=== PATIENT | male | born 1940 | race Caucasian/White ===

== ENCOUNTER → 2018-01-17 14:45 | Outpatient (CLI) | payer OTHER, SELFPAY ==
--- NOTE | 2018-01-17 | DI.MRI.S_ITS ---
PROCEDURE: MR LUMBAR SPINE WO CON INDICATIONS: Low back and right hip pain. Bilateral hip pain while lifting TECHNIQUE: Noncontrast sagittal T1 spin echo and T2 fast echo, sagittal STIR, axial T1 and T2 fast spin echo through the lumbar spine. In cases with scoliosis, additional coronal T2 fast spin echo may be performed. COMPARISON: [facility], CR, XR LUMBAR SPINE WITH OBLIQUES, 05/14/2014, 12:15. [facility], CR, XR LUMBAR SPINE 2 OR 3 VIEWS, 01/06/2018, 15:02. FINDINGS: Image quality: Excellent. Alignment and Curvature: There is normal bony alignment. Bone Marrow: Marrow is of normal overall signal. No acute vertebral body compression fractures. Spinal Cord: Conus medullaris terminates at the L1-L2 level. Visualized cord demonstrates normal signal and size. Paraspinous Soft Tissues: No paravertebral masses. L1-L2: Minimal loss of disc height. Moderate disc desiccation. There is diffuse posterior disc bulge. Moderate bilateral facet arthropathy. The central canal is mildly narrowed. Mild bilateral foraminal stenosis. L2-L3: Preserved disc height and mild disc desiccation. Moderate to severe bilateral facet arthropathy. The central canal is mildly narrowed. Mild bilateral foraminal stenosis. L3-L4: Mild loss of disc height. Moderate disc desiccation. There is diffuse posterior disc bulge. Moderate bilateral facet arthropathy and hypertrophy of ligamentum flavum. The central canal is moderately narrowed. Mild left foraminal stenosis. Patent right neuroforamen. L4-L5: Mild loss of disc height. Moderate disc desiccation. There is diffuse posterior disc bulge. Severe bilateral facet arthropathy and hypertrophy of ligamentum flavum. The central canal is severely narrowed. Mild bilateral foraminal stenosis. L5-S1: Preserved disc height. Mild disc desiccation. There is mild posterior disc bulge. Severe right and mild left facet arthropathy. The central canal is mildly narrowed. Mild bilateral foraminal stenosis. IMPRESSION: 1. Multilevel degenerative disc disease and facet arthropathy as described. 2. Multilevel central canal stenoses, severe at L4-L5, and moderate L3-L4. 3. Mild multilevel foraminal stenoses as described. Dictated by: Felisha Burgos M.D. on 01/17/2018 at 16:27 Approved by: Felisha Burgos M.D. on 01/17/2018 at 16:37
== END ==
PROVIDERS: Family Provider Family Medicine; PCP Family Medicine; Visit Provider Orthopaedic Surgery
DX: M54.41 Lumbago with sciatica, right side (principal); M25.552 Pain in left hip; M25.551 Pain in right hip; M47.896 Other spondylosis, lumbar region; M48.061 Spinal stenosis, lumbar region without neurogenic claudication
CPT/HCPCS: 72148

== ENCOUNTER 2018-11-23 08:38 | Inpatient (IN) | payer OTHER, SELFPAY ==
[2018-11-15 09:55] VITALS: BMI 38.7
[2018-11-23] VITALS (23 sets, daily range): BP systolic 89–131; BP diastolic 46–66; PULSE 73–113; RESP 6–20; TEMP 36.1–37.1; O2SAT 88–98; BMI 37.9
--- NOTE | 2018-11-23 | DI.RAD.S_ITS ---
PROCEDURE: XR LUMBAR SPINE 2-3V INDICATIONS: L4-5 TLIF TECHNIQUE: 2 views of the lumbar spine were acquired. COMPARISON: [facility]NIE Hooper, XR LUMBAR SPINE 2 OR 3 VIEWS, 01/06/2018, 15:02. FINDINGS: Bones: Postsurgical changes compatible L4-L5 fusion noted. Orthopedic hardware is intact. No lucencies at the bone hardware interface. There is normal bony alignment. No vertebral body compression fractures. No suspicious bony lesions. Soft tissues: Overlying bowel gas pattern is normal. No suspicious soft tissue calcifications. IMPRESSION: Expected postsurgical change for L4-L5 TLIF Dictated by: Brandy Calzada MD, PhD on 11/23/2018 at 15:01 Approved by: Brandy Calzada MD, PhD on 11/23/2018 at 15:02
[2018-11-23] MEDS: LACTATED RINGERS 1,000 ML 42 ML IV ×3 (09:40→14:28)
--- NOTE | 2018-11-23 10:38 | PM.PREOP ---
Pre-operative Note Interval Note History & Physical reviewed/Exam performed by Physician: Yes Changes to H&P: No
[2018-11-23] MEDS: CEFAZOLIN 2 GM/100 ML FROZ.PIGGY IV ×2 (11:03→19:01)
[2018-11-23] MEDS: BUPIVACAINE LIPOSOME 266 MG/20 ML VIAL INJ (11:49)
[2018-11-23] MEDS: BUPIVACAINE 0.25% W/ EPI 30 ML VIAL INJ (11:49)
--- NOTE | 2018-11-23 12:08 | SUR.OPER ---
Prone on spine table, head in foam head support, padded chest and pelvic supports, gel pad at knees, lower legs supported by pillows; nipples, genitalia and toes free of pressure, arms secured on foam padded arm boards at <90 degrees abduction. Tape over blanket at thigh secured to table.
--- NOTE | 2018-11-23 15:00 | PM.OP.1 ---
Operative Date/Time/Diagnoses Date of procedure: 11/23/18 Time of procedure: 13:00 Pre-op diagnosis: 1. L4-5 spinal stenosis with neurogenic claudication 2. L5-S1 spinal stenosis 3. Epidural lipomatosis Post-op diagnosis: same Procedure & Clinicians Procedure: 1. L4-5 Postero-lateral and posterior interbody fusion 2. L4-5 interbody cage placement. 3. L4-5 decompressive laminectomy with bilateral facetecomies 4. L4-5 Posterior non-segmental instrumentation 5. L5-S1 hemilaminectomy 6. [place] of bone marrow from iliac crest 7. Utilization of microsurgical technique and operating microscope Same procedure as scheduled: Yes Indications: Patient has been having chronic back pain and worsening lumbar radiculopathy. Patient failed multiple conservative management with worsening pain weakness and numbness in her lower extremity. Patient has been having difficulty performing activity of daily living. After discussing risks benefits of treatment options, patient elected proceed with surgery. Surgeon: Linda Padilla Instantizer Operator: Blank Alvarenga'Brien Click Yes if Unassisted: No Anesthesia Type: General Operative Notes Closure Type: primary Specimen(s): none sent Prosthetic devices, grafts, tissues, transplants, or devices: Globus revolve screws, Rise cages Estimated Blood Loss (mL): 100 Blood products transfused: none Procedure in detail: Patient was seen in the preoperative area. Risks and benefits of the surgery was discussed with the patient. Informed consent was obtained from the patient and placed in the chart. Surgical site was marked. Patient was taken to the operative room. General anesthesia was administered. Prophylactic antibiotic was given to the patient less than 30 min before the incision was made. Patient was placed into a prone position on the Maxx table. Patient's back was then prepped and draped in the sterile fashion. Time-out was performed at this time. Using AP and lateral C-arm imaging the interval between L4-5 L5-S1 was identified and marked on patient's back. A 2 inch incision 2 in from midline was made on the right side first. The fascia was incised in line with skin incision. Globus MARS retractors was placed inside the incision and docked onto the L4 lamina. Using microsurgical technique and operating microscope, a L4 laminectomy and L4-5 facetectomy was performed using a Kerrison rongeur. The disc space at L4-5 was identified. And a total diskectomy was performed at L4-5 level. The endplates were decorticated using a rasp and shaver. The total diskectomy and decortication was performed at L4-5 level in order to to accomplish a L4-5 fusion. The local bone from the laminectomy and facetectomy was saved for local bone grafting. After the total diskectomy and decortication was completed, Bio4 bone graft material was combined with local bone that was harvested earlier. At this time, a separate skin is incision was made over the iliac crest. A Jamshidi needle was inserted into the iliac crest through a separate skin incision. 5 cc of bone marrow aspiration was obtained through the separate skin incision using a Jamshidi needle from the iliac crest. The bone marrow aspiration was combined with local bone and the via cell bone grafting material. The bone grafting material was placed into the L4-5 interbody space along with a expandable cage. The cage was expanded to its maximum height using the torque limiting screwdriver. At this time the MARS retractor was redirected over the L5 lamina. Using microsurgical technique and operating microscope, a L5-S1 heminectomy was performed using the Kerrison rongeur. The ligamentum flavum was also resected at the side of the hemilaminectomy for further decompression of the epidural space. Patient was found have significant amount of epidural lipomatosis, was carefully removed from the epidural space to further decompress the spinal canal. At this time a mirror image incision was made on the left side. The fascia was incised in line with the skin incision. Globus MARS retractor was inserted and docked onto the L4-5 posterolateral gutter. Using the power drill, posterior-lateral decortication was performed at L4-5 level until bleeding cortical bone was identified. The remaining bone grafting material was placed into the L4-5 posterior lateral gutter he order to accomplish posterolateral fusion at the L4-5 level. Using the double C-arm technique, pedicle screws were placed into the L4 and L5 pedicles bilaterally. This was done by placing the Jamshidi needle into the pedicles, then placing the guidewires over the Jamshidi needle, and finally placing the cannulated screws over the guidewires bilaterally. After the pedicle screws were placed, 2 titanium rods was locked into the heads of the pedicle screws using locking caps and torque limiting screwdriver. After all the hardware was placed, and confirmed with AP and lateral C-arm imaging, the wound was then irrigated with sterile normal saline and packed with Ray-Kee gauze for 3 min to accomplish hemostasis. After the gauze was removed the deep fascia was closed with #1 Vicryl suture. The subcutaneous layer was closed with 2-0 Vicryl. The skin was closed with skin rosy. Patient tolerated the procedure well. There were no complications. Complications: none Condition: stable Disposition: PACU Plan for aftercare: Admit to inpatient hospital
--- NOTE | 2018-11-23 15:06 | P.OP_ITS ---
Operative Date/Time/Diagnoses Date of procedure: 11/23/18 Time of procedure: 13:00 Pre-op diagnosis: 1. L4-5 spinal stenosis with neurogenic claudication 2. L5-S1 spinal stenosis 3. Epidural lipomatosis Post-op diagnosis: same Procedure & Clinicians Procedure: 1. L4-5 Postero-lateral and posterior interbody fusion 2. L4-5 interbody cage placement. 3. L4-5 decompressive laminectomy with bilateral facetecomies 4. L4-5 Posterior non-segmental instrumentation 5. L5-S1 hemilaminectomy 6. [place] of bone marrow from iliac crest 7. Utilization of microsurgical technique and operating microscope Same procedure as scheduled: Yes Indications: Patient has been having chronic back pain and worsening lumbar radiculopathy. Patient failed multiple conservative management with worsening pain weakness and numbness in her lower extremity. Patient has been having difficulty performing activity of daily living. After discussing risks benefits of treatment options, patient elected proceed with surgery. Surgeon: Linda Padilla Material Damage Appraiser: Blank Alvarenga'Brien Click Yes if Unassisted: No Anesthesia Type: General Operative Notes Closure Type: primary Specimen(s): none sent Prosthetic devices, grafts, tissues, transplants, or devices: Globus revolve screws, Rise cages Estimated Blood Loss (mL): 100 Blood products transfused: none Procedure in detail: Patient was seen in the preoperative area. Risks and benefits of the surgery was discussed with the patient. Informed consent was obtained from the patient and placed in the chart. Surgical site was marked. Patient was taken to the operative room. General anesthesia was administered. Pr ophylactic antibiotic was given to the patient less than 30 min before the incision was made. Patient was placed into a prone position on the Maxx table. Patient's back was then prepped and draped in the sterile fashion. Time- out was performed at this time. Using AP and lateral C-arm imaging the interval between L4-5 L5-S1 was identified and marked on patient's back. A 2 inch incision 2 in from midline was made on the right side first. The fascia was incised in line with skin incision. Globus MARS retractors was placed inside the incision and docked onto the L4 lamina. Using microsurgical technique and operating microscope, a L4 laminectomy and L4-5 facetectomy was performed using a Kerrison rongeur. The disc space at L4-5 was identified. And a total diskectomy was performed at L4-5 level. The endplates were decorticated using a rasp and shaver. The total diskectomy and decortication was performed at L4-5 level in order to to accomplish a L4-5 fusion. The local bone from the laminectomy and facetectomy was saved for local bone grafting. After the total diskectomy and decortication was completed, Bio4 bone graft material was combined with local bone that was harvested earlier. At this time, a separate skin is incision was made over the iliac crest. A Jamshidi needle was inserted into the iliac crest through a separate skin incision. 5 cc of bone marrow aspiration was obtained through the separate skin incision using a Jamshidi needle from the iliac crest. The bone marrow aspiration was combined with local bone and the via cell bone grafting material. The bone grafting material was placed into the L4-5 interbody space along with a expandable cage. The cage was expanded to its maximum height using the torque limiting screwdriver. At this time the MARS retractor was redirected over the L5 lamina. Using microsurgical technique and operating microscope, a L5-S1 heminectomy was performed using the Kerrison rongeur. The ligamentum flavum was also resected at the side of the hemilaminectomy for further decompression of the epidural space. Patient was found have significant amount of epidural lipomatosis, was carefully removed from the epidural space to further decompress the spinal canal. At this time a mirror image incision was made on the left side. The fascia was incised in line with the skin incision. Globus MARS retractor was inserted and docked onto the L4-5 posterolateral gutter. Using the power drill, posterior- lateral decortication was performed at L4-5 level until bleeding cortical bone was identified. The remaining bone grafting material was placed into the L4-5 posterior lateral gutter he order to accomplish posterolateral fusion at the L4- 5 level. Using the double C-arm technique, pedicle screws were placed into the L4 and L5 pedicles bilaterally. This was done by placing the Jamshidi needle into the pedicles, then placing the guidewires over the Jamshidi needle, and finally placing the cannulated screws over the guidewires bilaterally. After the pedicle screws were placed, 2 titanium rods was locked into the heads of the pedicle screws using locking caps and torque limiting screwdriver. After all the hardware was placed, and confirmed with AP and lateral C-arm imaging, the wound was then irrigated with sterile normal saline and packed with Ray-Kee gauze for 3 min to accomplish hemostasis. After the gauze was removed the deep fascia was closed with #1 Vicryl suture. The subcutaneous layer was closed with 2-0 Vicryl. The skin was closed with skin rosy. Patient tolerated the procedure well. There were no complications. Complications: none Condition: stable Disposition: PACU Plan for aftercare: Admit to inpatient hospital
[2018-11-23] MEDS: HYDROMORPHONE 2 MG INJ 0.5 MG IV ×4 (15:45→16:14)
--- NOTE | 2018-11-23 15:53 | SUR.PHASEI ---
Report called to Sharifa
[2018-11-23] MEDS: hydrOXYzine 50 MG/ML INJ 25 MG IM (16:07)
--- NOTE | 2018-11-23 16:22 | SUR.PHASEI ---
Pt status called to Sharifa.
--- NOTE | 2018-11-23 16:53 | SUR.PHASEI ---
Pt. transferred to the floor. Report to Sharifa. VS stable. IV saline locked. Marjg checked with RN. Belongings bag and CPAP in room.
[2018-11-23] MEDS: SODIUM CHLORIDE 0.9% 1,000 ML 100 ML IV (18:00)
[2018-11-23] MEDS: OXYCODONE IR 5 MG TABLET 10 MG PO ×2 (18:12→21:08)
[2018-11-23] MEDS: SIMVASTATIN 40 MG TABLET PO (18:13)
[2018-11-23] MEDS: METFORMIN HCL 500 MG TABLET 1000 MG PO (18:13)
[2018-11-23] MEDS: SENNOSIDES 8.6 MG TABLET 17.2 MG PO (21:06)
[2018-11-23] MEDS: DOCUSATE 100 MG CAPSULE PO (21:06)
[2018-11-23] MEDS: ACETAMINOPHEN 325 MG TABLET 650 MG PO (21:07)
[2018-11-23] MEDS: hydrOXYzine pamoate 25 MG CAPSULE PO (21:07)
--- NOTE | 2018-11-23 22:15 | PC.NURSE ---
Addendum entered by Sharifa Boone R.N. 11/23/18 22:31: 1325 Urine output w/initial phan catherer placement. Original Note: 2200-patient unable to void despite attempts to use urinal, Dr. Gonzalez notified via answering system informed informed him that patient bladder scan shows>999cc of urine; phone order for phan placement.
[2018-11-24] MEDS: CEFAZOLIN 2 GM/100 ML FROZ.PIGGY IV (02:06)
[2018-11-24 03:15] VITALS: BP 99/55; PULSE 104; RESP 18; TEMP 36.6; O2SAT 94
--- NOTE | 2018-11-24 04:00 | PC.NURSE ---
Pt is A and O x 4, VSS, needing 3L O2 bled into CPAP to stay >92%. Incision site dressing C/D/I. Pt tolerating IV ABOs well. Pain is okay.
[2018-11-24] MEDS: SODIUM CHLORIDE 0.9% 1,000 ML 100 ML IV (05:12)
[2018-11-24 05:30] LABS: Hematocrit 39.8 % (41-53); Hemoglobin 13.4 g/dL (13.5-17.5)
--- NOTE | 2018-11-24 06:11 | PC.NURSE ---
Pt pulls of CPAP and becomes confused. He pulled out his IV and carefully taped it to his bed. He pulls on his Scott as well. RT readjusted CPAP settings and pt is doing much better: 95% 3L CPAP.
[2018-11-24] MEDS: DOCUSATE 100 MG CAPSULE PO ×2 (08:13→20:13)
[2018-11-24] MEDS: ESCITALOPRAM 10 MG TABLET PO (08:13)
[2018-11-24] MEDS: METFORMIN HCL 500 MG TABLET 1500 MG PO (08:13)
[2018-11-24] MEDS: CHOLECALCIFEROL (VITAMIN D3) 1,000 UNIT TABLET 4000 UNIT PO (08:15)
[2018-11-24] MEDS: ACETAMINOPHEN 325 MG TABLET 650 MG PO (08:15)
[2018-11-24] MEDS: INSULIN NPH 100 UNIT/ML VIAL 60 UNIT SUBCUT ×2 (08:16→20:14)
[2018-11-24 09:00] VITALS: BP 119/68; PULSE 113; RESP 18; TEMP 36.9; O2SAT 93
--- NOTE | 2018-11-24 10:04 | P.PN_ITS ---
Subjective Date Patient Seen: 11/24/18 Time Patient Seen: 10:00 Interval history: POD #1 s/p L4-5 TLIF and L5-S1 hemilaminectomy with Dr. Padilla. Patient's pain has been well controlled. BS of 157. Patient had to be catheterized last night. He reports no previous prostate history or issues. He has been two assist out of bed and slow to mobilize. Most of pain is in low back. Exam Vital Signs (past 8 hours): - 11/24/18 03:15 11/24/18 09:00 Temperature 97.8 F 98.5 F Pulse Rate 104 H 113 H Respiratory Rate 18 18 Blood Pressure 99/55 L 119/68 Pulse Oximetry 94 93 Fraction of Inspired Oxygen 28 Oxygen Delivery Method CPAP Oxygen Flow Rate 0 Narrative Exam Narrative: Patient sitting in bedside chair in NAD. He is alert and orient ed X3. Scott in place. Calves are soft, compressible, and nontender bilaterally. He is able to actively dorsiflex and plantarflex. Objective Labs Result Diagrams: 11/24/18 05:01 Labs: Laboratory Results - last 24 hr 11/24/18 05:01 Hgb 13.4 L Hct 39.8 L Assessment & Plan Post-op (1) Obstructive sleep apnea of adult: (2) Obesity (BMI 30-39.9): (3) S/P lumbar fusion: (4) Diabetes: Postoperative Procedures Operation Date: 11/23/18 10:45 Actual Procedures Side Surgeon p L5-S1 Right Hemilaminectomy,L4-5 TLIF w/Posterior Instru. Linda Padilla MD Patient will continue to mobilize with PT. No excessive bending, lifting, or twisting. We will plan to DC Scott tomorrow morning. Add [place] 1-2 tabs po for pain management if Tylenol does not work for pain control. Patient has been slow to mobilize and requiring a lot of reminders during ambulation. Will likely need home health services verses SNF for continued rehab after surgery. Quality VTE Deep Vein Thrombosis/Pulmonary Embolism Present on Admission: No
[2018-11-24 11:47] VITALS: BP 100/55; PULSE 93; RESP 18; TEMP 36.6; O2SAT 90
[2018-11-24] MEDS: HYDROCODONE/ACET 5/325 TABLET 2 TAB PO ×3 (12:10→20:13)
--- NOTE | 2018-11-24 12:10 | PT.IIE ---
Current Diagnoses Type 2 diabetes mellitus without complications (11/23/18) Obesity, unspecified (11/23/18) Obstructive sleep apnea (adult) (pediatric) (11/23/18) Other spondylosis with radiculopathy, lumbar region (11/23/18) Spinal stenosis, lumbar region with neurogenic claudication (11/23/18) Arthrodesis status (11/23/18) Surgery Performed Operation Date: 11/23/18 10:45 Actual Procedures p L5-S1 Right Hemilaminectomy,L4-5 TLIF w/Posterior Instru. - Linda Padilla MD Surgical History (Last Updated 11/15/18 @ 10:20 by Maryana Medrano RN) History of colonoscopy (Acute) History of vasectomy (Acute) Medical History (Last Updated 11/23/18 @ 11:08 by Krystian Jasmine) Cataracts, bilateral (Acute) Memory changes (Acute) Tooth infection (Acute ~09/2017) A-fib (Chronic) Aortic stenosis (Chronic) Arthritis (Chronic) Depression (Chronic) Diabetes (Chronic) HLD (hyperlipidemia) (Chronic) Hearing impaired (Chronic) Numbness and tingling of both feet (Chronic) Right hip pain (Chronic) Sleep apnea with use of continuous positive airway pressure (CPAP) (Chronic) Intermittent claudication (Acute) Physical Therapy Inpatient Evaluation/Re-Eval M1 PT/OT-IP Prior Functional Status Start: 11/24/18 11:37 Freq: NEEDED Status: Active Protocol: Document 11/24/18 09:20 HH (Rec: 11/24/18 11:43 [email or web address]) Medical Review Prior Functional Status Medical History Reviewed Yes Communication No communication deficits noted. Able to make needs known Mobility and Gait Pt states he is mostly homebound and does not use any AD. He is able to amb couple hundred feet before rest. Pt also states he has difficulty getting up from chair at baseline. Activities of Daily Living and IADL's Pt states he has difficulty putting socks on due to poor flexibility. Pt's assists pt for cooking, grocery shopping, house cleaning and putting socks on. Social History Household Members spouse children Living Arrangements House Number of Floors (Floors) One Floor Number of Stairs To Enter/Railing? 3STE w/o railings Home Environment High Toilet Tub/Shower Home Equipment Front Wheel Walker Crutches Employment Status Retired Additional Social History Comment Pt lives in [facility] with his spouse. Pt states he is pretty much homebound and does not move much. Pt was able to amb without AD but does not go far. Pt's spouse is very independent and active who is able to assist pt with cooking , grocery shopping, house cleaning as needed. M2 PT-IP Current Condition Start: 11/24/18 11:37 Freq: NEEDED Status: Active Protocol: Document 11/24/18 09:20 (Rec: 11/24/18 12:09 [email or web address]) Physical Therapy Current Condition Current Condition Evaluation Date 11/24/18 Treatment Diagnosis L4-L5 TLIF, impaired gait and activity tolerance Onset Date 11/23/18 Precautions Lumbar Precautions Log Roll No Twisting Limit Bending Lifting Restriction of 10 lbs Gait Belt above Incisional Area Weight Bearing Status Weight Bearing Status Weight Bear as Tolerated M3 PT-IP Subjective Start: 11/24/18 11:37 Freq: NEEDED Status: Active Protocol: Document 11/24/18 09:20 HH (Rec: 11/24/18 12:09 [email or web address]) Subjective Physical Therapy Visit Type Type Initial Evaluation Visit Start Time 09:20 Visit Stop Time 09:50 Total Visit Minutes 30 Notes Per RN Janelle, pt got OOB with 2PA but he seems to have poor short term memory but able to follow simple command and instructions. Pt did log roll for bed mobility this am. Number of HOUSE RN Visits 0 Physical Therapy Visit Comments Patient Comments To go home with his Therapy Pain Assessment Pain When Pain Assessed During Mobility Pain Present Pain Present Pain Reported Location Low back Intensity 5 Scale Used Johnson-Alicia (Faces) Description Acute Pain Behaviors Facial Grimacing Pain Management Techniques Apply Cold Modification of Treatment Re-positioning Timing of Activity with Medications M4 PT-IP Mobility and Gait Start: 11/24/18 11:37 Freq: NEEDED Status: Active Protocol: Document 11/24/18 09:20 HH (Rec: 11/24/18 12:09 [email or web address]) PT-Transfer Assessment Sit to and From Stand Sit to and from Stand Moderate Assistance Use of Upper Extremities Equipment Transfer Assistive Device Gait Belt Front Wheeled Walker Orthotic/Prosthetic Devices or Brace: No Transfers Transfer Destination Chair Transfer Technique Stand Step Pivot Transfer Ability Level of Assist Moderate Assistance 2 Person Assistance Comments Mobility Comments Pt was up in chair upon assessment. He required mod A x1 for scooting in chair and sit to stand, especially from low bedside chair. Pt needed cues to keep his FWW close during transfer and he presents poor eccentric control during stand to sit. Gait Assessment Gait Gait Assistance Required: Contact Guard Assist Distance (Feet) 100 Able to Maintain Weight Bearing Status Yes During Gait Assistive Devices Assistive Device Gait Belt Front Wheeled Walker Orthotic/Prosthetic Devices or Brace: No Gait Deviations General Gait Pattern Decreased Stride Length Decreased Feet Clearance Step-to Gait Factors Limiting Gait Function Factors Limiting Gait Function Decreased Activity Tolerance Decreased Strength Limited Range of Motion Pain Poor Balance Poor Safety Awareness Respiratory Distress Comments Gait Comments Pt amb from chair to hallway and returned to chair with FWW CGA. Pt used step to gait and amb very slowly due to c/o pain. Pt had to stop in order to answer questions/ process information during gait training. Pt was fatigue afterwards and requested to rest in chair. Call light within reach and chair alarm attached. Stair Climbing Assessment Comments Stair Climbing Comments did not attempt due to fatigue PT-Balance Assessment Sitting Balance and Reactions Static Sitting Balance Ability Normal Dynamic Sitting Balance Ability Normal Standing Balance and Reactions Static Standing Balance Ability Good Dynamic Standing Balance Ability Fair Device Used FWW M5 PT-IP Objective Assessments Start: 11/24/18 11:37 Freq: NEEDED Status: Active Protocol: Document 11/24/18 09:20 (Rec: 11/24/18 12:09 [email or web address]) Orientation Orientation/Cognition Level of Alertness Alert Orientation Name Age Birthday Month Date Year Day of Week Place Situation Language Function Ability No Deficits Noted Safety Awareness Decreased Safety Awareness Memory Description Short Term Impaired Comments Pt was unable to recall any spinal precautions after educated pt multiple times. Gross Range of Motion Upper Extremity ROM Assessment Within Functional Limits Lower Extremity ROM Assessment Within Functional Limits Strength Upper Extremity Strength Assessment Within Functional Limits Lower Extremity Strength Assessment Bilaterally Impaired Comments Strength Comments 3+/5 gross LE strength Coordination Assessment Gross Coordination Gross Coordination WNL Assessment Finger to Nose Test Normal Performance Pronation/Supination Test Normal Performance Sensation Assessment Sensation Gross Sensation WNL Light Touch Intact Proprioception (Position) Intact Muscle Tone Muscle Tone WNL Yes M6 PT-IP Treatment Start: 11/24/18 11:37 Freq: NEEDED Status: Active Protocol: Document 11/24/18 09:20 (Rec: 11/24/18 12:09 [email or web address]) Physical Therapy Treatment Education Education Provided Precautions Weight Bearing Status Post-Op Packet Safety M7 PT-IP Assessment and Plan Start: 11/24/18 11:37 Freq: NEEDED Status: Active Protocol: Document 11/24/18 09:20 (Rec: 11/24/18 12:09 [email or web address]) PT Summary Assessment and Plan Potential Rehabilitation Potential Good Status of Condition at Evaluation Evolving Summary Impairments Pain ROM Strength Balance Cognition Bed Mobility Transfers Gait Activity Tolerance Assessment Summary Pt is mod complexity with decreased overall mobility with min to mod A, especially transfers and sit to stand activities. Pt also demonstrates poor short term memory who was unable to recall any spinal precautions after educated pt multiple times. At this point , pt is far from baseline and pt requires 2PA for mobility from nursing staff and cont to need skilled therapy to improve his mobility. Pt will benefit from d/c to SNF for short term rehab prior to d/c home due to his aforementioned decreased mobility which will be a burden for his spouse at this point. Goals Bed Mobility Goal Contact Guard Assistance Transfer Goal Contact Guard Assistance Gait Goal Contact Guard Assistance Gait Distance 200 Other Goals negotiate 3 steps without railing Days to Meet Goals 5 Frequency of Treatment Frequency Of Treatment Twice a Day Treatment Plan Physical Therapy Treatment Plan Bed Mobility Training Transfer Training Gait Training Therapeutic Exercise Balance Retraining Post Op Education Discharge Planning Hot or Cold Pack Other Recommendations and Next Treatment review precautions Focus LOG ROLL, transfer and gait training as lius m Recommendations To Nursing Amount of Assist Needed 2 Person Assist Discharge Recommendations PT Discharge Recommendations SNF Rehab Equipment Needed for Home Before raised toilet seat with Discharge armrest, shower bench
--- NOTE | 2018-11-24 12:34 | PC.NURSE ---
pt noted to be impulsive/forgetful this am upon initial assessment- reoriented eventually and after speaking with - she reports this has been happening more frequently in home as well- he is not very keen on maintaining spinal precautions and doesn't like reminders- phan was placed last pm for urinary retention and orders to maintain until tomorrows date early am- medicated for c/o pain with hydrocodone x2 - will monitor closely- chair alarm in place due to impulsivity
--- NOTE | 2018-11-24 14:00 | PT.IPTN ---
Current Diagnoses Type 2 diabetes mellitus without complications (11/23/18) Obesity, unspecified (11/23/18) Obstructive sleep apnea (adult) (pediatric) (11/23/18) Other spondylosis with radiculopathy, lumbar region (11/23/18) Spinal stenosis, lumbar region with neurogenic claudication (11/23/18) Arthrodesis status (11/23/18) Surgery Performed Operation Date: 11/23/18 10:45 Actual Procedures p L5-S1 Right Hemilaminectomy,L4-5 TLIF w/Posterior Instru. - Linda Padilla MD Physical Therapy Treatment Note M2 PT-IP Current Condition Start: 11/24/18 11:37 Freq: NEEDED Status: Active Protocol: Document 11/24/18 09:20 HH (Rec: 11/24/18 12:09 [email or web address]) Physical Therapy Current Condition Current Condition Evaluation Date 11/24/18 Treatment Diagnosis L4-L5 TLIF, impaired gait and activity tolerance Onset Date 11/23/18 Precautions Lumbar Precautions Log Roll No Twisting Limit Bending Lifting Restriction of 10 lbs Gait Belt above Incisional Area Weight Bearing Status Weight Bearing Status Weight Bear as Tolerated M3 PT-IP Subjective Start: 11/24/18 11:37 Freq: NEEDED Status: Active Protocol: Document 11/24/18 14:00 GGD (Rec: 11/24/18 15:21 GGD [id number]) Subjective Physical Therapy Visit Type Type Treatment Note Visit Start Time 13:30 Visit Stop Time 14:00 Total Visit Minutes 30 Number of CLERK GUIDE Visits 1 Physical Therapy Visit Comments Patient Comments Pt states he is willing to work with therapy. Therapy Pain Assessment Pain When Pain Assessed At Rest Pain Present Pain Present Pain Reported Location Low back Intensity 6 Scale Used Numeric (1 - 10) Pain Management Techniques Re-positioning Timing of Activity with Medications M4 PT-IP Mobility and Gait Start: 11/24/18 11:37 Freq: NEEDED Status: Active Protocol: Document 11/24/18 14:00 GGD (Rec: 11/24/18 15:21 GGD [id number]) PT-Transfer Assessment Sit to and From Stand Sit to and from Stand Moderate Assistance Use of Upper Extremities Equipment Transfer Assistive Device Gait Belt Front Wheeled Walker Orthotic/Prosthetic Devices or Brace: No Transfers Transfer Destination Chair Transfer Ability Level of Assist Minimal Assistance 1 Person Assistance Use of Upper Extremities Comments Mobility Comments Pt needed mod A and cues for sit to stand from chair. He need mod cues for controlled sit. Sit to stand x 3 with mod cue for techinque. Gait Assessment Gait Gait Assistance Required: Contact Guard Assist Distance (Feet) 45 Able to Maintain Weight Bearing Status Yes During Gait Assistive Devices Assistive Device Gait Belt Front Wheeled Walker Orthotic/Prosthetic Devices or Brace: No Gait Deviations General Gait Pattern Decreased Stride Length Decreased Feet Clearance Step-to Gait Factors Limiting Gait Function Factors Limiting Gait Function Decreased Activity Tolerance Decreased Strength Limited Range of Motion Pain Poor Balance Poor Safety Awareness Respiratory Distress M5 PT-IP Objective Assessments Start: 11/24/18 11:37 Freq: NEEDED Status: Active Protocol: Document 11/24/18 09:20 (Rec: 11/24/18 12:09 [email or web address]) Orientation Orientation/Cognition Level of Alertness Alert Orientation Name Age Birthday Month Date Year Day of Week Place Situation Language Function Ability No Deficits Noted Safety Awareness Decreased Safety Awareness Memory Description Short Term Impaired Comments Pt was unable to recall any spinal precautions after educated pt multiple times. Gross Range of Motion Upper Extremity ROM Assessment Within Functional Limits Lower Extremity ROM Assessment Within Functional Limits Strength Upper Extremity Strength Assessment Within Functional Limits Lower Extremity Strength Assessment Bilaterally Impaired Comments Strength Comments 3+/5 gross LE strength Coordination Assessment Gross Coordination Gross Coordination WNL Assessment Finger to Nose Test Normal Performance Pronation/Supination Test Normal Performance Sensation Assessment Sensation Gross Sensation WNL Light Touch Intact Proprioception (Position) Intact Muscle Tone Muscle Tone WNL Yes M6 PT-IP Treatment Start: 11/24/18 11:37 Freq: NEEDED Status: Active Protocol: Document 11/24/18 14:00 GGD (Rec: 11/24/18 15:21 GGD [id number]) Physical Therapy Treatment Education Education Provided Precautions Safety M7 PT-IP Assessment and Plan Start: 11/24/18 11:37 Freq: NEEDED Status: Active Protocol: Document 11/24/18 14:00 GGD (Rec: 11/24/18 15:21 GGD [id number]) PT Summary Assessment and Plan Summary Assessment Summary Pt need mod A for sit to stand . He improved with controlled sit. He had mild unsteadiness with gait and decrease step length. Frequency of Treatment Frequency Of Treatment Twice a Day Treatment Plan Physical Therapy Treatment Plan Bed Mobility Training Transfer Training Gait Training Therapeutic Exercise Balance Retraining Post Op Education Discharge Planning Hot or Cold Pack Other Recommendations and Next Treatment review precautions Focus LOG ROLL, transfer and gait training as luis m Recommendations To Nursing Amount of Assist Needed 2 Person Assist Discharge Recommendations PT Discharge Recommendations SNF Rehab
[2018-11-24 15:10] VITALS: BP 119/57; PULSE 103; RESP 18; TEMP 37.2; O2SAT 95
[2018-11-24] MEDS: METFORMIN HCL 500 MG TABLET 1000 MG PO (16:11)
[2018-11-24] MEDS: LISINOPRIL 10 MG TABLET PO (16:11)
[2018-11-24] MEDS: SIMVASTATIN 40 MG TABLET PO (16:12)
--- NOTE | 2018-11-24 16:21 | CM.IDA ---
Initial DCP assessment Note: Pt POD#1 from spinal surgery w/ Dr Padilla. Payer: [facility]. Therapy team recommending SNF upon DC. Met w/pt and spouse this afternoon and explained role. Reviewed DC recommendations from therapy team and PA for SNF and spouse agrees that at this time, pt may need SNF. Reviewed SNF options w/[facility] payer; [facility] and [facility]. [facility] is full at this time, possibly until middle of next week. Spouse explains [facility] is the first choice but [facility] okay. Explained process through [facility] to request SNF auth, pt and spouse aware and agreeable to proceed w/planning towards SNF. Pt/spouse remain hopeful pt may be able to come home if he progresses greatly over the next 24 hrs. Faxed referral to [facility]. Need to initiate SNF auth request tomorrow through [facility]. Following closely. CANDIE Fontaine Discharge Planning/Care Management CM Discharge Assessment Start: 11/24/18 16:07 Freq: Status: Active Protocol: Document 11/24/18 16:07 [email or web address] (Rec: 11/24/18 16:21 [email or web address] [id number]) Discharge Planning Assessment Assigned Refinish Technician CANDIE Ramesh DPOA/Assigned Designee Name Rosa Hernandez, spouse Contact Information [phone] Advance Directives? Yes Advance Directives on File No History Provided By Patient Family Member Significant Other Prior Living Arrangements House Household Members spouse children Type of transporation used prior to Relies on Others admit Independent with ADL's No Is patient alert and oriented? Yes Needs Assistance With Meal Prep Managing Medications Home Chores / Shopping Comment According to initial PT eval: Pt's assists pt for cooking, grocery shopping, house cleaning and putting socks on. No AD, homebound and not very active . Patient/Family Preference Custodial Facility Barriers to Discharge Yes Comment Pt POD#1 today from spinal surgery w/ Dr Padilla. Pt had a difficult night, very confused , pulled out IV. Therapy team and PA recommending SNF upon DC. Payer: [facility]. Discharge Plan Custodial Facility Referrals Initiated Custodial Whiteboard Updated in Patient Room with Yes name and ext. # of Refinish Technician Review Status In Process
--- NOTE | 2018-11-24 17:50 | OT.IP.EVAL ---
Current Diagnoses Type 2 diabetes mellitus without complications (11/23/18) Obesity, unspecified (11/23/18) Obstructive sleep apnea (adult) (pediatric) (11/23/18) Other spondylosis with radiculopathy, lumbar region (11/23/18) Spinal stenosis, lumbar region with neurogenic claudication (11/23/18) Arthrodesis status (11/23/18) Surgery Performed Operation Date: 11/23/18 10:45 Actual Procedures p L5-S1 Right Hemilaminectomy,L4-5 TLIF w/Posterior Instru. - Linda Padilla MD Past Medical History (Last Updated 11/23/18 @ 11:08 by Krystian Jasmine) Cataracts, bilateral (Acute) Memory changes (Acute) Tooth infection (Acute ~09/2017) A-fib (Chronic) Aortic stenosis (Chronic) Arthritis (Chronic) Depression (Chronic) Diabetes (Chronic) HLD (hyperlipidemia) (Chronic) Hearing impaired (Chronic) Numbness and tingling of both feet (Chronic) Right hip pain (Chronic) Sleep apnea with use of continuous positive airway pressure (CPAP) (Chronic) Intermittent claudication (Acute) Surgical History (Last Updated 11/15/18 @ 10:20 by Maryana Medrano RN) History of colonoscopy (Acute) History of vasectomy (Acute) Occupational Therapy Inpatient Evaluation/Re-Eval M1 PT/OT-IP Prior Functional Status Start: 11/24/18 17:37 Freq: NEEDED Status: Active Protocol: Document 11/24/18 17:37 [facility] (Rec: 11/24/18 17:50 [facility] [id number]) Medical Review Prior Functional Status Medical History Reviewed Yes Diet/Fluid Consistency Regular Thin Liquids Communication No communication deficits noted. Able to make needs known Mobility and Gait Pt states he is mostly homebound and does not use any AD. He is able to amb couple hundred feet before rest. Pt also states he has difficulty getting up from chair at baseline. Activities of Daily Living and IADL's Pt states he has difficulty putting socks on due to poor flexibility. Pt's assists pt for cooking, grocery shopping, house cleaning and putting socks on. Social History Household Members spouse children Living Arrangements House Number of Floors (Floors) One Floor Number of Stairs To Enter/Railing? 3STE w/o railings Home Environment High Toilet Walk in Shower Home Equipment Front Wheel Walker Crutches Employment Status Retired Additional Social History Comment Pt lives in [facility] with his spouse. Pt states he is pretty much homebound and does not move much. Pt was able to amb without AD but does not go far. Pt's spouse is very independent and active who is able to assist pt with cooking , grocery shopping, house cleaning as needed. Pt's states pt able to do all ADl's on his own but only need assist with socks. Pt states has trouble getting out of the bed but has not needed any physical assist. M2 OT-IP Current Condition Start: 11/24/18 17:37 Freq: Status: Active Protocol: Document 11/24/18 17:37 [facility] (Rec: 11/24/18 17:50 [facility] [email or web address]) Occupational Therapy Current Condition Current Condition Evaluation Date 11/24/18 Treatment Diagnosis Spinal stenosis Diagnosis Onset Date 11/23/18 Post Operative Precautions Lumbar Precautions Log Roll No Twisting Limit Bending Lifting Restriction of 10 lbs Gait Belt above Incisional Area Weight Bearing Status Weight Bearing Status Weight Bear as Tolerated M3 OT- IP Subjective and Pain Start: 11/24/18 17:37 Freq: Status: Active Protocol: Document 11/24/18 17:37 [facility] (Rec: 11/24/18 17:50 [facility] [id number]) OT- Subjective Occupational Therapy Visit Type Type Initial Evaluation Visit Start Time 17:00 Visit Stop Time 17:30 Total Visit Minutes 30 Occupational Therapy Visit Comments Patient Comments Pt agreeable to get up. OT Pain Assessment Pain When Pain Assessed During Mobility Pain Present Pain Present Pain Reported Location Low back Intensity 6 M4 OT- IP ADL's Start: 11/24/18 17:37 Freq: Status: Active Protocol: Document 11/24/18 17:37 [facility] (Rec: 11/24/18 17:50 [facility] [id number]) OT ADL-Dressing General Eval Lower Body Dressing Ability Maximum Assistance Comments OT Dressing Comments MAXA for all LB dressing needs at this time due to back precautions. OT ADL-Toileting Comments OT Toileting Comments Pt has catheter in . OT ADL-Bathing Comments OT Bathing Comments NOt appropriate at this time. M5 OT- IP IADL's Start: 11/24/18 17:37 Freq: Status: Active Protocol: Document 11/24/18 17:37 [facility] (Rec: 11/24/18 17:50 [facility] [email or web address]) OT-Instrumental Activities of Daily Living Medication Management Medication Management Caregiver Administers Money Management Money Management Caregiver Provides Assistance Meal Preparation Meal Preparation Caregiver Provides Assist Belting Cutter Belting Cutter Caregiver Provides Assist M6 OT- IP Functional Cognition Start: 11/24/18 17:37 Freq: Status: Active Protocol: Document 11/24/18 17:37 [facility] (Rec: 11/24/18 17:50 [facility] [email or web address]) Cognitive Factors Limiting Selfcare Function Cognitive Ability Level of Alertness Alert Confusional State Patient Orientation Name Attention Span Ability Capable of Focused Attention Capable of Sustained Attention Ability to Follow Commands Able to Follow One Step Commands with Increased Time Able to Follow One Step Commands with Repetition Memory Description Short Term Impaired Safety Awareness Decreased Recall of Precautions Decreased Ability to Apply Precautions Underestimates Need for Assistance Problem Solving Ability Unable to Identify Errors Needs Assist to Identify Solutions Cognitive Comments Cognitive Assessment Comments Pt only able to recall one back precaution at this time. Pt needing concrete vc. Pt's states prior pt has difficulty with his memory but does not feel that is has gotten worse since surgery. OT- Vision and Hearing OT- Hearing Assessment OT- Hearing Assessment WFL OT- Vision Assessment Visual Acuity Glasses All The Time M7 OT- IP Mobility and Balance Start: 11/24/18 17:37 Freq: Status: Active Protocol: Document 11/24/18 17:37 [facility] (Rec: 11/24/18 17:50 [facility] [email or web address]) OT- Bed Mobility Assessment Rolling Type of Rolling Roll to Right Level of Assistance Moderate Assistance 1 Person Assistance Supine to Sit Supine to Sit Assist Maximum Assistance 1 Person Assistance Scooting Scooting to Edge of Bed Maximum Assistance 1 Person Assistance OT-Transfer Assessment Sit to and From Stand Sit to and from Stand Moderate Assistance Maximum Assistance 1 Person Assistance Transfers Transfer Ability Minimal Assistance Moderate Assistance 1 Person Assistance Technique Transfer Destination Chair Transfer Technique Stand Step Pivot Devices Transfer Assistive Devices Gait Belt Front Wheeled Walker Comments Mobility Comments Pt MAX A for bed mobility and from sit to stand especially from lower surfaces and to help get trunk upright from side lying. Once up able to transfer with assist for balance and to guide FWW . OT- Balance Assessment Sitting Balance and Reactions Static Sitting Balance Ability Fair Standing Balance and Reactions Static Standing Balance Ability Fair Comments Other Balance Tests/Deviations/Treatment Pt tends to sit into posterior : tilt and having difficulty to sit ot midline. M8 OT- IP Objective Assessments Start: 11/24/18 17:37 Freq: Status: Active Protocol: Document 11/24/18 17:37 [facility] (Rec: 11/24/18 17:50 [facility] [email or web address]) OT Gross Range of Motion Upper Extremity Range of Motion Assessment Within Functional Limits OT Strength Upper Extremity Strength Assessment Within Functional Limits M9 OT- IP Assessment and Plan Start: 11/24/18 17:37 Freq: Status: Active Protocol: Document 11/24/18 17:37 [facility] (Rec: 11/24/18 17:50 [facility] [email or web address]) OT Summary Assessment and Plan Potential Rehabilitation Potential Good Analytic Complexity at Evaluation Low Summary OT Impairments Pain Strength Balance Functional Cognition Functional Mobility Grooming Dressing Toileting Bathing Toilet Transfers Shower Transfers Progress Towards Goals Slow Progress due to Pain Slow Progress due to Activity Tolerance Slow Progress due to Cognition Assessment Summary Pt low complexity and main barriers are steps, now needing extensive assist for bed mobility and sit to stand and having bad right shoulder and unable to do any lifting for pt, and difficulty to remember back precautions at this time. Pt would greatly benefit from skilled rehab prior to going home, as pt's current level to great of burden for to assist. Pt was MOD I with all ADl's and functional mobility prior. Goals Grooming Goal Standby Assistance Dressing Goal Minimal Assistance Toileting Goal Contact Guard Assistance Bathing Goal Moderate Assistance Toilet Transfer Goal Contact Guard Assistance Shower Transfer Goal Minimal Assistance Patient/Caregiver Education Goal Demonstrate Post-Op Precautions Caregiver Independent Assisting Patient OT-Other Goals Grooming goal in standing. Days to Meet Goals 7 Frequency of Treatment Frequency Of Treatment Once a Day Treatment Plan OT Treatment Plan ADL Training Functional Cognition Training Functional Mobility Patient/Family Education Discharge Planning Discharge Recommendations OT Discharge Recommendations SNF Rehab Other Discharge Recommendations [facility], shower chair
[2018-11-24 19:55] VITALS: BP 110/65; PULSE 102; RESP 19; TEMP 37.5; O2SAT 92
[2018-11-24] MEDS: SENNOSIDES 8.6 MG TABLET 17.2 MG PO (20:14)
[2018-11-25] VITALS (8 sets, daily range): BP systolic 97–132; BP diastolic 50–75; PULSE 78–104; RESP 16–20; TEMP 36.4–37.2; O2SAT 90–95
[2018-11-25] MEDS: HYDROCODONE/ACET 5/325 TABLET 2 TAB PO ×5 (00:22→19:24)
[2018-11-25] MEDS: MAGNESIUM HYDROXIDE 30 ML UDC PO (09:10)
--- NOTE | 2018-11-25 09:10 | PM.PNPO.1 ---
Subjective Date Patient Seen: 11/25/18 Time Patient Seen: 09:10 Interval history: Postop day 2. Patient is status post L4-L5 TLIF and L5-S1 hemilaminectomy. Patient's pain is [id number]. Denies fever chills. No nausea vomiting. Catheter was discharged earlier this morning. Patient has not yet urinated. Patient has been slow to mobilize with physical therapy. Patient requiring 2 person assist. Exam Vital Signs (past 8 hours): - 11/25/18 05:10 11/25/18 07:45 Temperature 98.0 F 97.5 F L Pulse Rate 88 78 Respiratory Rate 16 16 Blood Pressure 100/50 L 97/54 L Pulse Oximetry 93 94 Fraction of Inspired Oxygen 28 Oxygen Delivery Method Room Air Oxygen Flow Rate 0 Narrative Exam Narrative: Pleasant 78-year-old male resting comfortably in bed in no apparent distress. motor functions intact bilateral lower extremities. Sensation grossly intact bilateral lower extremities. Both legs are warm and dry. lumbar dressing is clean, dry and intact. Objective Labs Result Diagrams: 11/24/18 05:01 Assessment & Plan Post-op Postoperative Procedures Operation Date: 11/23/18 10:45 Actual Procedures Side Surgeon p L5-S1 Right Hemilaminectomy,L4-5 TLIF w/Posterior Instru. Linda Padilla MD postop day 2. Patient is slow to mobilize. Patient is still requiring 2 person assist and physical therapy has recommended snf facility. Patient will continue to work with physical therapy today. likely discharge to snf facility tomorrow. Quality VTE Deep Vein Thrombosis/Pulmonary Embolism Present on Admission: No
[2018-11-25] MEDS: CHOLECALCIFEROL (VITAMIN D3) 1,000 UNIT TABLET 4000 UNIT PO (09:11)
[2018-11-25] MEDS: ESCITALOPRAM 10 MG TABLET PO (09:11)
[2018-11-25] MEDS: DOCUSATE 100 MG CAPSULE PO ×2 (09:11→21:09)
[2018-11-25] MEDS: INSULIN NPH 100 UNIT/ML VIAL 60 UNIT SUBCUT ×2 (09:11→21:10)
[2018-11-25] MEDS: METFORMIN HCL 500 MG TABLET 1500 MG PO (09:11)
--- NOTE | 2018-11-25 09:14 | P.PN_ITS ---
Subjective Date Patient Seen: 11/25/18 Time Patient Seen: 09:10 Interval history: Postop day 2. Patient is status post L4-L5 TLIF and L5-S1 hemilaminectomy. Patient's pain is [id number]. Denies fever chills. No nausea vomiting. Catheter was discharged earlier this morning. Patient has not yet urinated. Patient has been slow to mobilize with physical therapy. Patient requiring 2 person assist. Exam Vital Signs (past 8 hours): - 11/25/18 05:10 11/25/18 07:45 Temperature 98.0 F 97.5 F L Pulse Rate 88 78 Respiratory Rate 16 16 Blood Pressure 100/50 L 97/54 L Pulse Oximetry 93 94 Fraction of Inspired Oxygen 28 Oxygen Delivery Method Room Air Oxygen Flow Rate 0 Narrative Exam Narrative: Pleasant 78-year-old male resting comfortably in bed in no apparent distress. motor functions intact bilateral lower extremities. Sensation grossly intact bilateral lower extremities. Both legs are warm and dry. lumbar dressing is clean, dry and intact. Objective Labs Result Diagrams: 11/24/18 05:01 Assessment & Plan Post-op Postoperative Procedures Operation Date: 11/23/18 10:45 Actual Procedures Side Surgeon p L5-S1 Right Hemilaminectomy,L4-5 TLIF w/Posterior Instru. Linda Padilla MD postop day 2. Patient is slow to mobilize. Patient is still requiring 2 person assist and physical therapy has recommended longterm facility. Patient will continue to work with physical therapy today. likely discharge to longterm facility tomorrow. Quality VTE Deep Vein Thrombosis/Pulmonary Embolism Present on Admission: No
--- NOTE | 2018-11-25 11:00 | PT.IPTN ---
Current Diagnoses Type 2 diabetes mellitus without complications (11/23/18) Obesity, unspecified (11/23/18) Obstructive sleep apnea (adult) (pediatric) (11/23/18) Other spondylosis with radiculopathy, lumbar region (11/23/18) Spinal stenosis, lumbar region with neurogenic claudication (11/23/18) Arthrodesis status (11/23/18) Surgery Performed Operation Date: 11/23/18 10:45 Actual Procedures p L5-S1 Right Hemilaminectomy,L4-5 TLIF w/Posterior Instru. - Linda Padilla MD Physical Therapy Treatment Note M2 PT-IP Current Condition Start: 11/24/18 11:37 Freq: NEEDED Status: Active Protocol: Document 11/24/18 09:20 [facility] (Rec: 11/24/18 12:09 [id number]) Physical Therapy Current Condition Current Condition Evaluation Date 11/24/18 Treatment Diagnosis L4-L5 TLIF, impaired gait and activity tolerance Onset Date 11/23/18 Precautions Lumbar Precautions Log Roll No Twisting Limit Bending Lifting Restriction of 10 lbs Gait Belt above Incisional Area Weight Bearing Status Weight Bearing Status Weight Bear as Tolerated M3 PT-IP Subjective Start: 11/24/18 11:37 Freq: NEEDED Status: Active Protocol: Document 11/25/18 11:00 GGD (Rec: 11/25/18 12:26 GGD [email or web address]) Subjective Physical Therapy Visit Type Type Treatment Note Visit Start Time 10:30 Visit Stop Time 11:00 Total Visit Minutes 30 Number of DIGITAL PRODUCT MANAGER Visits 2 Physical Therapy Visit Comments Patient Comments Pt willing to work with therapy. Therapy Pain Assessment Pain When Pain Assessed At Rest Pain Present Pain Present Pain Reported Location Low back Intensity 5 Scale Used Numeric (1 - 10) Pain Management Techniques Re-positioning Timing of Activity with Medications M4 PT-IP Mobility and Gait Start: 11/24/18 11:37 Freq: NEEDED Status: Active Protocol: Document 11/25/18 11:00 GGD (Rec: 11/25/18 12:26 GGD [email or web address]) PT-Bed Mobility Assessment Rolling Type of Rolling Roll to Right Level of Assist Minimal Assistance Supine to Sit Supine to Sit Moderate Assistance 1 Person Assistance Bedrails Sit to Supine Sit to Supine Minimal Assistance 1 Person Assistance Bedrails Scooting Scooting to Edge of Bed Moderate Assistance Scooting Up and Down in Bed Maximum Assistance PT-Transfer Assessment Sit to and From Stand Sit to and from Stand Minimal Assistance 1 Person Assistance Use of Upper Extremities Equipment Transfer Assistive Device Gait Belt Front Wheeled Walker Orthotic/Prosthetic Devices or Brace: No Transfers Transfer Destination Bed Chair Transfer Ability Level of Assist Minimal Assistance 1 Person Assistance Use of Upper Extremities Comments Mobility Comments Pt had LOB in stand and with transfers x 2 that need min A. PT needed max cues for bed mobility. Gait Assessment Gait Gait Assistance Required: Contact Guard Assist Distance (Feet) 80 Able to Maintain Weight Bearing Status Yes During Gait Assistive Devices Assistive Device Gait Belt Front Wheeled Walker Orthotic/Prosthetic Devices or Brace: No Gait Deviations General Gait Pattern Decreased Stride Length Decreased Feet Clearance Step-to Gait Factors Limiting Gait Function Factors Limiting Gait Function Decreased Activity Tolerance Decreased Strength Limited Range of Motion Pain Poor Balance Poor Safety Awareness Respiratory Distress Comments Gait Comments Pt need max cue for step length. He did have slight LE buckling and weakness with gait. M5 PT-IP Objective Assessments Start: 11/24/18 11:37 Freq: NEEDED Status: Active Protocol: Document 11/24/18 09:20 [facility] (Rec: 11/24/18 12:09 [email or web address]) Orientation Orientation/Cognition Level of Alertness Alert Orientation Name Age Birthday Month Date Year Day of Week Place Situation Language Function Ability No Deficits Noted Safety Awareness Decreased Safety Awareness Memory Description Short Term Impaired Comments Pt was unable to recall any spinal precautions after educated pt multiple times. Gross Range of Motion Upper Extremity ROM Assessment Within Functional Limits Lower Extremity ROM Assessment Within Functional Limits Strength Upper Extremity Strength Assessment Within Functional Limits Lower Extremity Strength Assessment Bilaterally Impaired Comments Strength Comments 3+/5 gross LE strength Coordination Assessment Gross Coordination Gross Coordination WNL Assessment Finger to Nose Test Normal Performance Pronation/Supination Test Normal Performance Sensation Assessment Sensation Gross Sensation WNL Light Touch Intact Proprioception (Position) Intact Muscle Tone Muscle Tone WNL Yes M6 PT-IP Treatment Start: 11/24/18 11:37 Freq: NEEDED Status: Active Protocol: Document 11/25/18 11:00 GGD (Rec: 11/25/18 12:26 GGD [email or web address]) Physical Therapy Treatment Education Education Provided Precautions Safety M7 PT-IP Assessment and Plan Start: 11/24/18 11:37 Freq: NEEDED Status: Active Protocol: Document 11/25/18 11:00 GGD (Rec: 11/25/18 12:26 [facility]GM[facility]at [email or web address]) PT Summary Assessment and Plan Summary Assessment Summary Pt need mod A for bed mobility . is unable to assist pt for mod A. He did have LOB with standing balance and transfers. He need max cues for sit to stand technique and bed mobility. He unsteady with gait and has LE buckling with short step length. Pt would benefit from SNF to improve functional mobility. Frequency of Treatment Frequency Of Treatment Twice a Day Treatment Plan Physical Therapy Treatment Plan Bed Mobility Training Transfer Training Gait Training Therapeutic Exercise Balance Retraining Post Op Education Discharge Planning Hot or Cold Pack Other Recommendations and Next Treatment review precautions Focus LOG ROLL, transfer and gait training as luis m Recommendations To Nursing Amount of Assist Needed 2 Person Assist Discharge Recommendations PT Discharge Recommendations SNF Rehab
--- NOTE | 2018-11-25 12:50 | PT.IPTN ---
Current Diagnoses Type 2 diabetes mellitus without complications (11/23/18) Obesity, unspecified (11/23/18) Obstructive sleep apnea (adult) (pediatric) (11/23/18) Other spondylosis with radiculopathy, lumbar region (11/23/18) Spinal stenosis, lumbar region with neurogenic claudication (11/23/18) Arthrodesis status (11/23/18) Surgery Performed Operation Date: 11/23/18 10:45 Actual Procedures p L5-S1 Right Hemilaminectomy,L4-5 TLIF w/Posterior Instru. - Linda Padilla MD Physical Therapy Treatment Note M2 PT-IP Current Condition Start: 11/24/18 11:37 Freq: NEEDED Status: Active Protocol: Document 11/24/18 09:20 [facility] (Rec: 11/24/18 12:09 [id number]) Physical Therapy Current Condition Current Condition Evaluation Date 11/24/18 Treatment Diagnosis L4-L5 TLIF, impaired gait and activity tolerance Onset Date 11/23/18 Precautions Lumbar Precautions Log Roll No Twisting Limit Bending Lifting Restriction of 10 lbs Gait Belt above Incisional Area Weight Bearing Status Weight Bearing Status Weight Bear as Tolerated M3 PT-IP Subjective Start: 11/24/18 11:37 Freq: NEEDED Status: Active Protocol: Document 11/25/18 12:50 [facility] (Rec: 11/25/18 14:17 [facility] [id number]) Subjective Physical Therapy Visit Type Type Treatment Note Visit Start Time 12:50 Visit Stop Time 13:30 Total Visit Minutes 40 Number of WEB DEVELOPMENT DIRECTOR Visits 0 Physical Therapy Visit Comments Patient Comments Pt reports he still feels very weak and unsteady on his feet . Therapy Pain Assessment Pain When Pain Assessed At Rest Pain Present Pain Present Pain Reported Location Low back Intensity 5 Scale Used Numeric (1 - 10) M4 PT-IP Mobility and Gait Start: 11/24/18 11:37 Freq: NEEDED Status: Active Protocol: Document 11/25/18 12:50 [facility] (Rec: 11/25/18 14:17 [facility] [id number]) PT-Transfer Assessment Sit to and From Stand Sit to and from Stand Minimal Assistance 1 Person Assistance Use of Upper Extremities Equipment Transfer Assistive Device Gait Belt Front Wheeled Walker Orthotic/Prosthetic Devices or Brace: No Transfers Transfer Destination Chair Wheelchair Transfer Ability Level of Assist Minimal Assistance 1 Person Assistance Use of Upper Extremities Comments Mobility Comments VC required to prevent excessive bending forward with sit to stand. Gait Assessment Gait Gait Assistance Required: Contact Guard Assist Distance (Feet) 15 Able to Maintain Weight Bearing Status Yes During Gait Assistive Devices Assistive Device Gait Belt Front Wheeled Walker Orthotic/Prosthetic Devices or Brace: No Gait Deviations General Gait Pattern Antalgic Decreased Stride Length Decreased Feet Clearance Step-to Gait Wide Based Gait Factors Limiting Gait Function Factors Limiting Gait Function Decreased Activity Tolerance Decreased Strength Limited Range of Motion Pain Poor Balance Comments Gait Comments Pt fatigued with 15 ft of gait after performing stairs. Stair Climbing Assessment Evaluation Level of Assist On Stairs Moderate Assistance 1 Person Assistance Devices Stair Climbing Assistive Devices Right Railing Technique/Endurance Stair Climbing Direction Ascend and Descend Stair Climbing Technique Step to Step Number of Steps Climbed 3 Query Text: Stair Climbing Set # Repetitions (reps) 1 Comments Stair Climbing Comments Rail on R used by pt and physical therapist bracing the LUE acting as a second rail to manage stairs M5 PT-IP Objective Assessments Start: 11/24/18 11:37 Freq: NEEDED Status: Active Protocol: Document 11/24/18 09:20 HH (Rec: 11/24/18 12:09 [id number]) Orientation Orientation/Cognition Level of Alertness Alert Orientation Name Age Birthday Month Date Year Day of Week Place Situation Language Function Ability No Deficits Noted Safety Awareness Decreased Safety Awareness Memory Description Short Term Impaired Comments Pt was unable to recall any spinal precautions after educated pt multiple times. Gross Range of Motion Upper Extremity ROM Assessment Within Functional Limits Lower Extremity ROM Assessment Within Functional Limits Strength Upper Extremity Strength Assessment Within Functional Limits Lower Extremity Strength Assessment Bilaterally Impaired Comments Strength Comments 3+/5 gross LE strength Coordination Assessment Gross Coordination Gross Coordination WNL Assessment Finger to Nose Test Normal Performance Pronation/Supination Test Normal Performance Sensation Assessment Sensation Gross Sensation WNL Light Touch Intact Proprioception (Position) Intact Muscle Tone Muscle Tone WNL Yes M6 PT-IP Treatment Start: 11/24/18 11:37 Freq: NEEDED Status: Active Protocol: Document 11/25/18 12:50 [facility] (Rec: 11/25/18 14:17 [facility] [id number]) Physical Therapy Treatment Education Education Provided Precautions Safety M7 PT-IP Assessment and Plan Start: 11/24/18 11:37 Freq: NEEDED Status: Active Protocol: Document 11/25/18 12:50 [facility] (Rec: 11/25/18 14:17 [facility] [id number]) PT Summary Assessment and Plan Summary Assessment Summary POD #2. Pt requires cuing for prevention of excessive forward flexion with the process of sitting to standing , difficulty using hips to hinge vs lumbar straining. Pt performed stairs this session, requiring moderate assistance and continuous cuing for sequencing to perform safely and correctly. The amount of assistance required to complete the stairs safely is too much for his to assist him with, and he does not own a SPC and is unable to use more than one rail at a time. Due to the amount of difficulty with stair training , it is not recommended that the pt return home immediately upon d/c from hospital. The burden of care is too high for the pt to safely be assisted and managed by his significant other, and due to his limitations with mobility if poses a high risk of injury to both the pt and his spouse. Pt would benefit from SNF rehabilitation upon d/c to progress his independence with mobility such as stairs and bed mobility, progress his gait and activity tolerance, and to promote a safe d/c. Goals Bed Mobility Goal Contact Guard Assistance Transfer Goal Contact Guard Assistance Gait Goal Contact Guard Assistance Gait Distance 200 Other Goals negotiate 3 steps without railing Days to Meet Goals 5 Treatment Plan Other Recommendations and Next Treatment log roll/bed mobility, gait Focus and stair training Recommendations To Nursing Amount of Assist Needed 2 Person Assist Discharge Recommendations PT Discharge Recommendations SNF Rehab
--- NOTE | 2018-11-25 13:20 | OT.IP.TRT ---
Current Diagnoses Type 2 diabetes mellitus without complications (11/23/18) Obesity, unspecified (11/23/18) Obstructive sleep apnea (adult) (pediatric) (11/23/18) Other spondylosis with radiculopathy, lumbar region (11/23/18) Spinal stenosis, lumbar region with neurogenic claudication (11/23/18) Arthrodesis status (11/23/18) Surgery Performed Operation Date: 11/23/18 10:45 Actual Procedures p L5-S1 Right Hemilaminectomy,L4-5 TLIF w/Posterior Instru. - Linda Padilla MD Occupational Therapy Treatment Note M2 OT-IP Current Condition Start: 11/24/18 17:37 Freq: Status: Active Protocol: Document 11/24/18 17:37 [facility] (Rec: 11/24/18 17:50 [facility] [id number]) Occupational Therapy Current Condition Current Condition Evaluation Date 11/24/18 Treatment Diagnosis Spinal stenosis Diagnosis Onset Date 11/23/18 Post Operative Precautions Lumbar Precautions Log Roll No Twisting Limit Bending Lifting Restriction of 10 lbs Gait Belt above Incisional Area Weight Bearing Status Weight Bearing Status Weight Bear as Tolerated M3 OT- IP Subjective and Pain Start: 11/24/18 17:37 Freq: Status: Active Protocol: Document 11/25/18 12:52 [facility] (Rec: 11/25/18 13:19 [facility] [id number]) OT- Subjective Occupational Therapy Visit Type Type Treatment Note Visit Start Time 11:25 Visit Stop Time 11:50 Total Visit Minutes 25 Occupational Therapy Visit Comments Patient Comments Pt agreeable to get up, toilet and do grooming. OT Pain Assessment Pain When Pain Assessed At Rest Pain Present Pain Present Pain Reported Location Low back Intensity 6 Scale Used Numeric (1 - 10) M4 OT- IP ADL's Start: 11/24/18 17:37 Freq: Status: Active Protocol: Document 11/25/18 12:52 [facility] (Rec: 11/25/18 13:19 [facility] [id number]) OT ADL-Grooming General Evaluation Grooming Ability Minimal Assistance Areas Needing Assistance Retrieving/Set-up of Grooming Items Combing/Brushing Hair Comments OT Grooming Comments Pt needing assist to brush his hair otherwise assist for set -up for grooming. OT ADL-Oral Care General Eval Oral Care Ability Independent OT ADL-Dressing General Eval Lower Body Dressing Ability Minimal Assistance Maximum Assistance Comments OT Dressing Comments Educated pt on using project development engineer and sock aid for LB dressing and still needing assist to help get socks off over his heels. Pt able to use socks aid to tip his socks. OT ADL-Toileting General Evaluation Toileting Ability Standby Assistance Moderate Assistance Comments OT Toileting Comments Pt will need assist for completeness for hygiene after bowel movement as unable to reach to clean himself at this time due to back precautions. M5 OT- IP IADL's Start: 11/24/18 17:37 Freq: Status: Active Protocol: Document 11/24/18 17:37 [facility] (Rec: 11/24/18 17:50 [facility] [id number]) OT-Instrumental Activities of Daily Living Medication Management Medication Management Caregiver Administers Money Management Money Management Caregiver Provides Assistance Meal Preparation Meal Preparation Caregiver Provides Assist Technical Architect Technical Architect Caregiver Provides Assist M6 OT- IP Functional Cognition Start: 11/24/18 17:37 Freq: Status: Active Protocol: Document 11/25/18 12:52 [facility] (Rec: 11/25/18 13:19 [facility] [id number]) Cognitive Factors Limiting Selfcare Function Cognitive Ability Level of Alertness Alert Confusional State Patient Orientation Name Place Situation Attention Span Ability Capable of Focused Attention Capable of Sustained Attention Ability to Follow Commands Able to Follow One Step Commands Memory Description Short Term Impaired Safety Awareness Decreased Recall of Precautions Decreased Ability to Apply Precautions Underestimates Need for Assistance Problem Solving Ability Unable to Identify Errors Needs Assist to Identify Solutions Cognitive Comments Cognitive Assessment Comments Pt still not able to recall and incorporate back precautions. Pt forgetting to use FWW after grooming and trying to get to the recliner without the FWW. M7 OT- IP Mobility and Balance Start: 11/24/18 17:37 Freq: Status: Active Protocol: Document 11/25/18 12:52 [facility] (Rec: 11/25/18 13:19 [facility] [id number]) OT-Transfer Assessment Sit to and From Stand Sit to and from Stand Minimal Assistance Moderate Assistance 1 Person Assistance Transfers Transfer Ability Minimal Assistance Technique Transfer Destination Chair Transfer Technique Stand Step Pivot Devices Transfer Assistive Devices Gait Belt Front Wheeled Walker Comments Mobility Comments Pt doing better from sit to stand HAZEL, however when pt tires needing MODA to lower down to recliner as pt's legs tend to buckle. In addition when having to come to stand again needs MODA . OT- Balance Assessment Sitting Balance and Reactions Static Sitting Balance Ability Good Dynamic Sitting Balance Ability Fair Standing Balance and Reactions Static Standing Balance Ability Fair M8 OT- IP Objective Assessments Start: 11/24/18 17:37 Freq: Status: Active Protocol: Document 11/24/18 17:37 [facility] (Rec: 11/24/18 17:50 [facility] [id number]) OT Gross Range of Motion Upper Extremity Range of Motion Assessment Within Functional Limits OT Strength Upper Extremity Strength Assessment Within Functional Limits M9 OT- IP Assessment and Plan Start: 11/24/18 17:37 Freq: Status: Active Protocol: Document 11/25/18 12:52 [facility] (Rec: 11/25/18 13:19 [facility] [id number]) OT Summary Assessment and Plan Potential Rehabilitation Potential Good Analytic Complexity at Evaluation Low Summary OT Impairments Pain Strength Balance Functional Cognition Functional Mobility Dressing Toileting Bathing Toilet Transfers Shower Transfers Progress Towards Goals Slow Progress due to Medical Issues Slow Progress due to Activity Tolerance Slow Progress due to Cognition Assessment Summary Pt doing better with mobility but not consistent and at times still needing MODA for bed mobility and sit to stand needs in addition to ADl's and still to much for pt's to assist at home. Pt will continue to benefit from skilled rehab prior to going home. Pt is far from baseline of PRIYANKA . Goals Grooming Goal Independent Dressing Goal Standby Assistance Toileting Goal Standby Assistance Bathing Goal Minimal Assistance Toilet Transfer Goal Standby Assistance Shower Transfer Goal Minimal Assistance Patient/Caregiver Education Goal Demonstrate Post-Op Precautions Caregiver Independent Assisting Patient OT-Other Goals shower Days to Meet Goals 5 Frequency of Treatment Frequency Of Treatment Once a Day Treatment Plan OT Treatment Plan ADL Training Functional Cognition Training Functional Mobility Patient/Family Education Discharge Planning Discharge Recommendations OT Discharge Recommendations SNF Rehab Other Discharge Recommendations BSC, shower chair
--- NOTE | 2018-11-25 14:41 | DI.RAD.S_ITS ---
PROCEDURE: XR LUMBAR SPINE 2-3V INDICATIONS: pt fall in bathroom TECHNIQUE: 3 views of the lumbar spine were acquired. COMPARISON: [facility], CR, XR LUMBAR SPINE 2-3V, 11/23/2018, 14:29. [facility], MR, MR LUMBAR SPINE WO CON, 01/17/2018, 15:02. [facility] [place], CR, XR LUMBAR SPINE 2 OR 3 VIEWS, 01/06/2018, 15:02. FINDINGS: Bones: 5 [id number] vertebrae are present. There is posterior fusion with intervertebral spacer at L4-5. Multilevel anterior osteophytes are present. There is trace retrolisthesis of L1 on L2, L3 and L4. Mild to moderate disc and foraminal narrowing are present L5-S1, moderate foraminal narrowing is present at L3-4. No vertebral body compression fractures. No suspicious bony lesions. Soft tissues: Overlying bowel gas pattern is normal. No suspicious soft tissue calcifications. IMPRESSION: Postsurgical and degenerative changes, stable compared to prior exam. No visualized acute fracture or dislocation. However, if clinical concern and/or pain persist, short interval imaging followup in 7-10 days is recommended, as occult injury cannot be definitively excluded. Dictated by: Cecy Canales M.D. on 11/25/2018 at 15:32 Approved by: Cecy Canales M.D. on 11/25/2018 at 15:35
--- NOTE | 2018-11-25 14:47 | PC.NURSE ---
Day shift pt up with 1 person assist to bathroom and FWW. instructed to pull the cord when done. Pt attempted to get up without assistance and fell to ground in bathroom. alerted staff that pt was down bc he didn't want to ask for help and had to do it himself. 4 staff members to get pt up off floor with gait belt. once upright, able to walk to chair with FWW without issue. Instructed pt to push call light if needs arrise. bed/chair alarm in place at all times, and instructed pt and INFORMATION SECURITY RISK ANALYST that pt must have eyes on at all times in bathroom and alarm in place when not in room.
--- NOTE | 2018-11-25 14:54 | CM.DPNOTE ---
Initiated SNF auth request through [facility] today. [place] back from [facility] [place]/ [place], this request has been sent for clinical review and they are awaiting a determination. TC placed to José Luis at [facility] to see if they received this referral? José Luis indicated Sary would be visiting Tuesday and could discuss this referral then ? Awaiting determination from [facility] and acceptance from [facility]. PASRR completed. Pt had a fall in rm this afternoon approx 1445; in rm outside of BR. Pt in BR, instructed to use call light when finished for assist in getting up, pt attempted to get up on his own and fell. If pt does not get authorized for SNF stay and family unable to pay privately, pt is likely not safe to return home for at least another 48, possibly 72 hrs. Pt will need Home Health if DC home, F2F needs to be signed by Dr Padilla or Dr Fitzpatrick. CANDIE Fontaine
[2018-11-25] MEDS: METFORMIN HCL 500 MG TABLET 1000 MG PO (16:46)
[2018-11-25] MEDS: LISINOPRIL 10 MG TABLET PO (16:46)
[2018-11-25] MEDS: SIMVASTATIN 40 MG TABLET PO (16:47)
[2018-11-25] MEDS: SENNOSIDES 8.6 MG TABLET 17.2 MG PO (21:09)
[2018-11-26 02:10] VITALS: BP 94/51; PULSE 97; RESP 16; TEMP 36.7; O2SAT 92
[2018-11-26 06:00] VITALS: BP 108/59; PULSE 86; RESP 16; TEMP 36.8; O2SAT 93
[2018-11-26 08:00] VITALS: BP 111/57; RESP 18; TEMP 37.1; O2SAT 98
--- NOTE | 2018-11-26 10:02 | PT.IPTN ---
Current Diagnoses Type 2 diabetes mellitus without complications (11/23/18) Obesity, unspecified (11/23/18) Obstructive sleep apnea (adult) (pediatric) (11/23/18) Other spondylosis with radiculopathy, lumbar region (11/23/18) Spinal stenosis, lumbar region with neurogenic claudication (11/23/18) Arthrodesis status (11/23/18) Surgery Performed Operation Date: 11/23/18 10:45 Actual Procedures p L5-S1 Right Hemilaminectomy,L4-5 TLIF w/Posterior Instru. - Linda Padilla MD Physical Therapy Treatment Note M2 PT-IP Current Condition Start: 11/24/18 11:37 Freq: NEEDED Status: Active Protocol: Document 11/24/18 09:20 (Rec: 11/24/18 12:09 [id number]) Physical Therapy Current Condition Current Condition Evaluation Date 11/24/18 Treatment Diagnosis L4-L5 TLIF, impaired gait and activity tolerance Onset Date 11/23/18 Precautions Lumbar Precautions Log Roll No Twisting Limit Bending Lifting Restriction of 10 lbs Gait Belt above Incisional Area Weight Bearing Status Weight Bearing Status Weight Bear as Tolerated M3 PT-IP Subjective Start: 11/24/18 11:37 Freq: NEEDED Status: Active Protocol: Document 11/26/18 10:02 [facility] (Rec: 11/26/18 10:48 [facility] [id number]) Subjective Physical Therapy Visit Type Type Treatment Note Visit Start Time 10:02 Visit Stop Time 10:20 Total Visit Minutes 18 Number of RESPIRATORY CARE PROGRAM DIRECTOR Visits 0 Physical Therapy Visit Comments Patient Comments Pt with c/o fatigue after bed mobility and short gait. Therapy Pain Assessment Pain When Pain Assessed During Mobility Pain Present Pain Present Pain Reported Location Low back Intensity 7 Scale Used Numeric (1 - 10) M4 PT-IP Mobility and Gait Start: 11/24/18 11:37 Freq: NEEDED Status: Active Protocol: Document 11/26/18 10:02 [facility] (Rec: 11/26/18 10:48 [facility] [id number]) PT-Bed Mobility Assessment Rolling Type of Rolling Log Rolling Roll to Right Level of Assist Moderate Assistance Supine to Sit Supine to Sit Moderate Assistance 1 Person Assistance Bedrails Sit to Supine Sit to Supine Minimal Assistance 1 Person Assistance Bedrails Scooting Scooting to Edge of Bed Moderate Assistance PT-Transfer Assessment Sit to and From Stand Sit to and from Stand Minimal Assistance 1 Person Assistance Use of Upper Extremities Equipment Transfer Assistive Device Gait Belt Front Wheeled Walker Orthotic/Prosthetic Devices or Brace: No Transfers Transfer Destination Bed Chair Transfer Ability Level of Assist Minimal Assistance 1 Person Assistance Use of Upper Extremities Comments Mobility Comments continuous verbal cuing for appropriate log roll technique . Pt able to roll to side in supine with Min A but unable to manage legs or upper trunk, requiring moderate assistance to get seated upright Gait Assessment Gait Gait Assistance Required: Contact Guard Assist Distance (Feet) 25 Assistive Devices Assistive Device Gait Belt Front Wheeled Walker Orthotic/Prosthetic Devices or Brace: No Gait Deviations General Gait Pattern Antalgic Decreased Stride Length Decreased Feet Clearance Step-to Gait Wide Based Gait Factors Limiting Gait Function Factors Limiting Gait Function Decreased Activity Tolerance Decreased Strength Limited Range of Motion Pain Poor Balance Poor Safety Awareness Comments Gait Comments NE up to 124 bpm after short gait, O2 saturation 93% on RA M5 PT-IP Objective Assessments Start: 11/24/18 11:37 Freq: NEEDED Status: Active Protocol: Document 11/24/18 09:20 (Rec: 11/24/18 12:09 [id number]) Orientation Orientation/Cognition Level of Alertness Alert Orientation Name Age Birthday Month Date Year Day of Week Place Situation Language Function Ability No Deficits Noted Safety Awareness Decreased Safety Awareness Memory Description Short Term Impaired Comments Pt was unable to recall any spinal precautions after educated pt multiple times. Gross Range of Motion Upper Extremity ROM Assessment Within Functional Limits Lower Extremity ROM Assessment Within Functional Limits Strength Upper Extremity Strength Assessment Within Functional Limits Lower Extremity Strength Assessment Bilaterally Impaired Comments Strength Comments 3+/5 gross LE strength Coordination Assessment Gross Coordination Gross Coordination WNL Assessment Finger to Nose Test Normal Performance Pronation/Supination Test Normal Performance Sensation Assessment Sensation Gross Sensation WNL Light Touch Intact Proprioception (Position) Intact Muscle Tone Muscle Tone WNL Yes M6 PT-IP Treatment Start: 11/24/18 11:37 Freq: NEEDED Status: Active Protocol: Document 11/26/18 10:02 [facility] (Rec: 11/26/18 10:48 [facility] [id number]) Physical Therapy Treatment Education Education Provided Precautions Safety M7 PT-IP Assessment and Plan Start: 11/24/18 11:37 Freq: NEEDED Status: Active Protocol: Document 11/26/18 10:02 [facility] (Rec: 11/26/18 10:48 [facility] [id number]) PT Summary Assessment and Plan Summary Progress Towards Goals Slow Progress due to Activity Tolerance Assessment Summary POD #3. Pt is able to get to sidelying with min assist but unable to manage his LEs or trunk without moderate assistance of one person to get to an upright position. Pt requires continuos verbal and tactile cuing for safe log roll, as he is unable to perform safely independently ( pt was too close to edge of bed to get supine to sit but was unaware of this). Pt was not able to tolerate safe household distances today, with c/o fatigue and elevated pulse rate with 25 ft of ambulation. Pt with a fall yesterday afternoon in the bathroom as well, and with the amount of physical assistance he is requiring to perform basic functional mobility, the burden of care is too high for the pt to be able to return home upon d/c from the hospital. Goals Bed Mobility Goal Contact Guard Assistance Transfer Goal Contact Guard Assistance Gait Goal Contact Guard Assistance Gait Distance 200 Other Goals negotiate 3 steps without railing Days to Meet Goals 5 Frequency of Treatment Frequency Of Treatment Twice a Day Treatment Plan Other Recommendations and Next Treatment cont. education on precautions Focus , progress gait tolerance, log roll; stairs Recommendations To Nursing Amount of Assist Needed 2 Person Assist Discharge Recommendations PT Discharge Recommendations SNF Rehab
[2018-11-26] MEDS: DOCUSATE 100 MG CAPSULE PO ×2 (10:29→19:01)
[2018-11-26] MEDS: MAGNESIUM HYDROXIDE 30 ML UDC PO (10:29)
[2018-11-26] MEDS: METFORMIN HCL 500 MG TABLET 1500 MG PO (10:29)
[2018-11-26] MEDS: CHOLECALCIFEROL (VITAMIN D3) 1,000 UNIT TABLET 4000 UNIT PO (10:29)
[2018-11-26] MEDS: ESCITALOPRAM 10 MG TABLET PO (10:29)
[2018-11-26] MEDS: INSULIN NPH 100 UNIT/ML VIAL 60 UNIT SUBCUT ×2 (10:29→20:57)
[2018-11-26] MEDS: HYDROCODONE/ACET 5/325 TABLET 2 TAB PO ×3 (10:31→20:07)
[2018-11-26 11:55] VITALS: BP 117/63; PULSE 107; RESP 18; TEMP 37.1; O2SAT 94
--- NOTE | 2018-11-26 12:43 | P.PN_ITS ---
Subjective Date Patient Seen: 11/26/18 Time Patient Seen: 09:30 Interval history: Patient with slow recovery status post L3-4 and 5 TLIF at L5- S1 hemilaminectomy. Patient is postop day [address] Padilla. Anticipate possible discharge tomorrow but slow recovery due to gait and balance issues and questionable mobility issues. Patient sustained a fall while in the hospital yesterday and did have some repeat x-rays which showed no posttraumatic change. Exam Vital Signs (past 8 hours): - 11/26/18 06:00 11/26/18 08:00 11/26/18 11:55 Temperature 98.3 F 98.7 F 98.7 F Pulse Rate 86 107 H Respiratory Rate 16 18 18 Blood Pressure 108/59 L 111/57 L 117/63 Pulse Oximetry 93 98 94 Fraction of Inspired Oxygen 28 Oxygen Delivery Method CPAP Oxygen Flow Rate 0 Objective Labs Result Diagrams: 11/24/18 05:01 Assessment & Plan Post-op Postoperative Procedures Operation Date: 11/23/18 10:45 Actual Procedures Side Surgeon p L5-S1 Right Hemilaminectomy,L4-5 TLIF w/Posterior Instru. Linda Padilla MD Postoperative day: 4 Postoperative status narrative: slow progress postoperatively primarily due to mobility issues. Postoperative plan narrative: Anticipated discharge to extended care facility Tuesday or Tuesday Quality VTE Deep Vein Thrombosis/Pulmonary Embolism Present on Admission: No
--- NOTE | 2018-11-26 12:45 | PT.IPTN ---
Current Diagnoses Type 2 diabetes mellitus without complications (11/23/18) Obesity, unspecified (11/23/18) Obstructive sleep apnea (adult) (pediatric) (11/23/18) Other spondylosis with radiculopathy, lumbar region (11/23/18) Spinal stenosis, lumbar region with neurogenic claudication (11/23/18) Arthrodesis status (11/23/18) Surgery Performed Operation Date: 11/23/18 10:45 Actual Procedures p L5-S1 Right Hemilaminectomy,L4-5 TLIF w/Posterior Instru. - Linda Padilla MD Physical Therapy Treatment Note M2 PT-IP Current Condition Start: 11/24/18 11:37 Freq: NEEDED Status: Active Protocol: Document 11/24/18 09:20 HH (Rec: 11/24/18 12:09 [id number]) Physical Therapy Current Condition Current Condition Evaluation Date 11/24/18 Treatment Diagnosis L4-L5 TLIF, impaired gait and activity tolerance Onset Date 11/23/18 Precautions Lumbar Precautions Log Roll No Twisting Limit Bending Lifting Restriction of 10 lbs Gait Belt above Incisional Area Weight Bearing Status Weight Bearing Status Weight Bear as Tolerated M3 PT-IP Subjective Start: 11/24/18 11:37 Freq: NEEDED Status: Active Protocol: Document 11/26/18 12:45 RCC (Rec: 11/26/18 13:17 [facility] [id number]) Subjective Physical Therapy Visit Type Type Treatment Note Visit Start Time 12:45 Visit Stop Time 13:10 Total Visit Minutes 25 Number of RENTAL SALES REPRESENTATIVE Visits 0 Physical Therapy Visit Comments Patient Comments Pt states that he is still getting tired with walking and standing. M4 PT-IP Mobility and Gait Start: 11/24/18 11:37 Freq: NEEDED Status: Active Protocol: Document 11/26/18 12:45 RCC (Rec: 11/26/18 13:17 RCC [id number]) PT-Bed Mobility Assessment Rolling Type of Rolling Log Rolling Roll to Right Level of Assist Moderate Assistance Supine to Sit Supine to Sit Moderate Assistance 1 Person Assistance Bedrails Sit to Supine Sit to Supine Minimal Assistance 1 Person Assistance Bedrails PT-Transfer Assessment Sit to and From Stand Sit to and from Stand Minimal Assistance 1 Person Assistance Use of Upper Extremities Equipment Transfer Assistive Device Gait Belt Front Wheeled Walker Orthotic/Prosthetic Devices or Brace: No Transfers Transfer Destination Bed Chair Transfer Ability Level of Assist Minimal Assistance 1 Person Assistance Use of Upper Extremities Comments Mobility Comments unable to rise to sitting without assistance of trunk Gait Assessment Gait Gait Assistance Required: Contact Guard Assist Distance (Feet) 100 Assistive Devices Assistive Device Gait Belt Front Wheeled Walker Orthotic/Prosthetic Devices or Brace: No Gait Deviations General Gait Pattern Antalgic Decreased Stride Length Decreased Feet Clearance Step-to Gait Wide Based Gait Factors Limiting Gait Function Factors Limiting Gait Function Decreased Activity Tolerance Decreased Strength Limited Range of Motion Pain Poor Balance M5 PT-IP Objective Assessments Start: 11/24/18 11:37 Freq: NEEDED Status: Active Protocol: Document 11/24/18 09:20 HH (Rec: 11/24/18 12:09 [id number]) Orientation Orientation/Cognition Level of Alertness Alert Orientation Name Age Birthday Month Date Year Day of Week Place Situation Language Function Ability No Deficits Noted Safety Awareness Decreased Safety Awareness Memory Description Short Term Impaired Comments Pt was unable to recall any spinal precautions after educated pt multiple times. Gross Range of Motion Upper Extremity ROM Assessment Within Functional Limits Lower Extremity ROM Assessment Within Functional Limits Strength Upper Extremity Strength Assessment Within Functional Limits Lower Extremity Strength Assessment Bilaterally Impaired Comments Strength Comments 3+/5 gross LE strength Coordination Assessment Gross Coordination Gross Coordination WNL Assessment Finger to Nose Test Normal Performance Pronation/Supination Test Normal Performance Sensation Assessment Sensation Gross Sensation WNL Light Touch Intact Proprioception (Position) Intact Muscle Tone Muscle Tone WNL Yes M6 PT-IP Treatment Start: 11/24/18 11:37 Freq: NEEDED Status: Active Protocol: Document 11/26/18 12:45 RCC (Rec: 11/26/18 13:17 [facility] [id number]) Physical Therapy Treatment Education Education Provided Precautions Safety Other Treatments Other Treatment Performed pt able to state 1/3 precautions- (no bending) M7 PT-IP Assessment and Plan Start: 11/24/18 11:37 Freq: NEEDED Status: Active Protocol: Document 11/26/18 12:45 RCC (Rec: 11/26/18 13:17 [facility] [id number]) PT Summary Assessment and Plan Summary Progress Towards Goals Slow Progress due to Activity Tolerance Assessment Summary POD #3. Pt able to state 1/3 lumbar spine precautions this session (no bending), but unable to recall no twisting or lifting precautions. Pt with improved gait distance and tolerance, but does require frequent standing breaks with each bout of gait x30-40 ft. He continues to require physical assistance with his trunk to rise up from a sidelying position, as well as to maintain a neutral spine position getting out of bed. At this time, pt is still not at a safe functional mobility level to return back home. The burden of care is too high for the pt's spouse to manage safely. He is demonstrating slow progress with physical therapy, therefore is a strong candidate for SNF rehabilitation to continue his progression toward functional independence and safety. Goals Bed Mobility Goal Contact Guard Assistance Transfer Goal Contact Guard Assistance Gait Goal Contact Guard Assistance Gait Distance 200 Other Goals negotiate 3 steps without railing Days to Meet Goals 5 Frequency of Treatment Frequency Of Treatment Twice a Day Treatment Plan Other Recommendations and Next Treatment cont. to progress bed mobility Focus - log roll, stair management Recommendations To Nursing Amount of Assist Needed 2 Person Assist Discharge Recommendations PT Discharge Recommendations SNF Rehab
--- NOTE | 2018-11-26 15:06 | CM.DPC ---
DCP/continued: Reviewed chart. Per notes, patient is not medically stable for discharge today. Nursing reports that patient fell yesterday. Current recommendation is for patient to go to SNF when medically stable. KETTLE COOK received call from [facility] today requesting update. SNF has not yet been approved. First SNF choice is [facility] and they have accepted once [facility] authorization has been received. Faxed updated clinical note and therapy note to [facility] weekend number. P: [facility] has accepted pending [facility] authorization. CANDIE Germain
[2018-11-26 18:41] VITALS: BP 121/68; PULSE 94; RESP 19; TEMP 36.6; O2SAT 93
[2018-11-26] MEDS: METFORMIN HCL 500 MG TABLET 1000 MG PO (18:59)
[2018-11-26] MEDS: SENNOSIDES 8.6 MG TABLET 17.2 MG PO (19:00)
[2018-11-26] MEDS: SIMVASTATIN 40 MG TABLET PO (19:01)
[2018-11-26] MEDS: LISINOPRIL 10 MG TABLET PO (19:01)
[2018-11-26 21:36] VITALS: BP 125/58; PULSE 86; RESP 19; TEMP 36.4; O2SAT 96
[2018-11-27] VITALS (7 sets, daily range): BP systolic 108–129; BP diastolic 52–69; PULSE 82–98; RESP 14–20; TEMP 36.3–37.1; O2SAT 93–96
[2018-11-27] MEDS: HYDROCODONE/ACET 5/325 TABLET 2 TAB PO ×3 (00:03→17:10)
--- NOTE | 2018-11-27 00:20 | PC.NURSE ---
Addendum entered by Cathy El R.N. 11/27/18 06:56: Slept most of shift. No further complaints of pain. FLACC score this morning is 0 with patient asleep. Original Note: Patient is alert and oriented. Breath sounds CTA with RA sat of 98%; uses CPAP at night for sleep apnea. HRR. Denies nausea. BT hypoactive; denies flatus and has not had BM since 11/22. Abdomen is distended. Has had MOM and prune juice but declined suppository or enema. States he has chronic urgency but denies dysuria. Is able to turn himself in bed. Is up with walker and assist to toilet. Dressing to back is CDI. Redness noted on face cheeks with abrasion on left cheek. 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 Wearing bilateral foot SCD's. States back pain is currently 6/10; medicated with Vicodin. Fall risk is high (had fall during this hospitalization) and bed alarm is activated.
--- NOTE | 2018-11-27 07:39 | PM.DS.1 ---
History of Present Illness Date Patient Seen: 11/27/18 Time Patient Seen: 07:39 Chief complaint: [id number] Narrative: Pain is mild. Denies fever chills. No numbness or tingling in bilateral lower extremities. Discharge Providers Date of admission: 11/23/18 08:38 Discharge Date: 11/27/18 Primary care physician: Michael Mathew DO Consults: 11/23/18 09:28 Consult to Respiratory Therapy Evaluate & Treat Comment: Physician Instructions: Evaluate and treat 11/23/18 17:07 Consult to Occupational Therapy Evaluate & Treat Comment: Physician Instructions: Evaluate and treat Consult to Physical Therapy Evaluate & Treat Comment: Physician Instructions: Evaluate and Treat Discharge provider: Galo Dobbins PA-C Summary Discharge Diagnosis: Status post L4-5 Postero-lateral and posterior interbody fusion 2. L4-5 interbody cage placement. 3. L4-5 decompressive laminectomy with bilateral facetecomies 4. L4-5 Posterior non-segmental instrumentation 5. L5-S1 hemilaminectomy 6. [place] of bone marrow from iliac crest 7. Utilization of microsurgical technique and operating microscope Hospital Course: Patient admitted to the hospital for lumbar fusion. Patient consented to the same. Patient taken to the operating room underwent lumbar fusion. Patient back in his room recovering well as in stable condition. Patient has been slow to mobilize with physical therapy secondary to her bilateral lower extremity weakness. His at this time will be unable to care for him at home. He did have a fall late Tuesday morning using the restroom. X-rays were negative for any acute changes. physical therapy note states patient still 2 person assist and recommends fpc facility for further rehab. Status at Discharge Cognitive/behavioral status at discharge: at baseline, oriented Functional status at discharge: uses cane/walker Overall status at discharge: patient is progressing back to baseline Time Spent with Patient Less than 30 minutes Exam Vital Signs (past 8 hours): - 11/27/18 00:00 11/27/18 05:28 Temperature 98.1 F 97.4 F L Pulse Rate 87 82 Respiratory Rate 16 16 Blood Pressure 112/54 L 108/52 L Pulse Oximetry 93 96 Fraction of Inspired Oxygen 28 Oxygen Delivery Method Room Air Oxygen Flow Rate 0 Narrative Exam Narrative: 78-year-old male resting comfortably in bed in no apparent distress. Lumbar dressing is clean, dry and intact. neurovascular status is intact to the bilateral lower extremities. Objective Imaging XR lumbar spine: Radiologist's impression: 11/25/18 fall in bathroom: IMPRESSION: Postsurgical and degenerative changes, stable compared to prior exam. No visualized acute fracture or dislocation. However, if clinical concern and/or pain persist, short interval imaging followup in 7-10 days is recommended, as occult injury cannot be definitively excluded. Labs Result Diagrams: 11/24/18 05:01 Discharge Plan Discharge Plan Patient Disposition: SNF Transfer to: [facility] Under care of provider: Dr. Padilla Transportation: [facility] Discharge comment: stable status post lumbar fusion, Bilat. LE weakness I certify the postop hospital fpc care is medically necessary on a continuing basis for any conditions for which he/ she received care during this hospitalization.: Yes The receiving facility has agreed to accept transfer and provide medical treatment.: Yes Discharge Med Rec/Prescriptions Prescriptions: New hydrocodone-acetaminophen 5-325 mg Tablet 2 tab PO Q4HR PRN (Reason: Pain, Severe (7-10)) Qty: 60 RF: 0 Continued aspirin 81 mg Tablet,Delayed Release (Dr/Ec) 81 mg PO DAILY RF: 0 simvastatin 40 mg Tablet 40 mg PO QPM RF: 0 metformin 1,000 mg Tablet 1,500 mg PO QAM RF: 0 lisinopril 10 mg Tablet 10 mg PO QPM RF: 0 Humulin N NPH Insulin KwikPen 100 unit/mL (3 mL) Insulin Pen 60 unit SUBCUT BID RF: 0 escitalopram oxalate 10 mg tablet 10 mg PO QAM RF: 0 metformin 1,000 mg tablet 1,000 mg PO QPM RF: 0 cholecalciferol (vitamin D3) 2,000 unit capsule 4,000 unit PO DAILY RF: 0 Respirioncs Dreamstation CPAP Qty: 1 RF: 0 Follow up/Referrals: Linda Padilla MD [Physician] - (2 wks) Discharge Health Status Brief summary of current health status: stable status post lumbar fusion, Bilat. LE weakness Multidrug resistant organism: No MDRO MDRO Verified by culture: No Provider Discharge Instructions Diet: Carb-consistent/Diabetic Liquid consistency: Normal/Thin Food texture: Regular Activity: WBAT, limit bending, lifting, twisting Cold/Heat Therapy: ice as needed Skin/Wound/Dressing Care Report to your healthcare provider any signs of infection, such as:: chills, fever, increased pain, unusual drainage and unusual redness Dressing: keep clean and dry Special Rehabilitation Services Reason for rehabilitation: Post-operative therapy Rehab type: Physical therapy and Occupational therapy Restrictions to mobility: limit bending, twisting, lifting Discharge Data Primary Care Provider: Michael Mathew Attending Provider: Linda Padilla Admit Date/Time: 11/23/18 08:38 Quality VTE Deep Vein Thrombosis/Pulmonary Embolism Present on Admission: No
--- NOTE | 2018-11-27 07:45 | P.DS_ITS ---
History of Present Illness Date Patient Seen: 11/27/18 Time Patient Seen: 07:39 Chief complaint: [id number] Narrative: Pain is mild. Denies fever chills. No numbness or tingling in bilateral lower extremities. Discharge Providers Date of admission: 11/23/18 08:38 Discharge Date: 11/27/18 Primary care physician: Michael Mathew DO Consults: 11/23/18 09:28 Consult to Respiratory Therapy Evaluate & Treat Comment: Physician Instructions: Evaluate and treat 11/23/18 17:07 Consult to Occupational Therapy Evaluate & Treat Comment: Physician Instructions: Evaluate and treat Consult to Physical Therapy Evaluate & Treat Comment: Physician Instructions: Evaluate and Treat Discharge provider: Galo Dobbins PA-C Summary Discharge Diagnosis: Status post L4-5 Postero-lateral and posterior interbody fusion 2. L4-5 interbody cage placement. 3. L4-5 decompressive laminectomy with bilateral facetecomies 4. L4-5 Posterior non-segmental instrumentation 5. L5-S1 hemilaminectomy 6. [place] of bone marrow from iliac crest 7. Utilization of microsurgical technique and operating microscope Hospital Course: Patient admitted to the hospital for lumbar fusion. Patient consented to the same. Patient taken to the operating room underwent lumbar fusion. Patient back in his room recovering well as in stable condition. Patient has been slow to mobilize with physical therapy secondary to her bilateral lower extremity weakness. His at this time will be unable to care for him at home. He did have a fall late Tuesday morning using the restroom. X-rays were negative for any acute changes. physical therapy note states patient still 2 person assist and recommends detention facility for further rehab. Status at Discharge Cognitive/behavioral status at discharge: at baseline, oriented Functional status at discharge: uses cane/walker Overall status at discharge: patient is progressing back to baseline Time Spent with Patient Less than 30 minutes Exam Vital Signs (past 8 hours): - 11/27/18 00:00 11/27/18 05:28 Temperature 98.1 F 97.4 F L Pulse Rate 87 82 Respiratory Rate 16 16 Blood Pressure 112/54 L 108/52 L Pulse Oximetry 93 96 Fraction of Inspired Oxygen 28 Oxygen Delivery Method Room Air Oxygen Flow Rate 0 Narrative Exam Narrative: 78-year-old male resting comfortably in bed in no apparent distress. Lumbar dressing is clean, dry and intact. neurovascular status is intact to the bilateral lower extremities. Objective Imaging XR lumbar spine: Radiologist's impression: 11/25/18 fall in bathroom: IMPRESSION: Postsurgical and degenerative changes, stable compared to prior exam. No visualized acute fracture or dislocation. However, if clinical concern and/or pain persist, short interval imaging followup in 7-10 days is recommended, as occult injury cannot be definitively excluded. Labs Result Diagrams: 11/24/18 05:01 Discharge Plan Discharge Plan Patient Disposition: SNF Transfer to: [facility] Under care of provider: Dr. Padilla Transportation: [facility] Discharge comment: stable status post lumbar fusion, Bilat. LE weakness I certify the postop hospital detention care is medically necessary on a continuing basis for any conditions for which he/ she received care during this hospitalization.: Yes The receiving facility has agreed to accept transfer and provide medical treatment.: Yes Discharge Med Rec/Prescriptions Prescriptions: New hydrocodone-acetaminophen 5-325 mg Tablet 2 tab PO Q4HR PRN (Reason: Pain, Severe (7-10)) Qty: 60 RF: 0 Continued aspirin 81 mg Tablet,Delayed Release (Dr/Ec) 81 mg PO DAILY RF: 0 simvastatin 40 mg Tablet 40 mg PO QPM RF: 0 metformin 1,000 mg Tablet 1,500 mg PO QAM RF: 0 lisinopril 10 mg Tablet 10 mg PO QPM RF: 0 Humulin N NPH Insulin KwikPen 100 unit/mL (3 mL) Insulin Pen 60 unit SUBCUT BID RF: 0 escitalopram oxalate 10 mg tablet 10 mg PO QAM RF: 0 metformin 1,000 mg tablet 1,000 mg PO QPM RF: 0 cholecalciferol (vitamin D3) 2,000 unit capsule 4,000 unit PO DAILY RF: 0 Respirioncs Dreamstation CPAP Qty: 1 RF: 0 Follow up/Referrals: Linda Padilla MD [Physician] - (2 wks) Discharge Health Status Brief summary of current health status: stable status post lumbar fusion, Bilat. LE weakness Multidrug resistant organism: No MDRO MDRO Verified by culture: No Provider Discharge Instructions Diet: Carb-consistent/Diabetic Liquid consistency: Normal/Thin Food texture: Regular Activity: WBAT, limit bending, lifting, twisting Cold/Heat Therapy: ice as needed Skin/Wound/Dressing Care Report to your healthcare provider any signs of infection, such as:: chills, fever, increased pain, unusual drainage and unusual redness Dressing: keep clean and dry Special Rehabilitation Services Reason for rehabilitation: Post-operative therapy Rehab type: Physical therapy and Occupational therapy Restrictions to mobility: limit bending, twisting, lifting Discharge Data Primary Care Provider: Michael Mathew Attending Provider: Linda Padilla Admit Date/Time: 11/23/18 08:38 Quality VTE Deep Vein Thrombosis/Pulmonary Embolism Present on Admission: No
[2018-11-27] MEDS: ESCITALOPRAM 10 MG TABLET PO (08:39)
[2018-11-27] MEDS: METFORMIN HCL 500 MG TABLET 1500 MG PO (08:39)
[2018-11-27] MEDS: DOCUSATE 100 MG CAPSULE PO ×2 (08:39→22:16)
[2018-11-27] MEDS: CHOLECALCIFEROL (VITAMIN D3) 1,000 UNIT TABLET 4000 UNIT PO (08:40)
[2018-11-27] MEDS: INSULIN NPH 100 UNIT/ML VIAL 60 UNIT SUBCUT ×2 (08:48→22:16)
--- NOTE | 2018-11-27 08:51 | OT.IP.TRT ---
Current Diagnoses Type 2 diabetes mellitus without complications (11/23/18) Obesity, unspecified (11/23/18) Obstructive sleep apnea (adult) (pediatric) (11/23/18) Other spondylosis with radiculopathy, lumbar region (11/23/18) Spinal stenosis, lumbar region with neurogenic claudication (11/23/18) Arthrodesis status (11/23/18) Surgery Performed Operation Date: 11/23/18 10:45 Actual Procedures p L5-S1 Right Hemilaminectomy,L4-5 TLIF w/Posterior Instru. - Linda Padilla MD Occupational Therapy Treatment Note M2 OT-IP Current Condition Start: 11/24/18 17:37 Freq: Status: Active Protocol: Document 11/24/18 17:37 [facility] (Rec: 11/24/18 17:50 [facility] [id number]) Occupational Therapy Current Condition Current Condition Evaluation Date 11/24/18 Treatment Diagnosis Spinal stenosis Diagnosis Onset Date 11/23/18 Post Operative Precautions Lumbar Precautions Log Roll No Twisting Limit Bending Lifting Restriction of 10 lbs Gait Belt above Incisional Area Weight Bearing Status Weight Bearing Status Weight Bear as Tolerated M3 OT- IP Subjective and Pain Start: 11/24/18 17:37 Freq: Status: Active Protocol: Document 11/27/18 08:40 [facility] (Rec: 11/27/18 08:50 [facility] [id number]) OT- Subjective Occupational Therapy Visit Type Type Treatment Note Visit Start Time 08:15 Visit Stop Time 08:38 Total Visit Minutes 23 Occupational Therapy Visit Comments Patient Comments Pt just able to eat breakfast but willing to get up to do therapy. OT Pain Assessment Pain When Pain Assessed At Rest Pain Present Pain Present Pain Reported Location Low back Intensity 5 Scale Used Numeric (1 - 10) M4 OT- IP ADL's Start: 11/24/18 17:37 Freq: Status: Active Protocol: Document 11/27/18 08:40 [facility] (Rec: 11/27/18 08:50 [facility] [id number]) OT ABJ-Nlrd-Rfvedrx General Evaluation Self-Feeding Ability Independent OT ADL-Dressing General Eval Lower Body Dressing Ability Moderate Assistance Comments OT Dressing Comments Pt continues to need vc to use AED for LB dressing and physical assist. Pt would benefit from continued practice and education. M5 OT- IP IADL's Start: 11/24/18 17:37 Freq: Status: Active Protocol: Document 11/24/18 17:37 [facility] (Rec: 11/24/18 17:50 [facility] [id number]) OT-Instrumental Activities of Daily Living Medication Management Medication Management Caregiver Administers Money Management Money Management Caregiver Provides Assistance Meal Preparation Meal Preparation Caregiver Provides Assist Charter Representative Charter Representative Caregiver Provides Assist M6 OT- IP Functional Cognition Start: 11/24/18 17:37 Freq: Status: Active Protocol: Document 11/27/18 08:40 [facility] (Rec: 11/27/18 08:50 [facility] [id number]) Cognitive Factors Limiting Selfcare Function Cognitive Ability Level of Alertness Alert Patient Orientation Name Place Situation Attention Span Ability Capable of Focused Attention Capable of Sustained Attention Ability to Follow Commands Able to Follow One Step Commands Memory Description Short Term Impaired Safety Awareness Decreased Recall of Precautions Decreased Ability to Apply Precautions Underestimates Need for Assistance Problem Solving Ability Unable to Identify Errors Needs Assist to Identify Solutions Cognitive Comments Cognitive Assessment Comments Pt able to recall 2/3 back precautions, even after education 3 times still only able to recall 2/3 back precautions and having difficulty to remember no lifting. Pt able to sequence better with log rolling and bed mobility needs. Pt still needing vc for safety to always use hands to push up from surface sitting on versus pull to FWW to stand. M7 OT- IP Mobility and Balance Start: 11/24/18 17:37 Freq: Status: Active Protocol: Document 11/27/18 08:40 [facility] (Rec: 11/27/18 08:50 [facility] [id number]) OT- Bed Mobility Assessment Rolling Type of Rolling Roll to Right Level of Assistance Minimal Assistance 1 Person Assistance Supine to Sit Supine to Sit Assist Moderate Assistance Sit to Supine Sit to Supine Assist Minimal Assistance Scooting Scooting to Edge of Bed Standby Assistance 1 Person Assistance OT-Transfer Assessment Sit to and From Stand Sit to and from Stand Contact Guard Assistance Minimal Assistance Transfers Transfer Ability Standby Assistance Contact Guard Assistance Technique Transfer Destination Bed Chair Transfer Technique Stand Step Pivot Devices Transfer Assistive Devices Gait Belt Front Wheeled Walker Comments Mobility Comments Much improved with bed mobility however still needing assist to help get legs into the bed and and to help push his trunk upright after getting to side lying position. Current level of assist still to great for to assist at home. OT- Balance Assessment Sitting Balance and Reactions Static Sitting Balance Ability Normal Dynamic Sitting Balance Ability Good Standing Balance and Reactions Static Standing Balance Ability Fair Comments Other Balance Tests/Deviations/Treatment Pt able to sit to midline and : use of hands on arm rests to help lean forwards. M8 OT- IP Objective Assessments Start: 11/24/18 17:37 Freq: Status: Active Protocol: Document 11/24/18 17:37 [facility] (Rec: 11/24/18 17:50 [facility] [id number]) OT Gross Range of Motion Upper Extremity Range of Motion Assessment Within Functional Limits OT Strength Upper Extremity Strength Assessment Within Functional Limits M9 OT- IP Assessment and Plan Start: 11/24/18 17:37 Freq: Status: Active Protocol: Document 11/27/18 08:40 [facility] (Rec: 11/27/18 08:50 [facility] [id number]) OT Summary Assessment and Plan Potential Rehabilitation Potential Good Analytic Complexity at Evaluation Low Summary OT Impairments Pain Strength Balance Functional Cognition Functional Mobility Dressing Toileting Bathing Toilet Transfers Shower Transfers Progress Towards Goals Progressing Toward Goals Slow Progress due to Activity Tolerance Slow Progress due to Cognition Assessment Summary Pt improving overall however still needing MODA for bed mobility and ADL needs and would benefit from skilled rehab to continue to practice and be educated on incorporating back precautions for needs. Pt is very cooperative and a good candidate to improve and get back to prior level of MOD I with all ADL and functional mobility needs. Goals Grooming Goal Independent Dressing Goal Standby Assistance Toileting Goal Standby Assistance Bathing Goal Minimal Assistance Toilet Transfer Goal Standby Assistance Shower Transfer Goal Minimal Assistance Patient/Caregiver Education Goal Demonstrate Post-Op Precautions Caregiver Independent Assisting Patient OT-Other Goals shower Days to Meet Goals 4 Frequency of Treatment Frequency Of Treatment Once a Day Treatment Plan OT Treatment Plan ADL Training Functional Cognition Training Functional Mobility Patient/Family Education Discharge Planning Discharge Recommendations OT Discharge Recommendations SNF Rehab Other Discharge Recommendations [facility], shower chair
[2018-11-27] MEDS: BISACODYL 10 MG SUPP PR (09:42)
--- NOTE | 2018-11-27 09:42 | PT.IPTN ---
Current Diagnoses Type 2 diabetes mellitus without complications (11/23/18) Obesity, unspecified (11/23/18) Obstructive sleep apnea (adult) (pediatric) (11/23/18) Other spondylosis with radiculopathy, lumbar region (11/23/18) Spinal stenosis, lumbar region with neurogenic claudication (11/23/18) Arthrodesis status (11/23/18) Surgery Performed Operation Date: 11/23/18 10:45 Actual Procedures p L5-S1 Right Hemilaminectomy,L4-5 TLIF w/Posterior Instru. - Linda Padilla MD Physical Therapy Treatment Note M2 PT-IP Current Condition Start: 11/24/18 11:37 Freq: NEEDED Status: Active Protocol: Document 11/24/18 09:20 [facility] (Rec: 11/24/18 12:09 [id number]) Physical Therapy Current Condition Current Condition Evaluation Date 11/24/18 Treatment Diagnosis L4-L5 TLIF, impaired gait and activity tolerance Onset Date 11/23/18 Precautions Lumbar Precautions Log Roll No Twisting Limit Bending Lifting Restriction of 10 lbs Gait Belt above Incisional Area Weight Bearing Status Weight Bearing Status Weight Bear as Tolerated M3 PT-IP Subjective Start: 11/24/18 11:37 Freq: NEEDED Status: Active Protocol: Document 11/27/18 09:05 [facility] (Rec: 11/27/18 09:42 LJ [id number]) Subjective Physical Therapy Visit Type Type Treatment Note Visit Start Time 09:05 Visit Stop Time 09:32 Total Visit Minutes 27 Notes Pt sitting in chair sleeping. States he is willing to gget u and walk. Therapy Pain Assessment Pain When Pain Assessed During Mobility Pain Present Pain Present Pain Reported Location Low back Intensity 7 Scale Used Numeric (1 - 10) M4 PT-IP Mobility and Gait Start: 11/24/18 11:37 Freq: NEEDED Status: Active Protocol: Document 11/27/18 09:05 LJ (Rec: 11/27/18 09:42 [facility]J [id number]) PT-Transfer Assessment Sit to and From Stand Sit to and from Stand Minimal Assistance 1 Person Assistance Use of Upper Extremities Equipment Transfer Assistive Device Gait Belt Front Wheeled Walker Orthotic/Prosthetic Devices or Brace: No Transfers Transfer Destination Chair Toilet Transfer Ability Level of Assist Minimal Assistance 1 Person Assistance Use of Upper Extremities Comments Mobility Comments unable to rise to sitting without assistance of trunk. Requires multiple cues for proper adherance to precautions with sit<>stand and scooting in chair Gait Assessment Gait Gait Assistance Required: Contact Guard Assist Distance (Feet) 80 Assistive Devices Assistive Device Gait Belt Front Wheeled Walker Orthotic/Prosthetic Devices or Brace: No Gait Deviations General Gait Pattern Antalgic Decreased Stride Length Decreased Feet Clearance Step-to Gait Wide Based Gait Factors Limiting Gait Function Factors Limiting Gait Function Decreased Activity Tolerance Decreased Strength Limited Range of Motion Pain Poor Balance Comments Gait Comments Pt requires multiple cues to continue progress in gait. Stops during gait to talk and gets distracted as to where he 's going. Decreased pace and step length with shuffling feet and diminished awareness of obstacles in the hallway. M5 PT-IP Objective Assessments Start: 11/24/18 11:37 Freq: NEEDED Status: Active Protocol: Document 11/24/18 09:20 [facility] (Rec: 11/24/18 12:09 [id number]) Orientation Orientation/Cognition Level of Alertness Alert Orientation Name Age Birthday Month Date Year Day of Week Place Situation Language Function Ability No Deficits Noted Safety Awareness Decreased Safety Awareness Memory Description Short Term Impaired Comments Pt was unable to recall any spinal precautions after educated pt multiple times. Gross Range of Motion Upper Extremity ROM Assessment Within Functional Limits Lower Extremity ROM Assessment Within Functional Limits Strength Upper Extremity Strength Assessment Within Functional Limits Lower Extremity Strength Assessment Bilaterally Impaired Comments Strength Comments 3+/5 gross LE strength Coordination Assessment Gross Coordination Gross Coordination WNL Assessment Finger to Nose Test Normal Performance Pronation/Supination Test Normal Performance Sensation Assessment Sensation Gross Sensation WNL Light Touch Intact Proprioception (Position) Intact Muscle Tone Muscle Tone WNL Yes M6 PT-IP Treatment Start: 11/24/18 11:37 Freq: NEEDED Status: Active Protocol: Document 11/26/18 12:45 [facility] (Rec: 11/26/18 13:17 [facility] [id number]) Physical Therapy Treatment Education Education Provided Precautions Safety Other Treatments Other Treatment Performed pt able to state 1/3 precautions- (no bending) M7 PT-IP Assessment and Plan Start: 11/24/18 11:37 Freq: NEEDED Status: Active Protocol: Document 11/27/18 09:05 LJ (Rec: 11/27/18 09:42 [facility] [id number]) PT Summary Assessment and Plan Summary Progress Towards Goals Slow Progress due to Pain Slow Progress due to Activity Tolerance Assessment Summary Pt was able to recall 2/3 precautions. Forgot no lifting . Given instructions on hinging from the hips but pt still used trunk flexion to stand from sitting position. Pt reqires supervision and level of care available at a SNF rather than at home. Goals Bed Mobility Goal Contact Guard Assistance Transfer Goal Contact Guard Assistance Gait Goal Contact Guard Assistance Gait Distance 200 Other Goals negotiate 3 steps without railing Days to Meet Goals 5 Frequency of Treatment Frequency Of Treatment Twice a Day Treatment Plan Other Recommendations and Next Treatment continue to progress mobility, Focus gait, and pain management to increase pt awareness and adherance to safety in ADLs Recommendations To Nursing Amount of Assist Needed 1 Person Assist Discharge Recommendations PT Discharge Recommendations SNF Rehab
--- NOTE | 2018-11-27 14:34 | CM.DPNOTE ---
DCP/continued: Reviewed chart. Orders to discharge to SNF this AM received. STEAMER TENDER faxed updated PT,OT, and progress notes to [facility] attn: Ann this AM. Received return phone call from Ann before lunch indicating that records have been received and that [facility] Administration Intern would be reviewing for authorization to SNF. Currently it is 2:30pm and STEAMER TENDER has still not heard from [facility] on whether or not they will authorize SNF today. [facility] aware that patient is medically stable. STEAMER TENDER met with patient and spouse at bedside. Provided them with latest information that CM department awaiting decision from [facility]. Spouse inquiring on whether or not male bed available at [facility]. Spouse and patient aware that patient has been accepted at [facility]. Notified them both that STEAMER TENDER would check with [facility] but it's highly unlikely that they have male bed today. Plus patient and spouse aware that we are still waiting on [facility]. Placed call to Clara at [facility] and left vm. She reports no male bed expected till 11-30-18. P: Awaiting decision from [facility] on whether or not they will approve short SNF stay. CANDIE Germain
--- NOTE | 2018-11-27 14:50 | PT.IPTN ---
Current Diagnoses Type 2 diabetes mellitus without complications (11/23/18) Obesity, unspecified (11/23/18) Obstructive sleep apnea (adult) (pediatric) (11/23/18) Other spondylosis with radiculopathy, lumbar region (11/23/18) Spinal stenosis, lumbar region with neurogenic claudication (11/23/18) Arthrodesis status (11/23/18) Surgery Performed Operation Date: 11/23/18 10:45 Actual Procedures p L5-S1 Right Hemilaminectomy,L4-5 TLIF w/Posterior Instru. - Linda Padilla MD Physical Therapy Treatment Note M2 PT-IP Current Condition Start: 11/24/18 11:37 Freq: NEEDED Status: Active Protocol: Document 11/24/18 09:20 [facility] (Rec: 11/24/18 12:09 [id number]) Physical Therapy Current Condition Current Condition Evaluation Date 11/24/18 Treatment Diagnosis L4-L5 TLIF, impaired gait and activity tolerance Onset Date 11/23/18 Precautions Lumbar Precautions Log Roll No Twisting Limit Bending Lifting Restriction of 10 lbs Gait Belt above Incisional Area Weight Bearing Status Weight Bearing Status Weight Bear as Tolerated M3 PT-IP Subjective Start: 11/24/18 11:37 Freq: NEEDED Status: Active Protocol: Document 11/27/18 14:20 [facility] (Rec: 11/27/18 14:49 [id number]) Subjective Physical Therapy Visit Type Type Treatment Note Visit Start Time 14:20 Visit Stop Time 14:40 Total Visit Minutes 20 Notes Pt up in chair with at bedside. Therapy Pain Assessment Pain When Pain Assessed During Mobility Pain Present Pain Present Pain Reported M4 PT-IP Mobility and Gait Start: 11/24/18 11:37 Freq: NEEDED Status: Active Protocol: Document 11/27/18 14:20 [facility] (Rec: 11/27/18 14:49 [id number]) PT-Transfer Assessment Sit to and From Stand Sit to and from Stand Contact Guard Assistance 1 Person Assistance Use of Upper Extremities Equipment Transfer Assistive Device Gait Belt Front Wheeled Walker Orthotic/Prosthetic Devices or Brace: No Transfers Transfer Destination Chair Transfer Ability Level of Assist Contact Guard Assistance Minimal Assistance 1 Person Assistance Use of Upper Extremities Comments Mobility Comments Able to sit<> stand with CGA and FWW. Pt also used hip hinge without cues. Gait Assessment Gait Gait Assistance Required: Standby Assistance Contact Guard Assist Distance (Feet) 160 Assistive Devices Assistive Device Gait Belt Front Wheeled Walker Orthotic/Prosthetic Devices or Brace: No Gait Deviations General Gait Pattern Antalgic Decreased Stride Length Decreased Feet Clearance Step-to Gait Wide Based Gait Factors Limiting Gait Function Factors Limiting Gait Function Decreased Activity Tolerance Decreased Strength Limited Range of Motion Pain Poor Balance Comments Gait Comments Pt amb around the hallway with SBA/CGA FWW. Steady in gait without rest break. Pt's O2 went down to 86% after gait training but recover to 97% within one minute in seated position. Pt is able to answer simple questions during amb at the same time. M5 PT-IP Objective Assessments Start: 11/24/18 11:37 Freq: NEEDED Status: Active Protocol: Document 11/24/18 09:20 (Rec: 11/24/18 12:09 [id number]) Orientation Orientation/Cognition Level of Alertness Alert Orientation Name Age Birthday Month Date Year Day of Week Place Situation Language Function Ability No Deficits Noted Safety Awareness Decreased Safety Awareness Memory Description Short Term Impaired Comments Pt was unable to recall any spinal precautions after educated pt multiple times. Gross Range of Motion Upper Extremity ROM Assessment Within Functional Limits Lower Extremity ROM Assessment Within Functional Limits Strength Upper Extremity Strength Assessment Within Functional Limits Lower Extremity Strength Assessment Bilaterally Impaired Comments Strength Comments 3+/5 gross LE strength Coordination Assessment Gross Coordination Gross Coordination WNL Assessment Finger to Nose Test Normal Performance Pronation/Supination Test Normal Performance Sensation Assessment Sensation Gross Sensation WNL Light Touch Intact Proprioception (Position) Intact Muscle Tone Muscle Tone WNL Yes M6 PT-IP Treatment Start: 11/24/18 11:37 Freq: NEEDED Status: Active Protocol: Document 11/26/18 12:45 [facility] (Rec: 11/26/18 13:17 [facility] [id number]) Physical Therapy Treatment Education Education Provided Precautions Safety Other Treatments Other Treatment Performed pt able to state 1/3 precautions- (no bending) M7 PT-IP Assessment and Plan Start: 11/24/18 11:37 Freq: NEEDED Status: Active Protocol: Document 11/27/18 14:20 (Rec: 11/27/18 14:49 [facility] [id number]) PT Summary Assessment and Plan Summary Progress Towards Goals Slow Progress due to Pain Slow Progress due to Activity Tolerance Assessment Summary .Pt was only able to recall 1/ 3 precuations (twisting) upon assessment. Needed reminder before mobility and he was able to recall all 3 at the end of session. Pt showed improved mobility with CGA/ SBA FWW. However, his O2 dropeed to 86% after mobility but was able to recover to 97% after 1 minute. Pt will cont benefit from SNF to improve mobility. Per SW, pending for insurance auth from SNF admission. Goals Bed Mobility Goal Contact Guard Assistance Transfer Goal Contact Guard Assistance Gait Goal Contact Guard Assistance Gait Distance 200 Other Goals negotiate 3 steps without railing Days to Meet Goals 5 Frequency of Treatment Frequency Of Treatment Twice a Day Treatment Plan Other Recommendations and Next Treatment Review precautions Focus continue to progress mobility, gait, and pain management to increase pt awareness and adherance to safety in ADLs Recommendations To Nursing Amount of Assist Needed 1 Person Assist Discharge Recommendations PT Discharge Recommendations SNF Rehab
[2018-11-27] MEDS: LISINOPRIL 10 MG TABLET PO (17:12)
[2018-11-27] MEDS: SIMVASTATIN 40 MG TABLET PO (18:06)
[2018-11-27] MEDS: METFORMIN HCL 500 MG TABLET 1000 MG PO (18:06)
[2018-11-27] MEDS: MAG HYDROX/ALUM/SIMETH 30 ML UDC PO (18:17)
[2018-11-27] MEDS: SENNOSIDES 8.6 MG TABLET 17.2 MG PO (22:16)
[2018-11-28 00:05] VITALS: BP 108/54; PULSE 95; RESP 20; TEMP 36.4; O2SAT 96
--- NOTE | 2018-11-28 00:08 | PC.NURSE ---
Addendum entered by Cathy El R.N. 11/28/18 04:43: States pain currently 4/10 and requests only 1 tab of Vicodin; medicated as requested. Original Note: Patient is alert and oriented. Breath sounds CTA with RA sat of 96%; uses CPAP for sleep. HRR. Denies nausea. Abdomen remains distended but BT more active tonight. Had suppository yesterday but has only had 1 small stool since then but is now passing some flatus. Denies dysuria or frequency but states he has chronic urgency. Is able to turn self in bed. Dressing to back is CDI. States pain is currently 6/10 so medicated with Vicodin. 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 Wearing bilateral foot SCD's. Fall while inpatient this hospitalization so is at high fall risk; bed alarm is activated.
[2018-11-28 04:00] VITALS: BP 116/57; PULSE 92; RESP 18; TEMP 37.1; O2SAT 93
[2018-11-28] MEDS: HYDROCODONE/ACET 5/325 TABLET 2 TAB PO ×3 (04:42→09:29)
[2018-11-28 08:00] VITALS: BP 107/63; PULSE 82; RESP 16; TEMP 36.5; O2SAT 92
--- NOTE | 2018-11-28 08:29 | CM.DPC ---
DCP/continued: Reviewed chart. [employer] placed call to [facility] this AM re: SNF authorization. No message left yesterday re: whether or not patient approved for SNF. Spoke with Brandie at [facility] this AM and she reports patient approved. Left VM for Kassy at [facility] requesting that she coordinate time for transport today. Patient requiring cabulance. Asked [employer]BE[employer] COVERER/Nancy to finalize arrangements and fax orders, PASRR, and scripts. P: [facility] today. CANDIE Germain
[2018-11-28] MEDS: BISACODYL 5 MG TABLET 10 MG PO (08:45)
[2018-11-28] MEDS: ESCITALOPRAM 10 MG TABLET PO (08:49)
[2018-11-28] MEDS: CHOLECALCIFEROL (VITAMIN D3) 1,000 UNIT TABLET 4000 UNIT PO (08:49)
[2018-11-28] MEDS: DOCUSATE 100 MG CAPSULE PO (08:49)
[2018-11-28] MEDS: METFORMIN HCL 500 MG TABLET 1500 MG PO (08:49)
[2018-11-28] MEDS: POLYETHYLENE GLYCOL 3350 17 GM POWD.PACK PO (08:50)
[2018-11-28] MEDS: INSULIN NPH 100 UNIT/ML VIAL 60 UNIT SUBCUT (08:52)
--- NOTE | 2018-11-28 09:16 | PM.PNPO.1 ---
Subjective Date Patient Seen: 11/28/18 Time Patient Seen: 09:17 Interval history: Hospital day 6, postop day 5 following L4-5 laminectomy, TLIF, cage, posterior screw fixation; L5-S1 hemilaminectomy. Patient remained stable. he did have discharge orders done yesterday but awaiting authorization from his insurance. Approval did come through. Patient is being discharged to [facility]. Pain control with [place] 5 mg. He did have CovRsite dressing placed to his lumbar incision yesterday. Exam Vital Signs (past 8 hours): - 11/28/18 04:00 11/28/18 08:00 Temperature 98.8 F 97.7 F Pulse Rate 92 H 82 Respiratory Rate 18 16 Blood Pressure 116/57 L 107/63 Pulse Oximetry 93 92 Fraction of Inspired Oxygen 28 Oxygen Delivery Method Room Air Oxygen Flow Rate 0 Narrative Exam Narrative: Alert, oriented no acute distress lying in bed. back. CovRsite dressing lumbar incision is dry without drainage or inflammation. Legs. No calf pain or swelling. Pulses symmetrical. Good sensation to touch to lower legs. Good strength on foot dorsiflexion plantar flexion. Objective Labs Result Diagrams: 11/24/18 05:01 Assessment & Plan Post-op Postoperative Procedures Operation Date: 11/23/18 10:45 Actual Procedures Side Surgeon p L5-S1 Right Hemilaminectomy,L4-5 TLIF w/Posterior Instru. Linda Padilla MD Plan: Patient will be discharged to [facility] today. See discharge orders. Quality VTE Deep Vein Thrombosis/Pulmonary Embolism Present on Admission: No
--- NOTE | 2018-11-28 10:45 | PC.NURSE ---
Pt. saline-locked and tele held. To MRI via wheelchair at 1035.
[2018-11-28 11:56] VITALS: BP 116/62; PULSE 86; RESP 16; TEMP 36.8; O2SAT 92
--- NOTE | 2018-11-28 12:10 | PT.IPTN ---
Current Diagnoses Type 2 diabetes mellitus without complications (11/23/18) Obesity, unspecified (11/23/18) Obstructive sleep apnea (adult) (pediatric) (11/23/18) Other spondylosis with radiculopathy, lumbar region (11/23/18) Spinal stenosis, lumbar region with neurogenic claudication (11/23/18) Arthrodesis status (11/23/18) Surgery Performed Operation Date: 11/23/18 10:45 Actual Procedures p L5-S1 Right Hemilaminectomy,L4-5 TLIF w/Posterior Instru. - Linda Padilla MD Physical Therapy Treatment Note M2 PT-IP Current Condition Start: 11/24/18 11:37 Freq: NEEDED Status: Active Protocol: Document 11/24/18 09:20 HH (Rec: 11/24/18 12:09 HH [id number]) Physical Therapy Current Condition Current Condition Evaluation Date 11/24/18 Treatment Diagnosis L4-L5 TLIF, impaired gait and activity tolerance Onset Date 11/23/18 Precautions Lumbar Precautions Log Roll No Twisting Limit Bending Lifting Restriction of 10 lbs Gait Belt above Incisional Area Weight Bearing Status Weight Bearing Status Weight Bear as Tolerated M3 PT-IP Subjective Start: 11/24/18 11:37 Freq: NEEDED Status: Active Protocol: Document 11/28/18 11:30 CLB (Rec: 11/28/18 12:10 CLB [id number]) Subjective Physical Therapy Visit Type Type Patient Unavailable Notes Pt unavailable due to just worked with OT.
--- NOTE | 2018-11-28 12:37 | OT.IP.TRT ---
Current Diagnoses Type 2 diabetes mellitus without complications (11/23/18) Obesity, unspecified (11/23/18) Obstructive sleep apnea (adult) (pediatric) (11/23/18) Other spondylosis with radiculopathy, lumbar region (11/23/18) Spinal stenosis, lumbar region with neurogenic claudication (11/23/18) Arthrodesis status (11/23/18) Surgery Performed Operation Date: 11/23/18 10:45 Actual Procedures p L5-S1 Right Hemilaminectomy,L4-5 TLIF w/Posterior Instru. - Linda Padilla MD Occupational Therapy Treatment Note M2 OT-IP Current Condition Start: 11/24/18 17:37 Freq: Status: Active Protocol: Document 11/24/18 17:37 [facility] (Rec: 11/24/18 17:50 [facility] [id number]) Occupational Therapy Current Condition Current Condition Evaluation Date 11/24/18 Treatment Diagnosis Spinal stenosis Diagnosis Onset Date 11/23/18 Post Operative Precautions Lumbar Precautions Log Roll No Twisting Limit Bending Lifting Restriction of 10 lbs Gait Belt above Incisional Area Weight Bearing Status Weight Bearing Status Weight Bear as Tolerated M3 OT- IP Subjective and Pain Start: 11/24/18 17:37 Freq: Status: Active Protocol: Document 11/28/18 12:15 [facility] (Rec: 11/28/18 12:37 [facility] [id number]) OT- Subjective Occupational Therapy Visit Type Type Treatment Note Visit Start Time 10:30 Visit Stop Time 11:30 Total Visit Minutes 60 Occupational Therapy Visit Comments Patient Comments Pt agreeable to shower after using the bathroom. OT Pain Assessment Pain When Pain Assessed At Rest Pain Present Pain Present Pain Reported Location Low back Intensity 5 Scale Used Numeric (1 - 10) M4 OT- IP ADL's Start: 11/24/18 17:37 Freq: Status: Active Protocol: Document 11/28/18 12:15 CCC (Rec: 11/28/18 12:37 [facility] [id number]) OT ADL-Grooming General Evaluation Grooming Ability Standby Assistance OT ADL-Dressing General Eval Lower Body Dressing Ability Maximum Assistance Areas Needing Assistance Socks OT ADL-Toileting General Evaluation Toileting Ability Minimal Assistance Areas Needing Assistance Perform Perineal Hygiene OT ADL-Bathing Bathing Type Bathing Type Shower General Evaluation Bathing Ability Moderate Assistance Areas Needing Assistance Wash/Dry Upper Body Wash/Dry Lower Extremities Devices Bathing Equipment Shower Chair with Arms Comments OT Bathing Comments Pt states has long handled brush at home and will be able to assist in the shower. However pt will still benefit from use of shower chair. M5 OT- IP IADL's Start: 11/24/18 17:37 Freq: Status: Active Protocol: Document 11/24/18 17:37 [facility] (Rec: 11/24/18 17:50 [facility] [id number]) OT-Instrumental Activities of Daily Living Medication Management Medication Management Caregiver Administers Money Management Money Management Caregiver Provides Assistance Meal Preparation Meal Preparation Caregiver Provides Assist Safety Lead Safety Lead Caregiver Provides Assist M6 OT- IP Functional Cognition Start: 11/24/18 17:37 Freq: Status: Active Protocol: Document 11/28/18 12:15 [facility] (Rec: 11/28/18 12:37 [facility] [id number]) Cognitive Factors Limiting Selfcare Function Cognitive Ability Level of Alertness Alert Patient Orientation Name Place Situation Attention Span Ability Capable of Focused Attention Capable of Sustained Attention Ability to Follow Commands Able to Follow One Step Commands Memory Description Short Term Impaired Safety Awareness Decreased Recall of Precautions Decreased Ability to Apply Precautions Underestimates Need for Assistance Problem Solving Ability Unable to Identify Errors Needs Assist to Identify Solutions Cognitive Comments Cognitive Assessment Comments Pt still not able to recall precaution of no lifting. even when asking pt if her could lift up great grand son at this time, pt states yes. M7 OT- IP Mobility and Balance Start: 11/24/18 17:37 Freq: Status: Active Protocol: Document 11/28/18 12:15 [facility] (Rec: 11/28/18 12:37 [facility] [id number]) OT- Bed Mobility Assessment Sit to Supine Sit to Supine Assist Standby Assistance Bedrails OT-Transfer Assessment Sit to and From Stand Sit to and from Stand Standby Assistance Contact Guard Assistance Transfers Transfer Ability Standby Assistance Contact Guard Assistance Technique Transfer Destination Bed Shower Stall Toilet Transfer Technique Stand Step Pivot Devices Transfer Assistive Devices Gait Belt Front Wheeled Walker Comments Mobility Comments Much improved with bed mobility today, however still needs cues for safety awareness and for back precautions. OT- Balance Assessment Sitting Balance and Reactions Static Sitting Balance Ability Normal Dynamic Sitting Balance Ability Good Standing Balance and Reactions Static Standing Balance Ability Fair Comments Other Balance Tests/Deviations/Treatment Pt doing better for standing : with FWW at time SBA now. M8 OT- IP Objective Assessments Start: 11/24/18 17:37 Freq: Status: Active Protocol: Document 11/24/18 17:37 [facility] (Rec: 11/24/18 17:50 [facility] [id number]) OT Gross Range of Motion Upper Extremity Range of Motion Assessment Within Functional Limits OT Strength Upper Extremity Strength Assessment Within Functional Limits M9 OT- IP Assessment and Plan Start: 11/24/18 17:37 Freq: Status: Active Protocol: Document 11/28/18 12:15 [facility] (Rec: 11/28/18 12:37 [facility] [id number]) OT Summary Assessment and Plan Potential Rehabilitation Potential Good Analytic Complexity at Evaluation Low Summary OT Impairments Pain Strength Balance Functional Cognition Functional Mobility Dressing Toileting Bathing Toilet Transfers Shower Transfers Progress Towards Goals Progressing Toward Goals Assessment Summary Pt doing better but still to benefit from skilled rehab to work on getting back to prior level of function. Pt looking to be discharged today. Goals Grooming Goal Independent Dressing Goal Standby Assistance Toileting Goal Standby Assistance Bathing Goal Minimal Assistance Toilet Transfer Goal Standby Assistance Shower Transfer Goal Minimal Assistance Patient/Caregiver Education Goal Demonstrate Post-Op Precautions Caregiver Independent Assisting Patient Days to Meet Goals 2 Frequency of Treatment Frequency Of Treatment Once a Day Treatment Plan OT Treatment Plan ADL Training Functional Cognition Training Functional Mobility Patient/Family Education Discharge Planning Discharge Recommendations OT Discharge Recommendations SNF Rehab Other Discharge Recommendations [facility], shower chair
--- NOTE | 2018-11-28 13:28 | PC.NURSE ---
Pt. ready and appropriate for discharge. No IV. Pt. discharged in wheelchair via ambulance. Wearing glasses, other belongings sent with spouse. Pt. left at 1318. Report called to Chastity @ 1320, admission coordinator, at [facility].
== END 2018-11-28 13:18 | DRG 455 ==
PROVIDERS: Admitting Provider Orthopaedic Surgery Orthopaedic Surgery of the Spine; PCP Family Medicine; Visit Provider Orthopaedic Surgery Orthopaedic Surgery of the Spine
PROC: 0SG00AJ Fusion of Lumbar Vertebral Joint with Interbody Fusion Device, Posterior Approach, Anterior Column, Open Approach (ICD-10-PCS; principal; 2018-11-23 10:45)
DX: M48.062 Spinal stenosis, lumbar region with neurogenic claudication (principal); M47.26 Other spondylosis with radiculopathy, lumbar region; E66.01 Morbid (severe) obesity due to excess calories; I48.2 Chronic atrial fibrillation; E11.9 Type 2 diabetes mellitus without complications; Z79.84 Long term (current) use of oral hypoglycemic drugs; M48.07 Spinal stenosis, lumbosacral region; E88.2 Lipomatosis, not elsewhere classified; G47.33 Obstructive sleep apnea (adult) (pediatric); Z68.37 Body mass index [BMI] 37.0-37.9, adult; W18.30XA Fall on same level, unspecified, initial encounter; Y92.231 Patient bathroom in hospital as the place of occurrence of the external cause; R26.9 Unspecified abnormalities of gait and mobility
CPT/HCPCS: 36415; 72100; 76000; 82962; 85014; 85018; 94762; 97116; 97165; 97530; 97535; C1776; C9290; J0330; J0690; J1170; J2405; J2704; J3010; J3410

== ENCOUNTER → 2021-01-02 14:09 | Outpatient (CLI) | payer MEDICARE, SELFPAY ==
[2020-02-07 15:28] VITALS: BMI 37.9
[2021-01-02] MEDS: COVID-19 VACC, Ad26(JANSSEN)/PF 0.5 ML IM (14:28)
== END ==
PROVIDERS: PCP Family Medicine; Visit Provider Internal Medicine
DX: Z23 Encounter for immunization (principal)
CPT/HCPCS: 0031A; 91303

== ENCOUNTER → 2021-06-30 14:02 | Outpatient (CLI) | payer OTHER, SELFPAY ==
[2020-02-07 15:28] VITALS: BMI 37.9
--- NOTE | 2021-06-30 | DI.MRI.S_ITS ---
PROCEDURE: MR HEAD/BRAIN WO CON INDICATIONS: Other amnesia TECHNIQUE: The patient terminated the examination early. The following sequences were obtained: Sagittal FLAIR, axial T1 weighted, axial FLAIR, axial T2 weighted, coronal T2 weighted, axial gradient recalled echo, axial diffusion weighted with ADC mapping. COMPARISON: None. FINDINGS: Image quality: This examination is limited by involuntary motion artifact. Furthermore, the dedicated head coil was not able to be used in this patient. CSF spaces: Ventricles appear symmetric in size and shape. Basal cisterns are patent. No extra-axial fluid collections. Brain: No intracranial bleeds or mass effects. Just posterior to the quadrigeminal plate on the right, there is a 12 by 8 mm focus which follows fat density, as on series 10, image 8. There is cerebral volume loss for age. There are periventricular and deep white matter chronic small vessel ischemic changes. Brainstem appears normal. Diffusion-weighted images show no acute ischemic insults. No chronic ischemic insults. Normal intravascular flow voids are present. Skull and face: Calvarial bone marrow is normal in signal. Orbits are normal. Sinuses: Delete layering fluid can be seen within the sphenoid sinuses. Sinuses and mastoids are otherwise relative clear. IMPRESSION: On this motion limited study, brain parenchymal volume loss and chronic small vessel ischemic change can be seen. No acute intracranial process is seen. No findings of acute or subacute infarction can be seen. 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 Dictated by: Higinio Núñez M.D. on 06/30/2021 at 14:21 Approved by: Higinio Núñez M.D. on 06/30/2021 at 14:25
== END ==
PROVIDERS: PCP Family Medicine; Referring Provider Family Medicine; Visit Provider Family Medicine
DX: R41.3 Other amnesia (principal); D17.79 Benign lipomatous neoplasm of other sites
CPT/HCPCS: 70551

== ENCOUNTER → 2022-03-29 14:10 | Outpatient (CLI) | payer OTHER, SELFPAY ==
[2020-02-07 15:28] VITALS: BMI 37.9
[2022-03-29 16:04] LABS: COVID19 -Nasal RAPID Negative (Negative)
--- NOTE | 2022-03-30 21:18 | DI.NM.S_ITS ---
DATE OF SERVICE: 03/30/2022 PROCEDURE: Lexiscan perfusion study. INDICATION: Atrial fibrillation, diabetes mellitus and aortic stenosis. RADIOPHARMACEUTICAL: 25.0 millicurie technetium-99m Myoview IV was injected at stress and 25.2 millicurie technetium-99m Myoview IV was injected at rest. CARDIAC STRESS: The patient underwent IV Lexiscan perfusion study under the supervision of an attending staff, as per standard protocol. The patient remained hemodynamically stable. Baseline blood pressure 118/60. Baseline rhythm was atrial fibrillation with controlled ventricular rate with some nonspecific ST-T changes. During stress, maximum heart rate was 123 with underlying AFib without any obvious new inducible ischemic changes. No other arrhythmias seen. No chest discomfort. Had minimal dyspnea. RAW DATA: There is increased subdiaphragmatic activity. During stress images, there is a significant gut shadow involving the inferior portion of the heart. GATED STUDY: Stress LV ejection fraction 71 percent without any obvious wall motion abnormalities. Resting end-diastolic volume 82 mL. TID ratio 1.18, which is within normal limits. Lung/heart ratio 0.31, which is within normal limits. MYOCARDIAL PERFUSION SCAN: Stress supine and resting supine images were compared to each other. There are no stress prone images. There appears to be small size, mild to moderate reversible perfusion defect of inferior wall and distal inferolateral wall, as well as distal anteroseptum. However, computer calculated summed stress score and rest score is 0. Visually, there is a difference between the stress supine and resting supine perfusion defect, as stated above. CONCLUSION: On visual interpretation, there is a small size, mild to moderate reversible perfusion defect of inferior wall and distal inferolateral wall, as well as distal anteroseptum. However, summed stress score and summed rest score is 0. There is significant gut shadow seen during raw images involving the inferior border of the heart. Inferior wall is moving well. There are no prone images. This could be tissue attenuation artifact. However, resting supine images did not reveal those defects. On the other hand, significant gut shadow involving the inferior border of the heart, is more prominent during stress supine images, than on the resting supine images. Preserved left ventricular function without any significant wall motion abnormalities. No transient ischemic dilatation. The patient's weight is 256 pounds. Hence, overall low-risk myocardial perfusion scan. I will call this probably an abnormal perfusion study. Correlate clinically. Cannot rule out underlying coronary artery disease. Luis Miguel Hernandez - RICHARDSON/toñito/ricco doc#: [id number]/job#: [id number] dd: 03/30/2022 17:19:00 dt: 03/30/2022 20:58:00 DICTATING MD/COPIES TO: Jessica Amaya MD COPIES MNE: JULIO CESAR;
== END ==
PROVIDERS: PCP Family Medicine; Referring Provider Internal Medicine Cardiovascular Disease; Visit Provider Internal Medicine Cardiovascular Disease
DX: I48.20 Chronic atrial fibrillation, unspecified (principal); I35.0 Nonrheumatic aortic (valve) stenosis; E11.9 Type 2 diabetes mellitus without complications; Z20.822 Contact with and (suspected) exposure to COVID-19
CPT/HCPCS: 78452; 87635; 93017; C9803; A9502; J2785

== ENCOUNTER 2023-10-02 12:24 | Inpatient (IN) | payer OTHER, SELFPAY ==
[2020-02-07 15:28] VITALS: BMI 37.9
[2023-10-02] VITALS (20 sets, daily range): BP systolic 97–171; BP diastolic 55–109; PULSE 86–107; RESP 15–32; TEMP 36.2–37; O2SAT 88–97; BMI 37.9
--- NOTE | 2023-10-02 12:30 | ED_ITS ---
HPI - Weakness General Chief complaint: Weakness Stated complaint: Weakness Time Seen by Provider: 10/02/23 12:30 History of Present Illness HPI Narrative: Patient is a 82-year-old male insulin-dependent diabetic atrial fibrillation on Pradaxa hyperlipidemia presenting today with weakness. EMS reports that they been out to his house couple of times. states that he is gotten weak in his kind of slipped to the ground where he hit his knees but never really fallen hit his head. He has some chronic ongoing back pain he has previously had back surgery. He does not have fever. He has overall a very poor historian. No real chest pain or issues complaining of some mild back pain at this time. Related Data Home Medications Medication Instructions Recorded Confirmed cholecalciferol (vitamin D3) 50 4,000 unit PO DAILY 11/15/18 04/22/22 mcg (2,000 unit) capsule metformin 1,000 mg tablet 1,000 mg PO QPM 11/15/18 04/22/22 metformin 1,000 mg tablet 1,500 mg PO QAM 11/15/18 04/22/22 simvastatin 40 mg tablet 40 mg PO QPM 11/15/18 04/22/22 dabigatran etexilate 150 mg 150 mg PO DAILY 08/19/20 04/22/22 capsule (Pradaxa) Respirioncs Dreamstation 2 CPAP #1 ea 04/22/22 coenzyme Q10 75 mg capsule 75 mg PO DAILY 04/22/22 04/22/22 insulin NPH isoph U-100 human 100 45 unit SUBCUT BID 04/22/22 04/22/22 unit/mL (3 mL) subcutaneous pen (Humulin N NPH U-100 Insulin KwikPen) Allergies Allergy/AdvReac Type Severity Reaction Status Date / Time No Known Drug Allergies Allergy Verified 04/22/22 15:04 Patient History Medical History A-fib Aortic stenosis Arthritis Cataracts, bilateral Depression Diabetes Hearing impaired HLD (hyperlipidemia) Idiopathic hypersomnia with long sleep time Intermittent claudication Mild cognitive impairment with memory loss (~11/23/18) Numbness and tingling of both feet Obesity (BMI 30-39.9) Obstructive sleep apnea of adult Right hip pain Tooth infection (~09/2017) Surgical History History of colonoscopy History of vasectomy Social History (Updated 11/20/18 @ 22:44 by ELIZABETH Bradshaw) marital status: details: to Rosa, lives in [place] household members: spouse and children housing: house Smoking Status: Never smoker alcohol intake: never substance use type: does not use Smoking Status: Never smoker Substance Use Type: does not use Exam Initial Vital Signs Initial Vital Signs: Vital Signs Pulse Rate 100 H 10/02/23 12:23 Blood Pressure 115/69 10/02/23 12:23 Pulse Oximetry 93 10/02/23 12:23 GENERAL: Alert pleasant mildly confused 82-year-old male and in no acute distress. HEENT: Head atraumatic,EOMI, pupils reactive, face symmetric, moist mucous membranes CARDIOVASCULAR: Regular rate and rhythm without murmurs, rubs or gallops. RESPIRATORY: Breath sounds equal bilaterally, no wheezes rales or rhonchi. ABDOMEN: Soft, nontender. Normoactive bowel sounds all 4 quadrants. No guarding or rebound. EXTREMITIES: Normal range of motion, no clubbing or edema. Neurovascularly intact NEUROLOGICAL: Alert and oriented x2. No facial droop able to lift and hold each leg for 5 seconds able to hold and fire captain strength upper extremities 5 seconds. SKIN: Warm, dry, no laceration, no petechiae, no rashes or lesions. Course Orders Ordered: ED Orders 10/02/23 12:31 XR chest 1V Stat 10/02/23 12:32 EKG-12 Lead Stat 10/02/23 12:35 Complete Blood Count AUTO DIFF Stat Comprehensive Metabolic Panel Stat Lactate (Lactic Acid) Stat Lipase Stat NT-proBNP (BNP-Adult 18+) Stat Troponin & CK Cardiac Panel Stat 10/02/23 13:00 Covid-19 + FLU A/B + RSV - PCR Stat 10/02/23 14:14 CT head/brain wo con Stat 10/02/23 14:32 Trop I [Troponin I] Stat 10/02/23 15:24 Urinalysis and Microscopic Stat Acetaminophen (Acetaminophen 325 Mg Tablet) 650 mg PO Q6H PRN PRN Reason: Fever/Mild Pain (1-3) Dexamethasone (Dexamethasone 10 Mg/Ml Vial) 6 mg IV DAILY ANIBAL Stop: 10/12/23 08:59 Hydromorphone HCl (Hydromorphone 0.5 Mg Inj) 0.5 mg IV Q4H PRN PRN Reason: Pain, Moderate (4-6) Sodium Chloride (Normal Saline 0.9%) 1,000 mls @ 125 mls/hr IV CONT [facility] Last Admin: 10/02/23 18:24 Dose: 125 mls/hr Documented By: EV Dextrose ([id number]) 100 mls @ 1,200 mls/hr IV PRN PRN PRN Reason: Hypoglycemia Insulin Human Lispro (Insulin Lispro 100 Unit/Ml 3ml Vial) 0 unit SUBCUT ACHS ANIBAL; Protocol Melatonin (Melatonin 3 Mg Tablet) 6 mg PO BEDTIME PRN PRN Reason: Insomnia Naloxone HCl (Naloxone 0.4 Mg/Ml Vial) 0.2 mg IV Q2MIN PRN PRN Reason: Opiate Reversal Non-Formulary Medication (Dabigatran Etexilate [Pradaxa]) 150 mg PO DAILY [facility] Non-Formulary Medication (Insulin Nph Isoph U-100 Human [Humulin N Nph Insulin Kwikpen]) 30 unit SUBCUT BID ANIBAL Ondansetron HCl (Ondansetron 4 Mg/2 Ml Inj) 4 mg IV Q4HR PRN PRN Reason: Nausea And Vomiting Oxycodone HCl (Oxycodone Ir 5 Mg Tablet) 5 mg PO Q4HR PRN PRN Reason: Pain, Moderate (4-6) Discontinued Medications Dexamethasone (Dexamethasone 10 Mg/Ml Vial) 6 mg IV NOW ONE Stop: 10/02/23 17:16 Last Admin: 10/02/23 17:24 Dose: 6 mg Documented By: MPO Hydromorphone HCl (Hydromorphone 0.5 Mg Inj) 0.5 mg IV NOW ONE Stop: 10/02/23 16:21 Last Admin: 10/02/23 16:26 Dose: 0.5 mg Documented By: MPO Sodium Chloride (Normal Saline 0.9%) 1,000 mls @ 150 mls/hr IV CONT [facility] Last Admin: 10/02/23 12:58 Dose: 150 mls/hr Documented By: MPO Remdesivir 200 mg/ Sodium (Chloride) 250 mls @ 250 mls/hr IV NOW ONE Stop: 10/02/23 18:14 Vital Signs Vital signs: Vital Signs - 8 hr 10/02/23 12:23 10/02/23 12:23 10/02/23 12:30 Temperature Pulse Rate 100 H 95 H Respiratory Rate 28 H Blood Pressure 115/69 Pulse Oximetry 93 93 Oxygen Delivery Method Oxygen Flow Rate 10/02/23 12:35 10/02/23 12:35 10/02/23 12:37 Temperature 97.6 F Pulse Rate 94 H 93 H Respiratory Rate 15 20 Blood Pressure 97/57 L 115/69 Pulse Oximetry 92 94 Oxygen Delivery Method Room Air Oxygen Flow Rate 10/02/23 12:59 10/02/23 12:59 10/02/23 13:00 Temperature Pulse Rate 97 H Respiratory Rate 25 H Blood Pressure 114/63 110/56 L Pulse Oximetry 92 Oxygen Delivery Method Oxygen Flow Rate 10/02/23 13:00 10/02/23 13:30 10/02/23 13:31 Temperature Pulse Rate 92 H 99 H 100 H Respiratory Rate 26 H 32 H 30 H Blood Pressure Pulse Oximetry 94 Oxygen Delivery Method Oxygen Flow Rate 10/02/23 13:31 10/02/23 14:00 10/02/23 14:08 Temperature Pulse Rate 103 H 100 H Respiratory Rate 27 H 28 H Blood Pressure 171/109 H Pulse Oximetry 90 L Oxygen Delivery Method Oxygen Flow Rate 10/02/23 14:08 10/02/23 14:30 10/02/23 14:32 Temperature Pulse Rate 107 H Respiratory Rate Blood Pressure 120/69 117/66 Pulse Oximetry 93 Oxygen Delivery Method Oxygen Flow Rate 10/02/23 14:32 10/02/23 15:00 10/02/23 15:00 Temperature Pulse Rate 96 H 89 Respiratory Rate 26 H 29 H Blood Pressure 133/55 L Pulse Oximetry 92 97 Oxygen Delivery Method Nasal Cannula Oxygen Flow Rate 2 10/02/23 15:29 10/02/23 15:30 10/02/23 15:30 Temperature Pulse Rate 100 H 100 H Respiratory Rate 28 H 29 H Blood Pressure 135/73 Pulse Oximetry 94 88 L Oxygen Delivery Method Nasal Cannula Oxygen Flow Rate 2 10/02/23 16:00 10/02/23 16:00 10/02/23 16:05 Temperature Pulse Rate 93 H 101 H Respiratory Rate 27 H 28 H Blood Pressure 161/67 H Pulse Oximetry 94 93 Oxygen Delivery Method Oxygen Flow Rate 10/02/23 16:05 10/02/23 16:30 10/02/23 16:30 Temperature Pulse Rate 100 H Respiratory Rate 26 H Blood Pressure 135/65 111/74 Pulse Oximetry 90 L Oxygen Delivery Method Oxygen Flow Rate MDM - Weakness Lab Data 10/02/23 12:35 10/02/23 12:35 Labs: Lab Results 10/02/23 10/02/23 10/02/23 Range/Units 12:35 13:00 14:32 WBC 10.0 (4.5-11.0) X10^3/uL RBC 4.85 (4.5-5.9) X10^6/uL Hgb 13.2 L (13.5-17.5) g/dL Hct 39.6 L (41-53) % MCV 81.8 (80-100) fL MCH 27.2 (26-34) PG MCHC 33.3 (30-36) % RDW 15.0 H (11.6-14.8) % Plt Count 168 (150-400) X10^3/uL Neut % (Auto) 74.0 (50-75) % Lymph % (Auto) 9.6 L (25-40) % Kay % (Auto) 15.0 H (3-14) % Eos % (Auto) 0.8 L (2-4) % Baso % (Auto) 0.6 (0-2) % Neut # (Auto) 7400 H (6030-5505) /uL Lymph # (Auto) 1000 L (3106-9241) /uL Kay # (Auto) 1500 H (0-900) /uL Eos # (Auto) 100 (0-450) /uL Baso # (Auto) 100 (0-100) /uL Sodium 139 (137-145) mmol/L Potassium 4.2 (3.4-5.1) mmol/L Chloride 102 (98-107) mmol/L Carbon Dioxide 27 (22-32) mmol/L BUN 19 (9-20) mg/dL Creatinine 1.06 (0.66-1.25) mg/dL Estimated GFR > 60 (>60) mL/min BUN/Creatinine Ratio 17.9 (6-22) Glucose 169 H (80-110) mg/dL Lactate 1.6 (0.7-2.1) mmol/L Calcium 9.7 (8.4-10.2) mg/dL Total Bilirubin 1.1 (0.2-1.3) mg/dL AST 267 H (17-59) IU/L ALT 69 H (<50) IU/L Alkaline Phosphatase 96 (38-126) U/L Total Creatine Kinase 84068 H (55-170) U/L Troponin I 0.083 H 0.080 H (0.01-0.034) ng/mL NT-Pro-B Natriuret Pep 1260 H (<450) pg/mL Total Protein 8.4 H (6.3-8.2) g/dL Albumin 4.4 (3.5-5.0) g/dL Globulin 4.0 (1.7-4.1) g/dL Albumin/Globulin Ratio 1.1 (1.0-2.8) Lipase 51 (23-300) U/L Urine Color Urine Appearance Urine pH (4.5-8.0) Ur Specific [place] (1.000-1.035) Urine Protein (Negative) Urine Glucose (UA) (Negative) g/dL Urine Ketones (NEGATIVE) Urine Occult Blood (Negative) Urine Nitrate (Negative) Urine Bilirubin (NEGATIVE) Urine Urobilinogen (0.2) E.U./dL Ur Leukocyte Esterase (NEGATIVE) Urine RBC (0-5/HPF) Urine WBC (0-5/HPF) Ur Squamous Epith Cells (0-5/HPF) Urine Bacteria (None) Ur Culture Indicated? Vol Urine Centrifuged SARS-CoV-2 (PCR) Positive H (Negative) Influenza A (RT-PCR) Flu a negative (NEGATIVE) Influenza B (RT-PCR) Flu b negative (NEGATIVE) RSV (PCR) Negative (Negative) 10/02/23 Range/Units 15:24 WBC (4.5-11.0) X10^3/uL RBC (4.5-5.9) X10^6/uL Hgb (13.5-17.5) g/dL Hct (41-53) % MCV (80-100) fL MCH (26-34) PG MCHC (30-36) % RDW (11.6-14.8) % Plt Count (150-400) X10^3/uL Neut % (Auto) (50-75) % Lymph % (Auto) (25-40) % Kay % (Auto) (3-14) % Eos % (Auto) (2-4) % Baso % (Auto) (0-2) % Neut # (Auto) (3215-2609) /uL Lymph # (Auto) (5501-7006) /uL Kay # (Auto) (0-900) /uL Eos # (Auto) (0-450) /uL Baso # (Auto) (0-100) /uL Sodium (137-145) mmol/L Potassium (3.4-5.1) mmol/L Chloride (98-107) mmol/L Carbon Dioxide (22-32) mmol/L BUN (9-20) mg/dL Creatinine (0.66-1.25) mg/dL Estimated GFR (>60) mL/min BUN/Creatinine Ratio (6-22) Glucose (80-110) mg/dL Lactate (0.7-2.1) mmol/L Calcium (8.4-10.2) mg/dL Total Bilirubin (0.2-1.3) mg/dL AST (17-59) IU/L ALT (<50) IU/L Alkaline Phosphatase (38-126) U/L Total Creatine Kinase (55-170) U/L Troponin I (0.01-0.034) ng/mL NT-Pro-B Natriuret Pep (<450) pg/mL Total Protein (6.3-8.2) g/dL Albumin (3.5-5.0) g/dL Globulin (1.7-4.1) g/dL Albumin/Globulin Ratio (1.0-2.8) Lipase (23-300) U/L Urine Color Yellow Urine Appearance Clear Urine pH 5.0 (4.5-8.0) Ur Specific [place] 1.025 (1.000-1.035) Urine Protein Trace H (Negative) Urine Glucose (UA) Trace H (Negative) g/dL Urine Ketones Negative (NEGATIVE) Urine Occult Blood 3+ H (Negative) Urine Nitrate Negative (Negative) Urine Bilirubin Negative (NEGATIVE) Urine Urobilinogen 0.2 (0.2) E.U./dL Ur Leukocyte Esterase Negative (NEGATIVE) Urine RBC 0-1/hpf (0-5/HPF) Urine WBC 0-1/hpf (0-5/HPF) Ur Squamous Epith Cells None seen (0-5/HPF) Urine Bacteria None seen (None) Ur Culture Indicated? Cult not indicated Vol Urine Centrifuged 10ml (spun) SARS-CoV-2 (PCR) (Negative) Influenza A (RT-PCR) (NEGATIVE) Influenza B (RT-PCR) (NEGATIVE) RSV (PCR) (Negative) Imaging Data Chest x-ray: Radiologist Impression: PROCEDURE: XR CHEST 1V INDICATIONS: weakness TECHNIQUE: One view of the chest was acquired. COMPARISON: None. FINDINGS: Surgical changes and devices: None. Lungs and pleura: Low lung volumes, but no focal airspace consolidation. No pleural effusions or pneumothorax. Mediastinum: Mediastinal contours appear normal. Heart size is normal. Bones and chest wall: No suspicious bony lesions. Overlying soft tissues appear unremarkable. IMPRESSION: Low lung volumes without focal airspace consolidation. Approved by: Martita Richardson M.D. on 10/02/2023 at 13:13 ECG Data Interpretation: Atrial fibrillation rate [address] changes MDM Narrative Medical decision making narrative: Patient 82-year-old male presents today very weak overall very poor historian. He has no obvious focal deficits. at bedside concern for a dental infection. States that he went to the dentist about 5 days ago. He has no sign of facial swelling erythema or airway compromise. Low concern for dental infection. He is currently afebrile. Blood work reviewed WBC 10.0, electrolytes stable kidney function stable, lactate 1.6, bilirubin 1.1 AST 267 ALT 69 CPK 11,253, troponin 0.083 with repeat 0.080 BNP is 1200, COVID positive Imaging reviewed: Chest x-ray no acute process no pneumonia head CT no intracranial abnormality Patient was found to be COVID positive likely causing his increased confusion and weakness also likely the cause of his rhabdomyolysis. He has stable troponin release likely secondary to rhabdo. He was started on maintenance IV fluids. He actually started requiring oxygen initial concern for possible congestive heart failure however he is positive for COVID likely hypoxia related to COVID. He has not hypotensive no elevated lactate no obvious sign of sepsis. He remains afebrile here in the ED. Scott catheter was placed to monitor close urine output. He also had a difficult time urinating. Dr. Davey updated patient's symptoms test results and kindly accepts patient Discharge Plan Departure Patient Disposition: Admitted As Inpatient Clinical Impression: COVID-19, Rhabdomyolysis Admit Date/Time: 10/02/23 17:34 Admit Provider: Joseph Davey
--- NOTE | 2023-10-02 12:52 | PC.NURSE ---
Pt was brought to ED via [facility] ems for ongoing increasing weakness. Pt's called ems because she was concerned that pt has become increasingly weak and tired over the past few days. EMS reports that stated that he has been unable to ambulate with walker which he normally does at baseline. Pt a&o x3. Does not know today's date, month or year. States that he has pain in his lower back. Pt states that he only came to the ED today because his told him to.
[2023-10-02 12:53] LABS: Add Manual Diff / Slide Review NO; Basophils Absolute Auto 100 /uL (0-100); Basophils Percent Auto 0.6 % (0-2); Eosinophils Absolute Auto 100 /uL (0-450); Eosinophils Percent Auto 0.8 % (2-4); Hematocrit 39.6 % (41-53); Hemoglobin 13.2 g/dL (13.5-17.5); Lymphocytes Absolute Auto 1000 /uL (1100-4500); Lymphocytes Percent Auto 9.6 % (25-40); Mean Corpuscular HGB Conc 33.3 % (30-36); Mean Corpuscular Hemoglobin 27.2 PG (26-34); Mean Corpuscular Volume 81.8 fL (80-100); Monocytes Absolute Auto 1500 /uL (0-900); Neutrophils Absolute Auto 7400 /uL (1500-7000); Platelet Count 168 X10^3/uL (150-400); Red Blood Cell Count 4.85 X10^6/uL (4.5-5.9)
[2023-10-02 12:58] LABS: Lactate (Lactic Acid) 1.6 mmol/L (0.7-2.1)
[2023-10-02] MEDS: SODIUM CHLORIDE 0.9% 1,000 ML 150 ML IV (12:58)
[2023-10-02 12:59] LABS: Alanine Aminotransferase 69 IU/L (<50); Albumin 4.4 g/dL (3.5-5.0); Albumin Globulin Ratio 1.1 (1.0-2.8); Alkaline Phosphatase 96 U/L (38-126); Aspartate Aminotransferase 267 IU/L (17-59); BUN Creatinine Ratio 17.9 (6-22); Bilirubin Total 1.1 mg/dL (0.2-1.3); Blood Urea Nitrogen 19 mg/dL (9-20); Calcium 9.7 mg/dL (8.4-10.2); Carbon Dioxide 27 mmol/L (22-32); Chloride 102 mmol/L (98-107); Estimated Glomerular Filt Rate > 60 mL/min (>60); Glucose 169 mg/dL (80-110); HEMOLYSIS < 15 (0-50); Lipase 51 U/L (23-300); Potassium 4.2 mmol/L (3.4-5.1); Sodium 139 mmol/L (137-145); Total Protein 8.4 g/dL (6.3-8.2)
[2023-10-02 13:09] LABS: NT-proBNP (BNP-Adult 18+) 1260 pg/mL (<450)
[2023-10-02 13:10] LABS: Troponin I 0.083 ng/mL (0.01-0.034)
[2023-10-02 13:22] LABS: Creatine Kinase 11253 U/L (55-170)
--- NOTE | 2023-10-02 14:14 | DI.CT.S_ITS ---
PROCEDURE: CT HEAD/BRAIN WO CON INDICATIONS: confusion TECHNIQUE: Noncontrast 4.5 mm thick angled axial sections acquired from the foramen magnum to the vertex, with coronal and sagittal reformats. For radiation dose reduction, the following was used: automated exposure control, adjustment of mA and/or kV according to patient size. COMPARISON: Brain MRI 06/30/2021. FINDINGS: Image quality: Limited by motion artifact. CSF spaces: Basal cisterns are patent. No extra-axial fluid collections. The ventricles are symmetric in size and shape. Brain: No intracranial bleeds or masses. There is cerebral volume loss for age, with resultant ventricular and sulcal prominence. There are periventricular and deep white matter chronic small vessel ischemic changes. There is intracranial internal carotid artery atherosclerosis. 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 Skull and face: Calvarium and visualized facial bones appear intact, without suspicious lesions. Sinuses: Visualized sinuses and mastoids are clear. IMPRESSION: No acute intracranial pathology. Approved by: Martita Richardson M.D. on 10/02/2023 at 15:36
[2023-10-02 15:57] LABS: Appearance Urine UA CLEAR; Bilirubin Urine UA NEGATIVE (NEGATIVE); Color Urine UA YELLOW; Glucose Urine UA TRACE g/dL (Negative); Ketones Urine UA NEGATIVE (NEGATIVE); Leukocyte Esterase Urine UA NEGATIVE (NEGATIVE); Nitrite Urine UA NEGATIVE (Negative); Occult Blood Urine UA 3+ (Negative); Protein Urine UA TRACE (Negative); Specific Gravity Urine UA 1.025 (1.000-1.035); Urobilinogen Urine UA 0.2 E.U./dL (0.2)
[2023-10-02 16:12] LABS: Bacteria Urine None Seen; Culture Indicated Urine Cult Not Indicated; RBC Urine 0-1/HPF (0-5/HPF); Squamous Epithelial Cell Urine None Seen (0-5/HPF); Urine Volume 10mL (spun); WBC Urine 0-1/HPF (0-5/HPF)
[2023-10-02 16:18] LABS: Influenza A - CEPHEID Flu A NEGATIVE (NEGATIVE); Influenza B - CEPHEID Flu B NEGATIVE (NEGATIVE); Respiratory Syncytial Virus Negative (Negative)
[2023-10-02 16:24] LABS: COVID-19 CEPHEID 4-PLEX PCR POSITIVE (Negative)
[2023-10-02] MEDS: HYDROMORPHONE 0.5 MG INJ IV (16:26)
[2023-10-02] MEDS: DEXAMETHASONE 10 MG/ML VIAL 6 MG IV (17:24)
[2023-10-02] MEDS: SODIUM CHLORIDE 0.9% 1,000 ML 125 ML IV (18:24)
--- NOTE | 2023-10-02 18:25 | P.HP_ITS ---
History of Present Illness History of Present Illness Date Patient Seen: 10/02/23 Chief complaint: Weakness Narrative: Luis Miguel Hernandez is an 82yo M with PMH of A-fib on Pradaxa, DM2, mild cog impairment, SAURAV, obesity and HLD who presents with weakness. Patient is poor historian so history obtained from . She states he has be progressively getting weaker over several months and had home PT/OT back in May which helped him quite a bit. But then after they stopped he developed very little interest in doing most things, and would sleep until noon most days. He uses a walker and she noticed him getting weaker again so brought him to the ED. She hasn't noticed any change in his urine color. In the ED found to have rhabdo with CK of 11k as well as be COVID positive. IVF started as well as decadron. Patient notes he is SOB but only when he walks. Patient denies CP, NV, abd pain, diarrhea or muscle cramps. [facility] Medical History A-fib Aortic stenosis Arthritis Cataracts, bilateral Depression Diabetes Hearing impaired HLD (hyperlipidemia) Idiopathic hypersomnia with long sleep time Intermittent claudication Mild cognitive impairment with memory loss (~11/23/18) Numbness and tingling of both feet Obesity (BMI 30-39.9) Obstructive sleep apnea of adult Right hip pain Tooth infection (~09/2017) Surgical History History of colonoscopy History of vasectomy Social History (Updated 11/20/18 @ 22:44 by ELIZABETH Bradshaw) marital status: details: rl Lee, lives in [place] household members: spouse and children housing: house Smoking Status: Never smoker alcohol intake: never substance use type: does not use Meds Home Medications and Allergies Home Medications Medication Instructions Recorded Confirmed Type cholecalciferol (vitamin D3) 50 4,000 unit PO DAILY 11/15/18 04/22/22 History mcg (2,000 unit) capsule metformin 1,000 mg tablet 1,000 mg PO QPM 11/15/18 04/22/22 History metformin 1,000 mg tablet 1,500 mg PO QAM 11/15/18 04/22/22 History simvastatin 40 mg tablet 40 mg PO QPM 11/15/18 04/22/22 History dabigatran etexilate 150 mg 150 mg PO DAILY 08/19/20 04/22/22 History capsule (Pradaxa) Respirioncs Dreamstation 2 CPAP #1 ea 04/22/22 History coenzyme Q10 75 mg capsule 75 mg PO DAILY 04/22/22 04/22/22 History insulin NPH isoph U-100 human 100 45 unit SUBCUT BID 04/22/22 04/22/22 History unit/mL (3 mL) subcutaneous pen (Humulin N NPH U-100 Insulin KwikPen) Allergies Allergy/AdvReac Type Severity Reaction Status Date / Time No Known Drug Allergies Allergy Verified 04/22/22 15:04 Review of Systems Review of Systems Narrative: All other systems reviewed with the patient and are negative unless otherwise stated. Exam Vital Signs (past 8 hours): - 10/02/23 12:23 10/02/23 12:23 10/02/23 12:30 Temperature Pulse Rate 100 H 95 H Respiratory Rate 28 H Blood Pressure 115/69 Pulse Oximetry 93 93 Oxygen Delivery Method Oxygen Flow Rate 10/02/23 12:35 10/02/23 12:35 10/02/23 12:37 Temperature 97.6 F Pulse Rate 94 H 93 H Respiratory Rate 15 20 Blood Pressure 97/57 L 115/69 Pulse Oximetry 92 94 Oxygen Delivery Method Room Air Oxygen Flow Rate 10/02/23 12:59 10/02/23 12:59 10/02/23 13:00 Temperature Pulse Rate 97 H Respiratory Rate 25 H Blood Pressure 114/63 110/56 L Pulse Oximetry 92 Oxygen Delivery Method Oxygen Flow Rate 10/02/23 13:00 10/02/23 13:30 10/02/23 13:31 Temperature Pulse Rate 92 H 99 H 100 H Respiratory Rate 26 H 32 H 30 H Blood Pressure Pulse Oximetry 94 Oxygen Delivery Method Oxygen Flow Rate 10/02/23 13:31 10/02/23 14:00 10/02/23 14:08 Temperature Pulse Rate 103 H 100 H Respiratory Rate 27 H 28 H Blood Pressure 171/109 H Pulse Oximetry 90 L Oxygen Delivery Method Oxygen Flow Rate 10/02/23 14:08 10/02/23 14:30 10/02/23 14:32 Temperature Pulse Rate 107 H Respiratory Rate Blood Pressure 120/69 117/66 Pulse Oximetry 93 Oxygen Delivery Method Oxygen Flow Rate 10/02/23 14:32 10/02/23 15:00 10/02/23 15:00 Temperature Pulse Rate 96 H 89 Respiratory Rate 26 H 29 H Blood Pressure 133/55 L Pulse Oximetry 92 97 Oxygen Delivery Method Nasal Cannula Oxygen Flow Rate 2 10/02/23 15:29 10/02/23 15:30 10/02/23 15:30 Temperature Pulse Rate 100 H 100 H Respiratory Rate 28 H 29 H Blood Pressure 135/73 Pulse Oximetry 94 88 L Oxygen Delivery Method Nasal Cannula Oxygen Flow Rate 2 10/02/23 16:00 10/02/23 16:00 10/02/23 16:05 Temperature Pulse Rate 93 H 101 H Respiratory Rate 27 H 28 H Blood Pressure 161/67 H Pulse Oximetry 94 93 Oxygen Delivery Method Oxygen Flow Rate 10/02/23 16:05 10/02/23 16:30 10/02/23 16:30 Temperature Pulse Rate 100 H Respiratory Rate 26 H Blood Pressure 135/65 111/74 Pulse Oximetry 90 L Oxygen Delivery Method Oxygen Flow Rate Oxygen Delivery Method Nasal Cannula Oxygen Flow Rate 2 Narrative Exam Narrative: GEN: no acute distress, mildly demented HEENT: moist mucous membranes, PERRL NECK: trachea midline, no JVD CV: regular rate and rhythm, no murmurs PULM: clear bilaterally ABD: soft, nontender, nondistended, no organomegaly EXT: warm and well perfused with no edema NEURO: awake, alert, oriented, no focal deficits Objective Labs 10/02/23 12:35 10/02/23 12:35 Labs: Laboratory Results - last 24 hr 10/02/23 10/02/23 10/02/23 12:35 13:00 14:32 WBC 10.0 RBC 4.85 Hgb 13.2 L Hct 39.6 L MCV 81.8 MCH 27.2 MCHC 33.3 RDW 15.0 H Plt Count 168 Neut % (Auto) 74.0 Lymph % (Auto) 9.6 L [place] % (Auto) 15.0 H Eos % (Auto) 0.8 L Baso % (Auto) 0.6 Neut # (Auto) 7400 H Lymph # (Auto) 1000 L [place] # (Auto) 1500 H Eos # (Auto) 100 Baso # (Auto) 100 Sodium 139 Potassium 4.2 Chloride 102 Carbon Dioxide 27 BUN 19 Creatinine 1.06 Estimated GFR > 60 BUN/Creatinine Ratio 17.9 Glucose 169 H Lactate 1.6 Calcium 9.7 Total Bilirubin 1.1 AST 267 H ALT 69 H Alkaline Phosphatase 96 Total Creatine Kinase 71786 H Troponin I 0.083 H 0.080 H NT-Pro-B Natriuret Pep 1260 H Total Protein 8.4 H Albumin 4.4 Globulin 4.0 Albumin/Globulin Ratio 1.1 Lipase 51 Urine Color Urine Appearance Urine pH Ur Specific [place] Urine Protein Urine Glucose (UA) Urine Ketones Urine Occult Blood Urine Nitrate Urine Bilirubin Urine Urobilinogen Ur Leukocyte Esterase Urine RBC Urine WBC Ur Squamous Epith Cells Urine Bacteria Ur Culture Indicated? Vol Urine Centrifuged SARS-CoV-2 (PCR) Positive H Influenza A (RT-PCR) Flu a negative Influenza B (RT-PCR) Flu b negative RSV (PCR) Negative 10/02/23 15:24 WBC RBC Hgb Hct MCV MCH MCHC RDW Plt Count Neut % (Auto) Lymph % (Auto) [place] % (Auto) Eos % (Auto) Baso % (Auto) Neut # (Auto) Lymph # (Auto) [place] # (Auto) Eos # (Auto) Baso # (Auto) Sodium Potassium Chloride Carbon Dioxide BUN Creatinine Estimated GFR BUN/Creatinine Ratio Glucose Lactate Calcium Total Bilirubin AST ALT Alkaline Phosphatase Total Creatine Kinase Troponin I NT-Pro-B Natriuret Pep Total Protein Albumin Globulin Albumin/Globulin Ratio Lipase Urine Color Yellow Urine Appearance Clear Urine pH 5.0 Ur Specific [place] 1.025 Urine Protein Trace H Urine Glucose (UA) Trace H Urine Ketones Negative Urine Occult Blood 3+ H Urine Nitrate Negative Urine Bilirubin Negative Urine Urobilinogen 0.2 Ur Leukocyte Esterase Negative Urine RBC 0-1/hpf Urine WBC 0-1/hpf Ur Squamous Epith Cells None seen Urine Bacteria None seen Ur Culture Indicated? Cult not indicated Vol Urine Centrifuged 10ml (spun) SARS-CoV-2 (PCR) Influenza A (RT-PCR) Influenza B (RT-PCR) RSV (PCR) Assessment & Plan Assessment & Plan narrative: # acute rhabdomyalosis and weakness -CK 11k, myoglobinuria present -cause may be COVID-related, or from statin -hold simvastatin -trend CK and Cr -IVF -PT/OT evals # acute hypoxic resp failure 2/2 COVID -requiring 2L NC -CXR normal, will obtain CTPA to r/o PE -start decadron, avoid remdesivir due to transaminitis -wean O2 as able # acute transaminitis -LFT's elevated, likely due to rhabdo and COVID -trend -avoid nephrotoxic meds # persistent A-fib -continue pradaxa -currently rate-controlled # DM2 -continue NPH insulin and SSI -hold metformin # HLD -stop statin due to rhabdo Code status is full code. DVT prophylaxis with Pradaxa. Proxy is . I have reviewed home meds and used all available resources to reconcile the home meds. Case discussed with ED physician/APC and patient will be admitted to the hospitalist service for further workup and management. This patient will be admitted as inpatient and will require greater than 2 midnights of hospital time to treat rhabdo and hypoxic respiratory failure.
[2023-10-02 18:33] LABS: Magnesium 1.9 mg/dL (1.6-2.3)
--- NOTE | 2023-10-02 18:42 | DI.CT.S_ITS ---
PROCEDURE: CT ANGIO CHEST PE PROTOCOL INDICATIONS: rule out PE TECHNIQUE: After the administration of intravenous contrast, 2 mm thick sections acquired from the pulmonary apices to the posterior costophrenic angles. 3-dimensional maximum intensity projection (MIP) coronal and sagittal reformats were then acquired through the thorax. For radiation dose reduction, the following was used: automated exposure control, adjustment of mA and/or kV according to patient size. COMPARISON: [facility], CR, XR CHEST 1V, 10/02/2023, 12:44. FINDINGS: Image quality: Diagnostic. Pulmonary arteries: Pulmonary arteries are normal in size, and demonstrate no intraluminal filling defects to suggest central pulmonary embolism. Lower Neck: No enlarged lymph nodes. Thyroid: The thyroid gland appears heterogeneous with moderate enlargement of the right thyroid lobe. Multiple ill-defined right thyroid nodules. Axillae: No enlarged lymph nodes. Chest Wall: Unremarkable. Bones: Unremarkable. Lungs and Pleura: Trace bilateral pleural effusions. Associated compressive atelectasis. No pneumothorax. Patchy consolidations of the bilateral lower lobes with mild perihilar airway thickening most pronounced in the dependent portions of the bilateral lower lobes. Suggestion of mild smooth septal thickening of the bilateral lower lobes and minimally in the dependent portions of the upper lobes. Heart: Heart size is normal. No pericardial effusion. Multivessel atherosclerotic calcifications of the coronary arteries. Thoracic Vessels: No aortic aneurysm. Mediastinum and Estrella: Multiple prominent mediastinal and hilar lymph nodes which are more notable for number rather than size are favored to represent reactive adenopathy. Esophagus: No wall thickening. Small hiatal hernia. Upper Abdomen: Visualized upper abdomen solid organs and bowel loops appear normal. IMPRESSION: No acute pulmonary emboli. No evidence for acute right-sided heart strain. Trace bilateral pleural effusions, bilateral perihilar airway thickening most pronounced in the lower lobes with patchy consolidations of the bilateral lower lobes. Mild smooth septal thickening most pronounced in the lower lobes. Findings may represent early/mild pulmonary edema or CHF. An infectious or inflammatory process to include aspiration may have a similar appearance. Moderate atherosclerotic vascular calcifications. Enlarged right thyroid lobe with suggestion of ill-defined nodules. Recommend outpatient thyroid ultrasound for further characterization. Dictated by: Reji Colindres M.D. on 10/02/2023 at 23:10 Approved by: Reji Colindres M.D. on 10/02/2023 at 23:19
[2023-10-02] MEDS: INSULIN NPH 100 UNIT/ML 10ML VIAL 30 UNIT SUBCUT (22:26)
--- NOTE | 2023-10-02 22:50 | PC.WOUNDPHOT ---
left knee abrasion Right knee abrasion
[2023-10-02] MEDS: SODIUM CHLORIDE 0.9% 1,000 ML 100 ML IV (23:42)
[2023-10-03] VITALS (8 sets, daily range): BP systolic 94–127; BP diastolic 46–68; PULSE 60–81; RESP 18–24; TEMP 36.1–36.6; O2SAT 88–96
[2023-10-03 05:52] LABS: Add Manual Diff / Slide Review NO; Basophils Absolute Auto 0 /uL (0-100); Basophils Percent Auto 0.3 % (0-2); Eosinophils Absolute Auto 0 /uL (0-450); Hematocrit 37.3 % (41-53); Hemoglobin 12.5 g/dL (13.5-17.5); Lymphocytes Absolute Auto 800 /uL (1100-4500); Lymphocytes Percent Auto 10.2 % (25-40); Mean Corpuscular HGB Conc 33.4 % (30-36); Mean Corpuscular Hemoglobin 27.4 PG (26-34); Mean Corpuscular Volume 81.9 fL (80-100); Monocytes Absolute Auto 700 /uL (0-900); Monocytes Percent Auto 9.4 % (3-14); Neutrophils Absolute Auto 6400 /uL (1500-7000); Neutrophils Percent Auto 80.1 % (50-75); Platelet Count 156 X10^3/uL (150-400); Red Blood Cell Count 4.55 X10^6/uL (4.5-5.9); Red Cell Distribution Width 15.5 % (11.6-14.8); White Blood Cell Count 7.9 X10^3/uL (4.5-11.0)
[2023-10-03 06:08] LABS: Alanine Aminotransferase 68 IU/L (<50); Albumin 3.8 g/dL (3.5-5.0); Albumin Globulin Ratio 1.1 (1.0-2.8); Alkaline Phosphatase 75 U/L (38-126); Aspartate Aminotransferase 184 IU/L (17-59); BUN Creatinine Ratio 20.2 (6-22); Bilirubin Total 0.9 mg/dL (0.2-1.3); Blood Urea Nitrogen 19 mg/dL (9-20); Calcium 8.9 mg/dL (8.4-10.2); Carbon Dioxide 23 mmol/L (22-32); Chloride 105 mmol/L (98-107); Estimated Glomerular Filt Rate > 60 mL/min (>60); Globulin 3.6 g/dL (1.7-4.1); Glucose 202 mg/dL (80-110); HEMOLYSIS < 15 (0-50); Potassium 4.2 mmol/L (3.4-5.1); Sodium 139 mmol/L (137-145); Total Protein 7.4 g/dL (6.3-8.2)
[2023-10-03 08:56] LABS: Creatine Kinase 6388 U/L (55-170)
[2023-10-03] MEDS: DABIGATRAN 75 MG CAPSULE 150 MG PO (08:57)
[2023-10-03] MEDS: HYDROMORPHONE 0.5 MG INJ IV ×3 (08:57→17:52)
[2023-10-03] MEDS: DEXAMETHASONE 10 MG/ML VIAL 6 MG IV (08:58)
[2023-10-03] MEDS: INSULIN NPH 100 UNIT/ML 10ML VIAL 30 UNIT SUBCUT ×2 (08:59→22:23)
[2023-10-03] MEDS: INSULIN LISPRO 100 UNIT/ML 3ML VIAL SUBCUT ×3 (09:01→17:24)
[2023-10-03] MEDS: OXYCODONE IR 5 MG TABLET PO ×3 (09:33→18:47)
[2023-10-03] MEDS: SODIUM CHLORIDE 0.9% 1,000 ML 100 ML IV ×2 (09:33→19:43)
--- NOTE | 2023-10-03 13:38 | PT.IIE ---
Current Diagnoses Rhabdomyolysis (10/02/23) Surgical History (Last Reviewed 10/14/21 @ 14:32 by Jose Ramon Carpenter MD) History of colonoscopy History of vasectomy Medical History (Last Reviewed 10/14/21 @ 14:32 by Jose Ramon Carpenter MD) A-fib Aortic stenosis Arthritis Cataracts, bilateral Depression Diabetes Hearing impaired HLD (hyperlipidemia) Idiopathic hypersomnia with long sleep time Intermittent claudication Mild cognitive impairment with memory loss (~11/23/18) Numbness and tingling of both feet Obesity (BMI 30-39.9) Obstructive sleep apnea of adult Right hip pain Tooth infection (~09/2017) Physical Therapy Inpatient Evaluation/Re-Eval M1 PT/OT-IP Prior Functional Status Start: 10/03/23 10:28 Freq: NEEDED Status: Active Protocol: Document 10/03/23 10:35 MB (Rec: 10/03/23 13:38 MB [id number]) Medical Review Prior Functional Status Medical History Reviewed Yes Communication Unsure baseline diet Mobility and Gait Pt with confusion and is unclear about PLOF, may have used a RW Activities of Daily Living and IADL's Pt states that he lives in his home in [place] with his Social History Household Members spouse,children Living Arrangements House Number of Stairs To Enter/Railing? Unsure how many floors given pt confusion. He states there are a couple of steps and at least a rail to enter and he does not specify which side. Home Equipment Front Wheel Walker Employment Status Retired Additional Social History Comment Pt is unable to answer any other DME/home set-up questions today M2 PT-IP Current Condition Start: 10/03/23 10:28 Freq: NEEDED Status: Active Protocol: Document 10/03/23 10:35 MB (Rec: 10/03/23 13:38 MB [id number]) Physical Therapy Current Condition Current Condition Evaluation Date 10/03/23 Treatment Diagnosis COVID, elevated creatine kinase M3 PT-IP Subjective Start: 10/03/23 10:28 Freq: NEEDED Status: Active Protocol: Document 10/03/23 10:35 MB (Rec: 10/03/23 13:38 MB [id number]) Subjective Physical Therapy Visit Type Type Initial Evaluation Visit Start Time 10:35 Visit Stop Time 10:50 Number of FORCER MAKER Visits 0 Physical Therapy Visit Comments Patient Comments Pt is not very conversant, states that he is using the pillow to block the sunlight ( but pillow is on opposite side from window). Pt does not answer pain question when asked. M4 PT-IP Mobility and Gait Start: 10/03/23 10:28 Freq: NEEDED Status: Active Protocol: Document 10/03/23 10:35 MB (Rec: 10/03/23 13:38 MB [id number]) PT-Bed Mobility Assessment Supine to Sit Supine to Sit Contact Guard Assistance,1 Person Assistance,Head of Bed Elevated,Bedrails Sit to Supine Sit to Supine Contact Guard Assistance,1 Person Assistance,Head of Bed Elevated,Bedrails Scooting Scooting to Edge of Bed Contact Guard Assistance PT-Transfer Assessment Sit to and From Stand Sit to and from Stand Moderate Assistance,1 Person Assistance,2 Person Assistance ,Use of Upper Extremities Equipment Transfer Assistive Device Gait Belt,Front Wheeled Walker Orthotic/Prosthetic Devices or Brace: No Gait Assessment Gait Gait Assistance Required: Minimum Assistance Distance (Feet) 2 Able to Maintain Weight Bearing Status Yes During Gait Assistive Devices Assistive Device Gait Belt,Front Wheeled Walker Orthotic/Prosthetic Devices or Brace: No Gait Deviations General Gait Pattern Decreased Stride Length, Decreased Feet Clearance,Wide Based Gait Factors Limiting Gait Function Factors Limiting Gait Function Decreased Strength,Difficulty Following Directions,Pain,Poor Balance,Poor Safety Awareness Comments Gait Comments Pt side steps to the left up to HOB only and PT returns pt to bed given confusion this a. m. PT-Balance Assessment Sitting Balance and Reactions Static Sitting Balance Ability Fair Dynamic Sitting Balance Ability Fair Standing Balance and Reactions Static Standing Balance Ability Fair Dynamic Standing Balance Ability Fair Device Used RW M5 PT-IP Objective Assessments Start: 10/03/23 10:28 Freq: NEEDED Status: Active Protocol: Document 10/03/23 10:35 MB (Rec: 10/03/23 13:38 MB [id number]) Orientation Orientation/Cognition Level of Alertness Confusional State Orientation Name Safety Awareness Decreased Safety Awareness Memory Description Short Term Impaired,Meter Maker Impaired Strength Comments Strength Comments Pt does not follow ROM or MMT cues today and neither can he follow sensory and other testing commands. He is grossly functional with range and strength with mobility though he requires assistance to get to feet for STS transfer M6 PT-IP Treatment Start: 10/03/23 10:28 Freq: NEEDED Status: Active Protocol: Document 10/03/23 10:35 MB (Rec: 10/03/23 13:38 MB [id number]) Physical Therapy Treatment Education Education Provided Safety M7 PT-IP Assessment and Plan Start: 10/03/23 10:28 Freq: NEEDED Status: Active Protocol: Document 10/03/23 10:35 MB (Rec: 10/03/23 13:38 MB [id number]) PT Summary Assessment and Plan Potential Rehabilitation Potential Fair Status of Condition at Evaluation Evolving Summary Impairments Strength,Balance,Cognition,Bed Mobility,Transfers,Gait, Activity Tolerance Progress Towards Goals Slow Progress due to Activity Tolerance Assessment Summary Pt is an 82 y/o male adm with COVID and fall. He has elevated creatine kinase on eval date. Pt presents with confusion and so PT returns him to bed with bed alarm on and three rails up after treatment. Pt has trouble following all commands but does pretty well with functional commands. His O2 sats are 93% on 2L with mobility. Pt will benefit from acute and post-acute PT to improve functional mobility, balance and gait. Goals Bed Mobility Goal Independent Transfer Goal Independent,Front Wheeled Walker Gait Goal Independent,Front Wheel Walker Gait Distance 100 Other Goals Pt will ascend and descend 2-3 steps with rail and no more than CGA to allow safe home entrance. Days to Meet Goals 5 Frequency of Treatment Frequency Of Treatment Once a Day Treatment Plan Physical Therapy Treatment Plan Bed Mobility Training,Transfer Training,Gait Training, Therapeutic Exercise,Balance Retraining,Discharge Planning, Hot or Cold Pack,Neuromuscular Re-ed Precautions Other Precautions Fall risk and droplet precautions for COVID Weight Bearing Status Weight Bearing Status Weight Bear as Tolerated Recommendations To Nursing Amount of Assist Needed 1 Person Assist Discharge Recommendations PT Discharge Recommendations Home with 07/03 Assist Available,SNF Rehab,Home vs SNF Transportation Needs at Discharge Private Vehicle,Wheelchair/ Cabulance
--- NOTE | 2023-10-03 14:44 | PM.PN.1 ---
Subjective Subjective Interval history: 82 M admitted with rhabdomyolysis, asymptomatic COVID infection. Improved today, he denies complaints. CK improved to 6388 this morning. Exam Vital Signs (past 8 hours): - 10/03/23 07:38 10/03/23 08:00 10/03/23 12:00 Temperature 96.9 F L 97.1 F L Pulse Rate 60 64 65 Respiratory Rate 20 20 Blood Pressure 99/63 95/60 Pulse Oximetry 95 95 94 Oxygen Delivery Method Nasal Cannula Oxygen Flow Rate 1.5 2 Oxygen Delivery Method Nasal Cannula Oxygen Flow Rate 2 Narrative Exam Narrative: GEN: no acute distress, mildly demented HEENT: moist mucous membranes, PERRL NECK: trachea midline, no JVD CV: regular rate and rhythm, no murmurs PULM: clear bilaterally ABD: soft, nontender, nondistended, no organomegaly EXT: warm and well perfused with no edema NEURO: awake, alert, oriented, no focal deficits Objective Labs 10/03/23 05:40 10/03/23 05:40 Labs: Laboratory Results - last 24 hr 10/02/23 10/02/23 10/02/23 12:35 13:00 14:32 WBC RBC Hgb Hct MCV MCH MCHC RDW Plt Count Neut % (Auto) Lymph % (Auto) Graves % (Auto) Eos % (Auto) Baso % (Auto) Neut # (Auto) Lymph # (Auto) Graves # (Auto) Eos # (Auto) Baso # (Auto) Sodium Potassium Chloride Carbon Dioxide BUN Creatinine Estimated GFR BUN/Creatinine Ratio Glucose Calcium Magnesium 1.9 Total Bilirubin AST ALT Alkaline Phosphatase Total Creatine Kinase Troponin I 0.080 H Total Protein Albumin Globulin Albumin/Globulin Ratio Urine Color Urine Appearance Urine pH Ur Specific Hester Urine Protein Urine Glucose (UA) Urine Ketones Urine Occult Blood Urine Nitrate Urine Bilirubin Urine Urobilinogen Ur Leukocyte Esterase Urine RBC Urine WBC Ur Squamous Epith Cells Urine Bacteria Ur Culture Indicated? Vol Urine Centrifuged SARS-CoV-2 (PCR) Positive H Influenza A (RT-PCR) Flu a negative Influenza B (RT-PCR) Flu b negative RSV (PCR) Negative 10/02/23 10/03/23 15:24 05:40 WBC 7.9 RBC 4.55 Hgb 12.5 L Hct 37.3 L MCV 81.9 MCH 27.4 MCHC 33.4 RDW 15.5 H Plt Count 156 Neut % (Auto) 80.1 H Lymph % (Auto) 10.2 L Graves % (Auto) 9.4 Eos % (Auto) 0.0 L Baso % (Auto) 0.3 Neut # (Auto) 6400 Lymph # (Auto) 800 L Graves # (Auto) 700 Eos # (Auto) 0 Baso # (Auto) 0 Sodium 139 Potassium 4.2 Chloride 105 Carbon Dioxide 23 BUN 19 Creatinine 0.94 Estimated GFR > 60 BUN/Creatinine Ratio 20.2 Glucose 202 H Calcium 8.9 Magnesium Total Bilirubin 0.9 AST 184 H ALT 68 H Alkaline Phosphatase 75 Total Creatine Kinase 6388 H D Troponin I Total Protein 7.4 Albumin 3.8 Globulin 3.6 Albumin/Globulin Ratio 1.1 Urine Color Yellow Urine Appearance Clear Urine pH 5.0 Ur Specific Hester 1.025 Urine Protein Trace H Urine Glucose (UA) Trace H Urine Ketones Negative Urine Occult Blood 3+ H Urine Nitrate Negative Urine Bilirubin Negative Urine Urobilinogen 0.2 Ur Leukocyte Esterase Negative Urine RBC 0-1/hpf Urine WBC 0-1/hpf Ur Squamous Epith Cells None seen Urine Bacteria None seen Ur Culture Indicated? Cult not indicated Vol Urine Centrifuged 10ml (spun) SARS-CoV-2 (PCR) Influenza A (RT-PCR) Influenza B (RT-PCR) RSV (PCR) [facility] Medical History A-fib Aortic stenosis Arthritis Cataracts, bilateral Depression Diabetes Hearing impaired HLD (hyperlipidemia) Idiopathic hypersomnia with long sleep time Intermittent claudication Mild cognitive impairment with memory loss (~11/23/18) Numbness and tingling of both feet Obesity (BMI 30-39.9) Obstructive sleep apnea of adult Right hip pain Tooth infection (~09/2017) Surgical History History of colonoscopy History of vasectomy Social History (Updated 11/20/18 @ 22:44 by ELIZABETH Bradshaw) marital status: details: rl Lee, lives in [place] household members: spouse and children housing: house Smoking Status: Never smoker alcohol intake: never substance use type: does not use Assessment & Plan Assessment & Plan narrative: # acute rhabdomyalosis and weakness -CK 11k, myoglobinuria present. CK improved to 6388 today. Continue IV fluids for now. -cause may be COVID-related, or from statin -hold simvastatin -trend CK and Cr -IVF -PT/OT evals recommending home vs SNF today. Continue therapies. # acute hypoxic resp failure 2/2 COVID -requiring 2L NC -CTA negative for PE, may be due to fluid needed for rhabdo. If worsening hypoxia stop IV fluids and diurese. # acute transaminitis -LFT's elevated, likely due to rhabdo and COVID -trend -avoid nephrotoxic meds # persistent A-fib -continue pradaxa -currently rate-controlled # DM2 -continue NPH insulin and SSI -hold metformin # HLD -stop statin due to rhabdo Code status is full code. DVT prophylaxis with Pradaxa. Proxy is . I have reviewed home meds and used all available resources to reconcile the home meds. This patient will be admitted as inpatient and will require greater than 2 midnights of hospital time to treat rhabdo and hypoxic respiratory failure.
--- NOTE | 2023-10-03 14:59 | OT.IP.EVAL ---
Current Diagnoses Rhabdomyolysis (10/02/23) Past Medical History (Last Reviewed 10/14/21 @ 14:32 by Jose Ramon Carpenter MD) A-fib Aortic stenosis Arthritis Cataracts, bilateral Depression Diabetes Hearing impaired HLD (hyperlipidemia) Idiopathic hypersomnia with long sleep time Intermittent claudication Mild cognitive impairment with memory loss (~11/23/18) Numbness and tingling of both feet Obesity (BMI 30-39.9) Obstructive sleep apnea of adult Right hip pain Tooth infection (~09/2017) Surgical History (Last Reviewed 10/14/21 @ 14:32 by Jose Ramon Carpenter MD) History of colonoscopy History of vasectomy Occupational Therapy Inpatient Evaluation/Re-Eval M1 PT/OT-IP Prior Functional Status Start: 10/03/23 10:28 Freq: NEEDED Status: Active Protocol: Document 10/03/23 13:45 CHAPITO (Rec: 10/03/23 14:58 CHAPITO [id number]) Medical Review Prior Functional Status Medical History Reviewed Yes Communication Pt's spouse present for evaluation, she answered many of the history questions, and corrected several of the pts responses. Mobility and Gait Per spouse, pt would sleep in the bed until noon. He was able to walk with walker to living room and would spend most of the day up in his chair watching tv. Activities of Daily Living and IADL's Per spouse, pt was I with performing his BADLs and toileting. Pt would utilize sock aid for socks. Pt was also able to feed himself. Social History Household Members spouse,children Living Arrangements House Number of Floors (Floors) One Floor Number of Stairs To Enter/Railing? They have 3 steps to enter home with B railings. Pts states that the rails are too far apart to hold onto both when climbing the stairs. Home Environment High Toilet,Walk in Shower Home Equipment Front Wheel Walker,Geographic Area Intelligence Officer, Sock Aid,Grab Bars Near Toilet ,Grab Bars In Shower Employment Status Retired Additional Social History Comment Pt's spouse says that he has a metal frame around the toilet that he uses to push up from. It was installed with recommendations from previous home health services. M2 OT-IP Current Condition Start: 10/03/23 14:29 Freq: Status: Active Protocol: Document 10/03/23 13:45 CHAPITO (Rec: 10/03/23 14:58 [facility] [id number]) Occupational Therapy Current Condition Current Condition Evaluation Date 10/03/23 Treatment Diagnosis generalized weakness Diagnosis Onset Date 10/02/23 M3 OT- IP Subjective and Pain Start: 10/03/23 14:29 Freq: Status: Active Protocol: Document 10/03/23 13:45 CHAPITO (Rec: 10/03/23 14:58 [facility] [id number]) OT- Subjective Occupational Therapy Visit Type Type Initial Evaluation Visit Start Time 13:45 Visit Stop Time 14:25 Notes Pt and spouse present in room on entrance of OT. Pt was pleasant and cooperative throughout eval. Pt required minimal encouragement to participate. Occupational Therapy Visit Comments Patient Comments Pt reports that he would like to be able to sit on the EOB and put his pants on. OT Pain Assessment Pain Present Pain Present Denied Pain M4 OT- IP ADL's Start: 10/03/23 14:29 Freq: Status: Active Protocol: Document 10/03/23 13:45 CHAPITO (Rec: 10/03/23 14:58 [facility] [id number]) OT [id number] General Evaluation Self-Feeding Ability Independent Comments OT Self-Feeding Comments OT did not observe pt eating, however, pts stated that he does not need any assistance. OT ADL-Grooming General Evaluation Grooming Ability Standby Assistance Areas Needing Assistance Retrieving/Set-up of Grooming Items Comments OT Grooming Comments Pt performs grooming sitting EOB on set up of items with min vcs to perform for himself . OT ADL-Oral Care General Eval Oral Care Ability Minimal Assistance Areas of Assistance Retrieving/Set-Up of Items Comments Oral Care Comments Pt performs oral hygiene while sitting EOB. Pt required assistance to open mouth wash and to gather items, pt was otherwise I with oral hygiene. OT ADL-Dressing General Eval Upper Body Dressing Ability Minimal Assistance Lower Body Dressing Ability Moderate Assistance Comments OT Dressing Comments Pt declined dressing at time of eval. Based on pt's IV and pulse ox, pt would likely require at least min A at this time for UB dressing. Pt was unable to assist OT in fixing his socks. Pt reports he uses a sock aid at home. OT ADL-Toileting General Evaluation Toileting Ability Moderate Assistance,Total Assistance Comments OT Toileting Comments Pt has a catheter in place for urination. Pt declined needing to try using BSC at this time. OT ADL-Bathing General Evaluation Bathing Ability Moderate Assistance Comments OT Bathing Comments Pt declined performing bathing at this time. Pt demonstrates adequate ROM, balance, and strength while sitting EOB. OT expects that pt could safely perform sponge bath with mod A or better. M5 OT- IP IADL's Start: 10/03/23 14:29 Freq: Status: Active Protocol: Document 10/03/23 13:45 CHAPITO (Rec: 10/03/23 14:58 [facility] [id number]) OT-Instrumental Activities of Daily Living Deficits IADL Deficits Identified Deficits Home Safety Awareness Awareness of Need for Assistance at Home Good Awareness Ability to Problem Solve Emergency Unable to Problem Solve Situations Medication Management Medication Management Caregiver Administers Money Management Money Management Caregiver Provides Assistance Meal Preparation Meal Preparation Caregiver Provides Assist Mixer Crane Operator Mixer Crane Operator Caregiver Provides Assist Driving Driving Caregiver Provides Assist M6 OT- IP Functional Cognition Start: 10/03/23 14:29 Freq: Status: Active Protocol: Document 10/03/23 13:45 CHAPITO (Rec: 10/03/23 14:58 [facility] [id number]) Cognitive Factors Limiting Selfcare Function Cognitive Ability Level of Alertness Confusional State Patient Orientation Name,Situation Attention Span Ability Capable of Focused Attention, Capable of Sustained Attention Ability to Follow Commands Able to Follow One Step Commands,Able to Follow Multi- Step Commands Memory Description Short Term Impaired,Alf Impaired Safety Awareness No Deficits Noted Problem Solving Ability No deficits Noted Executive Function Ability Unable to Remember Details Abstract Thinking Ability No Deficits Noted OT- Vision and Hearing OT- Hearing Assessment OT- Hearing Assessment WFL OT- Vision Assessment Visual Acuity WFL,Glasses All The Time M7 OT- IP Mobility and Balance Start: 10/03/23 14:29 Freq: Status: Active Protocol: Document 10/03/23 13:45 CHAPITO (Rec: 10/03/23 14:58 [facility] [id number]) OT- Bed Mobility Assessment Rolling Type of Rolling Roll to Right Level of Assistance Standby Assistance Supine to Sit Supine to Sit Assist Minimal Assistance,1 Person Assistance,Head of Bed Elevated,Bedrails Sit to Supine Sit to Supine Assist Minimal Assistance,1 Person Assistance,Head of Bed Elevated,Bedrails Scooting Scooting to Edge of Bed Contact Guard Assistance, Bedrails OT-Transfer Assessment Sit to and From Stand Sit to and from Stand Minimal Assistance,1 Person Assistance,Use of Upper Extremities Transfers Transfer Ability Minimal Assistance,1 Person Assistance,Use of Upper Extremities Technique Transfer Destination Bed Transfer Technique Lateral Scoot Devices Transfer Assistive Devices Gait Belt,Front Wheeled Walker Comments Mobility Comments Pt requires vcs for hand placement and sequencing. Pt asks OT repeatedly what are we doing while performing steps or t/fs. OT- Gait Assessment Gait Gait Assistance Required: Contact Guard Assist Distance (Feet) 4 Assistive Devices Assistive Device Gait Belt,Front Wheeled Walker Comments Gait Ability Comments Pt takes lateral steps using FWW to HOB. Pt returns to sitting with min A. OT- Balance Assessment Sitting Balance and Reactions Static Sitting Balance Ability Good Dynamic Sitting Balance Ability Fair Standing Balance and Reactions Static Standing Balance Ability Fair Dynamic Standing Balance Ability Fair M8 OT- IP Objective Assessments Start: 10/03/23 14:29 Freq: Status: Active Protocol: Document 10/03/23 13:45 CHAPITO (Rec: 10/03/23 14:58 [facility] [id number]) OT Gross Range of Motion Upper Extremity Range of Motion Assessment Within Functional Limits OT Strength Upper Extremity Strength Assessment Within Functional Limits M9 OT- IP Assessment and Plan Start: 10/03/23 14:29 Freq: Status: Active Protocol: Document 10/03/23 13:45 CHAPITO (Rec: 10/03/23 14:58 [facility] [id number]) OT Summary Assessment and Plan Potential Rehabilitation Potential Good Analytic Complexity at Evaluation Moderate Summary OT Impairments Balance,Functional Cognition, Functional Mobility,Grooming, Dressing,Toileting,Bathing, Toilet Transfers,Shower Transfers,Activity Tolerance Progress Towards Goals Progressing Toward Goals Assessment Summary Pt is 82 yo M with generalized weakness. Pt's reports that he had multiple falls in May followed by PT/OT. After therapy d/c pt he had less interest in doing things and was sleeping until noon. Pt would then get up and perform his BADLs and would sit in his chair for the rest of the day. Pt was using his FWW to ambulate household distances. Pt's reports that he started getting weaker recently so she brought him to the ED. In the ED he was found to have rhabdo with CK of 11k as well as COVID +. Pt demonstrates activity intolerance, decreased functional t/fs, decreased BADL, and decreased balance. Skilled OT services are appropriate to address pt deficits and promote return to PLOF. Goals Grooming Goal Independent Dressing Goal Independent Toileting Goal Independent Bathing Goal Independent Toilet Transfer Goal Independent Shower Transfer Goal Standby Assistance Days to Meet Goals 14 Frequency of Treatment Frequency Of Treatment Once a Day Treatment Plan OT Treatment Plan ADL Training,Functional Cognition Training,Functional Mobility,Therapeutic Exercises ,Patient/Family Education, Discharge Planning Discharge Recommendations OT Discharge Recommendations Home with Assistance,Home Health
--- NOTE | 2023-10-03 16:27 | CM.DANOTE ---
DCP Assessment Note Pt is an 82yo M here following Rhabdo/COVID/weakness. Mild cog impairment with memory loss. PCP Zandra Chou Payer [facility] and self pay BLEACH PACKER reviewed EMR. Per hospitalist, likely here a few days. PT rec SNF vs HH vs home with assistance. Pt did not participate much in PT and PT reports pt had confusion/was a poor historian. OT rec home with assistance vs HH. Pt spouse, per OT note, reports ambulates with walker at baseline. Uses grab bars/elevated toilet/sock grab aid. Spouse assists with IADLs. Spouse and children in the home. Per OT note, hx of HH. SNF placement likely difficult due [place] ins auth PT/OT discrepancy in recommendation, COVID pos diagnosis, and cognitive impairment. BLEACH PACKER lvm with home phone. BLEACH PACKER did not enter room due to COVID diagnosis. BLEACH PACKER unable to meet with spouse due to triaging needs/likelihood of pt being here a few days. Anticipate home with resumption of HH- need name of previous agency. Plan: CM team will follow closely for pt/family preference on SNF vs Home with HH vs home with family. CM team will attempt SNF auth if family prefers this BLEACH PACKER attempt SNF placement. CM team will place HH referral pending family preference. If home, anticipate transport with family. CM team will follow closely. CANDIE Antony Discharge Planning/Care Management CM Discharge Assessment Start: 10/03/23 16:20 Freq: Status: Active Protocol: Document 10/03/23 16:22 (Rec: 10/03/23 16:27 [id number]) Discharge Planning Assessment Assigned Emissions Technician CANDIE Machado DPOA/Assigned Designee Name Rosa spouse Contact Information [phone] Advance Directives? Yes Advance Directives on File No History Provided By Patient,Family Member, Significant Other Prior Living Arrangements House Household Members spouse,children DME Already Rented / Owned Elevated Toilet Seat,FWW / Walker,Other Comment sock grabber, grab bars near toilet Discharge Plan Home with Home Health Has Agency SNF been contacted No Whiteboard Updated in Patient Room with No name and ext. # of Emissions Technician Review Status In Process Next Review Type Continued Stay Review
[2023-10-03] MEDS: ACETAMINOPHEN 325 MG TABLET 650 MG PO (18:47)
[2023-10-04] VITALS: BP 130/61; PULSE 67; RESP 18; TEMP 36.1; O2SAT 97
[2023-10-04 04:00] VITALS: BP 111/51; PULSE 58; RESP 19; TEMP 35.9; O2SAT 98
[2023-10-04 04:45] LABS: Add Manual Diff / Slide Review NO; Basophils Absolute Auto 0 /uL (0-100); Basophils Percent Auto 0.1 % (0-2); Eosinophils Absolute Auto 0 /uL (0-450); Hematocrit 36.6 % (41-53); Hemoglobin 12.2 g/dL (13.5-17.5); Lymphocytes Absolute Auto 1200 /uL (1100-4500); Lymphocytes Percent Auto 12.8 % (25-40); Mean Corpuscular HGB Conc 33.4 % (30-36); Mean Corpuscular Hemoglobin 27.8 PG (26-34); Mean Corpuscular Volume 83.2 fL (80-100); Monocytes Absolute Auto 1200 /uL (0-900); Monocytes Percent Auto 12.3 % (3-14); Neutrophils Absolute Auto 7300 /uL (1500-7000); Neutrophils Percent Auto 74.8 % (50-75); Platelet Count 157 X10^3/uL (150-400); Red Blood Cell Count 4.39 X10^6/uL (4.5-5.9); Red Cell Distribution Width 15.4 % (11.6-14.8); White Blood Cell Count 9.7 X10^3/uL (4.5-11.0)
[2023-10-04 04:57] LABS: Alanine Aminotransferase 66 IU/L (<50); Albumin 3.5 g/dL (3.5-5.0); Alkaline Phosphatase 72 U/L (38-126); Aspartate Aminotransferase 132 IU/L (17-59); BUN Creatinine Ratio 27.1 (6-22); Bilirubin Total 0.7 mg/dL (0.2-1.3); Blood Urea Nitrogen 26 mg/dL (9-20); Calcium 8.6 mg/dL (8.4-10.2); Carbon Dioxide 23 mmol/L (22-32); Chloride 110 mmol/L (98-107); Estimated Glomerular Filt Rate > 60 mL/min (>60); Globulin 3.5 g/dL (1.7-4.1); Glucose 125 mg/dL (80-110); HEMOLYSIS < 15 (0-50); Sodium 142 mmol/L (137-145)
[2023-10-04 05:03] LABS: Creatine Kinase 2667 U/L (55-170)
[2023-10-04] MEDS: SODIUM CHLORIDE 0.9% 1,000 ML 100 ML IV (05:09)
[2023-10-04 08:00] VITALS: BP 98/50; PULSE 56; RESP 18; TEMP 36; O2SAT 99
--- NOTE | 2023-10-04 09:08 | PT.IPTN ---
Current Diagnoses Rhabdomyolysis (10/02/23) Physical Therapy Treatment Note M2 PT-IP Current Condition Start: 10/03/23 10:28 Freq: NEEDED Status: Active Protocol: Document 10/03/23 10:35 MB (Rec: 10/03/23 13:38 MB [id number]) Physical Therapy Current Condition Current Condition Evaluation Date 10/03/23 Treatment Diagnosis COVID, elevated creatine kinase M3 PT-IP Subjective Start: 10/03/23 10:28 Freq: NEEDED Status: Active Protocol: Document 10/04/23 09:40 TS (Rec: 10/04/23 09:50 TS [id number]) Subjective Physical Therapy Visit Type Type Treatment Note Visit Start Time 09:08 Visit Stop Time 09:38 Number of NUTRITION SERVICES MANAGER Visits 1 Physical Therapy Visit Comments Patient Comments pt found trying to get out of bed, has some confusion. He reports he needs to urinate, explained to pt he has a catheter and that he does not need to get up to use toilet. Pt is a M4 PT-IP Mobility and Gait Start: 10/03/23 10:28 Freq: NEEDED Status: Active Protocol: Document 10/04/23 09:40 TS (Rec: 10/04/23 09:50 TS [id number]) PT-Bed Mobility Assessment Supine to Sit Supine to Sit Standby Assistance Sit to Supine Sit to Supine Standby Assistance Scooting Scooting to Edge of Bed Standby Assistance PT-Transfer Assessment Sit to and From Stand Sit to and from Stand Contact Guard Assistance Equipment Transfer Assistive Device Gait Belt,Front Wheeled Walker Orthotic/Prosthetic Devices or Brace: No Comments Mobility Comments Spo2 92% on RA priro to mobility. He performed supine to sit SBA with use of bedrailsa nd HOB elevated 45D with some difficulty, required cues for BUE support. He performed STS from elevated bed CGA x3 with use of FWW, pt required cues for pushing from bed and not grabbing onto FWW, pt tends to pull on FWW. He ambulated in room ~80'SBA/ CGA, is unsteady but has no LOB or buckling. BP check in [facility] 105/54, pt reported some lightheadedness. He performed stairs x3 with single Bijan and x2 CGA with B handrials, pt reprots having two rails he can use. Sit to supine into bed SBA with HOB elevated 20D, pt did not require cues for sequecning. Pt was left in bed all needs met. Gait Assessment Gait Gait Assistance Required: Standby Assistance,Contact Guard Assist Distance (Feet) 80 Able to Maintain Weight Bearing Status Yes During Gait Assistive Devices Assistive Device Gait Belt,Front Wheeled Walker Orthotic/Prosthetic Devices or Brace: No Gait Deviations General Gait Pattern Decreased Stride Length, Decreased Feet Clearance,Wide Based Gait Factors Limiting Gait Function Factors Limiting Gait Function Decreased Strength,Difficulty Following Directions,Pain,Poor Balance,Poor Safety Awareness Comments Gait Comments See mobility comments Stair Climbing Assessment Evaluation Level of Assist On Stairs Contact Guard Assistance, Minimal Assistance,1 Person Assistance Devices Stair Climbing Assistive Devices Left Railing,Right Railing Technique/Endurance Stair Climbing Direction Ascend and Descend Stair Climbing Technique Step to Step Number of Steps Climbed 5 Comments Stair Climbing Comments See mobility comments PT-Balance Assessment Sitting Balance and Reactions Static Sitting Balance Ability Good Dynamic Sitting Balance Ability Fair Standing Balance and Reactions Static Standing Balance Ability Fair Dynamic Standing Balance Ability Fair Device Used RW M5 PT-IP Objective Assessments Start: 10/03/23 10:28 Freq: NEEDED Status: Active Protocol: Document 10/03/23 10:35 MB (Rec: 10/03/23 13:38 MB [id number]) Orientation Orientation/Cognition Level of Alertness Confusional State Orientation Name Safety Awareness Decreased Safety Awareness Memory Description Short Term Impaired,Half-Way Impaired Strength Comments Strength Comments Pt does not follow ROM or MMT cues today and neither can he follow sensory and other testing commands. He is grossly functional with range and strength with mobility though he requires assistance to get to feet for STS transfer M6 PT-IP Treatment Start: 10/03/23 10:28 Freq: NEEDED Status: Active Protocol: Document 10/04/23 09:40 TS (Rec: 10/04/23 09:50 TS [id number]) Physical Therapy Treatment Education Education Provided Safety M7 PT-IP Assessment and Plan Start: 10/03/23 10:28 Freq: NEEDED Status: Active Protocol: Document 10/04/23 09:40 TS (Rec: 10/04/23 09:50 TS [id number]) PT Summary Assessment and Plan Potential Rehabilitation Potential Fair Summary Impairments Strength,Balance,Cognition,Bed Mobility,Transfers,Gait, Activity Tolerance Progress Towards Goals Progressing Toward Goals Assessment Summary Luis Miguel is making progress with his mobility. He progressed his bed mobility to SBA with HOB elevated and with cues for sequencing. He performed STS x3 CGA from bed with use of FWW, pt tends to grab FWW and pull it over onto himself. He progressed his gait to ~80'CGA /SBA, pt is usnteady but has no LOB. He performed stairs x3 with signle rail and x2 with B handrails, required Bijan with single rail due to being unsteady. Spo2 remained in low to Mid 90's with mobility, Spo2 increased during mobility . He c/o some ightheadedness when ambulation, BP 105/54. PT is recommending home with 24/ 7 assist and HHPT at this time . Goals Bed Mobility Goal Independent Transfer Goal Independent,Front Wheeled Walker Gait Goal Independent,Front Wheel Walker Gait Distance 100 Other Goals Pt will ascend and descend 2-3 steps with rail and no more than CGA to allow safe home entrance. Days to Meet Goals 5 Frequency of Treatment Frequency Of Treatment Once a Day Treatment Plan Physical Therapy Treatment Plan Bed Mobility Training,Transfer Training,Gait Training, Therapeutic Exercise,Balance Retraining,Discharge Planning, Hot or Cold Pack,Neuromuscular Re-ed Precautions Other Precautions Fall risk and droplet precautions for COVID Weight Bearing Status Weight Bearing Status Weight Bear as Tolerated Recommendations To Nursing Amount of Assist Needed 1 Person Assist Discharge Recommendations PT Discharge Recommendations Home with 24/7 Assist Available,Home Health Transportation Needs at Discharge Private Vehicle
[2023-10-04] MEDS: INSULIN NPH 100 UNIT/ML 10ML VIAL 30 UNIT SUBCUT ×2 (10:20→21:00)
[2023-10-04] MEDS: DEXAMETHASONE 10 MG/ML VIAL 6 MG IV (10:21)
[2023-10-04] MEDS: DABIGATRAN 75 MG CAPSULE 150 MG PO (10:21)
[2023-10-04 13:00] VITALS: BP 105/60; PULSE 61; RESP 16; O2SAT 98
--- NOTE | 2023-10-04 14:45 | CM.DPNOTE ---
Addendum entered by CANDIE Antony 10/04/23 16:17: Ilene from [facility] reports they can accept pt. Will anticipate hearing from CM tomorrow about dc with dc sum/order/f2f. SL Original Note: DCP Note DEHYDRATOR OPERATOR reviewed EMR. Per RN, pt doing well, anticipate dc home tomorrow. Per provider in morning rounds, agreeable to HH. PT rec HH. DEHYDRATOR OPERATOR spoke with spouse Rosa in hallway. Marmariella confirms pt mainly sleeps all day. Uses walker at baseline. Hx of [facility]. Agreeable to restarting PT services, denies other services but may want bath aid. Spouse reports if she is not there she makes arrangements for local family, son or granddtr, to stay with him. Spouse drives/maintains IADLs. Spouse reports no other CM needs at this time. Spouse reports she can care for his needs at home. BISI Alicea kindly agreed to fax initial referral information to [facility] for review. DEHYDRATOR OPERATOR spoke with Silvia at [facility], report no red flags why they couldn't accept again. DEHYDRATOR OPERATOR completed face to face, behind facesheet. Plan: anticipate dc home tomorrow with [facility] to follow with PT pending acceptance. spouse to transport. CM team will follow as needed. CANDIE Antony
--- NOTE | 2023-10-04 15:16 | P.PN_ITS ---
Subjective Subjective Interval history: 82 M admitted with rhabdomyolysis, asymptomatic COVID infection. Improved today, he denies complaints. CK improved to 2667 this morning. Exam Vital Signs (past 8 hours): - 10/04/23 08:00 10/04/23 13:00 Temperature 96.8 F L Pulse Rate 56 L 61 Respiratory Rate 18 16 Blood Pressure 98/50 L 105/60 Pulse Oximetry 99 98 Oxygen Flow Rate 0 0 Oxygen Delivery Method Nasal Cannula Oxygen Flow Rate 0 Narrative Exam Narrative: GEN: no acute distress, mildly demented HEENT: moist mucous membranes, PERRL NECK: trachea midline, no JVD CV: regular rate and rhythm, no murmurs PULM: clear bilaterally ABD: soft, nontender, nondistended, no organomegaly EXT: warm and well perfused with no edema NEURO: awake, alert, oriented, no focal deficits Objective Labs 10/04/23 04:15 10/04/23 04:15 Labs: Laboratory Results - last 24 hr 10/04/23 04:15 WBC 9.7 RBC 4.39 L Hgb 12.2 L Hct 36.6 L MCV 83.2 MCH 27.8 MCHC 33.4 RDW 15.4 H Plt Count 157 Neut % (Auto) 74.8 Lymph % (Auto) 12.8 L Bradford % (Auto) 12.3 Eos % (Auto) 0.0 L Baso % (Auto) 0.1 Neut # (Auto) 7300 H Lymph # (Auto) 1200 Bradford # (Auto) 1200 H Eos # (Auto) 0 Baso # (Auto) 0 Sodium 142 Potassium 4.0 Chloride 110 H Carbon Dioxide 23 BUN 26 H Creatinine 0.96 Estimated GFR > 60 BUN/Creatinine Ratio 27.1 H Glucose 125 H Calcium 8.6 Total Bilirubin 0.7 AST 132 H ALT 66 H Alkaline Phosphatase 72 Total Creatine Kinase 2667 H D Total Protein 7.0 Albumin 3.5 Globulin 3.5 Albumin/Globulin Ratio 1.0 [facility] Medical History A-fib Aortic stenosis Arthritis Cataracts, bilateral Depression Diabetes Hearing impaired HLD (hyperlipidemia) Idiopathic hypersomnia with long sleep time Intermittent claudication Mild cognitive impairment with memory loss (~11/23/18) Numbness and tingling of both feet Obesity (BMI 30-39.9) Obstructive sleep apnea of adult Right hip pain Tooth infection (~09/2017) Surgical History History of colonoscopy History of vasectomy Social History (Updated 11/20/18 @ 22:44 by ELIZABETH Bradshaw) marital status: details: rl Lee, lives in [place] household members: spouse and children housing: house Smoking Status: Never smoker alcohol intake: never substance use type: does not use Assessment & Plan Assessment & Plan narrative: # acute rhabdomyalosis and weakness -CK 11k, myoglobinuria present. CK improved to 2667 today. Stopped IV fluids with improvement in respiratory failure this morning. -cause may be COVID-related, or from statin -holding simvastatin -trend CK and Cr, still improving -IVF now off -PT/OT evals recommending home vs SNF. Continue therapies. # acute hypoxic resp failure 2/2 COVID, resolved -now resolved -CTA negative for PE, may be due to fluid needed for rhabdo. -stopped steroids today. # acute transaminitis -LFT's elevated, likely due to rhabdo and COVID -trending down today. -avoid nephrotoxic meds # persistent A-fib -continue pradaxa -currently rate-controlled # DM2 -continue NPH insulin and SSI -hold metformin # HLD -stop statin due to rhabdo Code status is full code. DVT prophylaxis with Pradaxa. Proxy is . I have reviewed home meds and used all available resources to reconcile the home meds. This patient will be admitted as inpatient and will require greater than 2 midnights of hospital time to treat rhabdo and hypoxic respiratory failure. Dispo: Discharge home vs SNF, likely home, with IV fluids stopped if CK continues to fall rapidly tomorrow can discharge home.
--- NOTE | 2023-10-04 16:50 | OT.IP.TRT ---
Current Diagnoses Rhabdomyolysis (10/02/23) Occupational Therapy Treatment Note M2 OT-IP Current Condition Start: 10/03/23 14:29 Freq: Status: Active Protocol: Document 10/03/23 13:45 [facility] (Rec: 10/03/23 14:58 [facility] [id number]) Occupational Therapy Current Condition Current Condition Evaluation Date 10/03/23 Treatment Diagnosis generalized weakness Diagnosis Onset Date 10/02/23 M3 OT- IP Subjective and Pain Start: 10/03/23 14:29 Freq: Status: Active Protocol: Document 10/04/23 16:59 [facility] (Rec: 10/04/23 17:03 [facility] [id number]) OT- Subjective Occupational Therapy Visit Type Type Treatment Note Visit Start Time 16:40 Visit Stop Time 16:55 Occupational Therapy Visit Comments Patient Comments Pt asleep in the recliner, pt' s in the room. Patient/Caregiver Goals To go home. OT Pain Assessment Pain When Pain Assessed At Rest Pain Present Pain Present Denied Pain M4 OT- IP ADL's Start: 10/03/23 14:29 Freq: Status: Active Protocol: Document 10/04/23 16:59 [facility] (Rec: 10/04/23 17:03 [facility] [id number]) OT ADL-Bathing Comments OT Bathing Comments Pt and his states have lots of grab bars in the shower, however would be helpful for pt to have a shower chair. Pt's requesting to have a shower aid assist at home. M5 OT- IP IADL's Start: 10/03/23 14:29 Freq: Status: Active Protocol: Document 10/03/23 13:45 [facility] (Rec: 10/03/23 14:58 [facility] [id number]) OT-Instrumental Activities of Daily Living Deficits IADL Deficits Identified Deficits Home Safety Awareness Awareness of Need for Assistance at Home Good Awareness Ability to Problem Solve Emergency Unable to Problem Solve Situations Medication Management Medication Management Caregiver Administers Money Management Money Management Caregiver Provides Assistance Meal Preparation Meal Preparation Caregiver Provides Assist Christian [employer] Reader Christian [employer] Reader Caregiver Provides Assist Driving Driving Caregiver Provides Assist M6 OT- IP Functional Cognition Start: 10/03/23 14:29 Freq: Status: Active Protocol: Document 10/03/23 13:45 [facility] (Rec: 10/03/23 14:58 [facility] [id number]) Cognitive Factors Limiting Selfcare Function Cognitive Ability Level of Alertness Confusional State Patient Orientation Name,Situation Attention Span Ability Capable of Focused Attention, Capable of Sustained Attention Ability to Follow Commands Able to Follow One Step Commands,Able to Follow Multi- Step Commands Memory Description Short Term Impaired,Mcc Impaired Safety Awareness No Deficits Noted Problem Solving Ability No deficits Noted Executive Function Ability Unable to Remember Details Abstract Thinking Ability No Deficits Noted OT- Vision and Hearing OT- Hearing Assessment OT- Hearing Assessment WFL OT- Vision Assessment Visual Acuity WFL,Glasses All The Time M7 OT- IP Mobility and Balance Start: 10/03/23 14:29 Freq: Status: Active Protocol: Document 10/03/23 13:45 [facility] (Rec: 10/03/23 14:58 [facility] [id number]) OT- Bed Mobility Assessment Rolling Type of Rolling Roll to Right Level of Assistance Standby Assistance Supine to Sit Supine to Sit Assist Minimal Assistance,1 Person Assistance,Head of Bed Elevated,Bedrails Sit to Supine Sit to Supine Assist Minimal Assistance,1 Person Assistance,Head of Bed Elevated,Bedrails Scooting Scooting to Edge of Bed Contact Guard Assistance, Bedrails OT-Transfer Assessment Sit to and From Stand Sit to and from Stand Minimal Assistance,1 Person Assistance,Use of Upper Extremities Transfers Transfer Ability Minimal Assistance,1 Person Assistance,Use of Upper Extremities Technique Transfer Destination Bed Transfer Technique Lateral Scoot Devices Transfer Assistive Devices Gait Belt,Front Wheeled Walker Comments Mobility Comments Pt requires vcs for hand placement and sequencing. Pt asks OT repeatedly what are we doing while performing steps or t/fs. OT- Gait Assessment Gait Gait Assistance Required: Contact Guard Assist Distance (Feet) 4 Assistive Devices Assistive Device Gait Belt,Front Wheeled Walker Comments Gait Ability Comments Pt takes lateral steps using FWW to HOB. Pt returns to sitting with min A. OT- Balance Assessment Sitting Balance and Reactions Static Sitting Balance Ability Good Dynamic Sitting Balance Ability Fair Standing Balance and Reactions Static Standing Balance Ability Fair Dynamic Standing Balance Ability Fair M8 OT- IP Objective Assessments Start: 10/03/23 14:29 Freq: Status: Active Protocol: Document 10/03/23 13:45 [facility] (Rec: 10/03/23 14:58 [facility] [id number]) OT Gross Range of Motion Upper Extremity Range of Motion Assessment Within Functional Limits OT Strength Upper Extremity Strength Assessment Within Functional Limits M9 OT- IP Assessment and Plan Start: 10/03/23 14:29 Freq: Status: Active Protocol: Document 10/04/23 16:59 [facility] (Rec: 10/04/23 17:03 [facility] [id number]) OT Summary Assessment and Plan Potential Rehabilitation Potential Good Analytic Complexity at Evaluation Moderate Summary OT Impairments Balance,Functional Cognition, Functional Mobility,Grooming, Dressing,Toileting,Bathing, Toilet Transfers,Shower Transfers,Activity Tolerance Assessment Summary Pt on RA now and at 96%. Pt is motivated to go home and pt's has good understanding to be able to assist pt for all needs at home. Pt would benefit from a shower chair at home. Pt to go home with assist , home health and bath aid. Goals Grooming Goal Independent Dressing Goal Independent Toileting Goal Independent Bathing Goal Independent Toilet Transfer Goal Independent Shower Transfer Goal Standby Assistance Days to Meet Goals 10 Frequency of Treatment Frequency Of Treatment Once a Day Treatment Plan OT Treatment Plan ADL Training,Functional Cognition Training,Functional Mobility,Therapeutic Exercises ,Patient/Family Education, Discharge Planning Discharge Recommendations OT Discharge Recommendations Home with Assistance,Home Health Home Equipment Needs shower chair
[2023-10-04 17:00] VITALS: BP 110/61; PULSE 58; RESP 16; O2SAT 99
[2023-10-04] MEDS: INSULIN LISPRO 100 UNIT/ML 3ML VIAL SUBCUT (18:03)
[2023-10-04 20:20] VITALS: BP 118/64; PULSE 62; RESP 20; TEMP 36.6; O2SAT 95
[2023-10-04] MEDS: SODIUM CHLORIDE 0.9% FLUSH 10 ML IV (22:00)
[2023-10-05] VITALS: BP 125/67; PULSE 61; RESP 20; TEMP 35.8; O2SAT 94
[2023-10-05 04:54] LABS: Add Manual Diff / Slide Review NO; Basophils Absolute Auto 0 /uL (0-100); Basophils Percent Auto 0.2 % (0-2); Eosinophils Absolute Auto 0 /uL (0-450); Hematocrit 37.9 % (41-53); Hemoglobin 12.7 g/dL (13.5-17.5); Lymphocytes Absolute Auto 1400 /uL (1100-4500); Lymphocytes Percent Auto 14.4 % (25-40); Mean Corpuscular HGB Conc 33.5 % (30-36); Mean Corpuscular Hemoglobin 27.9 PG (26-34); Mean Corpuscular Volume 83.2 fL (80-100); Monocytes Absolute Auto 1200 /uL (0-900); Monocytes Percent Auto 11.9 % (3-14); Neutrophils Absolute Auto 7200 /uL (1500-7000); Neutrophils Percent Auto 73.5 % (50-75); Platelet Count 168 X10^3/uL (150-400); Red Blood Cell Count 4.56 X10^6/uL (4.5-5.9); Red Cell Distribution Width 15.5 % (11.6-14.8); White Blood Cell Count 9.9 X10^3/uL (4.5-11.0)
[2023-10-05 05:07] LABS: Alanine Aminotransferase 70 IU/L (<50); Albumin 3.8 g/dL (3.5-5.0); Alkaline Phosphatase 78 U/L (38-126); Aspartate Aminotransferase 108 IU/L (17-59); BUN Creatinine Ratio 29.3 (6-22); Bilirubin Total 0.8 mg/dL (0.2-1.3); Blood Urea Nitrogen 27 mg/dL (9-20); Carbon Dioxide 24 mmol/L (22-32); Chloride 110 mmol/L (98-107); Creatine Kinase 1206 U/L (55-170); Estimated Glomerular Filt Rate > 60 mL/min (>60); Globulin 3.7 g/dL (1.7-4.1); Glucose 109 mg/dL (80-110); HEMOLYSIS < 15 (0-50); Potassium 3.9 mmol/L (3.4-5.1); Sodium 143 mmol/L (137-145); Total Protein 7.5 g/dL (6.3-8.2)
[2023-10-05 05:14] VITALS: BP 118/52; PULSE 61; RESP 20; TEMP 35.8; O2SAT 96
--- NOTE | 2023-10-05 07:30 | P.PN_ITS ---
Subjective Subjective Interval history: Exam Vital Signs (past 8 hours): - 10/05/23 00:00 10/05/23 05:14 Temperature 96.5 F L 96.5 F L Pulse Rate 61 61 Respiratory Rate 20 20 Blood Pressure 125/67 118/52 L Pulse Oximetry 94 96 Oxygen Flow Rate 0 0 Oxygen Delivery Method Nasal Cannula Oxygen Flow Rate 0 Narrative Exam Narrative: Objective Labs 10/05/23 04:45 10/05/23 04:45 Labs: Laboratory Results - last 24 hr 10/05/23 04:45 WBC 9.9 RBC 4.56 Hgb 12.7 L Hct 37.9 L MCV 83.2 MCH 27.9 MCHC 33.5 RDW 15.5 H Plt Count 168 Neut % (Auto) 73.5 Lymph % (Auto) 14.4 L [place] % (Auto) 11.9 Eos % (Auto) 0.0 L Baso % (Auto) 0.2 Neut # (Auto) 7200 H Lymph # (Auto) 1400 [place] # (Auto) 1200 H Eos # (Auto) 0 Baso # (Auto) 0 Sodium 143 Potassium 3.9 Chloride 110 H Carbon Dioxide 24 BUN 27 H Creatinine 0.92 Estimated GFR > 60 BUN/Creatinine Ratio 29.3 H Glucose 109 Calcium 9.0 Total Bilirubin 0.8 AST 108 H ALT 70 H Alkaline Phosphatase 78 Total Creatine Kinase 1206 H D Total Protein 7.5 Albumin 3.8 Globulin 3.7 Albumin/Globulin Ratio 1.0 PFSH Medical History Mild cognitive impairment with memory loss (~11/23/18) Obesity (BMI 30-39.9) Idiopathic hypersomnia with long sleep time Obstructive sleep apnea of adult Intermittent claudication Aortic stenosis Right hip pain Cataracts, bilateral Tooth infection (~09/2017) Depression Arthritis HLD (hyperlipidemia) Hearing impaired Numbness and tingling of both feet A-fib Diabetes Surgical History History of colonoscopy History of vasectomy Social History marital status: details: to Rosa, lives in [place] household members: spouse and children housing: house Smoking Status: Never smoker alcohol intake: never substance use type: does not use Assessment & Plan Assessment & Plan narrative: [address] [address] Progress Note Patient: Luis Miguel Hernandez MR#: [id number] : 1940 Acct:[id number] Age/Sex: 82 / M Date of Service: 10/02/23 Provider: Dino Jean D.O. Subjective Subjective Interval history: 82 M admitted with rhabdomyolysis, asymptomatic COVID infection. Improved today, he denies complaints. CK improved to 2667 this morning. Exam Vital Signs (past 8 hours): - 10/04/2407:00 10/04/2412:00 Temperature 96.8 F L Pulse Rate 56 L 61 Respiratory Rate 18 16 Blood Pressure 98/50 L 105/60 Pulse Oximetry 99 98 Oxygen Flow Rate 0 0 Oxygen Delivery Method Nasal Cannula Oxygen Flow Rate 0 Narrative Exam Narrative: GEN: no acute distress, mildly demented HEENT: moist mucous membranes, PERRL NECK: trachea midline, no JVD CV: regular rate and rhythm, no murmurs PULM: clear bilaterally ABD: soft, nontender, nondistended, no organomegaly EXT: warm and well perfused with no edema NEURO: awake, alert, oriented, no focal deficits Objective Labs 10/04/23 04:15 10/04/23 04:15 Labs: Laboratory Results - last 24 hr 10/04/23 04:15 WBC 9.7 RBC 4.39 L Hgb 12.2 L Hct 36.6 L MCV 83.2 MCH 27.8 MCHC 33.4 RDW 15.4 H Plt Count 157 Neut % (Auto) 74.8 Lymph % (Auto) 12.8 L [place] % (Auto) 12.3 Eos % (Auto) 0.0 L Baso % (Auto) 0.1 Neut # (Auto) 7300 H Lymph # (Auto) 1200 [place] # (Auto) 1200 H Eos # (Auto) 0 Baso # (Auto) 0 Sodium 142 Potassium 4.0 Chloride 110 H Carbon Dioxide 23 BUN 26 H Creatinine 0.96 Estimated GFR > 60 BUN/Creatinine Ratio 27.1 H Glucose 125 H Calcium 8.6 Total Bilirubin 0.7 AST 132 H ALT 66 H Alkaline Phosphatase 72 Total Creatine Kinase 2667 H D Total Protein 7.0 Albumin 3.5 Globulin 3.5 Albumin/Globulin Ratio 1.0 PFSH Medical History A-fib Aortic stenosis Arthritis Cataracts, bilateral Depression Diabetes Hearing impaired HLD (hyperlipidemia) Idiopathic hypersomnia with long sleep time Intermittent claudication Mild cognitive impairment with memory loss (~11/23/18) Numbness and tingling of both feet Obesity (BMI 30-39.9) Obstructive sleep apnea of adult Right hip pain Tooth infection (~09/2017) Surgical History History of colonoscopy History of vasectomy Social History (Updated 11/20/18 @ 22:44 by ELIZABETH Bradshaw) marital status: details: rl Lee, lives in [place] household members: spouse and children housing: house Smoking Status: Never smoker alcohol intake: never substance use type: does not use Assessment & Plan Assessment & Plan narrative: # Acute rhabdomyalosis and weakness -CK 11k, myoglobinuria present. CK improved to 2667 today. Stopped IV fluids with improvement in respiratory failure this morning. -cause may be COVID-related, or from statin -holding simvastatin -trend CK and Cr, still improving -IVF now off -PT/OT evals recommending home vs SNF. Continue therapies. # Acute hypoxic resp failure 2/2 COVID, resolved -now resolved -CTA negative for PE, may be due to fluid needed for rhabdo. -stopped steroids today. # Acute transaminitis -LFT's elevated, likely due to rhabdo and COVID -trending down today. -avoid nephrotoxic meds # Persistent A-fib -continue pradaxa -currently rate-controlled # DM2 -continue NPH insulin and SSI -hold metformin # HLD -stop statin due to rhabdo Code status is full code. DVT prophylaxis with Pradaxa. Proxy is . Time Spent With Patient Time with patient: 30 to 49 minutes with 50% spent counseling/coordinating care
[2023-10-05] MEDS: DABIGATRAN 75 MG CAPSULE 150 MG PO (08:39)
[2023-10-05] MEDS: SODIUM CHLORIDE 0.9% FLUSH 10 ML IV (08:39)
[2023-10-05] MEDS: INSULIN NPH 100 UNIT/ML 10ML VIAL 30 UNIT SUBCUT (08:41)
[2023-10-05 09:00] VITALS: BP 129/59; PULSE 57; RESP 18; TEMP 35.9; O2SAT 97
--- NOTE | 2023-10-05 11:22 | P.DS_ITS ---
History of Present Illness History of Present Illness Chief complaint: Weakness Narrative: Luis Miguel Hernandez is an 82yo M with PMH of A-fib on Pradaxa, DM2, mild cog impairment, SAURAV, obesity and HLD who presents with weakness. Patient is poor historian so history obtained from . She states he has be progressively getting weaker over several months and had home PT/OT back in May which helped him quite a bit. But then after they stopped he developed very little interest in doing most things, and would sleep until noon most days. He uses a walker and she noticed him getting weaker again so brought him to the ED. She hasn't noticed any change in his urine color. In the ED found to have rhabdo with CK of 11k as well as be COVID positive. IVF started as well as decadron. Patient notes he is SOB but only when he walks. Patient denies CP, NV, abd pain, diarrhea or muscle cramps. Discharge Providers Provider Date of admission: 10/02/23 17:34 Discharge Date: 10/05/23 Primary care physician: Zandra Chou PA-C Consults: 10/02/23 18:21 Consult to Occupational Therapy Evaluate & Treat Comment: Physician Instructions: Evaluate and treat Consult to Physical Therapy Evaluate & Treat Comment: Physician Instructions: Evaluate and Treat Discharge provider: Victoriano Peña MD Summary Hospital Course Discharge Diagnosis: # acute rhabdomyalosis and weakness, improved. -CK 11k, myoglobinuria present. CK improved to 2667 yesterday. -cause may be COVID-related, or from statin -holding simvastatin (will resume at discharge). -PT/OT evals recommending home vs SNF. Continue therapies. # acute hypoxic resp failure 2/2 COVID, resolved -now resolved -CTA negative for PE, may be due to fluid needed for rhabdo. -stopped steroids 10/04. # acute transaminitis, improving. -LFT's elevated, likely due to rhabdo and COVID -trending down today. -avoid nephrotoxic meds # persistent A-fib, stable. -continue pradaxa -currently rate-controlled # DM2, stable. -continue NPH insulin and SSI -hold metformin # HLD, stable. -stop statin due to rhabdo Hospital Course: He was admitted with mild rhabdomyolysis and hypoxia presumed related to COVID. He was treated with IV fluids in his CK trended down. He was treated with steroids and his oxygen needs normalized. He is able to weaned to room air. The day of discharge he was ambulating well, his was in the room. She felt he was close to baseline. He does have some short-term memory issues and may have been slightly more confused with his admission she notes. She is comfortable taking him home and they will start home health with physical therapy at discharge. Status at Discharge Cognitive/behavioral status at discharge: at baseline, confused Functional status at discharge: uses cane/walker Overall status at discharge: patient is progressing back to baseline Exam Vital Signs (past 8 hours): - 10/05/23 05:14 10/05/23 09:00 Temperature 96.5 F L 96.7 F L Pulse Rate 61 57 L Respiratory Rate 20 18 Blood Pressure 118/52 L 129/59 L Pulse Oximetry 96 97 Oxygen Flow Rate 0 0 Oxygen Delivery Method Nasal Cannula Oxygen Flow Rate 0 Narrative Exam Narrative: NAD, oriented to person and place. He has making a lot of jokes. His breathing is without labor, he has breathing a normal rate. His legs are free of edema. Objective ECG Impression: AF, rate 89. No ST segment abnormalities. Imaging CT scan - chest: Radiologist's impression: No acute pulmonary emboli. No evidence for acute right-sided heart strain. Trace bilateral pleural effusions, bilateral perihilar airway thickening most pronounced in the lower lobes with patchy consolidations of the bilateral lower lobes. Mild smooth septal thickening most pronounced in the lower lobes. Findings may represent early/mild pulmonary edema or CHF. An infectious or inflammatory process to include aspiration may have a similar appearance. Moderate atherosclerotic vascular calcifications. Enlarged right thyroid lobe with suggestion of ill-defined nodules. Recommend outpatient thyroid ultrasound for further characterization. Labs 10/05/23 04:45 10/05/23 04:45 Labs: Laboratory Results - last 24 hr 10/05/23 04:45 WBC 9.9 RBC 4.56 Hgb 12.7 L Hct 37.9 L MCV 83.2 MCH 27.9 MCHC 33.5 RDW 15.5 H Plt Count 168 Neut % (Auto) 73.5 Lymph % (Auto) 14.4 L [place] % (Auto) 11.9 Eos % (Auto) 0.0 L Baso % (Auto) 0.2 Neut # (Auto) 7200 H Lymph # (Auto) 1400 [place] # (Auto) 1200 H Eos # (Auto) 0 Baso # (Auto) 0 Sodium 143 Potassium 3.9 Chloride 110 H Carbon Dioxide 24 BUN 27 H Creatinine 0.92 Estimated GFR > 60 BUN/Creatinine Ratio 29.3 H Glucose 109 Calcium 9.0 Total Bilirubin 0.8 AST 108 H ALT 70 H Alkaline Phosphatase 78 Total Creatine Kinase 1206 H D Total Protein 7.5 Albumin 3.8 Globulin 3.7 Albumin/Globulin Ratio 1.0 PFSH Medical History Mild cognitive impairment with memory loss (~11/23/18) Obesity (BMI 30-39.9) Idiopathic hypersomnia with long sleep time Obstructive sleep apnea of adult Intermittent claudication Aortic stenosis Right hip pain Cataracts, bilateral Tooth infection (~09/2017) Depression Arthritis HLD (hyperlipidemia) Hearing impaired Numbness and tingling of both feet A-fib Diabetes Surgical History History of colonoscopy History of vasectomy Social History marital status: details: rl Lee, lives in [place] household members: spouse and children housing: house Smoking Status: Never smoker alcohol intake: never substance use type: does not use Discharge Assessment & Plan Assessment and Plan Assessment: # acute rhabdomyalosis and weakness, improved. # acute hypoxic resp failure 2/2 COVID, resolved # acute transaminitis, improving. # persistent A-fib, stable. # DM2, stable. # HLD, stable. Plan of Treatment: He is discharged home to the care of his . They live in [place]. He has using a walker without difficulty. Home health is being arranged for physical therapy. They are asked to see primary care within 6 days. Discharge Plan Discharge Plan Patient Disposition: Home Provider Discharge Comment: Stable for discharge with HH PT Discharge orders & Medications Prescriptions: Continued metformin 1,000 mg Tablet 1,500 mg PO QAM metformin 1,000 mg tablet 1,000 mg PO BEDTIME Humulin 70/30 U-100 KwikPen 100 unit/mL (70-30) insulin pen 45 unit SUBCUT QAM Patient Comments: [NO ORIGINAL SIG] Rx Instructions: takes 40 units at bedtime atorvastatin 20 mg tablet 20 mg PO QPM tamsulosin 0.4 mg capsule 0.4 mg PO BEDTIME cholecalciferol (vitamin D3) 2,000 unit capsule 4,000 unit PO DAILY (DME) Respirioncs Dreamstation 2 CPAP See Rx Instructions Qty: 1 Dose Instruction: As directed Patient Comments: Pressure: 15-19 cmH2O DME: [facility] Rx Instructions: Pressure: 15-19 cmH2O DME: [facility] Pradaxa 150 mg capsule 150 mg PO BID coenzyme Q10 75 mg capsule 75 mg PO DAILY Medication counseling provided by Pharmacist: No Follow up/Referrals: Zandra Chou PA-C [Primary Care Provider] - Discharge Health Status Multidrug resistant organism: No MDRO Diet/Activity/Treatments Diet: Carb-consistent/Diabetic Skin/Wound/Dressing Care Report to your healthcare provider any signs of infection, such as:: chills, fever and increased pain Visit Report/Discharge Packet Stand Alone Forms: Patient Portal/API Discharge Data Primary Care Provider: Zandra Chou
--- NOTE | 2023-10-05 11:43 | CM.DPC ---
DCP Cont. Reviewed EMR for pt's status updates. Plan is for pt to d/c home today with his providing for continued care at home. Faxed [facility] the F/F orders. No further needs identified for DCP at this time.
--- NOTE | 2023-10-05 12:08 | PC.NURSE ---
Pt is dressed and ready for discharge home with Spouse Rosa. IV has been removed. Went over d/c instructions with Pt and Spouse-discussed d/c meds, time of last dose, reviewed stroke education, encouraged Pt to drink fluids to prevent constipation or dehydration and to follow up as directed. Pt will be taken out via w/c by [facility] to POV with Spouse and all belongings.
== END 2023-10-05 12:41 | disposition home health service (06) | DRG 177 ==
LOC: ED 17:18 → AC 17:36
PROVIDERS: Internal Medicine; Admitting Provider Student in an Organized Health Care Education/Training Program; Emergency Provider Emergency Medicine; PCP Physician Assistant; Referring Provider Emergency Medicine; Visit Provider Student in an Organized Health Care Education/Training Program
DX: U07.1 COVID-19 (principal); J96.01 Acute respiratory failure with hypoxia; M62.82 Rhabdomyolysis; I48.19 Other persistent atrial fibrillation; E11.9 Type 2 diabetes mellitus without complications; E78.5 Hyperlipidemia, unspecified; G47.33 Obstructive sleep apnea (adult) (pediatric); Z79.84 Long term (current) use of oral hypoglycemic drugs; Z79.4 Long term (current) use of insulin; Z79.01 Long term (current) use of anticoagulants
CPT/HCPCS: 0241U; 36415; 70450; 71045; 71275; 80053; 81001; 82550; 82962; 83605; 83690; 83735; 83880; 84484; 85025; 93005; 94762; 96374; 96375; 97116; 97161; 97166; 97530; 97535; 99285; J1100; J1170; J1815; Q9967

== ENCOUNTER 2023-11-29 03:13 | Emergency (ER) | payer OTHER, SELFPAY ==
[2023-10-02 18:52] VITALS: BMI 37.9
[2023-11-29] VITALS (9 sets, daily range): BP systolic 113–147; BP diastolic 56–77; PULSE 94–107; RESP 12–23; TEMP 37.1; O2SAT 92–98; BMI 35.9
--- NOTE | 2023-11-29 03:20 | DI.CT.S_ITS ---
PROCEDURE: CT HEAD/BRAIN WO CON INDICATIONS: GLF/WORSENING CONFUSION TECHNIQUE: Noncontrast 4.5 mm thick angled axial sections acquired from the foramen magnum to the vertex, with coronal and sagittal reformats. For radiation dose reduction, the following was used: automated exposure control, adjustment of mA and/or kV according to patient size. COMPARISON: [facility], CT, CT HEAD/BRAIN WO CON, 10/02/2023, 14:22. FINDINGS: Image quality: Diagnostic. CSF spaces: Basal cisterns are patent. No extra-axial fluid collections. The ventricles are symmetric in size and shape. Brain: No intracranial bleeds or masses. There is cerebral volume loss for age, with resultant ventricular and sulcal prominence. There are periventricular and deep white matter chronic small vessel ischemic changes. There is intracranial internal carotid artery atherosclerosis. Skull and face: Calvarium and visualized facial bones appear intact, without suspicious lesions. Sinuses: Visualized sinuses and mastoids are clear. IMPRESSION: No evidence acute intracranial process. Comment: Final report is concordant with preliminary interpretation provided by [facility]. Dictated by: Cullen Palacios M.D. on 11/29/2023 at 7:16 Approved by: Cullen Palacios M.D. on 11/29/2023 at 7:16
--- NOTE | 2023-11-29 03:20 | DI.RAD.S_ITS ---
PROCEDURE: XR CHEST 1V INDICATIONS: WEAKNESS, WORSENING CONFUSION TECHNIQUE: One view of the chest was acquired. COMPARISON: [facility], CR, XR CHEST 1V, 10/02/2023, 12:44. FINDINGS: Surgical changes and devices: None. Lungs and pleura: Lung volumes are low. Right lung is clear. There is likely left basilar atelectasis. Mediastinum: Mediastinal contours appear normal. Heart size is normal. Bones and chest wall: No suspicious bony lesions. Overlying soft tissues appear unremarkable. IMPRESSION: Probable left basilar atelectasis. Dictated by: Loreta Zuñiga M.D. on 11/29/2023 at 8:18 Approved by: Loreta Zuñiga M.D. on 11/29/2023 at 8:19
--- NOTE | 2023-11-29 03:20 | ED.GENADULT ---
HPI - General Adult General Chief complaint: Fall Stated complaint: Weakness/GLF Time Seen by Provider: 11/29/23 03:18 History of Present Illness HPI narrative: 83-year-old male with history of AFib on Pradaxa, diabetes, mild cognitive impairment presents by EMS from home for weakness. Patient had a ground level fall while trying to use the restroom and was not able to get up. Patient does not remember the fall, it was uncertain if he hit his head or not. EMS found the patient on his knees trying to get into bed unsuccessfully. Medics state that they were able to live the patient to standing, and he was able to walk with a walker, but he started walking towards a wall. Patient is currently pleasant but slightly confused. He knows that he was at the hospital in [place], but thinks it was fall and does not know the president or the year showed up a little bit later and corroborated EMS story. She states that patient was hospitalized in September for rhabdo. Since then patient has been progressively weaker and has had two lift assist calls by EMS prior to today for falls and weakness. Related Data Home Medications Medication Instructions Recorded Confirmed cholecalciferol (vitamin D3) 50 4,000 unit PO DAILY 11/15/18 10/04/23 mcg (2,000 unit) capsule metformin 1,000 mg tablet 1,000 mg PO BEDTIME 11/15/18 10/04/23 metformin 1,000 mg tablet 1,500 mg PO QAM 11/15/18 10/04/23 dabigatran etexilate 150 mg 150 mg PO BID 08/19/20 10/04/23 capsule (Pradaxa) Respirioncs Dreamstation 2 CPAP #1 ea 04/22/22 10/04/23 coenzyme Q10 75 mg capsule 75 mg PO DAILY 04/22/22 10/04/23 atorvastatin 20 mg tablet 20 mg PO QPM cholesterol 10/04/23 10/04/23 insulin NPH-regular 70-30 U-100 45 unit SUBCUT QAM 10/04/23 10/04/23 insulin 100 unit/mL subcutaneous pen (Humulin 70/30 U-100 KwikPen) tamsulosin 0.4 mg capsule 0.4 mg PO BEDTIME 10/04/23 10/04/23 Previous Rx's Medication Instructions Recorded sulfamethoxazole 800 1 tab PO Q12H #14 tabs 11/29/23 mg-trimethoprim 160 mg tablet Allergies Allergy/AdvReac Type Severity Reaction Status Date / Time No Known Drug Allergies Allergy Verified 04/22/22 15:04 Review of Systems Review of Systems Narrative: See HPI Patient History Medical History Mild cognitive impairment with memory loss (~11/23/18) Obesity (BMI 30-39.9) Idiopathic hypersomnia with long sleep time Obstructive sleep apnea of adult Intermittent claudication Aortic stenosis Right hip pain Cataracts, bilateral Tooth infection (~09/2017) Depression Arthritis HLD (hyperlipidemia) Hearing impaired Numbness and tingling of both feet A-fib Diabetes Surgical History History of colonoscopy History of vasectomy Social History marital status: details: to [facility], lives in [place] household members: spouse and children housing: house Smoking Status: Never smoker alcohol intake: never substance use type: does not use Smoking Status: Never smoker Substance Use Type: does not use Exam Initial Vital Signs Initial Vital Signs: Vital Signs Pulse Rate 107 H 11/29/23 03:18 Pulse Oximetry 96 11/29/23 03:18 Const: Awake, alert, no acute distress, frail Cardiac: irregularly irregular rhythm RESP: unlabored, clear bilaterally, no wheezing GI: Soft, nontender, nondistended MSK: Atraumatic, full range of motion, pulses equal Skin: Warm, Dry, superficial abrasions bilateral kneecaps Neuro: AO x2, CN II-XII grossly intact, moves all extremities Course Orders Ordered: ED Orders 11/29/23 03:20 CT head/brain wo con Stat Chest [XR chest 1V] Stat EKG-12 Lead Stat 11/29/23 03:25 Ammonia (NH3) Stat CBC Auto Diff [Complete Blood Count AUTO DIFF] Stat CMP [Comprehensive Metabolic Panel] Stat Lactate (Lactic Acid) Stat MAG [Magnesium] Stat Procalcitonin Stat Troponin & CK Cardiac Panel Stat 11/29/23 03:45 UA Complete [Urinalysis and Microscopic] Stat Urine Culture Stat Discontinued Medications Sodium Chloride (Normal Saline 0.9%) 500 mls @ 1,000 mls/hr IV BOLUS ONE Stop: 11/29/23 04:49 Last Admin: 11/29/23 04:41 Dose: Not Given Documented By: AB Vital Signs Vital signs: Vital Signs - 8 hr 11/29/23 03:18 11/29/23 03:19 11/29/23 03:19 Temperature Pulse Rate 107 H 106 H Respiratory Rate Blood Pressure 116/56 L Pulse Oximetry 96 95 Oxygen Delivery Method Oxygen Flow Rate 11/29/23 03:23 11/29/23 03:30 11/29/23 03:30 Temperature 98.7 F Pulse Rate 104 H 99 H Respiratory Rate 18 Blood Pressure 116/56 L 113/56 L Pulse Oximetry 94 96 Oxygen Delivery Method Room Air Oxygen Flow Rate 11/29/23 03:59 11/29/23 03:59 11/29/23 04:00 Temperature Pulse Rate 101 H 105 H Respiratory Rate 12 Blood Pressure 113/77 Pulse Oximetry 93 93 Oxygen Delivery Method Oxygen Flow Rate 11/29/23 04:01 11/29/23 04:01 11/29/23 04:30 Temperature Pulse Rate 99 H 94 H Respiratory Rate 20 Blood Pressure 120/60 Pulse Oximetry 92 98 Oxygen Delivery Method Nasal Cannula Nasal Cannula Oxygen Flow Rate 2 2 11/29/23 04:30 11/29/23 05:00 11/29/23 05:00 Temperature Pulse Rate 100 H Respiratory Rate 23 Blood Pressure 123/63 147/69 H Pulse Oximetry Oxygen Delivery Method Oxygen Flow Rate Medical Decision Making Lab Data 11/29/23 03:25 11/29/23 03:25 Labs: Lab Results 11/29/23 11/29/23 Range/Units 03:25 03:45 WBC 7.2 (4.5-11.0) X10^3/uL RBC 4.65 (4.5-5.9) X10^6/uL Hgb 12.6 L (13.5-17.5) g/dL Hct 38.7 L (41-53) % MCV 83.2 (80-100) fL MCH 27.2 (26-34) PG MCHC 32.7 (30-36) % RDW 15.3 H (11.6-14.8) % Plt Count 188 (150-400) X10^3/uL Neut % (Auto) 58.1 (50-75) % Lymph % (Auto) 14.6 L (25-40) % [place] % (Auto) 18.3 H (3-14) % Eos % (Auto) 7.8 H (2-4) % Baso % (Auto) 1.2 (0-2) % Neut # (Auto) 4200 (1886-2613) /uL Lymph # (Auto) 1000 L (0347-3101) /uL [place]hen[place] # (Auto) 1300 H (0-900) /uL Eos # (Auto) 600 H (0-450) /uL Baso # (Auto) 100 (0-100) /uL Sodium 138 (137-145) mmol/L Potassium 4.1 (3.4-5.1) mmol/L Chloride 105 (98-107) mmol/L Carbon Dioxide 27 (22-32) mmol/L BUN 21 H (9-20) mg/dL Creatinine 1.06 (0.66-1.25) mg/dL Estimated GFR > 60 (>60) mL/min BUN/Creatinine Ratio 19.8 (6-22) Glucose 124 H (80-110) mg/dL Lactate 2.3 H (0.7-2.1) mmol/L Calcium 9.4 (8.4-10.2) mg/dL Magnesium 1.9 (1.6-2.3) mg/dL Total Bilirubin 0.5 (0.2-1.3) mg/dL AST 27 (17-59) IU/L ALT 23 (<50) IU/L Alkaline Phosphatase 111 (38-126) U/L Ammonia < 9 L (9-30) umol/L Total Creatine Kinase 94 (55-170) U/L Troponin I < 0.012 (0.01-0.034) ng/mL Total Protein 7.6 (6.3-8.2) g/dL Albumin 4.2 (3.5-5.0) g/dL Globulin 3.4 (1.7-4.1) g/dL Albumin/Globulin Ratio 1.2 (1.0-2.8) Procalcitonin < 0.60 H (<0.5) ng/mL Urine Color Yellow Urine Appearance Clear Urine pH 5.5 (4.5-8.0) Ur Specific [place] 1.025 (1.000-1.035) Urine Protein Negative (Negative) Urine Glucose (UA) Negative (Negative) g/dL Urine Ketones Negative (NEGATIVE) Urine Occult Blood Trace-intact (Negative) Urine Nitrate Negative (Negative) Urine Bilirubin Negative (NEGATIVE) Urine Urobilinogen 1.0 (0.2) E.U./dL Ur Leukocyte Esterase 1+ H (NEGATIVE) Urine RBC 5-10/hpf H (0-5/HPF) Urine WBC 5-10/hpf H (0-5/HPF) Ur Squamous Epith Cells 0-1 /hpf (0-5/HPF) Urine Bacteria Few (2-10) H (None) Urine Mucus 1+ H (Negative) Ur Culture Indicated? Specimen cultured Vol Urine Centrifuged 10ml (spun) MDM Narrative Medical decision making narrative: Frail and chronically unwell appearing patient presenting for generalized weakness. After talking with patient seems to be progressively becoming weaker over the months with multiple lift assist calls to medics. Patient has no focal deficits, moves all extremities, no distress. Labs significant for WBC count 7.2, hemoglobin 12.6 (baseline), platelet count 188, sodium 138, potassium 4.1, creatinine 1.06, ammonia less than 9, troponin undetectable, CK 94. Chest x-ray shows no acute findings, CT of the brain shows no acute traumatic findings. Urinalysis with 1+ leukocyte esterase and bacteria present. I am not overly convinced that this is a urinary tract infection, however in the setting of progressive weakness and a fall tonight we will be cautious and treat with antibiotics. and patient counseled of all lab and imaging findings, recommended discussion with primary care physician about possibly enrolling the patient in physical therapy. states that the patient actually recently completed physical therapy, and when the therapists are working with the patient he was very compliant, but whenever she encourages him to do his exercises he fusses at her and does not want to do the exercises. I counseled patient that following his 's encouragement and exercises would help him regain his strength. Discharge Plan Departure Patient Disposition: Home Clinical Impression: Generalized weakness, Acute UTI Instructions: DI for Urinary Tract Infection (UTI), DI for Muscle Weakness Activity Restrictions/Additional Instructions: Drink plenty of water to help flush out your bladder. Take all antibiotics as prescribed. Follow up with your primary care physician. Make sure you continue to work hard and stay active to keep your strength that. Prescriptions: New sulfamethoxazole-trimethoprim 800-160 mg tablet 1 tab PO Q12H Qty: 14 0RF No Action metformin 1,000 mg Tablet 1,500 mg PO QAM metformin 1,000 mg tablet 1,000 mg PO BEDTIME Humulin 70/30 U-100 KwikPen 100 unit/mL (70-30) insulin pen 45 unit SUBCUT QAM Patient Comments: [NO ORIGINAL SIG] Rx Instructions: takes 40 units at bedtime atorvastatin 20 mg tablet 20 mg PO QPM tamsulosin 0.4 mg capsule 0.4 mg PO BEDTIME cholecalciferol (vitamin D3) 2,000 unit capsule 4,000 unit PO DAILY (DME) Respirioncs Dreamstation 2 CPAP See Rx Instructions Qty: 1 Dose Instruction: As directed Patient Comments: Pressure: 15-19 cmH2O DME: [facility] Rx Instructions: Pressure: 15-19 cmH2O DME: [facility] Pradaxa 150 mg capsule 150 mg PO BID coenzyme Q10 75 mg capsule 75 mg PO DAILY Referrals: Zandra Chou PA-C [Primary Care Provider] - Stand Alone Forms: Patient Portal/API
[2023-11-29 03:34] LABS: Add Manual Diff / Slide Review NO; Basophils Absolute Auto 100 /uL (0-100); Basophils Percent Auto 1.2 % (0-2); Eosinophils Absolute Auto 600 /uL (0-450); Eosinophils Percent Auto 7.8 % (2-4); Hematocrit 38.7 % (41-53); Hemoglobin 12.6 g/dL (13.5-17.5); Lymphocytes Absolute Auto 1000 /uL (1100-4500); Lymphocytes Percent Auto 14.6 % (25-40); Mean Corpuscular HGB Conc 32.7 % (30-36); Mean Corpuscular Hemoglobin 27.2 PG (26-34); Mean Corpuscular Volume 83.2 fL (80-100); Monocytes Absolute Auto 1300 /uL (0-900); Monocytes Percent Auto 18.3 % (3-14); Neutrophils Absolute Auto 4200 /uL (1500-7000); Neutrophils Percent Auto 58.1 % (50-75); Platelet Count 188 X10^3/uL (150-400); Red Blood Cell Count 4.65 X10^6/uL (4.5-5.9); Red Cell Distribution Width 15.3 % (11.6-14.8); White Blood Cell Count 7.2 X10^3/uL (4.5-11.0)
--- NOTE | 2023-11-29 03:36 | PC.NURSE ---
Per EMS pt family states that he is normally confused and is currently at baseline. Fall was unwitnessed, unsure of time down. Pt denies pain, but has bilateral knee skin tears/abrasions. No blood, no swelling noted.
[2023-11-29 03:46] LABS: Ammonia (NH3) < 9 umol/L (9-30)
[2023-11-29 03:47] LABS: Alanine Aminotransferase 23 IU/L (<50); Albumin 4.2 g/dL (3.5-5.0); Albumin Globulin Ratio 1.2 (1.0-2.8); Alkaline Phosphatase 111 U/L (38-126); Aspartate Aminotransferase 27 IU/L (17-59); BUN Creatinine Ratio 19.8 (6-22); Bilirubin Total 0.5 mg/dL (0.2-1.3); Blood Urea Nitrogen 21 mg/dL (9-20); Calcium 9.4 mg/dL (8.4-10.2); Carbon Dioxide 27 mmol/L (22-32); Chloride 105 mmol/L (98-107); Creatine Kinase 94 U/L (55-170); Estimated Glomerular Filt Rate > 60 mL/min (>60); Globulin 3.4 g/dL (1.7-4.1); Glucose 124 mg/dL (80-110); HEMOLYSIS < 15 (0-50); Magnesium 1.9 mg/dL (1.6-2.3); Potassium 4.1 mmol/L (3.4-5.1); Sodium 138 mmol/L (137-145); Total Protein 7.6 g/dL (6.3-8.2)
[2023-11-29 03:52] LABS: Lactate (Lactic Acid) 2.3 mmol/L (0.7-2.1)
[2023-11-29 03:59] LABS: Troponin I < 0.012 ng/mL (0.01-0.034)
[2023-11-29 04:12] LABS: Appearance Urine UA CLEAR; Bilirubin Urine UA NEGATIVE (NEGATIVE); Color Urine UA YELLOW; Glucose Urine UA NEGATIVE (Negative); Ketones Urine UA NEGATIVE (NEGATIVE); Leukocyte Esterase Urine UA 1+ (NEGATIVE); Nitrite Urine UA NEGATIVE (Negative); Occult Blood Urine UA TRACE-INTACT (Negative); Protein Urine UA NEGATIVE (Negative); Specific Gravity Urine UA 1.025 (1.000-1.035); pH Urine UA 5.5 (4.5-8.0)
[2023-11-29 04:25] LABS: RBC Urine 5-10/HPF (0-5/HPF); Squamous Epithelial Cell Urine 0-1 /HPF (0-5/HPF); Urine Volume 10mL (spun); WBC Urine 5-10/HPF (0-5/HPF)
[2023-11-29 04:26] LABS: Bacteria Urine Few (2-10); Mucus Urine 1+ (Negative)
[2023-11-29 04:28] LABS: Culture Indicated Urine Specimen Cultured
[2023-11-29 05:05] LABS: Reflexed Lactate in 2 Hours Y
[2023-11-29 05:21] LABS: Procalcitonin < 0.60 ng/mL (<0.5)
== END 2023-11-29 05:19 | disposition home or self-care (01) ==
PROVIDERS: Emergency Provider Emergency Medicine; PCP Physician Assistant
DX: R53.1 Weakness (principal); N39.0 Urinary tract infection, site not specified; R41.0 Disorientation, unspecified; S09.90XA Unspecified injury of head, initial encounter; R07.9 Chest pain, unspecified; W18.30XA Fall on same level, unspecified, initial encounter; Z79.01 Long term (current) use of anticoagulants
CPT/HCPCS: 70450; 71045; 80053; 81001; 82140; 82550; 83605; 83735; 84145; 84484; 85025; 87086; 93005; 99284

== ENCOUNTER 2024-07-17 14:24 | Observation (INO) | payer OTHER, SELFPAY ==
[2023-10-02 18:52] VITALS: BMI 37.9
[2024-07-17] VITALS (16 sets, daily range): BP systolic 94–131; BP diastolic 40–66; PULSE 92–109; RESP 18–29; TEMP 37–37.7; O2SAT 93–98; BMI 31.6; BMI 30.8
--- NOTE | 2024-07-17 14:35 | DI.RAD.S_ITS ---
PROCEDURE: XR CHEST 1V INDICATIONS: suspected sepsis TECHNIQUE: One view of the chest was acquired. COMPARISON: [facility], CR, XR CHEST 1V, 11/29/2023, 3:52. FINDINGS: Surgical changes and devices: None. Lungs and pleura: Lungs are clear. No pleural effusions or pneumothorax. Mediastinum: Mediastinal contours appear normal. Heart size is normal. Bones and chest wall: No suspicious bony lesions. Overlying soft tissues appear unremarkable. IMPRESSION: No acute pulmonary process. Dictated by: Cecy Canales M.D. on 07/17/2024 at 16:09 Approved by: Cecy Canales M.D. on 07/17/2024 at 16:09
--- NOTE | 2024-07-17 15:05 | EKG_ITS ---
[place] [address] [address] [place] [id number] Test Date: 2024-07-17 Pat Name: Luis Miguel Hernandez Department: [facility] Room: Gender: Male Multicultural Manager: ASAD : 1940 Requested By: Order Number: [id number] Reading MD: Surjit Birmingham MD Measurements Intervals Mand[place] Rate: 93 P: MI: QRS: 31 QRSD: 96 T: 21 QT: 358 QTc: 445 Interpretive Statements Atrial fibrillation Septal infarct , age undetermined NO SIGNIFICANT CHANGE FROM PRIOR TRACING Electronically Signed On 07-18-2024 6:49:29 PST by Surjit Birmingham MD
[2024-07-17 15:10] LABS: Add Manual Diff / Slide Review NO; Basophils Absolute Auto 0 /uL (0-100); Basophils Percent Auto 0.4 % (0-2); Eosinophils Absolute Auto 300 /uL (0-450); Hematocrit 42.1 % (41-53); Hemoglobin 13.9 g/dL (13.5-17.5); Lymphocytes Absolute Auto 1100 /uL (1100-4500); Mean Corpuscular HGB Conc 33.1 % (30-36); Mean Corpuscular Hemoglobin 27.7 PG (26-34); Mean Corpuscular Volume 83.7 fL (80-100); Monocytes Absolute Auto 1300 /uL (0-900); Monocytes Percent Auto 13.1 % (3-14); Neutrophils Absolute Auto 7200 /uL (1500-7000); Neutrophils Percent Auto 72.5 % (50-75); Platelet Count 263 X10^3/uL (150-400); Red Blood Cell Count 5.03 X10^6/uL (4.5-5.9); Red Cell Distribution Width 14.3 % (11.6-14.8)
[2024-07-17 15:19] LABS: INR 1.4 (0.9-1.3); Prothrombin Time 15.7 SECONDS (9.4-12.5)
[2024-07-17 15:22] LABS: PTT Partial Thromboplastin Tim 64 SECONDS (25.1-36.5)
[2024-07-17 15:24] LABS: Lactate (Lactic Acid) 1.6 mmol/L (0.7-2.1)
[2024-07-17 15:25] LABS: Alanine Aminotransferase 21 IU/L (<50); Albumin 4.6 g/dL (3.5-5.0); Albumin Globulin Ratio 1.1 (1.0-2.8); Alkaline Phosphatase 129 U/L (38-126); Aspartate Aminotransferase 32 IU/L (17-59); BUN Creatinine Ratio 13.5 (6-22); Blood Urea Nitrogen 15 mg/dL (9-20); Calcium 9.6 mg/dL (8.4-10.2); Carbon Dioxide 29 mmol/L (22-32); Chloride 101 mmol/L (98-107); Estimated Glomerular Filt Rate > 60 mL/min (>60); Globulin 4.1 g/dL (1.7-4.1); Glucose 86 mg/dL (80-110); HEMOLYSIS < 15 (0-50); Lipase 37 U/L (23-300); Sodium 139 mmol/L (137-145); Total Protein 8.7 g/dL (6.3-8.2)
[2024-07-17] MEDS: SODIUM CHLORIDE 0.9% 1,000 ML 1000 ML IV (15:26)
[2024-07-17 15:42] LABS: Procalcitonin 0.079 ng/mL (<0.5)
--- NOTE | 2024-07-17 17:19 | ED.GENADULT ---
HPI - General Adult General Chief complaint: Fever Stated complaint: Gen weak, confusion Time Seen by Provider: 07/17/24 17:19 Source: patient, family (), EMS, RN notes reviewed and old records reviewed Mode of arrival: EMS Limitations: no limitations History of Present Illness HPI narrative: 83-year-old male atrial fibrillation on Pradaxa, diabetes, dyslipidemia, high mild cognitive impairment presents with increased confusion over the past 24 hours. Patient himself states he does feel a bit confused. He has trouble giving specific history. States he does not have any chest pain, denies any shortness of breath. Denies any abdominal back or flank pain. He denies any nausea or vomiting. He denies any issues with bowel movements or urination. Patient denies any urinary symptoms are sensation that he can not empty his bladder. He states he does not feel weak at this time. Patient's states he has been unable to stand confused for the last day or 2. Had a fall on 07/07/2024 but did not hit his head no loss of consciousness at that time fell to his knees and was sort of caught. Patient has had prior UTIs. He is anticoagulated. He does not recall if he has had any prior surgeries he denies any drug allergies. Zandra Chou is his primary care provider. Related Data Home Medications Medication Instructions Recorded Confirmed cholecalciferol (vitamin D3) 50 4,000 unit PO DAILY 11/15/18 10/04/23 mcg (2,000 unit) capsule metformin 1,000 mg tablet 1,000 mg PO BEDTIME 11/15/18 10/04/23 metformin 1,000 mg tablet 1,500 mg PO QAM 11/15/18 10/04/23 dabigatran etexilate 150 mg 150 mg PO BID 08/19/20 10/04/23 capsule (Pradaxa) Respirioncs Dreamstation 2 CPAP #1 ea 04/22/22 10/04/23 coenzyme Q10 75 mg capsule 75 mg PO DAILY 04/22/22 10/04/23 atorvastatin 20 mg tablet 20 mg PO QPM cholesterol 10/04/23 10/04/23 insulin NPH-regular 70-30 U-100 45 unit SUBCUT QAM 10/04/23 10/04/23 insulin 100 unit/mL subcutaneous pen (Humulin 70/30 U-100 KwikPen) tamsulosin 0.4 mg capsule 0.4 mg PO BEDTIME 10/04/23 10/04/23 Previous Rx's Medication Instructions Recorded sulfamethoxazole 800 1 tab PO Q12H #14 tabs 11/29/23 mg-trimethoprim 160 mg tablet Allergies Allergy/AdvReac Type Severity Reaction Status Date / Time No Known Drug Allergies Allergy Verified 04/22/22 15:04 Review of Systems Review of Systems ROS Unobtainable: All systems reviewed & are unremarkable except as noted in HPI and below Patient History Medical History Mild cognitive impairment with memory loss (~11/23/18) Obesity (BMI 30-39.9) Idiopathic hypersomnia with long sleep time Obstructive sleep apnea of adult Intermittent claudication Aortic stenosis Right hip pain Cataracts, bilateral Tooth infection (~09/2017) Depression Arthritis HLD (hyperlipidemia) Hearing impaired Numbness and tingling of both feet A-fib Diabetes Surgical History History of colonoscopy History of vasectomy Social History marital status: details: to Rosa, lives in [place] household members: spouse and children housing: house Smoking Status: Never smoker alcohol intake: never substance use type: does not use Smoking Status: Never smoker Substance Use Type: does not use Exam Narrative Exam Narrative: GEN: Elderly male, alert and oriented to self, patient appears to be in mild distress. HEENT: Atraumatic, pupils are equal round reactive to light, extraocular movements are intact, nares are clear, TMs are clear with no fluid, there is no conjunctival pallor. Throat is clear without any exudates, erythema, tonsillar enlargement or uvular deviation HEART: Regular rate and rhythm with systolic ejection murmur, no clicks, rubs. No carotid bruits, pulses are equal in upper and lower extremities. No edema. LUNGS:Lungs clear to auscultation, no wheezes, rales, crackles, chest moves symmetrically ABD:bowel sounds normal, soft, non-tender, no guarding, rebound, rigidity, no masses noted, no hepatosplenomegaly :No CVA tenderness MSCL: Non-tender, no muscle atrophy, globally weak, but full range of motion upper and lower extremities. Patient has a small wound right lateral foot, appears to have some healing skin over, no real erythema or skin changes otherwise. Nontender. NEURO:CN 2-12 intact, sensation normal. Initial Vital Signs Initial Vital Signs: Vital Signs Temperature 99.8 F H 07/17/24 14:20 Pulse Rate 94 H 07/17/24 14:20 Respiratory Rate 22 07/17/24 14:20 Blood Pressure 128/66 07/17/24 14:20 Pulse Oximetry 97 07/17/24 14:20 Oxygen Delivery Method Room Air 07/17/24 14:20 Course Orders Ordered: ED Orders 07/17/24 14:35 XR chest 1V Stat EKG-12 Lead Stat RT Consult Eval and Treat NOW 07/17/24 14:53 Complete Blood Count AUTO DIFF Stat Comprehensive Metabolic Panel Stat Lactate (Lactic Acid) Stat Lipase Stat PTT Partial Thromboplastin Cory Stat Procalcitonin Stat Prothrombin Time INR Stat 07/17/24 15:38 Blood Culture Stat 07/17/24 18:11 Urinalysis and Microscopic Stat 07/17/24 18:15 BNP [NT-proBNP (BNP-Adult 18+)] Stat Troponin & CK Cardiac Panel Stat 07/17/24 18:27 CT head/brain wo con Stat Ondansetron HCl (Ondansetron 4 Mg/2 Ml Inj) 4 mg IV NOW PRN PRN Reason: Nausea And Vomiting Discontinued Medications Sodium Chloride (Normal Saline 0.9%) 1,000 mls @ 1,000 mls/hr IV BOLUS ONE Stop: 07/17/24 15:34 Last Infusion: 07/17/24 16:26 Dose: Infused Documented By: Admin: 07/17/24 15:26 Dose: 1,000 mls/hr Documented By: JENARO Ceftriaxone Sodium 1,000 mg/ (Sodium Chloride) 100 mls @ 200 mls/hr IV NOW ONE Stop: 07/17/24 18:54 Last Admin: 07/17/24 19:23 Dose: 200 mls/hr Documented By: MISTY Lidocaine HCl (Lidocaine 2% (Glydo) 6 Ml Gel) 6 ml TOP NOW ONE Stop: 07/17/24 17:53 Last Admin: 07/17/24 17:55 Dose: 6 ml Documented By: MISTY Ondansetron HCl (Ondansetron 4 Mg Odt) 4 mg SL NOW PRN PRN Reason: Nausea And Vomiting Vital Signs Vital signs: Vital Signs - 8 hr 07/17/24 14:20 07/17/24 14:27 07/17/24 14:27 Temperature 99.8 F H Pulse Rate 94 H 98 H Respiratory Rate 22 Blood Pressure 128/66 128/66 Pulse Oximetry 97 98 Oxygen Delivery Method Room Air 07/17/24 14:30 07/17/24 14:30 07/17/24 14:58 Temperature Pulse Rate 93 H Respiratory Rate Blood Pressure 118/59 L 117/57 L Pulse Oximetry 96 Oxygen Delivery Method 07/17/24 14:58 07/17/24 15:00 07/17/24 15:00 Temperature Pulse Rate 102 H 102 H Respiratory Rate Blood Pressure 112/56 L Pulse Oximetry 97 97 Oxygen Delivery Method 07/17/24 15:30 07/17/24 15:30 07/17/24 16:00 Temperature Pulse Rate 100 H Respiratory Rate 25 H Blood Pressure 114/58 L 114/56 L Pulse Oximetry 96 Oxygen Delivery Method 07/17/24 16:00 07/17/24 16:30 07/17/24 16:30 Temperature Pulse Rate 98 H 96 H Respiratory Rate 23 27 H Blood Pressure 131/58 L Pulse Oximetry 95 94 Oxygen Delivery Method Room Air 07/17/24 17:00 07/17/24 17:00 07/17/24 17:30 Temperature Pulse Rate 102 H Respiratory Rate 26 H Blood Pressure 110/57 L 114/55 L Pulse Oximetry 93 Oxygen Delivery Method Room Air 07/17/24 17:30 07/17/24 18:00 07/17/24 18:00 Temperature Pulse Rate 100 H 109 H Respiratory Rate 21 21 Blood Pressure 114/58 L Pulse Oximetry 94 94 Oxygen Delivery Method 07/17/24 18:30 07/17/24 18:30 07/17/24 19:00 Temperature Pulse Rate 103 H 97 H Respiratory Rate 29 H 22 Blood Pressure 120/56 L Pulse Oximetry 95 94 Oxygen Delivery Method Medical Decision Making Lab Data 07/17/24 14:53 07/17/24 14:53 Labs: Lab Results 07/17/24 07/17/24 07/17/24 Range/Units 14:53 18:11 18:15 WBC 10.0 (4.5-11.0) X10^3/uL RBC 5.03 (4.5-5.9) X10^6/uL Hgb 13.9 (13.5-17.5) g/dL Hct 42.1 (41-53) % MCV 83.7 (80-100) fL MCH 27.7 (26-34) PG MCHC 33.1 (30-36) % RDW 14.3 (11.6-14.8) % Plt Count 263 (150-400) X10^3/uL Neut % (Auto) 72.5 (50-75) % Lymph % (Auto) 11.0 L (25-40) % [place] % (Auto) 13.1 (3-14) % Eos % (Auto) 3.0 (2-4) % Baso % (Auto) 0.4 (0-2) % Neut # (Auto) 7200 H (1003-4798) /uL Lymph # (Auto) 1100 (2495-5832) /uL [place] # (Auto) 1300 H (0-900) /uL Eos # (Auto) 300 (0-450) /uL Baso # (Auto) 0 (0-100) /uL PT 15.7 H (9.4-12.5) SECONDS INR 1.4 H (0.9-1.3) APTT 64 H (25.1-36.5) SECONDS Sodium 139 (137-145) mmol/L Potassium 4.0 (3.4-5.1) mmol/L Chloride 101 (98-107) mmol/L Carbon Dioxide 29 (22-32) mmol/L BUN 15 (9-20) mg/dL Creatinine 1.11 (0.66-1.25) mg/dL Estimated GFR > 60 (>60) mL/min BUN/Creatinine Ratio 13.5 (6-22) Glucose 86 (80-110) mg/dL Lactate 1.6 (0.7-2.1) mmol/L Calcium 9.6 (8.4-10.2) mg/dL Total Bilirubin 1.0 (0.2-1.3) mg/dL AST 32 (17-59) IU/L ALT 21 (<50) IU/L Alkaline Phosphatase 129 H (38-126) U/L Total Creatine Kinase 127 (55-170) U/L Troponin I < 0.012 (0.01-0.034) ng/mL NT-Pro-B Natriuret Pep 781 H (<450) pg/mL Total Protein 8.7 H (6.3-8.2) g/dL Albumin 4.6 (3.5-5.0) g/dL Globulin 4.1 (1.7-4.1) g/dL Albumin/Globulin Ratio 1.1 (1.0-2.8) Lipase 37 (23-300) U/L Procalcitonin 0.079 (<0.5) ng/mL Urine Color Yellow Urine Appearance Clear Urine pH 7.5 (4.5-8.0) Ur Specific [place] 1.015 (1.000-1.035) Urine Protein Negative (Negative) Urine Glucose (UA) Negative (Negative) g/dL Urine Ketones Trace H (NEGATIVE) Urine Occult Blood Trace-intact (Negative) Urine Nitrate Negative (Negative) Urine Bilirubin Negative (NEGATIVE) Urine Urobilinogen 4.0 H (0.2) E.U./dL Ur Leukocyte Esterase Negative (NEGATIVE) Urine RBC 1-5/hpf (0-5/HPF) Urine WBC 0-1/hpf (0-5/HPF) Ur Squamous Epith Cells None seen (0-5/HPF) Urine Bacteria Many (>30) H (None) Ur Culture Indicated? Cult not indicated Vol Urine Centrifuged 10ml (spun) Imaging Data CT scan - head: Radiologist's Impression: Close Head CT (Signed) Reji Colindres - 07/17/24 Chest X-Ray (Signed) Cecy Canales - 07/17/[address] (Signed) Cullen Palacios - 11/29/23 Chest X-Ray (Signed) Loreta Zuñiga - 11/29/23 Chest CTA (Signed) Reji Colindres - 10/02/[address] (Signed) Martita Richardson - 10/02/23 Chest X-Ray (Signed) Martita Richardson - 10/02/23 Radiology Report (Cancelled) Jessica Amaya - 03/30/22 Myocardial Perfusion Scan Nuc Med (Signed) Jessica Amaya - 03/30/22 Brain MRI (Signed) Higinio Núñez - 06/30/21 Lumbar Spine X-Ray (Signed) Cecy Canales - 11/25/18 Lumbar Spine X-Ray (Signed) Brandy Calzada - 11/23/18 Lumbar Spine MRI (Signed) Shannon Burgos - 01/17/18 Launch?Image [address] [address] [address] Scan Report Signed Patient: Luis Miguel Hernandez MR#: [id number] : 1940 Acct:[id number] Age/Sex: 83 / M Date of Service: 07/17/24 Loc: ED Accession Number: [id number] Procedure: CT head/brain wo con Ordering Provider: Monique Martin D.O. PROCEDURE: CT HEAD/BRAIN WO CON INDICATIONS: confusion TECHNIQUE: Noncontrast 4.5 mm thick angled axial sections acquired from the foramen magnum to the vertex, with coronal and sagittal reformats. For radiation dose reduction, the following was used: automated exposure control, adjustment of mA and/or kV according to patient size. COMPARISON: [facility], CT, CT HEAD/BRAIN WO CON, 11/29/2023, 3:52. [facility], CT, CT HEAD/BRAIN WO CON, 10/02/2023, 14:22. FINDINGS: Image quality: Diagnostic. Moderate motion artifact. CSF spaces: Basal cisterns are patent. No extra-axial fluid collections. The ventricles are symmetric in size and shape. Brain: No intracranial bleeds or masses. There is cerebral volume loss for age, with resultant ventricular and sulcal prominence. There are periventricular and deep white matter chronic small vessel ischemic changes. There is intracranial internal carotid artery atherosclerosis. Skull and face: Calvarium and visualized facial bones appear intact, without suspicious lesions. Sinuses: Mucosal thickening of the posterior sphenoid sinus. Remainder of the paranasal sinuses appear clear. Mastoid air cells are well-aerated. IMPRESSION: 1. CT head without acute intracranial abnormalities or acute calvarial fractures. 2. Age-related senescent changes and sequela of chronic small vessel ischemic disease. Dictated by: Reji Colindres M.D. on 07/17/2024 at 18:54 Approved by: Reji Colindres M.D. on 07/17/2024 at 18:55 Chest x-ray: Radiologist's Impression: Close Head CT (Signed) Reji Colindres - 07/17/24 Chest X-Ray (Signed) Cecy Canales - 07/17/[address] (Signed) Cullen Palacios - 11/29/23 Chest X-Ray (Signed) Loreta Zuñiga - 11/29/23 Chest CTA (Signed) Reji Colindres - 10/02/[address] (Signed) Milmay,Martita - 10/02/23 Chest X-Ray (Signed) Dylan,Martita - 10/02/23 Radiology Report (Cancelled) Jose LuisReneeelsa - 03/30/22 Myocardial Perfusion Scan Nuc Med (Signed) Paliwal,Vidhu - 03/30/22 Brain MRI (Signed) WiltonHiginio - 06/30/21 Lumbar Spine X-Ray (Signed) Cecy Canales - 11/25/18 Lumbar Spine X-Ray (Signed) Brandy Calzada - 11/23/18 Lumbar Spine MRI (Signed) Shannon Burgos - 01/17/18 Launch?Image [address] [address] XRay Report Signed Patient: Luis Miguel Hernandez MR#: [id number] : 1940 Acct:[id number] Age/Sex: 83 / M Date of Service: 07/17/24 Loc: ED Accession Number: [id number] Procedure: XR chest 1V Ordering Provider: Monique Martin D.O. PROCEDURE: XR CHEST 1V INDICATIONS: suspected sepsis TECHNIQUE: One view of the chest was acquired. COMPARISON: [facility], , XR CHEST 1V, 11/29/2023, 3:52. FINDINGS: Surgical changes and devices: None. Lungs and pleura: Lungs are clear. No pleural effusions or pneumothorax. Mediastinum: Mediastinal contours appear normal. Heart size is normal. Bones and chest wall: No suspicious bony lesions. Overlying soft tissues appear unremarkable. IMPRESSION: No acute pulmonary process. Dictated by: Cecy Canales M.D. on 07/17/2024 at 16:09 Approved by: Cecy Canales M.D. on 07/17/2024 at 16:09 ECG Data Attestation: I personally reviewed and interpreted this ECG as follows: Interpretation: AFib, rate of 93 QRS of 96 QTC 445. MDM Narrative Medical decision making narrative: 83-year-old male with increasing confusion and generalized weakness for the past 1-2 days according . Patient states he does feel confused he was alert but slow to respond. Does speak clearly. No clear lateralizing deficits on initial exam. Patient has not had any reported falls with injury to his head but is on any anticoagulants questionable UTI on urinalysis patient was retaining urine with about 500 mL and some additional overflow urinary cath was placed. No other clear source for patient's confusion on workup today. Patient is increasingly weak at home with difficulty ambulating. Labs white count of 10 hemoglobin of 13.9 platelets of 263. INR is 1.4. Electrolytes are normal BUN 15 creatinine 1.11 LFTs are negative alk-phos is 129 glucose is appropriate at 86. Total protein is 8.7 protocol 0.079. Chest x-ray is negative for acute change. Troponins less than 0.012 with a BNP of 781. Head CT is negative UA trace ketones urobilinogen many bacteria 1-5 RBCs 1 white cell. Patient had bladder scan showed 430 mL Patient received 1 g Rocephin for potential UTI although urinalysis is not definitive. Patient did have little bit of urinary retention had catheterization. Patient also received 1 L normal saline. No lateralizing deficits suggesting stroke, patient has been afebrile had a heart rate in the 90s temperature has been 99 F lab changes for clear source. Has a systolic ejection murmur at baseline but patient was aware of as well troponin and BNP were negative although he has no complaints of chest pain or shortness of breath. Patient placed in observation for increased weakness patient is normally ambulatory at baseline, increased confusion, potential UTI versus dehydration. Spoke with Dr. Virgen, telehospitalist regarding observation. Accepts for [facility] tele observation. Dehydration versus potential UTI/altered mental status. Discharge Plan Departure Patient Disposition: Admitted as Observation Clinical Impression: Altered mental status, Weakness Prescriptions: No Action sulfamethoxazole-trimethoprim 800-160 mg tablet 1 tab PO Q12H Qty: 14 0RF metformin 1,000 mg Tablet 1,500 mg PO QAM metformin 1,000 mg tablet 1,000 mg PO BEDTIME Humulin 70/30 U-100 KwikPen 100 unit/mL (70-30) insulin pen 45 unit SUBCUT QAM Patient Comments: [NO ORIGINAL SIG] Rx Instructions: takes 40 units at bedtime atorvastatin 20 mg tablet 20 mg PO QPM tamsulosin 0.4 mg capsule 0.4 mg PO BEDTIME cholecalciferol (vitamin D3) 2,000 unit capsule 4,000 unit PO DAILY (DME) Respirioncs Dreamstation 2 CPAP See Rx Instructions Qty: 1 Dose Instruction: As directed Patient Comments: Pressure: 15-19 cmH2O DME: [facility] Rx Instructions: Pressure: 15-19 cmH2O DME: [facility] Pradaxa 150 mg capsule 150 mg PO BID coenzyme Q10 75 mg capsule 75 mg PO DAILY Referrals: Zandra Chou PA-C [Primary Care Provider] - Admit Date/Time: 07/17/24 19:48 Admit Provider: Cristo Virgen
[2024-07-17] MEDS: LIDOCAINE 2% (GLYDO) 6 ML GEL TOP (17:55)
[2024-07-17 18:21] LABS: Appearance Urine UA CLEAR; Bilirubin Urine UA NEGATIVE (NEGATIVE); Color Urine UA YELLOW; Glucose Urine UA NEGATIVE (Negative); Ketones Urine UA TRACE (NEGATIVE); Leukocyte Esterase Urine UA NEGATIVE (NEGATIVE); Nitrite Urine UA NEGATIVE (Negative); Occult Blood Urine UA TRACE-INTACT (Negative); Protein Urine UA NEGATIVE (Negative); Specific Gravity Urine UA 1.015 (1.000-1.035); pH Urine UA 7.5 (4.5-8.0)
--- NOTE | 2024-07-17 18:27 | DI.CT.S_ITS ---
PROCEDURE: CT HEAD/BRAIN WO CON INDICATIONS: confusion TECHNIQUE: Noncontrast 4.5 mm thick angled axial sections acquired from the foramen magnum to the vertex, with coronal and sagittal reformats. For radiation dose reduction, the following was used: automated exposure control, adjustment of mA and/or kV according to patient size. COMPARISON: [facility], CT, CT HEAD/BRAIN WO CON, 11/29/2023, 3:52. [facility], CT, CT HEAD/BRAIN WO CON, 10/02/2023, 14:22. FINDINGS: Image quality: Diagnostic. Moderate motion artifact. CSF spaces: Basal cisterns are patent. No extra-axial fluid collections. The ventricles are symmetric in size and shape. Brain: No intracranial bleeds or masses. There is cerebral volume loss for age, with resultant ventricular and sulcal prominence. There are periventricular and deep white matter chronic small vessel ischemic changes. There is intracranial internal carotid artery atherosclerosis. Skull and face: Calvarium and visualized facial bones appear intact, without suspicious lesions. Sinuses: Mucosal thickening of the posterior sphenoid sinus. Remainder of the paranasal sinuses appear clear. Mastoid air cells are well-aerated. IMPRESSION: 1. CT head without acute intracranial abnormalities or acute calvarial fractures. 2. Age-related senescent changes and sequela of chronic small vessel ischemic disease. Dictated by: Reji Colindres M.D. on 07/17/2024 at 18:54 Approved by: Reji Colindres M.D. on 07/17/2024 at 18:55
[2024-07-17 18:32] LABS: Bacteria Urine Many (>30); Culture Indicated Urine Cult Not Indicated; RBC Urine 1-5/HPF (0-5/HPF); Squamous Epithelial Cell Urine None Seen (0-5/HPF); Urine Volume 10mL (spun); WBC Urine 0-1/HPF (0-5/HPF)
[2024-07-17 18:35] LABS: Creatine Kinase 127 U/L (55-170)
[2024-07-17 18:48] LABS: NT-proBNP (BNP-Adult 18+) 781 pg/mL (<450); Troponin I < 0.012 ng/mL (0.01-0.034)
[2024-07-17] MEDS: cefTRIAXone 1,000 MG in SODIUM CHLORIDE 0.9% 100 ML 200 MG IV (19:23)
[2024-07-18] VITALS: BP 116/70; PULSE 106; RESP 18; TEMP 37.7; O2SAT 94
[2024-07-18 04:00] VITALS: BP 112/61; PULSE 87; RESP 18; TEMP 37.2; O2SAT 94
--- NOTE | 2024-07-18 06:24 | P.HP_ITS ---
History of Present Illness History of Present Illness Chief complaint: Gen weak, confusion Narrative: 83 year-old male with past medical history of insulin dependent diabetes, atrial fibrillation on Pradaxa and possible dementia with mild cognitive impairment presents with confusion. Of note due to patients confusion limited history can be obtained directly from the patient. The patient's who was at bedside reports that the last two days the patient has been having generalized weakness and unable to stand with his walker. Patient also was noted to have increased confusion compared to his baseline. July 07, 2024 the patient did have a light fall in which fell to his knees but did not hit his head or lost consciousness. There's no reported injury from that fall. Patient also had history of UTIs in the past. Otherwise there's no report of any fever, chills, chest pain, nausea, vomiting or diarrhea.? In our emergency room, the patient was hemodynamically stable with no sign of sepsis. UA suggest possible sign for UTI as there was many bacteria though there's only one WBC and negative for Leukesterase. CT scan of the head was negative for any acute finding. Chest x-ray was negative. Lab only show elevated BP at 700s The patient received imperial IV Ceftriaxone as well as IV fluid. [facility] Medical History Mild cognitive impairment with memory loss (~11/23/18) Obesity (BMI 30-39.9) Idiopathic hypersomnia with long sleep time Obstructive sleep apnea of adult Intermittent claudication Aortic stenosis Right hip pain Cataracts, bilateral Tooth infection (~09/2017) Depression Arthritis HLD (hyperlipidemia) Hearing impaired Numbness and tingling of both feet A-fib Diabetes Surgical History History of colonoscopy History of vasectomy Social History marital status: details: to Rosa, lives in [place] household members: spouse and children housing: house Smoking Status: Never smoker alcohol intake: never substance use type: does not use Meds Home Medications and Allergies Home Medications Medication Instructions Recorded Confirmed Type cholecalciferol (vitamin D3) 50 4,000 unit PO BID 11/15/18 07/17/24 History mcg (2,000 unit) capsule metformin 1,000 mg tablet 1,000 mg PO BEDTIME 11/15/18 07/17/24 History metformin 1,000 mg tablet 1,500 mg PO QAM 11/15/18 07/17/24 History Respirioncs Dreamstation 2 CPAP #1 ea 04/22/22 10/04/23 History coenzyme Q10 75 mg capsule 75 mg PO DAILY 04/22/22 07/17/24 History tamsulosin 0.4 mg capsule 0.4 mg PO BEDTIME 10/04/23 07/17/24 History dabigatran etexilate 150 mg 150 mg PO BID 07/17/24 07/17/24 History capsule (Pradaxa) insulin NPH-regular 70-30 U-100 See Rx Instructions .Route .COMPLEX 07/17/24 07/17/24 History insulin 100 unit/mL subcutaneous pen (Humulin 70/30 U-100 KwikPen) Allergies Allergy/AdvReac Type Severity Reaction Status Date / Time No Known Drug Allergies Allergy Verified 04/22/22 15:04 Review of Systems Review of Systems ROS: Yes unobtainable due to mental status Exam Vital Signs (past 8 hours): - 07/18/24 00:00 07/18/24 04:00 Temperature 100 F H 98.9 F Pulse Rate 106 H 87 Respiratory Rate 18 18 Blood Pressure 116/70 112/61 Pulse Oximetry 94 94 Oxygen Flow Rate 0 Oxygen Delivery Method Room Air Oxygen Flow Rate 0 Narrative Exam Narrative: Physical Exam: GENERAL: The patient is not in any acute distressed. Awake and alert. HEENT: Nonicteric sclerae, PERRLA, EOMI. Oropharynx clear. Moist mucous membranes. Conjunctivae appear well perfused. HEART: Regular rate and rhythm without murmurs. No lower extremities edema. LUNGS: Clear to auscultation bilaterally. No wheezing, crackles or rhonchi ABDOMEN: Soft, positive bowel sounds, nontender. SKIN: No rash, no excessive bruising, petechiae, or purpura. NEUROLOGIC: AxO x 1. Cranial nerves II-XII intact without motor/sensory deficit. Objective Labs 07/17/24 14:53 07/17/24 14:53 Labs: Laboratory Results - last 24 hr 07/17/24 07/17/24 07/17/24 14:53 18:11 18:15 WBC 10.0 RBC 5.03 Hgb 13.9 Hct 42.1 MCV 83.7 MCH 27.7 MCHC 33.1 RDW 14.3 Plt Count 263 Neut % (Auto) 72.5 Lymph % (Auto) 11.0 L [place] % (Auto) 13.1 Eos % (Auto) 3.0 Baso % (Auto) 0.4 Neut # (Auto) 7200 H Lymph # (Auto) 1100 [place] # (Auto) 1300 H Eos # (Auto) 300 Baso # (Auto) 0 PT 15.7 H INR 1.4 H APTT 64 H Sodium 139 Potassium 4.0 Chloride 101 Carbon Dioxide 29 BUN 15 Creatinine 1.11 Estimated GFR > 60 BUN/Creatinine Ratio 13.5 Glucose 86 Lactate 1.6 Calcium 9.6 Total Bilirubin 1.0 AST 32 ALT 21 Alkaline Phosphatase 129 H Total Creatine Kinase 127 Troponin I < 0.012 NT-Pro-B Natriuret Pep 781 H Total Protein 8.7 H Albumin 4.6 Globulin 4.1 Albumin/Globulin Ratio 1.1 Lipase 37 Procalcitonin 0.079 Urine Color Yellow Urine Appearance Clear Urine pH 7.5 Ur Specific [place] 1.015 Urine Protein Negative Urine Glucose (UA) Negative Urine Ketones Trace H Urine Occult Blood Trace-intact Urine Nitrate Negative Urine Bilirubin Negative Urine Urobilinogen 4.0 H Ur Leukocyte Esterase Negative Urine RBC 1-5/hpf Urine WBC 0-1/hpf Ur Squamous Epith Cells None seen Urine Bacteria Many (>30) H Ur Culture Indicated? Cult not indicated Vol Urine Centrifuged 10ml (spun) Assessment & Plan Assessment & Plan narrative: Acute encephalopathy. Admit the patient to medical telemetry inpatient. Of note CT head is negative and there's no sign of sepsis. Possible cause could be dehydration and UTI. Treat underlying cause and monitor mental status. Per patient's states that the patient's mental status is slowly improving. Possible UTI. Continue IV Ceftriaxone empirically and follow up your culture. Generalized weakness PT, OT. Atrial fibrillation continue home medication including Pradaxa and monitor on telemetry. BPH Resume home Flomax. DVT PPx Pradaxa Code Status full code per patient's . Disposition likely home in two days. Time-Based Coding :: [TOTAL MINUTES] spent with patient and on the chart (including review of chart, obtaining history, exam, reviewing outside data, placing orders, documenting exam and treatment plan, and counseling patient) on [DATE]. Quality VTE Deep Vein Thrombosis/Pulmonary Embolism Present on Admission: No
[2024-07-18 06:34] LABS: Add Manual Diff / Slide Review NO; Basophils Absolute Auto 100 /uL (0-100); Basophils Percent Auto 1.2 % (0-2); Eosinophils Absolute Auto 100 /uL (0-450); Eosinophils Percent Auto 1.2 % (2-4); Hemoglobin 12.6 g/dL (13.5-17.5); Lymphocytes Absolute Auto 1600 /uL (1100-4500); Lymphocytes Percent Auto 16.7 % (25-40); Mean Corpuscular HGB Conc 33.2 % (30-36); Mean Corpuscular Hemoglobin 27.8 PG (26-34); Mean Corpuscular Volume 83.8 fL (80-100); Monocytes Absolute Auto 1600 /uL (0-900); Monocytes Percent Auto 17.2 % (3-14); Neutrophils Absolute Auto 5900 /uL (1500-7000); Neutrophils Percent Auto 63.7 % (50-75); Platelet Count 224 X10^3/uL (150-400); Red Blood Cell Count 4.53 X10^6/uL (4.5-5.9); Red Cell Distribution Width 14.5 % (11.6-14.8); White Blood Cell Count 9.3 X10^3/uL (4.5-11.0)
[2024-07-18 06:47] LABS: BUN Creatinine Ratio 12.4 (6-22); Blood Urea Nitrogen 14 mg/dL (9-20); Calcium 9.1 mg/dL (8.4-10.2); Carbon Dioxide 26 mmol/L (22-32); Chloride 104 mmol/L (98-107); Estimated Glomerular Filt Rate > 60 mL/min (>60); Glucose 105 mg/dL (80-110); HEMOLYSIS < 15 (0-50); Potassium 3.8 mmol/L (3.4-5.1); Sodium 137 mmol/L (137-145)
--- NOTE | 2024-07-18 07:17 | P.PN_ITS ---
Subjective Subjective Interval history: From night doctor: 83 year-old male with past medical history of insulin dependent diabetes, atrial fibrillation on Pradaxa and possible dementia with mild cognitive impairment presents with confusion. Of note due to patients confusion limited history can be obtained directly from the patient. The patient's who was at bedside reports that the last two days the patient has been having generalized weakness and unable to stand with his walker. Patient also was noted to have increased confusion compared to his baseline. July 07, 2024 the patient did have a light fall in which fell to his knees but did not hit his head or lost consciousness. There's no reported injury from that fall. Patient also had history of UTIs in the past. Otherwise there's no report of any fever, chills, chest pain, nausea, vomiting or diarrhea.? In our emergency room, the patient was hemodynamically stable with no sign of sepsis. UA suggest possible sign for UTI as there was many bacteria though there's only one WBC and negative for Leukesterase. CT scan of the head was negative for any acute finding. Chest x-ray was negative. Lab only show elevated BP at 700s The patient received imperial IV Ceftriaxone as well as IV fluid. S: He is confused today, but no distress. He does not know where he was or what the uterus. He does note he lives in [place]. We are cutting his insulin dosing down by 50% today and assessing how much he actually eats. Exam Vital Signs (past 8 hours): - 07/18/24 00:00 07/18/24 04:00 Temperature 100 F H 98.9 F Pulse Rate 106 H 87 Respiratory Rate 18 18 Blood Pressure 116/70 112/61 Pulse Oximetry 94 94 Oxygen Flow Rate 0 Oxygen Delivery Method Room Air Oxygen Flow Rate 0 Narrative Exam Narrative: NAD, alert and disoriented. Fluent speech. Lungs are clear, normal rate and effort. Heart is regular, no murmur gallop or rub. Abdomen is soft, non distended. Extremities are free of edema. Objective Imaging Multiple studies: : Radiologist's impression: Head CT: 1. CT head without acute intracranial abnormalities or acute calvarial fractures. 2. Age-related senescent changes and sequela of chronic small vessel ischemic disease. CXR: No acute pulmonary process. Labs 07/18/24 06:00 07/18/24 06:00 Labs: Laboratory Results - last 24 hr 07/17/24 07/17/24 07/17/24 14:53 18:11 18:15 WBC 10.0 RBC 5.03 Hgb 13.9 Hct 42.1 MCV 83.7 MCH 27.7 MCHC 33.1 RDW 14.3 Plt Count 263 Neut % (Auto) 72.5 Lymph % (Auto) 11.0 L [place] % (Auto) 13.1 Eos % (Auto) 3.0 Baso % (Auto) 0.4 Neut # (Auto) 7200 H Lymph # (Auto) 1100 [place] # (Auto) 1300 H Eos # (Auto) 300 Baso # (Auto) 0 PT 15.7 H INR 1.4 H APTT 64 H Sodium 139 Potassium 4.0 Chloride 101 Carbon Dioxide 29 BUN 15 Creatinine 1.11 Estimated GFR > 60 BUN/Creatinine Ratio 13.5 Glucose 86 Lactate 1.6 Calcium 9.6 Total Bilirubin 1.0 AST 32 ALT 21 Alkaline Phosphatase 129 H Total Creatine Kinase 127 Troponin I < 0.012 NT-Pro-B Natriuret Pep 781 H Total Protein 8.7 H Albumin 4.6 Globulin 4.1 Albumin/Globulin Ratio 1.1 Lipase 37 Procalcitonin 0.079 Urine Color Yellow Urine Appearance Clear Urine pH 7.5 Ur Specific [place] 1.015 Urine Protein Negative Urine Glucose (UA) Negative Urine Ketones Trace H Urine Occult Blood Trace-intact Urine Nitrate Negative Urine Bilirubin Negative Urine Urobilinogen 4.0 H Ur Leukocyte Esterase Negative Urine RBC 1-5/hpf Urine WBC 0-1/hpf Ur Squamous Epith Cells None seen Urine Bacteria Many (>30) H Ur Culture Indicated? Cult not indicated Vol Urine Centrifuged 10ml (spun) 07/18/24 06:00 WBC 9.3 RBC 4.53 Hgb 12.6 L Hct 38.0 L MCV 83.8 MCH 27.8 MCHC 33.2 RDW 14.5 Plt Count 224 Neut % (Auto) 63.7 Lymph % (Auto) 16.7 L [place] % (Auto) 17.2 H Eos % (Auto) 1.2 L Baso % (Auto) 1.2 Neut # (Auto) 5900 Lymph # (Auto) 1600 [place] # (Auto) 1600 H Eos # (Auto) 100 Baso # (Auto) 100 PT INR APTT Sodium 137 Potassium 3.8 Chloride 104 Carbon Dioxide 26 BUN 14 Creatinine 1.13 Estimated GFR > 60 BUN/Creatinine Ratio 12.4 Glucose 105 Lactate Calcium 9.1 Total Bilirubin AST ALT Alkaline Phosphatase Total Creatine Kinase Troponin I NT-Pro-B Natriuret Pep Total Protein Albumin Globulin Albumin/Globulin Ratio Lipase Procalcitonin Urine Color Urine Appearance Urine pH Ur Specific [place] Urine Protein Urine Glucose (UA) Urine Ketones Urine Occult Blood Urine Nitrate Urine Bilirubin Urine Urobilinogen Ur Leukocyte Esterase Urine RBC Urine WBC Ur Squamous Epith Cells Urine Bacteria Ur Culture Indicated? Vol Urine Centrifuged [facility] Medical History Mild cognitive impairment with memory loss (~11/23/18) Obesity (BMI 30-39.9) Idiopathic hypersomnia with long sleep time Obstructive sleep apnea of adult Intermittent claudication Aortic stenosis Right hip pain Cataracts, bilateral Tooth infection (~09/2017) Depression Arthritis HLD (hyperlipidemia) Hearing impaired Numbness and tingling of both feet A-fib Diabetes Surgical History History of colonoscopy History of vasectomy Social History marital status: details: rl Lee, lives in [place] household members: spouse and children housing: house Smoking Status: Never smoker alcohol intake: never substance use type: does not use Assessment & Plan Assessment & Plan narrative: 1. Acute septic encephalopathy. Present on admission and active. -Admit the patient to medical telemetry inpatient. Of note CT head is negative and there's no sign of sepsis. Possible cause could be dehydration and UTI. Treat underlying cause and monitor mental status. Per patient's states that the patient's mental status is slowly improving. 2. Possible UTI. Present on admission and active. -Continue IV Ceftriaxone empirically and follow up your culture. 3. Generalized weakness. Present on admission and active. 4. Atrial fibrillation. Present on admission and active. - continue home medication including Pradaxa and monitor on telemetry. 5. BPH. Present on admission and active. -Resume home Flomax. PLAN: -continue antibiotics. -follow urine and blood cultures, all pending. -decrease NPH from 28-14 b.i.d. and monitor glucose. -out of bed, advance activity as able. DVT PPx Pradaxa Code Status full code per patient's . He requires another night of hospital care, inpatient status is supported. He remains encephalopathic and requires IV antibiotics. Time-Based Coding :: [TOTAL MINUTES] spent with patient and on the chart (including review of chart, obtaining history, exam, reviewing outside data, placing orders, documenting exam and treatment plan, and counseling patient) on [DATE]. Quality VTE Deep Vein Thrombosis/Pulmonary Embolism Present on Admission: No
[2024-07-18 08:00] VITALS: BP 107/65; PULSE 92; RESP 17; TEMP 36.6; O2SAT 94
[2024-07-18] MEDS: DABIGATRAN 75 MG CAPSULE 150 MG PO ×2 (09:10→21:23)
[2024-07-18] MEDS: CHOLECALCIFEROL (VITAMIN D3) 1,000 UNIT TABLET 4000 UNIT PO ×2 (09:10→21:23)
[2024-07-18] MEDS: cefTRIAXone 1,000 MG in SODIUM CHLORIDE 0.9% 100 ML 200 MG IV (09:10)
[2024-07-18] MEDS: INSULIN NPH/REG 70-30 100 UNIT/ML 10ML VIAL 28 UNIT SUBCUT (09:21)
[2024-07-18 12:00] VITALS: BP 95/58; PULSE 90; RESP 17; TEMP 36.3; O2SAT 93
--- NOTE | 2024-07-18 12:12 | OT.IP.EVAL ---
Past Medical History (Last Reviewed 07/18/24 @ 07:18 by Victoriano Peña MD) A-fib Aortic stenosis Arthritis Cataracts, bilateral Depression Diabetes Hearing impaired HLD (hyperlipidemia) Idiopathic hypersomnia with long sleep time Intermittent claudication Mild cognitive impairment with memory loss (~11/23/18) Numbness and tingling of both feet Obesity (BMI 30-39.9) Obstructive sleep apnea of adult Right hip pain Tooth infection (~09/2017) Surgical History (Last Reviewed 07/18/24 @ 07:18 by Victoriano Peña MD) History of colonoscopy History of vasectomy Occupational Therapy Inpatient Evaluation/Re-Eval M1 PT/OT-IP Prior Functional Status Start: 07/18/24 12:21 Freq: NEEDED Status: Active Protocol: Document 07/18/24 12:12 [facility] (Rec: 07/18/24 12:37 [facility] [id number]) Medical Review Prior Functional Status Communication Pt's states pt is more confused than usual at this time. Mobility and Gait Prior to getting weak, pt able to use the FWW on his own at home. Activities of Daily Living and IADL's Pt needing occasional assist with LB dressing needs and assist for all IADL needs. Social History Household Members spouse,children Living Arrangements House Number of Floors (Floors) One Floor Number of Stairs To Enter/Railing? 3 steps with rails. Home Environment High Toilet,Walk in Shower Home Equipment Front Wheel Walker,Long Handled Shoe Horn,Business Technology Architect,Sock Aid,Bed Rails,Grab Bars Near Toilet,Grab Bars In Shower Additional Social History Comment Pt has metal frame around the toilet. Per pt's mainly just stays in bed or his chair at home. M2 OT-IP Current Condition Start: 07/18/24 12:21 Freq: Status: Active Protocol: Document 07/18/24 12:12 [facility] (Rec: 07/18/24 12:37 [facility] [id number]) Occupational Therapy Current Condition Current Condition Evaluation Date 07/18/24 Treatment Diagnosis Acute encephalopathy, UTI? , generalized weakness Diagnosis Onset Date 07/17/24 M3 OT- IP Subjective and Pain Start: 07/18/24 12:21 Freq: Status: Active Protocol: Document 07/18/24 12:12 [facility] (Rec: 07/18/24 12:37 [facility] [id number]) OT- Subjective Occupational Therapy Visit Type Type Initial Evaluation Visit Start Time 11:40 Visit Stop Time 12:12 Occupational Therapy Visit Comments Patient Comments Pt asleep and awaken, and after lots of encouragement agreed to get up. Patient/Caregiver Goals Pt not able to state. Pt's wanting him to get better so able to come home if able. OT Pain Assessment Pain When Pain Assessed At Rest Pain Present Pain Present Denied Pain M4 OT- IP ADL's Start: 07/18/24 12:21 Freq: Status: Active Protocol: Document 07/18/24 12:12 [facility] (Rec: 07/18/24 12:37 [facility] [id number]) OT [facility] General Evaluation Self-Feeding Ability Total Assistance Comments OT Self-Feeding Comments Per nurse, pt having to be fed this morning due to confusion . OT ADL-Grooming General Evaluation Grooming Ability Standby Assistance Comments OT Grooming Comments While seated. OT ADL-Oral Care General Eval Oral Care Ability Moderate Assistance Areas of Assistance Retrieving/Set-Up of Items Comments Oral Care Comments MODA vc for sequence but able to brush his teeth with increased time. OT ADL-Dressing General Eval Lower Body Dressing Ability Total Assistance Areas Needing Assistance Socks Comments OT Dressing Comments Assist for socks. OT ADL-Toileting Comments OT Toileting Comments Pt having brief on and due to decreased mobility will need extensive assist. OT ADL-Bathing Comments OT Bathing Comments Sponge bath more appropriate at this time. Pt would greatly benefit from a shower chair at home. M5 OT- IP IADL's Start: 07/18/24 12:21 Freq: Status: Active Protocol: Document 07/18/24 12:12 [facility] (Rec: 07/18/24 12:37 [facility] [id number]) OT-Instrumental Activities of Daily Living Home Safety Awareness Awareness of Need for Assistance at Home Decreased Awareness Ability to Problem Solve Emergency Unable to Problem Solve Situations Home Safety Comments Pt very drowsy and confused at this time and just mainly orientated to his name. Medication Management Medication Management Caregiver Administers Money Management Money Management Caregiver Provides Assistance Meal Preparation Meal Preparation Caregiver Provides Assist High Man High Man Caregiver Provides Assist Driving Driving Caregiver Provides Assist M6 OT- IP Functional Cognition Start: 07/18/24 12:21 Freq: Status: Active Protocol: Document 07/18/24 12:12 [facility] (Rec: 07/18/24 12:37 [facility] [id number]) Cognitive Factors Limiting Selfcare Function Cognitive Ability Level of Alertness Confusional State,Drowsy Patient Orientation Name Attention Span Ability Unable to Focus,Unable to Sustain Attention Ability to Follow Commands Able to Follow One Step Commands with Increased Time, Able to Follow One Step Commands with Repetition Cognitive Comments Cognitive Assessment Comments Pt very confused and drowsy. Pt just orientated to his name and did not recognize his initially but then jokingly states that she was his super babe. Pt having difficulty to initiate movement and follow commands at this time. OT- Vision and Hearing OT- Vision Assessment Visual Acuity Glasses All The Time Visual Attentiveness WFL Vision Assessment Comments Hard to formally assess as pt is confused. M7 OT- IP Mobility and Balance Start: 07/18/24 12:21 Freq: Status: Active Protocol: Document 07/18/24 12:12 [facility] (Rec: 07/18/24 12:37 [facility] [id number]) OT- Bed Mobility Assessment Supine to Sit Supine to Sit Assist Maximum Assistance,1 Person Assistance Scooting Scooting to Edge of Bed Maximum Assistance,1 Person Assistance OT-Transfer Assessment Sit to and From Stand Sit to and from Stand Moderate Assistance,Maximum Assistance,2 Person Assistance Transfers Transfer Ability Moderate Assistance,2 Person Assistance Technique Transfer Destination Bed,Chair Comments Mobility Comments MAXAX1 to get his legs and trunk up from the bed. Once upright able to sit with CGA. MOD/MAXAX 2 to stand and assist to keep his right foot from sliding forwards. MODA X2 to transfer to the recliner assist for balance and to guide the FWW. Assist to help scoot back into the chair, chair alarm placed. OT- Balance Assessment Sitting Balance and Reactions Static Sitting Balance Ability Poor Dynamic Sitting Balance Ability Poor Standing Balance and Reactions Static Standing Balance Ability Poor Dynamic Standing Balance Ability Poor M8 OT- IP Objective Assessments Start: 07/18/24 12:21 Freq: Status: Active Protocol: Document 07/18/24 12:12 [facility] (Rec: 07/18/24 12:37 [facility] [id number]) OT Gross Range of Motion Upper Extremity Range of Motion Assessment Bilaterally Impaired ROM Impairments BUE 0-90 flexion. OT Strength Upper Extremity Strength Assessment Bilaterally Impaired Comments Strength Comments BUE 3-/5 to 4-/5 for RUE and LUE 4/5. M9 OT- IP Assessment and Plan Start: 07/18/24 12:21 Freq: Status: Active Protocol: Document 07/18/24 12:12 [facility] (Rec: 07/18/24 12:37 [facility] [id number]) OT Summary Assessment and Plan Potential Rehabilitation Potential Good Analytic Complexity at Evaluation Moderate Summary OT Impairments Range of Motion,Strength, Balance,Functional Cognition, Functional Mobility,Self- Feeding,Grooming,Dressing, Toileting,Bathing,Toilet Transfers,Shower Transfers, Activity Tolerance Progress Towards Goals Slow Progress due to Medical Issues,Slow Progress due to Activity Tolerance,Slow Progress due to Cognition Assessment Summary Pt MOD complexity and main barriers are generalized weakness, poor balance, initiation , and now needing two person assist for mobility needs. Pt will benefit from skilled rehab prior to going home. Goals Self-Feeding Goal Independent Grooming Goal Independent Dressing Goal Minimal Assistance Toileting Goal Standby Assistance Bathing Goal Standby Assistance Toilet Transfer Goal Standby Assistance Shower Transfer Goal Contact Guard Assistance Days to Meet Goals 25 Frequency of Treatment Other frequency 5x/week Treatment Plan OT Treatment Plan ADL Training,Functional Cognition Training,Functional Mobility,Patient/Family Education,Discharge Planning Other Treatment Recommendations and Next Transfer to [facility] with ANDRES Loya x1. Treatment Focus Discharge Recommendations OT Discharge Recommendations SNF Rehab Home Equipment Needs Shower chair. Transportation Needs at Discharge Wheelchair/Cabulance
[2024-07-18] MEDS: INSULIN LISPRO 100 UNIT/ML 3ML VIAL SUBCUT ×3 (12:23→21:29)
--- NOTE | 2024-07-18 13:35 | PT.IIE ---
Surgical History (Last Reviewed 07/18/24 @ 07:18 by Victoriano Peña MD) History of colonoscopy History of vasectomy Medical History (Last Reviewed 07/18/24 @ 07:18 by Victoriano Peña MD) A-fib Aortic stenosis Arthritis Cataracts, bilateral Depression Diabetes Hearing impaired HLD (hyperlipidemia) Idiopathic hypersomnia with long sleep time Intermittent claudication Mild cognitive impairment with memory loss (~11/23/18) Numbness and tingling of both feet Obesity (BMI 30-39.9) Obstructive sleep apnea of adult Right hip pain Tooth infection (~09/2017) Physical Therapy Inpatient Evaluation/Re-Eval M1 PT/OT-IP Prior Functional Status Start: 07/18/24 14:35 Freq: NEEDED Status: Active Protocol: Document 07/18/24 13:35 AB (Rec: 07/18/24 14:50 AB [id number]) Medical Review Prior Functional Status Medical History Reviewed Yes Communication able to make needs known; needs increase time to respond to questions; pt is [place] Mobility and Gait per spouse: pt SBA with all mobilities and ambulation using a FWW Activities of Daily Living and IADL's per OT note: Pt needing occasional assist with LB dressing needs and assist for all IADL needs. Social History Household Members spouse,children Living Arrangements House Number of Floors (Floors) One Floor Number of Stairs To Enter/Railing? 3 steps wide bilateral rails to enter the houe (pt can only hold on to one rail at a time Home Environment High Toilet,Walk in Shower Home Equipment Front Wheel Walker,Hand Held Shower,Grab Bars In Shower Additional Social History Comment pt lives with spouse, grand daughter and family pt has R side bed cane M2 PT-IP Current Condition Start: 07/18/24 14:35 Freq: NEEDED Status: Active Protocol: Document 07/18/24 13:35 AB (Rec: 07/18/24 14:50 AB [id number]) Physical Therapy Current Condition Current Condition Evaluation Date 07/18/24 Treatment Diagnosis AMS; UTI; difficulty in walking Onset Date 07/17/24 M3 PT-IP Subjective Start: 07/18/24 14:35 Freq: NEEDED Status: Active Protocol: Document 07/18/24 13:35 AB (Rec: 07/18/24 14:50 AB [id number]) Subjective Physical Therapy Visit Type Type Initial Evaluation Visit Start Time 13:35 Visit Stop Time 14:10 Number of OCEANOLOGIST Visits 0 Physical Therapy Visit Comments Patient Comments agreeable to do PT M4 PT-IP Mobility and Gait Start: 07/18/24 14:35 Freq: NEEDED Status: Active Protocol: Document 07/18/24 13:35 AB (Rec: 07/18/24 14:50 AB [id number]) PT-Bed Mobility Assessment Supine to Sit Supine to Sit Maximum Assistance,2 Person Assistance,Head of Bed Elevated,Bedrails Sit to Supine Sit to Supine Maximum Assistance,Bedrails Scooting Scooting to Edge of Bed Maximum Assistance PT-Transfer Assessment Sit to and From Stand Sit to and from Stand Maximum Assistance,Use of Upper Extremities Equipment Transfer Assistive Device Gait Belt,Front Wheeled Walker Orthotic/Prosthetic Devices or Brace: No Transfers Transfer Destination Bed,Chair Transfer Technique Stand Step Pivot Transfer Ability Level of Assist Maximum Assistance,1 Person Assistance,2 Person Assistance ,Use of Upper Extremities Comments Mobility Comments pt sitting on the chair and spouse in room. obtained PLOF and home set up from pt and spouse. spouse provided most of the info. BP sittin/ 65. pt completed sit to stand from chair x 2 attempts max A x 1- 2 and max cues. ambulated ~ 3 ft using FWW max A x 1-2 and max cues and chair follow. pt rested. completed sit to stand from chair max A x 1-2 and cues and step transfer to bed using FWW max A x 1-2 and max cues. pt needed one step commands with all tasks. completed sit to supine max A and max cues. required max A x 2 for positioning in bed. pt wanting to get up on the chair. completed supine to sit max A x 2 and max cues. pt used bed rail to assist. max A x 1-2 for scooting to EOB. sit to stand max A x 1-2 and able to step transfer back to chair using FWW max A x 1-2 and max cues. positioned pt on the chair. call light and table placed within reach. chair alarm on. left pt with spouse in room. Gait Assessment Gait Gait Assistance Required: Maximum Assistance,1 Person Assist,2 Person Assist Distance (Feet) 3 Able to Maintain Weight Bearing Status Yes During Gait Assistive Devices Assistive Device Gait Belt,Front Wheeled Walker Orthotic/Prosthetic Devices or Brace: No Gait Deviations General Gait Pattern Ataxic,Decreased Stride Length ,Decreased Feet Clearance,Step -to Gait Factors Limiting Gait Function Factors Limiting Gait Function Decreased Activity Tolerance, Decreased Strength,Difficulty Following Directions,Limited Range of Motion,Poor Balance, Poor Safety Awareness PT-Balance Assessment Sitting Balance and Reactions Static Sitting Balance Ability Good Dynamic Sitting Balance Ability Fair Standing Balance and Reactions Static Standing Balance Ability Poor Dynamic Standing Balance Ability Poor M5 PT-IP Objective Assessments Start: 07/18/24 14:35 Freq: NEEDED Status: Active Protocol: Document 07/18/24 13:35 AB (Rec: 07/18/24 14:50 AB [id number]) Orientation Orientation/Cognition Level of Alertness Confusional State Orientation Name,Place,Situation Safety Awareness Decreased Safety Awareness Memory Description Short Term Impaired,[facility] Impaired Gross Range of Motion Lower Extremity ROM Assessment Within Functional Limits Strength Lower Extremity Strength Hip 3+/5 Knee 4/5 Muscle Tone Muscle Tone WNL Yes M6 PT-IP Treatment Start: 07/18/24 14:35 Freq: NEEDED Status: Active Protocol: Document 07/18/24 13:35 AB (Rec: 07/18/24 14:50 AB [id number]) Physical Therapy Treatment Education Education Provided Safety M7 PT-IP Assessment and Plan Start: 07/18/24 14:35 Freq: NEEDED Status: Active Protocol: Document 07/18/24 13:35 AB (Rec: 07/18/24 14:50 AB [id number]) PT Summary Assessment and Plan Potential Rehabilitation Potential Fair Status of Condition at Evaluation Evolving Summary Impairments Pain,ROM,Strength,Balance, Coordination,Sensation,Tone, Cognition,Bed Mobility, Transfers,Gait,Activity Tolerance Assessment Summary pt is a1 83 y/o M who presented to the ED due to increase confusion and weakness. pt admitted for altered mental status and UTI. pt requiring max A x 1-2 with transfers and ambulation using FWW but only able to ambulate ~ 3 ft. pt with decrease activity tolerance affecting mobility independence. d/c plan depending on progress but at this time, will benefit from SNF rehab. will continue to assess. Goals Bed Mobility Goal Minimal Assistance Transfer Goal Minimal Assistance,Front Wheeled Walker Gait Goal Minimal Assistance,Front Wheel Walker Gait Distance 50 Other Goals improve bed mobility, transfers and ambulation using FWW ~ 150 ft SBA up/down 3 steps 1 rail SBA Days to Meet Goals 10 Frequency of Treatment Frequency Of Treatment Once a Day Treatment Plan Physical Therapy Treatment Plan Bed Mobility Training,Transfer Training,Gait Training, Therapeutic Exercise,Balance Retraining,Discharge Planning, Hot or Cold Pack,Neuromuscular Re-ed,Coordination Retraining Precautions Other Precautions falls Recommendations To Nursing Amount of Assist Needed 2 Person Assist Discharge Recommendations PT Discharge Recommendations SNF Rehab Transportation Needs at Discharge Wheelchair/Cabulance
--- NOTE | 2024-07-18 14:32 | CM.DANOTE ---
Initial DCP Assessment Visit Note Reviewed EMR and team rounds for status updates. Met with pt/spouse at bedside to introduce self and role. Pt was found to be somnolent, had not eaten very much of his meal, and deferred to his to answer questions. Pt resides modified independently with his in their own home in [place]. If he d/c's home, she will also plan to transport him. If SNF, facility will transport. Payor: Cliff soliz [facility] Adv PCP: Zandra Chou Pt has a hx of Afib, insulin dependent diabetes, and mild cogntive impairment. He presented to the ED last evening via EMS with increased confusion over the last 24-hours. His spouse shared that he had not been able to stand up or move around for about 2-days due to worsening weakness. In the ED he was found to be retaining urine. Due to AMS and urinary concerns, he was started on IV ABO's for possible UTI, and placed in OBS for further tx and monitoring. DCP Will continue to monitor for any further d/c needs. OT eval states will likely need SNF, but this will depend on his ability to continue to improve before being medically ready for d/c. Discharge Planning/Care Management Advanced directive, confirm from FAMILY Start: 07/17/24 20:55 Freq: Q24H Status: Complete Protocol: Document 07/17/24 20:55 AGW (Rec: 07/17/24 23:05 AGW [id number]) Advance Directive, confirm on record Time 21:00 Person contacted spouse Copy received Yes Advanced directive available on record Yes CM Discharge Assessment Start: 07/18/24 14:26 Freq: Status: Active Protocol: Document 07/18/24 14:28 DPL (Rec: 07/18/24 14:32 DPL [id number]) Discharge Planning Assessment Assigned Photovoltaic Testing Technician CANDIE Mckeon Advance Directives? Yes Advance Directives on File No History Provided By Patient,Significant Other, Medical Record Has Patient been admitted in last 30 No days? Prior Living Arrangements House Household Members spouse,children Comment Granddaughter and her family live w/pt and spouse. Type of transporation used prior to Relies on Others admit Independent with ADL's No: depends on for IADL's , driving, care coordination, shopping Is patient alert and oriented? No: oriented to self, place, not time Needs Assistance With Meal Prep,Managing Medications ,Home Chores / Shopping Caregiver for Another No Comment N/A DME Already Rented / Owned Bath Bench,Elevated Toilet Seat,FWW / Walker Comment sock grabber, grab bars near toilet Comment Pending final d/c recommendations from PT/OT, may need SNF if he isn't able to make more improvement. Barriers to Discharge No Discharge Plan Home Additional Comment Pending Whiteboard Updated in Patient Room with Yes name and ext. # of Photovoltaic Testing Technician Review Status In Process Please Provide Date Initial DC 07/18/24 Assessment Was Performed
[2024-07-18] MEDS: SODIUM CHLORIDE 0.9% 1,000 ML 100 ML IV (15:02)
[2024-07-18 16:00] VITALS: BP 102/56; PULSE 85; RESP 18; TEMP 36.6; O2SAT 93
[2024-07-18 20:00] VITALS: BP 112/60; PULSE 84; RESP 22; TEMP 37; O2SAT 97
[2024-07-18] MEDS: TAMSULOSIN 0.4 MG CAPSULE PO (21:25)
[2024-07-18] MEDS: INSULIN NPH/REG 70-30 100 UNIT/ML 10ML VIAL 12 UNIT SUBCUT (21:28)
[2024-07-19] VITALS: BP 140/85; PULSE 82; RESP 22; TEMP 37.4; O2SAT 96
[2024-07-19 04:00] VITALS: BP 123/69; PULSE 93; RESP 24; TEMP 37.4; O2SAT 94
--- NOTE | 2024-07-19 07:18 | P.PN_ITS ---
Subjective Subjective Interval history: Summary: 83 year-old male with past medical history of insulin dependent diabetes, atrial fibrillation on Pradaxa and possible dementia with mild cognitive impairment presents with confusion. Of note due to patients confusion limited history can be obtained directly from the patient. The patient's who was at bedside reports that the last two days the patient has been having generalized weakness and unable to stand with his walker. Patient also was noted to have increased confusion compared to his baseline. July 07, 2024 the patient did have a light fall in which fell to his knees but did not hit his head or lost consciousness. There's no reported injury from that fall. Patient also had history of UTIs in the past. Otherwise there's no report of any fever, chills, chest pain, nausea, vomiting or diarrhea.? S: He denies pain. He was still confused, but does seem to be a lot better than yesterday. He denies any chest pain, or dyspnea. He has been treated for urinary tract infection with septic encephalopathy. Blood cultures are negative at 24 hours, urine culture with Gram-positive cocci on preliminary. Exam Vital Signs (past 8 hours): - 07/19/24 00:00 Temperature 99.4 F Pulse Rate 82 Respiratory Rate 22 Blood Pressure 140/85 Pulse Oximetry 96 Oxygen Flow Rate 0 Oxygen Delivery Method Room Air Oxygen Flow Rate 0 Narrative Exam Narrative: NAD, alert and oriented. Fluent speech. He was confused in terms of not knowing where he was other than that he was not at home. He was able to conduct a conversation which is mostly appropriate. Lungs are clear, normal rate and effort. Heart is regular, no murmur gallop or rub. Abdomen is soft, non distended. Extremities are free of edema. Objective Labs 07/18/24 06:00 07/18/24 06:00 [facility] Medical History Mild cognitive impairment with memory loss (~11/23/18) Obesity (BMI 30-39.9) Idiopathic hypersomnia with long sleep time Obstructive sleep apnea of adult Intermittent claudication Aortic stenosis Right hip pain Cataracts, bilateral Tooth infection (~09/2017) Depression Arthritis HLD (hyperlipidemia) Hearing impaired Numbness and tingling of both feet A-fib Diabetes Surgical History History of colonoscopy History of vasectomy Social History marital status: details: to Rosa, lives in [place] household members: spouse and children housing: house Smoking Status: Never smoker alcohol intake: never substance use type: does not use Assessment & Plan Assessment & Plan narrative: 1. Acute septic encephalopathy. Present on admission and improving. -Admit the patient to medical telemetry inpatient. Of note CT head is negative and there's no sign of sepsis. Possible cause could be dehydration and UTI. Treat underlying cause and monitor mental status. Per patient's states that the patient's mental status is slowly improving. 2. Possible UTI. Present on admission and improving. -Continue IV Ceftriaxone empirically and follow up your culture. 3. Generalized weakness. Present on admission and active. 4. Atrial fibrillation. Present on admission and active. - continue home medication including Pradaxa and monitor on telemetry. 5. BPH. Present on admission and active. -Resume home Flomax. MICRO: Blood cx neg (24 hours) Ur cx pending. PLAN: -continue antibiotics. -follow urine and blood cultures, all pending. -decrease NPH from 28-14 b.i.d. and monitor glucose. -out of bed, advance activity as able. -continue to monitor his mental status as he has antibiotics and follow up final urine cultures. DVT PPx Pradaxa Code Status full code per patient's . ALAN: 07/21 when mental status mostly normalizes. Time-Based Coding :: [TOTAL MINUTES] spent with patient and on the chart (including review of chart, obtaining history, exam, reviewing outside data, placing orders, documenting exam and treatment plan, and counseling patient) on [DATE]. Quality VTE Deep Vein Thrombosis/Pulmonary Embolism Present on Admission: No
[2024-07-19 08:00] VITALS: BP 106/56; PULSE 86; RESP 18; TEMP 36.8; O2SAT 92
[2024-07-19] MEDS: CHOLECALCIFEROL (VITAMIN D3) 1,000 UNIT TABLET 4000 UNIT PO ×2 (08:56→21:27)
[2024-07-19] MEDS: DABIGATRAN 75 MG CAPSULE 150 MG PO ×2 (08:57→21:27)
[2024-07-19] MEDS: cefTRIAXone 1,000 MG in SODIUM CHLORIDE 0.9% 100 ML 200 MG IV (08:58)
[2024-07-19] MEDS: INSULIN NPH/REG 70-30 100 UNIT/ML 10ML VIAL 14 UNIT SUBCUT (08:59)
--- NOTE | 2024-07-19 10:53 | CM.DPC ---
Addendum entered by CANDIE Hoskins 07/19/24 15:29: ADD: Call from Ita at [facility], they can accept pt and provided [facility] contact info as Ita needs to confirm they will do one-time auth as [facility] typically does. [facility] has availability to accept Fri or Sat and would likely use [employer] for transport. SW to follow closely with Ita tomorrow Fri AM. BF Original Note: DCP SNF Planning: Per MD and RN, pt still confused today and spouse not currently bedside. Patient remains Observation Status. Per PT, recommending SNF still. SW attempted to call spouse and left voicemail requesting call back to discuss SNF recommendation. TANVIR made initial referral to [facility] as pt and spouse reside in [place] and SW faxed [facility] requesting review for SNF auth and hopeful for discharge by tomorrow Tuesday07/20/24. PASRR completed in anticipation of SNF. Plan: SW to follow for SNF reviews to determine if either can accept by tomorr and [facility] review for SNF auth. CANDIE Hoskins
--- NOTE | 2024-07-19 10:57 | PC.NURSE ---
Assess- Patient is confused, he tried to get out of bed x1. Back to bed and he seems to understand that he needs to stay in bed because he has ivs and a condom cath present. He denies pain at this time and is resting..
--- NOTE | 2024-07-19 11:27 | OT.IP.TRT ---
Occupational Therapy Treatment Note M2 OT-IP Current Condition Start: 07/18/24 12:21 Freq: Status: Active Protocol: Document 07/18/24 12:12 [facility] (Rec: 07/18/24 12:37 [facility] [id number]) Occupational Therapy Current Condition Current Condition Evaluation Date 07/18/24 Treatment Diagnosis Acute encephalopathy, UTI? , generalized weakness Diagnosis Onset Date 07/17/24 M3 OT- IP Subjective and Pain Start: 07/18/24 12:21 Freq: Status: Active Protocol: Document 07/19/24 11:27 [facility] (Rec: 07/19/24 13:00 [facility] [id number]) OT- Subjective Occupational Therapy Visit Type Type Treatment Note Visit Start Time 11:55 Visit Stop Time 12:27 Occupational Therapy Visit Comments Patient Comments Pt agreed to get up and brush his teeth. Patient/Caregiver Goals TO get better. OT Pain Assessment Pain When Pain Assessed During Mobility Pain Present Pain Present Pain Reported Location generalized Pain Behaviors Facial Grimacing M4 OT- IP ADL's Start: 07/18/24 12:21 Freq: Status: Active Protocol: Document 07/19/24 11:27 [facility] (Rec: 07/19/24 13:00 [facility] [id number]) OT [id number] Comments OT Self-Feeding Comments Pt's assisting pt to eat. OT ADL-Grooming General Evaluation Grooming Ability Independent Comments OT Grooming Comments Pt able to stand at the sink with FWW for grooming needs. OT ADL-Oral Care General Eval Oral Care Ability Independent Comments Oral Care Comments Pt needing increased time. OT ADL-Dressing General Eval Lower Body Dressing Ability Maximum Assistance Areas Needing Assistance Underpants/Brief,Socks OT ADL-Toileting General Evaluation Toileting Ability Total Assistance Areas Needing Assistance Empty Catheter or Colostomy Comments OT Toileting Comments Pt has an external catheter in . M6 OT- IP Functional Cognition Start: 07/18/24 12:21 Freq: Status: Active Protocol: Document 07/19/24 11:27 [facility] (Rec: 07/19/24 13:00 [facility] [id number]) Cognitive Factors Limiting Selfcare Function Cognitive Ability Level of Alertness Alert Patient Orientation Name Attention Span Ability Capable of Focused Attention, Capable of Sustained Attention Ability to Follow Commands Able to Follow One Step Commands Cognitive Comments Cognitive Assessment Comments Pt doing much better today and able to follow commands well. Pt needing cues to keep the FWW in front of him. M7 OT- IP Mobility and Balance Start: 07/18/24 12:21 Freq: Status: Active Protocol: Document 07/19/24 11:27 [facility] (Rec: 07/19/24 13:00 [facility] [id number]) OT- Bed Mobility Assessment Supine to Sit Supine to Sit Assist Maximum Assistance,1 Person Assistance,Head of Bed Elevated OT-Transfer Assessment Sit to and From Stand Sit to and from Stand Minimal Assistance,1 Person Assistance Transfers Transfer Ability Minimal Assistance,1 Person Assistance Technique Transfer Destination Bed,Chair Comments Mobility Comments MAXA X 1 to get up from the bed and HAZEL to stand with the FWW walk to and from the sink for oral care and grooming needs. OT- Balance Assessment Sitting Balance and Reactions Static Sitting Balance Ability Good Dynamic Sitting Balance Ability Fair Standing Balance and Reactions Static Standing Balance Ability Fair Dynamic Standing Balance Ability Poor M9 OT- IP Assessment and Plan Start: 07/18/24 12:21 Freq: Status: Active Protocol: Document 07/19/24 11:27 [facility] (Rec: 07/19/24 13:00 [facility] [id number]) OT Summary Assessment and Plan Potential Rehabilitation Potential Good Analytic Complexity at Evaluation Moderate Summary OT Impairments Range of Motion,Strength, Balance,Functional Cognition, Functional Mobility,Self- Feeding,Grooming,Dressing, Toileting,Bathing,Toilet Transfers,Shower Transfers, Activity Tolerance Progress Towards Goals Progressing Toward Goals Assessment Summary Pt doing much better today however still needing MAXAx1 for bed mobility needs. Pt now just needing one person assist for ADL and mobility needs. Pt will benefit from skilled rehab prior to going home. Goals Self-Feeding Goal Independent Grooming Goal Independent Dressing Goal Standby Assistance Toileting Goal Standby Assistance Bathing Goal Standby Assistance Toilet Transfer Goal Standby Assistance Shower Transfer Goal Standby Assistance Days to Meet Goals 15 Frequency of Treatment Other frequency 5x/week Treatment Plan OT Treatment Plan ADL Training,Functional Cognition Training,Functional Mobility,Patient/Family Education,Discharge Planning Other Treatment Recommendations and Next LB dressing with HAZEL Treatment Focus Discharge Recommendations OT Discharge Recommendations SNF Rehab Home Equipment Needs Shower chair. Transportation Needs at Discharge Wheelchair/Cabulance
--- NOTE | 2024-07-19 11:55 | PT.IPTN ---
Physical Therapy Treatment Note M2 PT-IP Current Condition Start: 07/18/24 14:35 Freq: NEEDED Status: Active Protocol: Document 07/18/24 13:35 AB (Rec: 07/18/24 14:50 AB [id number]) Physical Therapy Current Condition Current Condition Evaluation Date 07/18/24 Treatment Diagnosis AMS; UTI; difficulty in walking Onset Date 07/17/24 M3 PT-IP Subjective Start: 07/18/24 14:35 Freq: NEEDED Status: Active Protocol: Document 07/19/24 16:02 TS (Rec: 07/19/24 16:22 TS [id number]) Subjective Physical Therapy Visit Type Type Treatment Note Visit Start Time 11:55 Visit Stop Time 12:27 Number of BEAD PREPARER Visits 1 Physical Therapy Visit Comments Patient Comments Pt would like to get out of bed, he is agreeable to PT. M4 PT-IP Mobility and Gait Start: 07/18/24 14:35 Freq: NEEDED Status: Active Protocol: Document 07/19/24 16:02 TS (Rec: 07/19/24 16:22 TS [id number]) PT-Bed Mobility Assessment Supine to Sit Supine to Sit Maximum Assistance,1 Person Assistance,Head of Bed Elevated,Bedrails Scooting Scooting to Edge of Bed Minimal Assistance PT-Transfer Assessment Sit to and From Stand Sit to and from Stand Minimal Assistance,1 Person Assistance Equipment Transfer Assistive Device Gait Belt,Front Wheeled Walker Orthotic/Prosthetic Devices or Brace: No Comments Mobility Comments Supine to sit MaxA for uprighting trunk. STS with FWW Bijan. Pt ambulates ~20 in the room CGA. Pt sits back in the chair for a rest break. STS from the chair Bijan with FWW. He ambulates another ~10 to the sink, stands CGA at sink for brushing of teeth. Pt ambulates back to the chair, pt was left in the chair, all needs met. Gait Assessment Gait Gait Assistance Required: Minimum Assistance,1 Person Assist Distance (Feet) 40 Able to Maintain Weight Bearing Status Yes During Gait Assistive Devices Assistive Device Gait Belt,Front Wheeled Walker Orthotic/Prosthetic Devices or Brace: No Gait Deviations General Gait Pattern Ataxic,Decreased Stride Length ,Decreased Feet Clearance,Step -to Gait Factors Limiting Gait Function Factors Limiting Gait Function Decreased Activity Tolerance, Decreased Strength,Difficulty Following Directions,Limited Range of Motion,Poor Balance, Poor Safety Awareness PT-Balance Assessment Sitting Balance and Reactions Static Sitting Balance Ability Good Dynamic Sitting Balance Ability Fair Standing Balance and Reactions Static Standing Balance Ability Fair Dynamic Standing Balance Ability Fair Device Used FWW M5 PT-IP Objective Assessments Start: 07/18/24 14:35 Freq: NEEDED Status: Active Protocol: Document 07/18/24 13:35 AB (Rec: 07/18/24 14:50 AB [id number]) Orientation Orientation/Cognition Level of Alertness Confusional State Orientation Name,Place,Situation Safety Awareness Decreased Safety Awareness Memory Description Short Term Impaired,Host Impaired Gross Range of Motion Lower Extremity ROM Assessment Within Functional Limits Strength Lower Extremity Strength Hip 3+/5 Knee 4/5 Muscle Tone Muscle Tone WNL Yes M6 PT-IP Treatment Start: 07/18/24 14:35 Freq: NEEDED Status: Active Protocol: Document 07/19/24 16:02 TS (Rec: 07/19/24 16:22 TS [id number]) Physical Therapy Treatment Education Education Provided Safety M7 PT-IP Assessment and Plan Start: 07/18/24 14:35 Freq: NEEDED Status: Active Protocol: Document 07/19/24 16:02 TS (Rec: 07/19/24 16:22 TS [id number]) PT Summary Assessment and Plan Potential Rehabilitation Potential Fair Summary Impairments Pain,ROM,Strength,Balance, Coordination,Sensation,Tone, Cognition,Bed Mobility, Transfers,Gait,Activity Tolerance Progress Towards Goals Progressing Toward Goals Assessment Summary Pt is making progress with his mobility. He required decreased assist for bed mobility and STS with FWW. He progressed his gait to 2x20' Bijan/CGA with FWW. He is unsteady with his gait. He lacks good safety awareness. PT continues to recommend SNF at this time. Goals Bed Mobility Goal Minimal Assistance Transfer Goal Minimal Assistance,Front Wheeled Walker Gait Goal Minimal Assistance,Front Wheel Walker Gait Distance 50 Other Goals improve bed mobility, transfers and ambulation using FWW ~ 150 ft SBA up/down 3 steps 1 rail SBA Days to Meet Goals 10 Frequency of Treatment Frequency Of Treatment Once a Day Treatment Plan Physical Therapy Treatment Plan Bed Mobility Training,Transfer Training,Gait Training, Therapeutic Exercise,Balance Retraining,Discharge Planning, Hot or Cold Pack,Neuromuscular Re-ed,Coordination Retraining Precautions Other Precautions falls Recommendations To Nursing Amount of Assist Needed 1 Person Assist Discharge Recommendations PT Discharge Recommendations SNF Rehab Transportation Needs at Discharge Wheelchair/Cabulance
[2024-07-19 12:00] VITALS: BP 103/56; PULSE 84; RESP 18; TEMP 36.8; O2SAT 93
[2024-07-19] MEDS: SODIUM CHLORIDE 0.9% 1,000 ML 100 ML IV ×2 (12:33→22:38)
[2024-07-19] MEDS: INSULIN LISPRO 100 UNIT/ML 3ML VIAL SUBCUT ×3 (12:34→21:25)
[2024-07-19 16:00] VITALS: BP 126/62; PULSE 85; RESP 18; TEMP 36.1; O2SAT 98
[2024-07-19 20:00] VITALS: BP 103/69; PULSE 101; RESP 18; TEMP 37.3; O2SAT 94
[2024-07-19] MEDS: INSULIN NPH/REG 70-30 100 UNIT/ML 10ML VIAL 12 UNIT SUBCUT (21:25)
[2024-07-19] MEDS: TAMSULOSIN 0.4 MG CAPSULE PO (21:30)
[2024-07-20] VITALS (7 sets, daily range): BP systolic 101–155; BP diastolic 50–68; PULSE 78–109; RESP 15–20; TEMP 36.4–37.8; O2SAT 89–97
[2024-07-20] MEDS: ACETAMINOPHEN 325 MG TABLET 650 MG PO (06:50)
[2024-07-20] MEDS: SODIUM CHLORIDE 0.9% 1,000 ML 100 ML IV ×2 (06:51→18:23)
--- NOTE | 2024-07-20 07:29 | P.PN_ITS ---
Subjective Subjective Interval history: Summary: 83 year-old male with past medical history of insulin dependent diabetes, atrial fibrillation on Pradaxa and possible dementia with mild cognitive impairment presents with confusion. Of note due to patients confusion limited history can be obtained directly from the patient. The patient's who was at bedside reports that the last two days the patient has been having generalized weakness and unable to stand with his walker. Patient also was noted to have increased confusion compared to his baseline. July 07, 2024 the patient did have a light fall in which fell to his knees but did not hit his head or lost consciousness. There's no reported injury from that fall. Patient also had history of UTIs in the past. Otherwise there's no report of any fever, chills, chest pain, nausea, vomiting or diarrhea.? S: He remains pleasantly encephalopathic with waxing and waning confusion. His cultures grew out Enterococcus in his ceftriaxone was switched to levofloxacin today. No fevers, normal white count. He lives with his , and typically sleeps in until 11 every day and spends the rest of the day in a chair watching TV. He is set up for rehabilitation day stay at [facility], they likely can not accept him until Tuesday Exam Vital Signs (past 8 hours): - 07/20/24 00:00 07/20/24 04:00 07/20/24 06:50 Temperature 99.8 F H 100.1 F H 100.1 F H Pulse Rate 102 H 109 H Respiratory Rate 18 18 Blood Pressure 107/58 L 123/57 L Pulse Oximetry 92 89 L Oxygen Flow Rate 0 0 Oxygen Delivery Method Room Air Oxygen Flow Rate 0 Narrative Exam Narrative: NAD, alert and oriented to person but not place or year. Fluent speech. Lungs are clear, normal rate and effort. Heart is regular, no murmur gallop or rub. Abdomen is soft, non distended. Extremities are free of edema. Objective Labs 07/18/24 06:00 07/18/24 06:00 [facility] Medical History Mild cognitive impairment with memory loss (~11/23/18) Obesity (BMI 30-39.9) Idiopathic hypersomnia with long sleep time Obstructive sleep apnea of adult Intermittent claudication Aortic stenosis Right hip pain Cataracts, bilateral Tooth infection (~09/2017) Depression Arthritis HLD (hyperlipidemia) Hearing impaired Numbness and tingling of both feet A-fib Diabetes Surgical History History of colonoscopy History of vasectomy Social History marital status: details: rl Lee, lives in [place] household members: spouse and children housing: house Smoking Status: Never smoker alcohol intake: never substance use type: does not use Assessment & Plan Assessment & Plan narrative: 1. Acute septic encephalopathy. Present on admission and improving. 2. Enterococcus UTI. Present on admission and improving. 3. Generalized weakness. Present on admission and active. 4. Atrial fibrillation. Present on admission and active. 5. BPH. Present on admission and active. MICRO: Blood cx neg (24 hours) Ur cx . Enterococcus.. PLAN: -continue antibiotics. Change to Levoquin. -follow urine and blood cultures, all pending. -decrease NPH from 28-14 b.i.d. and monitor glucose. -out of bed, advance activity as able. -continue to monitor his mental status as he has antibiotics. -[facility] in 1-2 days depending on his clinical progress (they can take over the weekend) DVT PPx Pradaxa Code Status full code per patient's . Time-Based Coding :: [TOTAL MINUTES] spent with patient and on the chart (including review of chart, obtaining history, exam, reviewing outside data, placing orders, documenting exam and treatment plan, and counseling patient) on [DATE]. Quality VTE Deep Vein Thrombosis/Pulmonary Embolism Present on Admission: No
[2024-07-20] MEDS: DABIGATRAN 75 MG CAPSULE 150 MG PO ×2 (08:33→20:47)
[2024-07-20] MEDS: CHOLECALCIFEROL (VITAMIN D3) 1,000 UNIT TABLET 4000 UNIT PO ×2 (08:33→20:47)
[2024-07-20] MEDS: INSULIN NPH/REG 70-30 100 UNIT/ML 10ML VIAL 14 UNIT SUBCUT (08:36)
[2024-07-20] MEDS: INSULIN LISPRO 100 UNIT/ML 3ML VIAL SUBCUT ×3 (08:37→16:50)
[2024-07-20] MEDS: levoFLOXacin 750 MG/150 ML PIGGYBACK 100 MG IV (08:38)
--- NOTE | 2024-07-20 09:51 | PC.NURSE ---
Assess- Patient denies pain, he is up in the chair after eating a small amount of breakfast. IV levaquin infusing. Patient confused but comfortable.
--- NOTE | 2024-07-20 12:05 | PT.IPTN ---
Physical Therapy Treatment Note M2 PT-IP Current Condition Start: 07/18/24 14:35 Freq: NEEDED Status: Active Protocol: Document 07/18/24 13:35 AB (Rec: 07/18/24 14:50 AB [id number]) Physical Therapy Current Condition Current Condition Evaluation Date 07/18/24 Treatment Diagnosis AMS; UTI; difficulty in walking Onset Date 07/17/24 M3 PT-IP Subjective Start: 07/18/24 14:35 Freq: NEEDED Status: Active Protocol: Document 07/20/24 12:05 AB (Rec: 07/20/24 13:37 AB [id number]) Subjective Physical Therapy Visit Type Type Treatment Note Visit Start Time 12:05 Visit Stop Time 12:40 Number of POLITICAL CARTOONIST Visits 0 Physical Therapy Visit Comments Patient Comments agreed to do PT M4 PT-IP Mobility and Gait Start: 07/18/24 14:35 Freq: NEEDED Status: Active Protocol: Document 07/20/24 12:05 AB (Rec: 07/20/24 13:37 AB [id number]) PT-Transfer Assessment Sit to and From Stand Sit to and from Stand Maximum Assistance,1 Person Assistance,2 Person Assistance ,Use of Upper Extremities Equipment Transfer Assistive Device Gait Belt,Front Wheeled Walker Orthotic/Prosthetic Devices or Brace: No Comments Mobility Comments pt sitting on the chair. spouse in room. pt agreeable to do PT. completed sit to stand max A x 1-2 and max cues . pt completed ambulation in room using FWW ~ 30 ft max A and max cues. required constant cues for safety. pt sat back on chair. pt found to have condom catheter leaking. Assisted NAC with pt's toileting needs. completed sit to stand max A x 1-2 and max cues and pt unable to control voiding. NAC assisted pt with toileting needs. PT assisting pt for standing balance using fWW max A while NAC assisted pt with toileting needs. pt sat back on chair. assisted with brief management. sit to stand again from chair max A x 1-2 and max cues. NAC assisted with hygiene care and brief management. pt sat back on chair. max A x 1-2 for controlled descent, max cues for techniques and safety. positioned pt on the chair. Left pt with NAC Gait Assessment Gait Gait Assistance Required: Maximum Assistance,1 Person Assist Distance (Feet) 30 Able to Maintain Weight Bearing Status Yes During Gait Assistive Devices Assistive Device Gait Belt,Front Wheeled Walker Orthotic/Prosthetic Devices or Brace: No Gait Deviations General Gait Pattern Ataxic,Decreased Stride Length ,Decreased Feet Clearance Factors Limiting Gait Function Factors Limiting Gait Function Decreased Activity Tolerance, Decreased Strength,Difficulty Following Directions,Limited Range of Motion,Poor Balance, Poor Safety Awareness M5 PT-IP Objective Assessments Start: 07/18/24 14:35 Freq: NEEDED Status: Active Protocol: Document 07/18/24 13:35 AB (Rec: 07/18/24 14:50 AB [id number]) Orientation Orientation/Cognition Level of Alertness Confusional State Orientation Name,Place,Situation Safety Awareness Decreased Safety Awareness Memory Description Short Term Impaired,Care Home Impaired Gross Range of Motion Lower Extremity ROM Assessment Within Functional Limits Strength Lower Extremity Strength Hip 3+/5 Knee 4/5 Muscle Tone Muscle Tone WNL Yes M6 PT-IP Treatment Start: 07/18/24 14:35 Freq: NEEDED Status: Active Protocol: Document 07/20/24 12:05 AB (Rec: 07/20/24 13:37 AB [id number]) Physical Therapy Treatment Education Education Provided Safety M7 PT-IP Assessment and Plan Start: 07/18/24 14:35 Freq: NEEDED Status: Active Protocol: Document 07/20/24 12:05 AB (Rec: 07/20/24 13:37 AB [id number]) PT Summary Assessment and Plan Potential Rehabilitation Potential Fair Summary Impairments Pain,ROM,Strength,Balance, Coordination,Cognition,Bed Mobility,Transfers,Gait, Activity Tolerance Progress Towards Goals Slow Progress due to Medical Issues,Slow Progress due to Activity Tolerance Assessment Summary pt requiring max A x 1-2 for sit to stand and transfers, max A for ambulation using FWW . pt needing max cues for all tasks. pt with decrease safety awareness affecting mobility level. pt will benefit from SNF rehab to improve overall strength and independence. Goals Bed Mobility Goal Minimal Assistance Transfer Goal Minimal Assistance,Front Wheeled Walker Gait Goal Minimal Assistance,Front Wheel Walker Gait Distance 50 Other Goals improve bed mobility, transfers and ambulation using FWW ~ 150 ft SBA up/down 3 steps 1 rail SBA Days to Meet Goals 10 Frequency of Treatment Frequency Of Treatment Once a Day Treatment Plan Physical Therapy Treatment Plan Bed Mobility Training,Transfer Training,Gait Training, Therapeutic Exercise,Balance Retraining,Discharge Planning, Hot or Cold Pack,Neuromuscular Re-ed,Coordination Retraining Precautions Other Precautions falls Recommendations To Nursing Amount of Assist Needed 1 Person Assist Discharge Recommendations PT Discharge Recommendations SNF Rehab Transportation Needs at Discharge Wheelchair/Cabulance
--- NOTE | 2024-07-20 13:01 | CM.DPNOTE ---
Addendum entered by CANDIE Antony 07/20/24 15:50: LOADER met with spouse and pt in room. Pt remains confused. Spouse in agreement with [facility]. Confirms preference is wheelchair/cabulance transport. LOADER answered questions to best of ability. PASRR previously completed. SL Original Note: DCP Note LOADER reviewed EMR. Per provider in morning rounds, dc either Tuesday or Tuesday to SNF. Pt still has AMS today. LOADER spoke with Lupillo from [facility] ([phone]). LOADER sent updated PT/OT notes. Lupillo auth'd rehab stay (#[id number]). working on single case agreement for [facility] still. Lupillo asked about any denials for other in network SNFs. 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 Lupillo appreciative of updates and is in agreement with stated information. LOADER spoke with Ita from [facility]. Can accept pt this weekend pending single case agreement with [facility]. LOADER provided auth number. P: will need w/c transport arranged when pt medically stable to [place]. to [facility] pending single case agreement Sat vs Tuesday. team will continue to follow closely CANDIE Antony
--- NOTE | 2024-07-20 14:05 | OT.IP.TRT ---
Occupational Therapy Treatment Note M2 OT-IP Current Condition Start: 07/18/24 12:21 Freq: Status: Active Protocol: Document 07/18/24 12:12 [facility] (Rec: 07/18/24 12:37 [facility] [id number]) Occupational Therapy Current Condition Current Condition Evaluation Date 07/18/24 Treatment Diagnosis Acute encephalopathy, UTI? , generalized weakness Diagnosis Onset Date 07/17/24 M3 OT- IP Subjective and Pain Start: 07/18/24 12:21 Freq: Status: Active Protocol: Document 07/20/24 14:12 [facility] (Rec: 07/20/24 14:21 [facility] [id number]) OT- Subjective Occupational Therapy Visit Type Type Treatment Note Visit Start Time 13:30 Visit Stop Time 14:05 Occupational Therapy Visit Comments Patient Comments Pt agreed to have a protein drink as did not eat much lunch today. Nursing states ok for pt to have a Glucerna. Patient/Caregiver Goals TO get better. M4 OT- IP ADL's Start: 07/18/24 12:21 Freq: Status: Active Protocol: Document 07/20/24 14:12 [facility] (Rec: 07/20/24 14:21 [facility] [id number]) OT [id number] Comments OT Self-Feeding Comments Pt needing assist to open the Glucerna and able to pour into a cup and placed the straw upside down. OT ADL-Grooming Comments OT Grooming Comments Not performed. M5 OT- IP IADL's Start: 07/18/24 12:21 Freq: Status: Active Protocol: Document 07/18/24 12:12 [facility] (Rec: 07/18/24 12:37 [facility] [id number]) OT-Instrumental Activities of Daily Living Home Safety Awareness Awareness of Need for Assistance at Home Decreased Awareness Ability to Problem Solve Emergency Unable to Problem Solve Situations Home Safety Comments Pt very drowsy and confused at this time and just mainly orientated to his name. Medication Management Medication Management Caregiver Administers Money Management Money Management Caregiver Provides Assistance Meal Preparation Meal Preparation Caregiver Provides Assist Cake Icer Cake Icer Caregiver Provides Assist Driving Driving Caregiver Provides Assist M6 OT- IP Functional Cognition Start: 07/18/24 12:21 Freq: Status: Active Protocol: Document 07/20/24 14:12 [facility] (Rec: 07/20/24 14:21 [facility] [id number]) Cognitive Factors Limiting Selfcare Function Cognitive Tests SLUMS Pt scored 7/30 on the SLUMS, able to say the states we are in, able to add 3 + 20, able to states 6 animals in one minute, able to pick out the triangle and largest shape and able to answer 1/4 questions right after paragraph read. Pt slow to respond to answer and per not at his cognitive baseline yet. Cognitive Comments Cognitive Assessment Comments Pt at times jokes around, but able to recall [facility] memories better. Pt needing increased time to answer home safety questions with 60% accuracy. Pt would benefit from SLUMS again when clearer to compare his score. At this time , pt scored implies dementia. Pt has an UTI which may also be affecting his mentation. M7 OT- IP Mobility and Balance Start: 07/18/24 12:21 Freq: Status: Active Protocol: Document 07/19/24 11:27 [facility] (Rec: 07/19/24 13:00 [facility] [id number]) OT- Bed Mobility Assessment Supine to Sit Supine to Sit Assist Maximum Assistance,1 Person Assistance,Head of Bed Elevated OT-Transfer Assessment Sit to and From Stand Sit to and from Stand Minimal Assistance,1 Person Assistance Transfers Transfer Ability Minimal Assistance,1 Person Assistance Technique Transfer Destination Bed,Chair Comments Mobility Comments MAXA X 1 to get up from the bed and HAZEL to stand with the FWW walk to and from the sink for oral care and grooming needs. OT- Balance Assessment Sitting Balance and Reactions Static Sitting Balance Ability Good Dynamic Sitting Balance Ability Fair Standing Balance and Reactions Static Standing Balance Ability Fair Dynamic Standing Balance Ability Poor M8 OT- IP Objective Assessments Start: 07/18/24 12:21 Freq: Status: Active Protocol: Document 07/18/24 12:12 [facility] (Rec: 07/18/24 12:37 [facility] [id number]) OT Gross Range of Motion Upper Extremity Range of Motion Assessment Bilaterally Impaired ROM Impairments BUE 0-90 flexion. OT Strength Upper Extremity Strength Assessment Bilaterally Impaired Comments Strength Comments BUE 3-/5 to 4-/5 for RUE and LUE 4/5. M9 OT- IP Assessment and Plan Start: 07/18/24 12:21 Freq: Status: Active Protocol: Document 07/20/24 14:12 [facility] (Rec: 07/20/24 14:21 [facility] [id number]) OT Summary Assessment and Plan Potential Rehabilitation Potential Good Analytic Complexity at Evaluation Moderate Summary OT Impairments Range of Motion,Strength, Balance,Functional Cognition, Functional Mobility,Self- Feeding,Grooming,Dressing, Toileting,Bathing,Toilet Transfers,Shower Transfers, Activity Tolerance Progress Towards Goals Slow Progress due to Cognition Assessment Summary Pt still slow to process and participate in the SLUMS today . Pt still confused at times but pleasant. Pt to go to skilled rehab when medically stable. Spoke to pt's regarding goals in which SNF best to work with pt on. Goals Self-Feeding Goal Independent Grooming Goal Independent Dressing Goal Standby Assistance Toileting Goal Standby Assistance Bathing Goal Standby Assistance Toilet Transfer Goal Independent Shower Transfer Goal Standby Assistance Days to Meet Goals 15 Frequency of Treatment Other frequency 5x/week Treatment Plan OT Treatment Plan ADL Training,Functional Cognition Training,Functional Mobility,Patient/Family Education,Discharge Planning Discharge Recommendations OT Discharge Recommendations SNF Rehab Home Equipment Needs Shower chair. Transportation Needs at Discharge Wheelchair/Cabulance
[2024-07-20] MEDS: INSULIN NPH/REG 70-30 100 UNIT/ML 10ML VIAL 12 UNIT SUBCUT (20:44)
[2024-07-20] MEDS: TAMSULOSIN 0.4 MG CAPSULE PO (20:47)
[2024-07-21] VITALS: BP 97/55; PULSE 106; RESP 18; TEMP 37.4; O2SAT 94
[2024-07-21 04:00] VITALS: BP 114/69; PULSE 87; RESP 18; TEMP 37.1; O2SAT 97
[2024-07-21] MEDS: SODIUM CHLORIDE 0.9% 1,000 ML 100 ML IV (05:19)
[2024-07-21 07:47] VITALS: BP 115/85; PULSE 98; RESP 16; TEMP 36.9; O2SAT 95
[2024-07-21 08:12] VITALS: O2SAT 95
[2024-07-21] MEDS: DABIGATRAN 75 MG CAPSULE 150 MG PO (08:29)
[2024-07-21] MEDS: levoFLOXacin 750 MG/150 ML PIGGYBACK 100 MG IV (08:29)
[2024-07-21] MEDS: CHOLECALCIFEROL (VITAMIN D3) 1,000 UNIT TABLET 4000 UNIT PO (08:29)
[2024-07-21] MEDS: INSULIN NPH/REG 70-30 100 UNIT/ML 10ML VIAL 14 UNIT SUBCUT (08:31)
--- NOTE | 2024-07-21 10:25 | PT.IPTN ---
Physical Therapy Treatment Note M2 PT-IP Current Condition Start: 07/18/24 14:35 Freq: NEEDED Status: Active Protocol: Document 07/18/24 13:35 AB (Rec: 07/18/24 14:50 AB [id number]) Physical Therapy Current Condition Current Condition Evaluation Date 07/18/24 Treatment Diagnosis AMS; UTI; difficulty in walking Onset Date 07/17/24 M3 PT-IP Subjective Start: 07/18/24 14:35 Freq: NEEDED Status: Active Protocol: Document 07/21/24 10:46 TS (Rec: 07/21/24 10:50 TS [id number]) Subjective Physical Therapy Visit Type Type Treatment Note Visit Start Time 10:25 Visit Stop Time 10:40 Number of REVENUE INTEGRITY ANALYST Visits 1 Physical Therapy Visit Comments Patient Comments Pt found resting in the chair, he si agreeable to PT. M4 PT-IP Mobility and Gait Start: 07/18/24 14:35 Freq: NEEDED Status: Active Protocol: Document 07/21/24 10:46 TS (Rec: 07/21/24 10:50 TS [id number]) PT-Transfer Assessment Sit to and From Stand Sit to and from Stand Maximum Assistance,1 Person Assistance,Use of Upper Extremities Equipment Transfer Assistive Device Gait Belt,Front Wheeled Walker Orthotic/Prosthetic Devices or Brace: No Comments Mobility Comments STS with FWW MaxA. Pt ambulates ~40' in the room Bijan, pt fatigues quickly. Pt was left backin the chair, all needs met. Gait Assessment Gait Gait Assistance Required: Minimum Assistance,1 Person Assist Distance (Feet) 40 Able to Maintain Weight Bearing Status Yes During Gait Assistive Devices Assistive Device Gait Belt,Front Wheeled Walker Gait Deviations General Gait Pattern Ataxic,Decreased Stride Length ,Decreased Feet Clearance Factors Limiting Gait Function Factors Limiting Gait Function Decreased Activity Tolerance, Decreased Strength,Difficulty Following Directions,Limited Range of Motion,Poor Balance, Poor Safety Awareness PT-Balance Assessment Sitting Balance and Reactions Static Sitting Balance Ability Good Dynamic Sitting Balance Ability Fair Standing Balance and Reactions Static Standing Balance Ability Fair Dynamic Standing Balance Ability Fair Device Used FWW M5 PT-IP Objective Assessments Start: 07/18/24 14:35 Freq: NEEDED Status: Active Protocol: Document 07/18/24 13:35 AB (Rec: 07/18/24 14:50 AB [id number]) Orientation Orientation/Cognition Level of Alertness Confusional State Orientation Name,Place,Situation Safety Awareness Decreased Safety Awareness Memory Description Short Term Impaired,Intermediate Impaired Gross Range of Motion Lower Extremity ROM Assessment Within Functional Limits Strength Lower Extremity Strength Hip 3+/5 Knee 4/5 Muscle Tone Muscle Tone WNL Yes M6 PT-IP Treatment Start: 07/18/24 14:35 Freq: NEEDED Status: Active Protocol: Document 07/21/24 10:46 TS (Rec: 07/21/24 10:50 TS [id number]) Physical Therapy Treatment Education Education Provided Safety M7 PT-IP Assessment and Plan Start: 07/18/24 14:35 Freq: NEEDED Status: Active Protocol: Document 07/21/24 10:46 TS (Rec: 07/21/24 10:50 TS [id number]) PT Summary Assessment and Plan Potential Rehabilitation Potential Fair Summary Impairments Pain,ROM,Strength,Balance, Coordination,Cognition,Bed Mobility,Transfers,Gait, Activity Tolerance Progress Towards Goals Slow Progress due to Medical Issues,Slow Progress due to Activity Tolerance Assessment Summary Pt continues to have poor balance and requires Bijan for ambulation. He fatigues quickly with gait and knees have some slight buckling. PT continues to recommend SNF. Goals Bed Mobility Goal Minimal Assistance Transfer Goal Minimal Assistance,Front Wheeled Walker Gait Goal Minimal Assistance,Front Wheel Walker Gait Distance 50 Other Goals improve bed mobility, transfers and ambulation using FWW ~ 150 ft SBA up/down 3 steps 1 rail SBA Days to Meet Goals 10 Frequency of Treatment Frequency Of Treatment Once a Day Treatment Plan Physical Therapy Treatment Plan Bed Mobility Training,Transfer Training,Gait Training, Therapeutic Exercise,Balance Retraining,Discharge Planning, Hot or Cold Pack,Neuromuscular Re-ed,Coordination Retraining Precautions Other Precautions falls Recommendations To Nursing Amount of Assist Needed 1 Person Assist Discharge Recommendations PT Discharge Recommendations SNF Rehab Transportation Needs at Discharge Wheelchair/Cabulance
[2024-07-21 11:00] VITALS: BP 102/63; PULSE 104; RESP 17; TEMP 36.9; O2SAT 94
--- NOTE | 2024-07-21 11:41 | PM.DS.1 ---
History of Present Illness History of Present Illness Date Patient Seen: 07/21/24 Time Patient Seen: 10:30 Date of Onset of Symptoms: 07/18/24 Chief complaint: Gen weak, confusion Narrative: 83 year-old male with past medical history of insulin dependent diabetes, atrial fibrillation on Pradaxa and possible dementia with mild cognitive impairment presents with confusion. Of note due to patients confusion limited history can be obtained directly from the patient. The patient's who was at bedside reports that the last two days the patient has been having generalized weakness and unable to stand with his walker. Patient also was noted to have increased confusion compared to his baseline. July 07, 2024 the patient did have a light fall in which fell to his knees but did not hit his head or lost consciousness. There's no reported injury from that fall. Patient also had history of UTIs in the past. Otherwise there's no report of any fever, chills, chest pain, nausea, vomiting or diarrhea.? In our emergency room, the patient was hemodynamically stable with no sign of sepsis. UA suggest possible sign for UTI as there was many bacteria though there's only one WBC and negative for Leukesterase. CT scan of the head was negative for any acute finding. Chest x-ray was negative. Lab only show elevated BP at 700s The patient received imperial IV Ceftriaxone as well as IV fluid. Discharge Providers Provider Date of admission: 07/17/24 19:48 Discharge Date: 07/21/24 Primary care physician: Zandra Chou PA-C Consults: 07/17/24 19:51 Consult to Occupational Therapy Evaluate & Treat Comment: Physician Instructions: Evaluate and treat Consult to Physical Therapy Evaluate & Treat Comment: Physician Instructions: Evaluate and Treat Discharge provider: Jose Luna MD Summary Hospital Course Discharge Diagnosis: 1. Acute septic encephalopathy. 2. Enterococcus UTI. 3. Presumed underlying dementia 4. Generalized weakness. 5. Atrial fibrillation. 6. Diabetes mellitus, type 2. 7. BPH. Hospital Course: The patient was admitted and treated with broad-spectrum antibiotics when culture demonstrating Enterococcus faecalis sensitive antibiotics tested except tetracycline. He was not eating well and insulin was reduced by 50% during hospitalization, with blood sugars in the 111-150s range in 24 hours prior to discharge. This will need to be followed up as an outpatient as oral intake increases. He appeared to have baseline cognitive impairment consistent with dementia with a VA SLUMS score of 7/30. Case management work with family towards ultimate discharge to longterm facility before anticipated return home with his . No other issues arose. Status at Discharge Cognitive/behavioral status at discharge: at baseline, confused Functional status at discharge: uses cane/walker Overall status at discharge: patient is progressing back to baseline Time Spent with Patient Time spent: Greater than 30 minutes Exam Vital Signs (past 8 hours): - 07/21/24 04:00 07/21/24 07:47 07/21/24 08:12 Temperature 98.7 F 98.4 F Pulse Rate 87 98 H Respiratory Rate 18 16 Blood Pressure 114/69 115/85 Pulse Oximetry 97 95 95 Oxygen Delivery Method Room Air Oxygen Flow Rate 2 07/21/24 11:00 Temperature 98.5 F Pulse Rate 104 H Respiratory Rate 17 Blood Pressure 102/63 Pulse Oximetry 94 Oxygen Delivery Method Oxygen Flow Rate 0 Oxygen Delivery Method Room Air Oxygen Flow Rate 0 Narrative Exam Narrative: NAD, pleasant, alert and oriented to person but not place or year. Fluent speech. Lungs are clear, normal rate and effort. Heart is regular, no murmur gallop or rub. Abdomen is soft, non distended. Extremities are free of edema. Objective Imaging *: Radiologist's impression: 1. Chest x-ray 07/17/2024: No acute pulmonary process. 2. Head CT 07/17/2024: 1. CT head without acute intracranial abnormalities or acute calvarial fractures. 2. Age-related senescent changes and sequela of chronic small vessel ischemic disease. Labs 07/18/24 06:00 07/18/24 06:00 [facility] Medical History Mild cognitive impairment with memory loss (~11/23/18) Obesity (BMI 30-39.9) Idiopathic hypersomnia with long sleep time Obstructive sleep apnea of adult Intermittent claudication Aortic stenosis Right hip pain Cataracts, bilateral Tooth infection (~09/2017) Depression Arthritis HLD (hyperlipidemia) Hearing impaired Numbness and tingling of both feet A-fib Diabetes Surgical History History of colonoscopy History of vasectomy Social History marital status: details: to Rosa, lives in [place] household members: spouse and children housing: house Smoking Status: Never smoker alcohol intake: never substance use type: does not use Discharge Plan Discharge Plan Patient Disposition: SNF Transportation: Facility vehicle Consult as needed: Dental, Hearing, Mental health, Podiatry and Vision I certify the postop hospital longterm care is medically necessary on a continuing basis for any conditions for which he/ she received care during this hospitalization.: Yes The receiving facility has agreed to accept transfer and provide medical treatment.: Yes Discharge orders & Medications Prescriptions: New Humulin 70/30 U-100 Insulin 100 unit/mL (70-30) Suspension 12 unit SUBCUT BEDTIME Qty: 10 0RF Humulin 70/30 U-100 Insulin 100 unit/mL (70-30) Suspension 14 unit SUBCUT DAILY Qty: 10 0RF levofloxacin 500 mg tablet 500 mg PO DAILY Qty: 10 0RF Continued metformin 1,000 mg Tablet 1,500 mg PO QAM metformin 1,000 mg tablet 1,000 mg PO BEDTIME tamsulosin 0.4 mg capsule 0.4 mg PO BEDTIME dabigatran etexilate [Pradaxa] 150 mg capsule 150 mg PO BID cholecalciferol (vitamin D3) 2,000 unit capsule 4,000 unit PO BID (DME) Respirioncs Dreamstation 2 CPAP See Rx Instructions Qty: 1 Dose Instruction: As directed Patient Comments: Pressure: 15-19 cmH2O DME: [facility] Rx Instructions: Pressure: 15-19 cmH2O DME: [facility] coenzyme Q10 75 mg capsule 75 mg PO DAILY Discontinued Humulin 70/30 U-100 KwikPen 100 unit/mL (70-30) insulin pen See Rx Instructions .ROUTE .COMPLEX Patient Comments: [NO ORIGINAL SIG] Rx Instructions: day time dose= if CBG <100 then none if >100 then 28 units night dose= if >200 then 24 units if below 200 then 24 units Follow up/Referrals: Zandra Chou PA-C [Primary Care Provider] - Visit Report/Discharge Packet Stand Alone Forms: Patient Portal/API, Stroke Signs & Symptoms Discharge Data Primary Care Provider: Zandra Chou Attending Provider: Cristo Virgen Admit Date/Time: 07/17/24 19:48 Quality VTE Deep Vein Thrombosis/Pulmonary Embolism Present on Admission: No MIPS - Admit I confirm the patient?s Advance Care Plan is present, Code status is documented, Surrogate decision maker is in patient?s record [If Yes, STOP here]: Yes MIPS - Meds 'Current medications' to include all prescriptions, [id number] products, herbals, cannabis/cannabidiol products, and vitamin/mineral/dietary (nutritional) supplements. I have utilized all available resources to obtain, update, or review the patient?s current medications. [If Yes, STOP here]: Yes MIPS - DC The patient has a history of heart transplant or Left Ventricular Assist Device (LVAD). If yes, STOP here.: No The patient has current or prior documentation of left ventricular ejection fraction (LVEF) less than or equal to 40%, or moderate or severely depressed left ventricular systolic function.: No A. The patient was prescribed or already taking an Angiotensin-Converting Enzyme (CHRIS) Inhibitor, or Angiotensin Receptor Magdi (ARB).: No B. The patient was prescribed or already taking a beta-magdi. [If Yes to Both A & B, STOP here]: No Patient not prescribed/taking CHRIS or ARB, no reason given.: No Patient not prescribed/taking beta-magdi, no reason given.: No PROFEE Charge Codes Discharge inpatient/observation: [id number]
[2024-07-21] MEDS: INSULIN LISPRO 100 UNIT/ML 3ML VIAL SUBCUT (12:14)
--- NOTE | 2024-07-21 13:19 | CM.DPNOTE ---
DCP Note VALIDATION ARCHITECT reviewed EMR. Per Jeremy, pt can dc today to [facility]. Per Ita at [facility], can accept pt today. Got [place] auth and single case agreement. Per Loreta at [facility], can pick pt up at 2:30pm in room. Will contact [facility] for payment. VALIDATION ARCHITECT updated Jean-Claude CM at [facility]. in agreement with plan. VALIDATION ARCHITECT updated MEDICAL ASSISTANT PER DIEM/provider/RN. Gave RN report number. VALIDATION ARCHITECT emailed signed med list, PASRR, and dc summary to [facility]. Placed signed med list and PASRR in dc packet. VALIDATION ARCHITECT met with pt and spouse in room. Updated them on above. Pt much less confused today. Pt and spouse in agreement with plan. Deny other questions at this time. P: pt to dc to [facility] at 2:30pm via [facility]. no further CM needs identified at this time. CM team will continue to follow as needed CANDIE Antony
== END 2024-07-21 14:50 ==
LOC: ED 17:19 → AC 19:48
PROVIDERS: Admitting Provider Internal Medicine; Emergency Provider Emergency Medicine; PCP Physician Assistant; Visit Provider Internal Medicine
DX: G93.49 Other encephalopathy (principal); N39.0 Urinary tract infection, site not specified; B95.2 Enterococcus as the cause of diseases classified elsewhere; E11.9 Type 2 diabetes mellitus without complications; I48.91 Unspecified atrial fibrillation; N40.1 Benign prostatic hyperplasia with lower urinary tract symptoms; R33.8 Other retention of urine; Z79.4 Long term (current) use of insulin; Z79.84 Long term (current) use of oral hypoglycemic drugs
CPT/HCPCS: 36415; 51701; 51798; 70450; 71045; 80048; 80053; 81001; 82550; 82962; 83605; 83690; 83880; 84145; 84484; 85025; 85610; 85730; 87040; 87077; 87086; 87186; 93005; 93010; 96361; 96365; 96366; 96367; 96372; 97116; 97129; 97130; 97162; 97166; 97530; 97535; 99284; G0378; J0696; J1815; J1956

== ENCOUNTER 2024-11-04 20:45 | Observation (INO) | payer OTHER, SELFPAY ==
[2024-07-17 19:55] VITALS: BMI 30.8
[2024-11-04] VITALS (8 sets, daily range): BP systolic 99–132; BP diastolic 55–60; PULSE 103–118; RESP 16–25; TEMP 37.1; O2SAT 92–94; BMI 32.8
--- NOTE | 2024-11-04 20:51 | EKG_ITS ---
[id number] [address] Test Date: 2024-11-04 Pat Name: Luis Miguel Hernandez Department: Room: Gender: Male Front Desk Associate: MARLIN : 1940 Requested By: Order Number: [id number] Reading MD: Surjit Birmingham MD Measurements Intervals [place] Rate: 101 P: FL: QRS: 47 QRSD: 100 T: 58 QT: 358 QTc: 464 Interpretive Statements Atrial fibrillation with rapid ventricular response Electronically Signed On 11-05-2024 7:43:16 PDT by Surjit Birmingham MD
--- NOTE | 2024-11-04 20:55 | DI.RAD.S_ITS ---
PROCEDURE: XR CHEST 1V INDICATIONS: chest pain TECHNIQUE: One view of the chest was acquired. COMPARISON: [facility], CR, XR CHEST 1V, 07/17/2024, 15:21. FINDINGS: Surgical changes and devices: None. Lungs and pleura: Lungs are clear. No pleural effusions or pneumothorax. Mediastinum: Mediastinal contours appear normal. Heart size is normal. Bones and chest wall: No suspicious bony lesions. Overlying soft tissues appear unremarkable. IMPRESSION: Stable radiographic evaluation of the chest without acute cardiopulmonary abnormalities or focal consolidation. Dictated by: Reji Colindres M.D. on 11/04/2024 at 22:43 Approved by: Reji Colindres M.D. on 11/04/2024 at 22:43
[2024-11-04 21:38] LABS: INR 1.5 (0.9-1.3)
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
[2024-11-04 21:41] LABS: PTT Partial Thromboplastin Tim 61 SECONDS (25.1-36.5)
[2024-11-04 21:42] LABS: Alanine Aminotransferase 22 IU/L (<50); Albumin 4.4 g/dL (3.5-5.0); Albumin Globulin Ratio 1.2 (1.0-2.8); Alkaline Phosphatase 136 U/L (38-126); Aspartate Aminotransferase 34 IU/L (17-59); BUN Creatinine Ratio 20.4 (6-22); Bilirubin Total 0.8 mg/dL (0.2-1.3); Blood Urea Nitrogen 20 mg/dL (9-20); Calcium 9.7 mg/dL (8.4-10.2); Carbon Dioxide 23 mmol/L (22-32); Chloride 101 mmol/L (98-107); Estimated Glomerular Filt Rate > 60 mL/min (>60); Globulin 3.7 g/dL (1.7-4.1); Glucose 223 mg/dL (80-110); HEMOLYSIS < 15 (0-50); Lipase 53 U/L (23-300); Magnesium 1.7 mg/dL (1.6-2.3); Potassium 4.6 mmol/L (3.4-5.1); Sodium 136 mmol/L (137-145); Total Protein 8.1 g/dL (6.3-8.2)
[2024-11-04 21:50] LABS: Add Manual Diff / Slide Review NO; Basophils Absolute Auto 100 /uL (0-100); Basophils Percent Auto 0.9 % (0-2); Eosinophils Absolute Auto 100 /uL (0-450); Eosinophils Percent Auto 0.6 % (2-4); Hematocrit 39.1 % (41-53); Lymphocytes Absolute Auto 1000 /uL (1100-4500); Lymphocytes Percent Auto 10.4 % (25-40); Mean Corpuscular HGB Conc 33.2 % (30-36); Mean Corpuscular Hemoglobin 27.3 PG (26-34); Monocytes Absolute Auto 1400 /uL (0-900); Monocytes Percent Auto 13.7 % (3-14); Neutrophils Absolute Auto 7500 /uL (1500-7000); Neutrophils Percent Auto 74.4 % (50-75); Platelet Count 191 X10^3/uL (150-400); Red Blood Cell Count 4.77 X10^6/uL (4.5-5.9); Red Cell Distribution Width 15.6 % (11.6-14.8)
[2024-11-04 21:51] LABS: NT-proBNP (BNP-Adult 18+) 515 pg/mL (<450)
[2024-11-04] MEDS: ASPIRIN 81 MG CHEW TAB 324 MG PO (22:44)
--- NOTE | 2024-11-04 23:45 | PC.NURSE ---
condom cath placed due to frequency/urgency/dribbling of urine.
--- NOTE | 2024-11-04 23:58 | ED.WEAKNESS ---
HPI - Weakness General Chief complaint: Weakness Stated complaint: WKN Time Seen by Provider: 11/04/24 22:06 Source: EMS, RN notes reviewed and old records reviewed Mode of arrival: EMS History of Present Illness HPI Narrative: 84-year-old male history of atrial fibrillation on Pradaxa, cognitive impairment, diabetes on insulin, obstructive sleep apnea presents for weakness. Patient is brought today for increasing weakness. states that he was up several times last night but stopped walking earlier today and has been very weak. Nursing had to assist with 3 individuals. No fevers reported he has been a little bit more confused according to his from his baseline. No complaints of chest pain or shortness of breath. He has not been eating quite as much food but has been drinking milk and sparkling beverages which is his normal. Patient has not had any nausea or vomiting. No issues with bowel movements that she was aware of although he normally takes himself to the bathroom. She was unaware of any new urinary issues or frequency or incontinence. Patient has not had any new swelling in his extremities. 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 Has not had any falls that she was aware of he lives with her as well as additional family members in his not left alone because of his cognitive issues. He was currently on Pradaxa for atrial fibrillation he had his statin stopped as he developed rhabdomyolysis, his antihypertensives were stopped as he was having low blood pressures. His insulin was decreased in his note 14 units in the morning and 12 units in the evening and he was no longer having lows. He was on tamsulosin and metformin as well. Patient has not had any prior surgeries. No other known drug allergies. No tobacco, alcohol or recreational drugs. [facility] Pablo is his primary care. notes that he has had similar presentations when he has had UTIs. Related Data Home Medications Medication Instructions Recorded Confirmed cholecalciferol (vitamin D3) 50 4,000 unit PO BID 11/15/18 11/05/24 mcg (2,000 unit) capsule metformin 1,000 mg tablet 1,000 mg PO BEDTIME 11/15/18 11/05/24 metformin 1,000 mg tablet 1,500 mg PO QAM 11/15/18 11/05/24 RespirionPhotoBox Dreamstation 2 CPAP #1 ea 04/22/22 11/05/24 coenzyme Q10 75 mg capsule 75 mg PO DAILY 04/22/22 11/05/24 tamsulosin 0.4 mg capsule 0.8 mg PO BEDTIME 10/04/23 11/05/24 dabigatran etexilate 150 mg 150 mg PO BID 07/17/24 11/05/24 capsule (Pradaxa) Previous Rx's Medication Instructions Recorded insulin human U-100 NPH-regulr 12 unit (0.12 mL) SUBCUT BEDTIME 07/21/24 70-30 mix 100 unit/mL subcutaneous #10 mL susp (Humulin 70/30 U-100 Insulin) insulin human U-100 NPH-regulr 14 unit (0.14 mL) SUBCUT DAILY #10 07/21/24 70-30 mix 100 unit/mL subcutaneous mL susp (Humulin 70/30 U-100 Insulin) Allergies Allergy/AdvReac Type Severity Reaction Status Date / Time No Known Drug Allergies Allergy Verified 11/04/24 20:52 Review of Systems Review of Systems ROS Unobtainable: All systems reviewed & are unremarkable except as noted in HPI and below Patient History Medical History Mild cognitive impairment with memory loss (~11/23/18) Obesity (BMI 30-39.9) Idiopathic hypersomnia with long sleep time Obstructive sleep apnea of adult Intermittent claudication Aortic stenosis Right hip pain Cataracts, bilateral Tooth infection (~09/2017) Depression Arthritis HLD (hyperlipidemia) Hearing impaired Numbness and tingling of both feet A-fib Diabetes Surgical History History of colonoscopy History of vasectomy Social History marital status: details: to Rosa, lives in [place] household members: spouse and children housing: house Smoking Status: Never smoker alcohol intake: never substance use type: does not use Smoking Status: Never smoker Exam Narrative Exam Narrative: GEN: Elderly appearing male, alert, patient was unsure if his name which his states it has not normal, he was unsure where he was which she states is normal. Patient appears to be in mild distress. HEENT: Atraumatic, pupils are equal round reactive to light, extraocular movements are intact, nares are clear, TMs are clear with no fluid, there is no conjunctival pallor. Throat is clear without any exudates, erythema, tonsillar enlargement or uvular deviation, no facial droop HEART: Regular rate and rhythm without murmur, clicks, rubs. Pulses are equal in upper and lower extremities LUNGS:Lungs clear to auscultation, no wheezes, rales, crackles, chest moves symmetrically ABD:bowel sounds normal, soft, non-tender, no guarding, rebound, rigidity, no masses noted, no hepatosplenomegaly :No CVA tenderness, condom catheter in place. Normal male genitalia. MSCL: Non-tender, no muscle atrophy, muscles strength 5/5 upper and lower extremities, full range of motion. NEURO:CN 2-12 intact, sensation normal. SKIN: Patient has a what appears to be possibly a chronic ulcer sexually covered with granulated skin there does not appear to be an open wound there is no erythema, warmth or drainage. It was on the right lateral edge of the midfoot Initial Vital Signs Initial Vital Signs: Vital Signs Temperature 98.7 F 11/04/24 20:52 Pulse Rate 109 H 11/04/24 20:52 Respiratory Rate 18 11/04/24 20:52 Blood Pressure 132/58 L 11/04/24 20:52 Pulse Oximetry 94 11/04/24 20:52 Oxygen Delivery Method Room Air 11/04/24 20:52 Course Orders Ordered: ED Orders 11/04/24 20:52 Complete Blood Count AUTO DIFF Stat Comprehensive Metabolic Panel Stat Lipase Stat Magnesium Stat NT-proBNP (BNP-Adult 18+) Stat PTT Partial Thromboplastin Cory Stat Prothrombin Time INR Stat 11/04/24 20:55 XR chest 1V Stat EKG-12 Lead Stat 11/04/24 21:58 Consult to LEAD SOFTWARE ENGINEER - Multiple Spindle Screw Machine Operator Stat 11/05/24 00:02 Troponin & CK Cardiac Panel Stat 11/05/24 00:21 CT head/brain wo con Stat 11/05/24 04:58 UA Complete [Urinalysis and Microscopic] Stat Discontinued Medications Aspirin (Aspirin 81 Mg Chew Tab) 324 mg PO NOW ONE Stop: 11/04/24 20:56 Last Admin: 11/04/24 22:44 Dose: 324 mg Documented By: AB Sodium Chloride (Normal Saline 0.9%) 500 mls @ 1,000 mls/hr IV BOLUS ONE Stop: 11/05/24 01:37 Last Infusion: 11/05/24 01:51 Dose: Infused Documented By: Admin: 11/05/24 01:10 Dose: 1,000 mls/hr Documented By: MISTY Lidocaine HCl (Lidocaine 2% (Glydo) 6 Ml Gel) 6 ml TOP NOW ONE Stop: 11/05/24 04:20 Last Admin: 11/05/24 05:06 Dose: 6 ml Documented By: GUERO Vital Signs Vital signs: Vital Signs - 8 hr 11/04/24 22:00 11/04/24 22:00 11/04/24 22:30 Temperature Pulse Rate 103 H 118 H Respiratory Rate 21 25 H Blood Pressure 112/56 L Pulse Oximetry 93 93 Oxygen Delivery Method Room Air 11/04/24 23:00 11/04/24 23:00 11/04/24 23:30 Temperature Pulse Rate 110 H 107 H Respiratory Rate 23 24 Blood Pressure 99/59 L Pulse Oximetry 92 92 Oxygen Delivery Method Room Air 11/04/24 23:30 11/05/24 00:00 11/05/24 00:00 Temperature Pulse Rate 98 H Respiratory Rate 21 Blood Pressure 109/59 L 114/57 L Pulse Oximetry 92 Oxygen Delivery Method Room Air 11/05/24 00:30 11/05/24 00:30 11/05/24 00:50 Temperature Pulse Rate 93 H Respiratory Rate 21 14 Blood Pressure 107/58 L 107/56 L Pulse Oximetry 92 92 Oxygen Delivery Method Room Air Room Air 11/05/24 01:22 11/05/24 02:34 11/05/24 02:35 Temperature 98.6 F Pulse Rate 93 H 96 H Respiratory Rate Blood Pressure Pulse Oximetry 96 95 Oxygen Delivery Method 11/05/24 02:35 11/05/24 03:00 Temperature Pulse Rate 112 H Respiratory Rate Blood Pressure 102/50 L Pulse Oximetry 93 Oxygen Delivery Method MDM - Weakness Lab Data 11/04/24 20:52 11/04/24 20:52 Labs: Lab Results 11/04/24 11/05/24 Range/Units 20:52 04:58 WBC 10.0 (4.5-11.0) X10^3/uL RBC 4.77 (4.5-5.9) X10^6/uL Hgb 13.0 L (13.5-17.5) g/dL Hct 39.1 L (41-53) % MCV 82.0 (80-100) fL MCH 27.3 (26-34) PG MCHC 33.2 (30-36) % RDW 15.6 H (11.6-14.8) % Plt Count 191 (150-400) X10^3/uL Neut % (Auto) 74.4 (50-75) % Lymph % (Auto) 10.4 L (25-40) % Harris % (Auto) 13.7 (3-14) % Eos % (Auto) 0.6 L (2-4) % Baso % (Auto) 0.9 (0-2) % Neut # (Auto) 7500 H (4237-8683) /uL Lymph # (Auto) 1000 L (6124-8341) /uL Harris # (Auto) 1400 H (0-900) /uL Eos # (Auto) 100 (0-450) /uL Baso # (Auto) 100 (0-100) /uL PT 17.0 H (9.4-12.5) SECONDS INR 1.5 H (0.9-1.3) APTT 61 H (25.1-36.5) SECONDS Sodium 136 L (137-145) mmol/L Potassium 4.6 (3.4-5.1) mmol/L Chloride 101 (98-107) mmol/L Carbon Dioxide 23 (22-32) mmol/L BUN 20 (9-20) mg/dL Creatinine 0.98 (0.66-1.25) mg/dL Estimated GFR > 60 (>60) mL/min BUN/Creatinine Ratio 20.4 (6-22) Glucose 223 H (80-110) mg/dL Calcium 9.7 (8.4-10.2) mg/dL Magnesium 1.7 (1.6-2.3) mg/dL Total Bilirubin 0.8 (0.2-1.3) mg/dL AST 34 (17-59) IU/L ALT 22 (<50) IU/L Alkaline Phosphatase 136 H (38-126) U/L Total Creatine Kinase 84 (55-170) U/L Troponin I < 0.012 (0.01-0.034) ng/mL NT-Pro-B Natriuret Pep 515 H (<450) pg/mL Total Protein 8.1 (6.3-8.2) g/dL Albumin 4.4 (3.5-5.0) g/dL Globulin 3.7 (1.7-4.1) g/dL Albumin/Globulin Ratio 1.2 (1.0-2.8) Lipase 53 (23-300) U/L Urine Color Yellow Urine Appearance Clear Urine pH 5.5 (4.5-8.0) Ur Specific [place] 1.025 (1.000-1.035) Urine Protein Negative (Negative) Urine Glucose (UA) Trace H (Negative) g/dL Urine Ketones 1+ H (NEGATIVE) Urine Occult Blood Negative (Negative) Urine Nitrate Negative (Negative) Urine Bilirubin Negative (NEGATIVE) Urine Urobilinogen 0.2 (0.2) E.U./dL Ur Leukocyte Esterase Negative (NEGATIVE) Urine RBC None seen (0-5/HPF) Urine WBC None seen (0-5/HPF) Ur Squamous Epith Cells 0-1 /hpf (0-5/HPF) Urine Bacteria None seen (None) Ur Culture Indicated? Cult not indicated Vol Urine Centrifuged 10ml (spun) ECG Data Attestation: I personally reviewed and interpreted this ECG as follows: Prior ECG tracings: available for review Interpretation: Atrial fibrillation with a rapid ventricular response rate of 101, QRS of 100 QTC of 464, no acute ST elevation. Patient has prior from 07/17/2024 shows atrial fibrillation no acute ST changes. [facility] Narrative Medical decision making narrative: EKG shows AFib rate of 101 Labs show white count of 10 hemoglobin of 13 appears consistent with priors platelets are 191. INR is 1.5 patient was anticoagulated on Pradaxa, sodium is 136 electrolytes are otherwise appropriate BUN creatinine normal glucose is 223 alk-phos is 136 normal bilirubin, AST ALT and lipase. BNP is 515. Troponin less than 0.012 BNP is 515. Chest x-ray shows no acute change. Head CT shows no acute intracranial abnormalities or acute calvarial fractures age-related senescent changes sequela of chronic small-vessel ischemic changes, splenic sinus disease. Urine trace glucose 1+ ketones 1 squamous. Patient has been slightly tachycardic blood pressures had a systolic of 1 teens to 109 which appears similar to prior visits as well. Patient had given a urine sample but was accidentally thrown away has a condom catheter in place. Patient had 500 cc bolus waited some time has a condom catheter on had bladder scan was only 38 mL. Given additional 500 cc bolus. Spoke with Dr. Garcia, still awaiting urine microscopy no clear exact source for weakness discussed plan for observation. Discharge Plan Departure Patient Disposition: Admitted as Observation Clinical Impression: Weakness Admit Date/Time: 11/05/24 05:24 Admit Provider: Blaze Dee
[2024-11-05] VITALS (11 sets, daily range): BP systolic 96–114; BP diastolic 45–58; PULSE 69–112; RESP 14–21; TEMP 36.6–37; O2SAT 92–99; BMI 32.8
[2024-11-05 00:19] LABS: Creatine Kinase 84 U/L (55-170)
--- NOTE | 2024-11-05 00:21 | DI.CT.S_ITS ---
PROCEDURE: CT HEAD/BRAIN WO CON INDICATIONS: confusion, on pradaxa TECHNIQUE: Noncontrast 4.5 mm thick angled axial sections acquired from the foramen magnum to the vertex, with coronal and sagittal reformats. For radiation dose reduction, the following was used: automated exposure control, adjustment of mA and/or kV according to patient size. COMPARISON: [facility], CT, CT HEAD/BRAIN WO CON, 07/17/2024, 18:36. [facility], CT, CT HEAD/BRAIN WO CON, 11/29/2023, 3:52. FINDINGS: Image quality: Diagnostic. CSF spaces: Basal cisterns are patent. No extra-axial fluid collections. The ventricles are symmetric in size and shape. Brain: No intracranial bleeds or masses. There is cerebral volume loss for age, with resultant ventricular and sulcal prominence. There are periventricular and deep white matter chronic small vessel ischemic changes. There is intracranial internal carotid artery atherosclerosis. Skull and face: Calvarium and visualized facial bones appear intact, without suspicious lesions. Sinuses: Layering fluid in the posterior sphenoid sinus. Remainder of the paranasal sinuses appear clear. Mastoid air cells are well-aerated. IMPRESSION: 1. CT head without acute intracranial abnormalities or acute calvarial fractures. 2. Age-related senescent changes and sequela of chronic small vessel ischemic disease. 3. Splenoid sinus disease. Dictated by: Reji Colindres M.D. on 11/05/2024 at 0:55 Approved by: Reji Colindres M.D. on 11/05/2024 at 0:59
[2024-11-05 00:32] LABS: Troponin I < 0.012 ng/mL (0.01-0.034)
[2024-11-05] MEDS: SODIUM CHLORIDE 0.9% 500 ML 1000 ML IV (01:10)
[2024-11-05] MEDS: LIDOCAINE 2% (GLYDO) 6 ML GEL TOP (05:06)
[2024-11-05 05:08] LABS: Appearance Urine UA CLEAR; Bilirubin Urine UA NEGATIVE (NEGATIVE); Color Urine UA YELLOW; Glucose Urine UA TRACE g/dL (Negative); Ketones Urine UA 1+ (NEGATIVE); Leukocyte Esterase Urine UA NEGATIVE (NEGATIVE); Nitrite Urine UA NEGATIVE (Negative); Occult Blood Urine UA NEGATIVE (Negative); Protein Urine UA NEGATIVE (Negative); Specific Gravity Urine UA 1.025 (1.000-1.035); Urobilinogen Urine UA 0.2 E.U./dL (0.2); pH Urine UA 5.5 (4.5-8.0)
[2024-11-05 05:21] LABS: Bacteria Urine None Seen; Culture Indicated Urine Cult Not Indicated; RBC Urine None Seen (0-5/HPF); Squamous Epithelial Cell Urine 0-1 /HPF (0-5/HPF); Urine Volume 10mL (spun); WBC Urine None Seen (0-5/HPF)
--- NOTE | 2024-11-05 06:04 | PC.NURSE ---
Placed by Betsy Simms RN
--- NOTE | 2024-11-05 06:06 | PC.NURSE ---
Removed condom catheter prior to Indwelling catheter placement.
--- NOTE | 2024-11-05 06:20 | P.HP_ITS ---
History of Present Illness History of Present Illness Date Patient Seen: 11/05/24 Time Patient Seen: 06:45 Chief complaint: generalized weakness Narrative: 84 y/o with PMH of dementia,A-fib, HTN, DM, SAURAV, LS fusion, BPH, hospitalization in [place] in July 2024 for enterococcal UTI, brought by with severe generalized weakness. He was unable to ambulate and needed several person assistance for transfers in the ED. Workup non-revealing, w/o evidence of UTI. Placed in observation for generalized weakness, on IVFs, for PT assessment [facility] Medical History (Updated 11/05/24 @ 06:33 by Blaze Garcia MD) Mild cognitive impairment with memory loss (~11/23/18) Obesity (BMI 30-39.9) Idiopathic hypersomnia with long sleep time Obstructive sleep apnea of adult Intermittent claudication Aortic stenosis Right hip pain Cataracts, bilateral Tooth infection (~09/2017) Depression Arthritis HLD (hyperlipidemia) Hearing impaired Numbness and tingling of both feet A-fib Diabetes Surgical History History of colonoscopy History of vasectomy Social History marital status: details: rl Lee, lives in [place] household members: spouse and children housing: house Smoking Status: Never smoker alcohol intake: never substance use type: does not use Meds Home Medications and Allergies Home Medications Medication Instructions Recorded Confirmed Type cholecalciferol (vitamin D3) 50 4,000 unit PO BID 11/15/18 11/05/24 History mcg (2,000 unit) capsule metformin 1,000 mg tablet 1,000 mg PO BEDTIME 11/15/18 11/05/24 History metformin 1,000 mg tablet 1,500 mg PO QAM 11/15/18 11/05/24 History Respirioncs Dreamstation 2 CPAP #1 ea 04/22/22 11/05/24 History coenzyme Q10 75 mg capsule 75 mg PO DAILY 04/22/22 11/05/24 History tamsulosin 0.4 mg capsule 0.8 mg PO BEDTIME 10/04/23 11/05/24 History dabigatran etexilate 150 mg 150 mg PO BID 07/17/24 11/05/24 History capsule (Pradaxa) insulin human U-100 NPH-regulr 12 unit (0.12 mL) SUBCUT BEDTIME 07/21/24 11/05/24 Rx 70-30 mix 100 unit/mL subcutaneous #10 mL susp (Humulin 70/30 U-100 Insulin) insulin human U-100 NPH-regulr 14 unit (0.14 mL) SUBCUT DAILY #10 07/21/24 11/05/24 Rx 70-30 mix 100 unit/mL subcutaneous mL susp (Humulin 70/30 U-100 Insulin) Allergies Allergy/AdvReac Type Severity Reaction Status Date / Time No Known Drug Allergies Allergy Verified 11/04/24 20:52 Review of Systems Review of Systems Narrative: Unobtainable due to dementia, reported on following: General - weakness, can't walk. No fever or sweats. Decreased PO intake. GI - w/o diarrhea CVS - w/o chest pain RS - w/o cough or wheezing Exam Vital Signs (past 8 hours): - 11/04/24 22:30 11/04/24 23:00 11/04/24 23:00 Temperature Pulse Rate 118 H 110 H Respiratory Rate 25 H 23 Blood Pressure 99/59 L Pulse Oximetry 93 92 Oxygen Delivery Method Room Air 11/04/24 23:30 11/04/24 23:30 11/05/24 00:00 Temperature Pulse Rate 107 H Respiratory Rate 24 Blood Pressure 109/59 L 114/57 L Pulse Oximetry 92 Oxygen Delivery Method Room Air 11/05/24 00:00 11/05/24 00:30 11/05/24 00:30 Temperature Pulse Rate 98 H 93 H Respiratory Rate 21 21 Blood Pressure 107/58 L Pulse Oximetry 92 92 Oxygen Delivery Method Room Air Room Air 11/05/24 00:50 11/05/24 01:22 11/05/24 02:34 Temperature 98.6 F Pulse Rate 93 H Respiratory Rate 14 Blood Pressure 107/56 L Pulse Oximetry 92 96 Oxygen Delivery Method Room Air 11/05/24 02:35 11/05/24 02:35 11/05/24 03:00 Temperature Pulse Rate 96 H 112 H Respiratory Rate Blood Pressure 102/50 L Pulse Oximetry 95 93 Oxygen Delivery Method Oxygen Delivery Method Room Air Narrative Exam Narrative: General - in no distress, sleepy, at bedside CVS - irregular, ~ 100 RS - normal respiratory effort Neuro - w/o focal muscle weakness. Cognitive deficits. GI - abdomen soft, not tender Skin - w/o rashes Objective ECG Impression: A-fib, 101 QTc 464 Imaging Chest x-ray: Radiologist's impression: Stable radiographic evaluation of the chest without acute cardiopulmonary abnormalities or focal consolidation. CT scan - head: Radiologist's impression: 1. CT head without acute intracranial abnormalities or acute calvarial fractures. 2. Age-related senescent changes and sequela of chronic small vessel ischemic disease. 3. Splenoid sinus disease. Labs 11/04/24 20:52 11/04/24 20:52 Labs: Laboratory Results - last 24 hr 11/04/24 11/05/24 20:52 04:58 WBC 10.0 RBC 4.77 Hgb 13.0 L Hct 39.1 L MCV 82.0 MCH 27.3 MCHC 33.2 RDW 15.6 H Plt Count 191 Neut % (Auto) 74.4 Lymph % (Auto) 10.4 L [place] % (Auto) 13.7 Eos % (Auto) 0.6 L Baso % (Auto) 0.9 Neut # (Auto) 7500 H Lymph # (Auto) 1000 L [place] # (Auto) 1400 H Eos # (Auto) 100 Baso # (Auto) 100 PT 17.0 H INR 1.5 H APTT 61 H Sodium 136 L Potassium 4.6 Chloride 101 Carbon Dioxide 23 BUN 20 Creatinine 0.98 Estimated GFR > 60 BUN/Creatinine Ratio 20.4 Glucose 223 H Calcium 9.7 Magnesium 1.7 Total Bilirubin 0.8 AST 34 ALT 22 Alkaline Phosphatase 136 H Total Creatine Kinase 84 Troponin I < 0.012 NT-Pro-B Natriuret Pep 515 H Total Protein 8.1 Albumin 4.4 Globulin 3.7 Albumin/Globulin Ratio 1.2 Lipase 53 Urine Color Yellow Urine Appearance Clear Urine pH 5.5 Ur Specific [place] 1.025 Urine Protein Negative Urine Glucose (UA) Trace H Urine Ketones 1+ H Urine Occult Blood Negative Urine Nitrate Negative Urine Bilirubin Negative Urine Urobilinogen 0.2 Ur Leukocyte Esterase Negative Urine RBC None seen Urine WBC None seen Ur Squamous Epith Cells 0-1 /hpf Urine Bacteria None seen Ur Culture Indicated? Cult not indicated Vol Urine Centrifuged 10ml (spun) Assessment & Plan Assessment and plan (1) Weakness: Status: Acute (2) Dementia: Status: Acute (3) Obesity (BMI 30-39.9): Status: Chronic (4) Obstructive sleep apnea of adult: Status: Chronic (5) Diabetes: Status: Acute (6) A-fib: Status: Acute Assessment & Plan narrative: Generalized weakness - observation - w/o evidence of UTI on admission, this time - NS at 100 cc/h, 1 L - borderline hypotension and tachyarrhythmia - PT evaluation, fall risk with current weakness while anticoagulated Dementia - supportive care DM - NPH insulin, recently decreased - CCD - metformin - SS Atrial fibrilation - Pradaxa - no need for rate control SAURAV - CPAP BPH - Flomax Patient's consented to this telemedicine visit, with provider located in [place]. This was a real time video and audio visit with RN at bedside. Time-Based Coding :: [TOTAL MINUTES] spent with patient and on the chart (including review of chart, obtaining history, exam, reviewing outside data, placing orders, documenting exam and treatment plan, and counseling patient) on [DATE].
[2024-11-05] MEDS: SODIUM CHLORIDE 0.9% 1,000 ML 100 ML IV ×2 (07:00→16:04)
--- NOTE | 2024-11-05 07:46 | P.HP_ITS ---
History of Present Illness History of Present Illness Date Patient Seen: 11/05/24 Chief complaint: generalized weakness Narrative: From night doctor: 84 y/o with PMH of dementia,A-fib, HTN, DM, SAURAV, LS fusion, BPH, hospitalization in [place] in July 2024 for enterococcal UTI, brought by with severe generalized weakness. He was unable to ambulate and needed several person assistance for transfers in the ED. Workup non-revealing, w/o evidence of UTI. Placed in observation for generalized weakness, on IVFs, for PT assessment. S: The patient was sitting comfortably in his chair. He denies any pain, or dyspnea. He thinks it was 2011 and knows he was in the hospital. He does note these felt weak is entire life, but does not really recall the events that led him to come to the hospital. States he lives with his in [place]. [facility] Medical History Mild cognitive impairment with memory loss (~11/23/18) Obesity (BMI 30-39.9) Idiopathic hypersomnia with long sleep time Obstructive sleep apnea of adult Intermittent claudication Aortic stenosis Right hip pain Cataracts, bilateral Tooth infection (~09/2017) Depression Arthritis HLD (hyperlipidemia) Hearing impaired Numbness and tingling of both feet A-fib Diabetes Surgical History History of colonoscopy History of vasectomy Social History marital status: details: rl Lee, lives in [place] household members: spouse and children housing: house Smoking Status: Never smoker alcohol intake: never substance use type: does not use Meds Home Medications and Allergies Home Medications Medication Instructions Recorded Confirmed Type cholecalciferol (vitamin D3) 50 4,000 unit PO BID 11/15/18 11/05/24 History mcg (2,000 unit) capsule metformin 1,000 mg tablet 1,000 mg PO BEDTIME 11/15/18 11/05/24 History metformin 1,000 mg tablet 1,500 mg PO QAM 11/15/18 11/05/24 History Respirioncs Dreamstation 2 CPAP #1 ea 04/22/22 11/05/24 History coenzyme Q10 75 mg capsule 75 mg PO DAILY 04/22/22 11/05/24 History tamsulosin 0.4 mg capsule 0.8 mg PO BEDTIME 10/04/23 11/05/24 History dabigatran etexilate 150 mg 150 mg PO BID 07/17/24 11/05/24 History capsule (Pradaxa) insulin human U-100 NPH-regulr 12 unit (0.12 mL) SUBCUT BEDTIME 07/21/24 11/05/24 Rx 70-30 mix 100 unit/mL subcutaneous #10 mL susp (Humulin 70/30 U-100 Insulin) insulin human U-100 NPH-regulr 14 unit (0.14 mL) SUBCUT DAILY #10 07/21/24 11/05/24 Rx 70-30 mix 100 unit/mL subcutaneous mL susp (Humulin 70/30 U-100 Insulin) Allergies Allergy/AdvReac Type Severity Reaction Status Date / Time No Known Drug Allergies Allergy Verified 11/04/24 20:52 Review of Systems Review of Systems Narrative: All else reviewed and otherwise unremarkable except as noted in the history and physical. Exam Vital Signs (past 8 hours): - 11/05/24 00:00 11/05/24 00:00 11/05/24 00:30 Temperature Pulse Rate 98 H 93 H Respiratory Rate 21 21 Blood Pressure 114/57 L Pulse Oximetry 92 92 Oxygen Delivery Method Room Air Room Air Oxygen Flow Rate 11/05/24 00:30 11/05/24 00:50 11/05/24 01:22 Temperature 98.6 F Pulse Rate Respiratory Rate 14 Blood Pressure 107/58 L 107/56 L Pulse Oximetry 92 Oxygen Delivery Method Room Air Oxygen Flow Rate 11/05/24 02:34 11/05/24 02:35 11/05/24 02:35 Temperature Pulse Rate 93 H 96 H Respiratory Rate Blood Pressure 102/50 L Pulse Oximetry 96 95 Oxygen Delivery Method Oxygen Flow Rate 11/05/24 03:00 11/05/24 06:20 Temperature 97.8 F Pulse Rate 112 H 101 H Respiratory Rate 16 Blood Pressure 105/45 L Pulse Oximetry 93 92 Oxygen Delivery Method Oxygen Flow Rate 0 Oxygen Delivery Method Room Air Oxygen Flow Rate 0 Narrative Exam Narrative: NAD, alert and oriented, fluent speech, calm. Normocephalic skull, EOMI, anicteric sclera, symmetric pupils. Oropharynx unremarkable, no droop. Neck supple, midline trachea, no adenopathy. Lungs clear, normal rate and effort. Heart regular, systolic murmur with no gallop or rub. Abdomen is soft, non distended and non tender. Extremities are free of edema. Skin is free of rash or lesions. Joints are not swollen or deformed. Judgment appears to be abnormal, consistent with significant cognitive impairment. Objective ECG Impression: Atrial fibrillation with rapid ventricular response Imaging Multiple studies:: Radiologist's impression: Chest x-ray: Radiologist's impression: Stable radiographic evaluation of the chest without acute cardiopulmonary abnormalities or focal consolidation. CT scan - head: Radiologist's impression: 1. CT head without acute intracranial abnormalities or acute calvarial fractures. 2. Age-related senescent changes and sequela of chronic small vessel ischemic disease. 3. Splenoid sinus disease. Labs 11/04/24 20:52 11/04/24 20:52 Labs: Laboratory Results - last 24 hr 11/04/24 11/05/24 20:52 04:58 WBC 10.0 RBC 4.77 Hgb 13.0 L Hct 39.1 L MCV 82.0 MCH 27.3 MCHC 33.2 RDW 15.6 H Plt Count 191 Neut % (Auto) 74.4 Lymph % (Auto) 10.4 L [place] % (Auto) 13.7 Eos % (Auto) 0.6 L Baso % (Auto) 0.9 Neut # (Auto) 7500 H Lymph # (Auto) 1000 L [place] # (Auto) 1400 H Eos # (Auto) 100 Baso # (Auto) 100 PT 17.0 H INR 1.5 H APTT 61 H Sodium 136 L Potassium 4.6 Chloride 101 Carbon Dioxide 23 BUN 20 Creatinine 0.98 Estimated GFR > 60 BUN/Creatinine Ratio 20.4 Glucose 223 H Calcium 9.7 Magnesium 1.7 Total Bilirubin 0.8 AST 34 ALT 22 Alkaline Phosphatase 136 H Total Creatine Kinase 84 Troponin I < 0.012 NT-Pro-B Natriuret Pep 515 H Total Protein 8.1 Albumin 4.4 Globulin 3.7 Albumin/Globulin Ratio 1.2 Lipase 53 Urine Color Yellow Urine Appearance Clear Urine pH 5.5 Ur Specific [place] 1.025 Urine Protein Negative Urine Glucose (UA) Trace H Urine Ketones 1+ H Urine Occult Blood Negative Urine Nitrate Negative Urine Bilirubin Negative Urine Urobilinogen 0.2 Ur Leukocyte Esterase Negative Urine RBC None seen Urine WBC None seen Ur Squamous Epith Cells 0-1 /hpf Urine Bacteria None seen Ur Culture Indicated? Cult not indicated Vol Urine Centrifuged 10ml (spun) Assessment & Plan Assessment & Plan narrative: 1. Generalized weakness, present on admission and active. - observation - w/o evidence of UTI on admission, this time - NS at 100 cc/h, 1 L - borderline hypotension and tachyarrhythmia - PT evaluation, fall risk with current weakness while anticoagulated 2. Dementia, present on admission and active. - supportive care 3. DM 2, present on admission and active. - NPH insulin, recently decreased 4. Atrial fibrilation, present on admission and stable. - Pradaxa - no need for rate control 5. SAURAV, present on admission and stable. - CPAP 6. BPH, present on admission and stable. - Flomax Plan: -observation -hold metformin long-acting insulin as he was showing evidence of poor appetite. -PT and OT evaluations. Discharge planning will depend on how he does with the evaluations. Time-Based Coding :: 35 min spent with patient and on the chart (including review of chart, obtaining history, exam, reviewing outside data, placing orders, documenting exam and treatment plan, and counseling patient) on 11/05. Quality MIPS - Admit I confirm the patient?s Advance Care Plan is present, Code status is documented, Surrogate decision maker is in patient?s record [If Yes, STOP here]: Yes MIPS - Meds 'Current medications' to include all prescriptions, [id number] products, herbals, cannabis/cannabidiol products, and vitamin/mineral/dietary (nutritional) supplements. I have utilized all available resources to obtain, update, or review the patient?s current medications. [If Yes, STOP here]: Yes
[2024-11-05] MEDS: DABIGATRAN 75 MG CAPSULE 150 MG PO ×2 (09:43→20:50)
--- NOTE | 2024-11-05 12:08 | OT.IP.EVAL ---
Current Diagnoses Type 2 diabetes mellitus without complications (11/05/24) Obesity, unspecified (11/05/24) Unspecified dementia, unspecified severity, without behavioral disturbance, psychotic disturbance, mood disturbance, and anxiety (11/05/24) Obstructive sleep apnea (adult) (pediatric) (11/05/24) Unspecified atrial fibrillation (11/05/24) Weakness (11/05/24) Past Medical History (Last Reviewed 11/05/24 @ 07:46 by Victoriano Peña MD) A-fib Aortic stenosis Arthritis Cataracts, bilateral Depression Diabetes Hearing impaired HLD (hyperlipidemia) Idiopathic hypersomnia with long sleep time Intermittent claudication Mild cognitive impairment with memory loss (~11/23/18) Numbness and tingling of both feet Obesity (BMI 30-39.9) Obstructive sleep apnea of adult Right hip pain Tooth infection (~09/2017) Surgical History (Last Reviewed 11/05/24 @ 07:46 by Victoriano Peña MD) History of colonoscopy History of vasectomy Occupational Therapy Inpatient Evaluation/Re-Eval M1 PT/OT-IP Prior Functional Status Start: 11/05/24 09:28 Freq: NEEDED Status: Active Protocol: Document 11/05/24 12:12 CGR (Rec: 11/05/24 12:51 CGR [id number]) Medical Review Prior Functional Status Medical History Reviewed Yes Communication Pt is confused but able to conversate. Mobility and Gait Pt was using a FWW for mobility at baseline. Activities of Daily Living and IADL's Pt was IND for basic ADLs and needed assist for dressing and all IADLs. Social History Household Members spouse,children Living Arrangements House Number of Floors (Floors) One Floor Number of Stairs To Enter/Railing? 3 steps with B wide railing Home Environment High Toilet,Walk in Shower, Built-In Shower Seat Home Equipment Front Wheel Walker,Long Handled Shoe [place],Residential Electrician,Sock Aid,Bed Rails,Grab Bars Near Toilet,Grab Bars In Shower Employment Status Retired Additional Social History Comment Toilet safety frame. Pt states he lives with his and grandkids. M2 OT-IP Current Condition Start: 11/05/24 12:11 Freq: Status: Active Protocol: Document 11/05/24 12:12 CGR (Rec: 11/05/24 12:51 CGR [id number]) Occupational Therapy Current Condition Current Condition Evaluation Date 11/05/24 Treatment Diagnosis generalized weakness Diagnosis Onset Date 11/05/24 M3 OT- IP Subjective and Pain Start: 11/05/24 12:11 Freq: Status: Active Protocol: Document 11/05/24 12:12 CGR (Rec: 11/05/24 12:51 CGR [id number]) OT- Subjective Occupational Therapy Visit Type Type Initial Evaluation Visit Start Time 11:44 Visit Stop Time 12:08 Notes Partial co-treat with P.T. OT Pain Assessment Pain When Pain Assessed At Rest Pain Present Pain Present Denied Pain M4 OT- IP ADL's Start: 11/05/24 12:11 Freq: Status: Active Protocol: Document 11/05/24 12:12 CGR (Rec: 11/05/24 12:51 CGR [id number]) OT [id number] Comments OT Self-Feeding Comments not meal time. Of note, pt's breakfast in room not touched. OT ADL-Grooming Comments OT Grooming Comments not performed OT ADL-Oral Care Comments Oral Care Comments not peformed OT ADL-Dressing General Eval Lower Body Dressing Ability Total Assistance Areas Needing Assistance Socks OT ADL-Toileting Comments OT Toileting Comments not performed OT ADL-Bathing Comments OT Bathing Comments not performed M5 OT- IP IADL's Start: 11/05/24 12:11 Freq: Status: Active Protocol: Document 11/05/24 12:12 CGR (Rec: 11/05/24 12:51 CGR [id number]) OT-Instrumental Activities of Daily Living Deficits IADL Deficits Identified Deficits Home Safety Awareness Awareness of Need for Assistance at Home Decreased Awareness Ability to Problem Solve Emergency Unable to Problem Solve Situations Medication Management Medication Management Caregiver Administers Money Management Money Management Caregiver Provides Assistance Meal Preparation Meal Preparation Caregiver Provides Assist Client Sales And Service Officer Client Sales And Service Officer Caregiver Provides Assist M6 OT- IP Functional Cognition Start: 11/05/24 12:11 Freq: Status: Active Protocol: Document 11/05/24 12:12 CGR (Rec: 11/05/24 12:51 CGR [id number]) Cognitive Factors Limiting Selfcare Function Cognitive Ability Level of Alertness Alert,Confusional State Patient Orientation Name,Birthday Attention Span Ability Unable to Focus,Unable to Sustain Attention Ability to Follow Commands Able to Follow One Step Commands with Increased Time, Able to Follow One Step Commands with Repetition Cognitive Comments Cognitive Assessment Comments Pt was oriented to self and birthdate but nothing else. OT- Vision and Hearing OT- Vision Assessment Visual Acuity Glasses All The Time Visual Attentiveness WFL Vision Assessment Comments Pt with delayed occular pursuits. He wears trifocals. M7 OT- IP Mobility and Balance Start: 11/05/24 12:11 Freq: Status: Active Protocol: Document 11/05/24 12:12 CGR (Rec: 11/05/24 12:51 CGR [id number]) OT- Bed Mobility Assessment Supine to Sit Supine to Sit Assist Minimal Assistance,Head of Bed Elevated,Bedrails Scooting Scooting to Edge of Bed Minimal Assistance,Head of Bed Elevated,Bedrails OT-Transfer Assessment Sit to and From Stand Sit to and from Stand Minimal Assistance Transfers Transfer Ability Minimal Assistance Technique Transfer Destination Bed,Chair Transfer Technique Stand Step Pivot Devices Transfer Assistive Devices Gait Belt,Front Wheeled Walker Comments Mobility Comments transfer to chair OT- Balance Assessment Sitting Balance and Reactions Static Sitting Balance Ability Fair Dynamic Sitting Balance Ability Fair M8 OT- IP Objective Assessments Start: 11/05/24 12:11 Freq: Status: Active Protocol: Document 11/05/24 12:12 CGR (Rec: 11/05/24 12:51 CGR [id number]) OT Gross Range of Motion Upper Extremity Range of Motion Assessment Within Functional Limits OT Strength Upper Extremity Strength Assessment Bilaterally Impaired Comments Strength Comments Grossly 3+/5 OT- Coordination Assessment Upper Extremity Finger to Nose Test Within Functional Limits Finger Tapping Test Within Functional Limits OT-Muscle Tone Assessment Muscle Tone WNL Yes OT Sensation Assessment Edema Edema Absent M9 OT- IP Assessment and Plan Start: 11/05/24 12:11 Freq: Status: Active Protocol: Document 11/05/24 12:12 CGR (Rec: 11/05/24 12:51 CGR [id number]) OT Summary Assessment and Plan Potential Rehabilitation Potential Fair Analytic Complexity at Evaluation Moderate Summary OT Impairments Strength,Balance,Functional Cognition,Functional Mobility, Grooming,Dressing,Toileting, Bathing,Toilet Transfers, Shower Transfers,Activity Tolerance Progress Towards Goals Slow Progress due to Cognition Assessment Summary Pt present as moderate complexity evaluation s/p admit for generalized weakness . Pt is able to participate in therapy today but is limited in his cognition. Per his report and previous therapy notes, pt may be close to his baseline. Pt is likely best suited for discharge home with family support given his dementia and his hx of being sedentary. Goals Self-Feeding Goal Independent Grooming Goal Independent Dressing Goal Moderate Assistance Toileting Goal Independent Days to Meet Goals 10 Frequency of Treatment Other frequency 5x per week Treatment Plan OT Treatment Plan ADL Training,Functional Cognition Training,Functional Mobility,Patient/Family Education,Discharge Planning Other Treatment Recommendations and Next ADL seated Treatment Focus Discharge Recommendations OT Discharge Recommendations Home with 07/03 Assist Available Transportation Needs at Discharge Private Vehicle
[2024-11-05] MEDS: INSULIN LISPRO 100 UNIT/ML 3ML VIAL SUBCUT ×3 (12:30→20:55)
--- NOTE | 2024-11-05 12:36 | PT.IIE ---
Current Diagnoses Type 2 diabetes mellitus without complications (11/05/24) Obesity, unspecified (11/05/24) Unspecified dementia, unspecified severity, without behavioral disturbance, psychotic disturbance, mood disturbance, and anxiety (11/05/24) Obstructive sleep apnea (adult) (pediatric) (11/05/24) Unspecified atrial fibrillation (11/05/24) Weakness (11/05/24) Surgical History (Last Reviewed 11/05/24 @ 07:46 by Victoriano Peña MD) History of colonoscopy History of vasectomy Medical History (Last Reviewed 11/05/24 @ 07:46 by Victoriano Peña MD) A-fib Aortic stenosis Arthritis Cataracts, bilateral Depression Diabetes Hearing impaired HLD (hyperlipidemia) Idiopathic hypersomnia with long sleep time Intermittent claudication Mild cognitive impairment with memory loss (~11/23/18) Numbness and tingling of both feet Obesity (BMI 30-39.9) Obstructive sleep apnea of adult Right hip pain Tooth infection (~09/2017) Physical Therapy Inpatient Evaluation/Re-Eval M1 PT/OT-IP Prior Functional Status Start: 11/05/24 09:28 Freq: NEEDED Status: Active Protocol: Document 11/05/24 11:40 MB (Rec: 11/05/24 12:35 MB [id number]) Medical Review Prior Functional Status Medical History Reviewed Yes Communication Unsure baseline diet Mobility and Gait Unsure baseline mobility, appears to be rather sedentary and states helps him mobilize Activities of Daily Living and IADL's See above, states he lives with and grandkids Social History Household Members spouse,children Living Arrangements House Number of Floors (Floors) One Floor Number of Stairs To Enter/Railing? 4 steps with B rails to enter Home Environment Standard Height Toilet,High Toilet,Built-In Shower Seat Home Equipment Front Wheel Walker,Grab Bars Near Toilet,Grab Bars In Shower Employment Status Retired Additional Social History Comment Flat bed with bed rails, pt states that he has a chair he sits in most of the day and it is not a lift chair M2 PT-IP Current Condition Start: 11/05/24 09:28 Freq: NEEDED Status: Active Protocol: Document 11/05/24 11:40 MB (Rec: 11/05/24 12:35 MB [id number]) Physical Therapy Current Condition Current Condition Evaluation Date 03/24/25 Treatment Diagnosis No medical diagnosis M3 PT-IP Subjective Start: 11/05/24 09:28 Freq: NEEDED Status: Active Protocol: Document 11/05/24 11:40 MB (Rec: 11/05/24 12:35 MB [id number]) Subjective Physical Therapy Visit Type Type Initial Evaluation Visit Start Time 11:40 Visit Stop Time 12:05 Number of ENGRAVER APPRENTICE DECORATIVE Visits 0 Physical Therapy Visit Comments Patient Comments Pt is hypoverbal and presents with confusion, breakfast tray on sink and untouched and when asked if he is hungry, he states he is not. Is agreeable to sit up in chair and feels ready for lunch after eval. Therapy Pain Assessment Pain When Pain Assessed At Rest Pain Present Pain Present Pain Reported Location Back Scale Used Not rated M4 PT-IP Mobility and Gait Start: 11/05/24 09:28 Freq: NEEDED Status: Active Protocol: Document 11/05/24 11:40 MB (Rec: 11/05/24 12:35 MB [id number]) PT-Bed Mobility Assessment Rolling Type of Rolling Roll to Right Level of Assist Minimal Assistance Supine to Sit Supine to Sit Minimal Assistance,1 Person Assistance,Head of Bed Elevated,Bedrails Scooting Scooting to Edge of Bed Contact Guard Assistance PT-Transfer Assessment Sit to and From Stand Sit to and from Stand Minimal Assistance,1 Person Assistance,Use of Upper Extremities Equipment Transfer Assistive Device Gait Belt,Front Wheeled Walker Orthotic/Prosthetic Devices or Brace: No Transfers Transfer Destination Chair Transfer Technique Stepping Transfer Ability Level of Assist Minimal Assistance,1 Person Assistance,Use of Upper Extremities Comments Mobility Comments Ongoing cues x3 as pt con't to roll back and stop the OOB progression and HOB increased as high as possible and cues to use rail to scoot out to EOB, raised foot of bed rail for pt to use and PT places hand on foot of bed rail. Orthostatic assessment with BP and HR in RUE: supine 106/52, 99; standing 94/43, 104; standing 1' 96/51, 99. Pt c/o light-headedness when he gets up and has trouble staying up on feet and moves right arm with attempting BP check. Gait Assessment Gait Gait Assistance Required: Minimum Assistance Distance (Feet) 2 Able to Maintain Weight Bearing Status Yes During Gait Assistive Devices Assistive Device Gait Belt,Front Wheeled Walker Orthotic/Prosthetic Devices or Brace: No Gait Deviations General Gait Pattern Decreased Stride Length,Flexed Trunk,Step-to Gait,Wide Based Gait Factors Limiting Gait Function Factors Limiting Gait Function Decreased Activity Tolerance, Decreased Strength,Difficulty Following Directions,Limited Range of Motion,Pain,Poor Balance,Poor Safety Awareness PT-Balance Assessment Sitting Balance and Reactions Static Sitting Balance Ability Fair Dynamic Sitting Balance Ability Fair Standing Balance and Reactions Static Standing Balance Ability Fair Dynamic Standing Balance Ability Fair Device Used RW M5 PT-IP Objective Assessments Start: 11/05/24 09:28 Freq: NEEDED Status: Active Protocol: Document 11/05/24 11:40 MB (Rec: 11/05/24 12:35 MB [id number]) Orientation Orientation/Cognition Level of Alertness Confusional State Orientation Name,Age,Birthday Safety Awareness Decreased Safety Awareness Memory Description Short Term Impaired,Intermediate Impaired Gross Range of Motion Upper Extremity ROM Impairments Defer to OT Lower Extremity ROM Assessment Bilaterally Impaired Impairments Limited B ankle DF and knee extension in sitting Strength Lower Extremity Strength Assessment Bilaterally Impaired Comments Strength Comments Pt with functional weakness all joints in legs Coordination Assessment Gross Coordination Gross Coordination Impaired Assessment Coordination Comments Pt cannot follow commands for coordination testing Sensation Assessment Comments Sensation Comments Pt cannot follow commands for sensory testing M6 PT-IP Treatment Start: 11/05/24 09:28 Freq: NEEDED Status: Active Protocol: Document 11/05/24 11:40 MB (Rec: 11/05/24 12:35 MB [id number]) Physical Therapy Treatment Education Education Provided Safety M7 PT-IP Assessment and Plan Start: 11/05/24 09:28 Freq: NEEDED Status: Active Protocol: Document 11/05/24 11:40 MB (Rec: 11/05/24 12:35 MB [id number]) PT Summary Assessment and Plan Potential Rehabilitation Potential Fair Status of Condition at Evaluation Evolving Summary Impairments Pain,ROM,Strength,Balance, Coordination,Cognition,Bed Mobility,Transfers,Gait, Activity Tolerance Assessment Summary Pt is an 84 y/o male presenting with confusion. It appears he may be sedentary at baseline and he lives with and grandchildren. It appears they may have assisted him at baseline. Pt presents with decreasing BP with orthostatic testing and hypotension. Pt may be close to baseline. Recommend 24 hour assistance and PT at d/c, SNF vs home with home health and 24 hour assistance. Goals Bed Mobility Goal Standby Assistance Transfer Goal Standby Assistance,Front Wheeled Walker Gait Goal Standby Assistance,Front Wheel Walker Gait Distance 75 Other Goals Pt will ascend and descend 4 steps with B rails and no more than CGA to allow safe home entrance. Days to Meet Goals 5 Frequency of Treatment Frequency Of Treatment Once a Day Treatment Plan Physical Therapy Treatment Plan Bed Mobility Training,Transfer Training,Gait Training, Therapeutic Exercise,Balance Retraining,Post Op Education, Hot or Cold Pack,Neuromuscular Re-ed,Coordination Retraining ,Manual Therapy Recommendations To Nursing Amount of Assist Needed 1 Person Assist Discharge Recommendations PT Discharge Recommendations Home vs SNF Transportation Needs at Discharge Private Vehicle,Wheelchair/ Cabulance - PT assist x1
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
[2024-11-05] MEDS: TAMSULOSIN 0.4 MG CAPSULE 0.8 MG PO (20:49)
[2024-11-05] MEDS: ACETAMINOPHEN 325 MG TABLET 650 MG PO (20:49)
[2024-11-05] MEDS: SENNOSIDES 8.6 MG TABLET 17.2 MG PO (20:50)
[2024-11-05] MEDS: INSULIN NPH/REG 70-30 100 UNIT/ML 10ML VIAL 12 UNIT SUBCUT (20:55)
[2024-11-06] VITALS: BP 104/58; PULSE 87; RESP 24; TEMP 36.6; O2SAT 94
[2024-11-06] MEDS: SODIUM CHLORIDE 0.9% 1,000 ML 100 ML IV ×3 (02:02→21:09)
[2024-11-06 04:00] VITALS: BP 100/43; PULSE 75; RESP 12; TEMP 36.7; O2SAT 94
[2024-11-06 05:17] LABS: Add Manual Diff / Slide Review NO; Basophils Absolute Auto 100 /uL (0-100); Basophils Percent Auto 0.9 % (0-2); Eosinophils Absolute Auto 200 /uL (0-450); Eosinophils Percent Auto 1.5 % (2-4); Hemoglobin 11.6 g/dL (13.5-17.5); Lymphocytes Absolute Auto 1500 /uL (1100-4500); Lymphocytes Percent Auto 15.3 % (25-40); Mean Corpuscular Hemoglobin 27.2 PG (26-34); Mean Corpuscular Volume 82.5 fL (80-100); Monocytes Absolute Auto 1600 /uL (0-900); Monocytes Percent Auto 16.2 % (3-14); Neutrophils Absolute Auto 6600 /uL (1500-7000); Neutrophils Percent Auto 66.1 % (50-75); Platelet Count 151 X10^3/uL (150-400); Red Blood Cell Count 4.25 X10^6/uL (4.5-5.9); Red Cell Distribution Width 15.4 % (11.6-14.8)
[2024-11-06 05:26] LABS: BUN Creatinine Ratio 15.7 (6-22); Blood Urea Nitrogen 14 mg/dL (9-20); Carbon Dioxide 25 mmol/L (22-32); Chloride 105 mmol/L (98-107); Estimated Glomerular Filt Rate > 60 mL/min (>60); Glucose 113 mg/dL (80-110); HEMOLYSIS < 15 (0-50); Potassium 3.9 mmol/L (3.4-5.1); Sodium 137 mmol/L (137-145)
--- NOTE | 2024-11-06 05:40 | PC.NURSE ---
pt confused, doesn't know where he is. Pt keeps saying, leave me alone, I just want to get some sleep. Pt bed alarm not working, Pt currently has a chair alarm on.
--- NOTE | 2024-11-06 07:51 | PM.PN.1 ---
Subjective Subjective Interval history: S: He was chronic back pain. He has relatively severe cognitive impairment. I did meet with his and notes that he has been slowly getting more weak and spends most of the time in a chair or bed. The patient was noted to be hypotensive with therapy yesterday and this morning. His also notes that the patient was not been eating or drinking that much recently and could be dehydrated. He required a Luis lift yesterday, and 2 person assist today. Exam Vital Signs (past 8 hours): - 11/06/24 00:00 11/06/24 04:00 Temperature 97.8 F 98.1 F Pulse Rate 87 75 Respiratory Rate 24 12 Blood Pressure 104/58 L 100/43 L Pulse Oximetry 94 94 Oxygen Flow Rate 0 0 Oxygen Delivery Method Room Air Oxygen Flow Rate 0 Narrative Exam Narrative: NAD, alert and oriented to self. Fluent speech. Low BP noted. Lungs are clear, normal rate and effort. Heart is regular, no murmur gallop or rub. Abdomen is soft, non distended. Extremities are free of edema. Objective Labs 11/06/24 04:27 11/06/24 04:27 Labs: Laboratory Results - last 24 hr 11/06/24 04:27 WBC 10.0 RBC 4.25 L Hgb 11.6 L Hct 35.0 L MCV 82.5 MCH 27.2 MCHC 33.0 RDW 15.4 H Plt Count 151 Neut % (Auto) 66.1 Lymph % (Auto) 15.3 L [place] % (Auto) 16.2 H Eos % (Auto) 1.5 L Baso % (Auto) 0.9 Neut # (Auto) 6600 Lymph # (Auto) 1500 [place] # (Auto) 1600 H Eos # (Auto) 200 Baso # (Auto) 100 Sodium 137 Potassium 3.9 Chloride 105 Carbon Dioxide 25 BUN 14 Creatinine 0.89 Estimated GFR > 60 BUN/Creatinine Ratio 15.7 Glucose 113 H D Calcium 9.0 PFSH Medical History Mild cognitive impairment with memory loss (~11/23/18) Obesity (BMI 30-39.9) Idiopathic hypersomnia with long sleep time Obstructive sleep apnea of adult Intermittent claudication Aortic stenosis Right hip pain Cataracts, bilateral Tooth infection (~09/2017) Depression Arthritis HLD (hyperlipidemia) Hearing impaired Numbness and tingling of both feet A-fib Diabetes Surgical History History of colonoscopy History of vasectomy Social History marital status: details: rl Lee, lives in [place] household members: spouse and children housing: house Smoking Status: Never smoker alcohol intake: never substance use type: does not use Assessment & Plan Assessment & Plan narrative: 1. Hypotension and volume depletion, present on admission and active. -trial of IVF. 2. Generalized weakness, present on admission and active. - PT evaluation, fall risk with current weakness while anticoagulated 2. Dementia, present on admission and active. - supportive care 3. DM 2, present on admission and active. - NPH insulin, recently decreased 4. Atrial fibrilation, present on admission and stable. - Pradaxa - no need for rate control 5. SAURAV, present on admission and stable. - CPAP 6. BPH, present on admission and stable. - Flomax Plan: -trial of IV fluids to see if this improves blood pressure. -hold metformin long-acting insulin as he was showing evidence of poor appetite. -PT and OT evaluations. -monitor for evidence of infection with fevers, chills, or other clinical changes. Time-Based Coding :: [TOTAL MINUTES] spent with patient and on the chart (including review of chart, obtaining history, exam, reviewing outside data, placing orders, documenting exam and treatment plan, and counseling patient) on [DATE].
[2024-11-06 08:00] VITALS: BP 103/49; PULSE 82; RESP 16; TEMP 36.3; O2SAT 93
[2024-11-06] MEDS: INSULIN NPH/REG 70-30 100 UNIT/ML 10ML VIAL 14 UNIT SUBCUT (09:40)
[2024-11-06] MEDS: DABIGATRAN 75 MG CAPSULE 150 MG PO ×2 (09:41→20:55)
--- NOTE | 2024-11-06 09:45 | OT.IP.TRT ---
Current Diagnoses Type 2 diabetes mellitus without complications (11/05/24) Obesity, unspecified (11/05/24) Unspecified dementia, unspecified severity, without behavioral disturbance, psychotic disturbance, mood disturbance, and anxiety (11/05/24) Obstructive sleep apnea (adult) (pediatric) (11/05/24) Unspecified atrial fibrillation (11/05/24) Weakness (11/05/24) Occupational Therapy Treatment Note M2 OT-IP Current Condition Start: 11/05/24 12:11 Freq: Status: Active Protocol: Document 11/05/24 12:12 CGR (Rec: 11/05/24 12:51 CGR [id number]) Occupational Therapy Current Condition Current Condition Evaluation Date 11/05/24 Treatment Diagnosis generalized weakness Diagnosis Onset Date 11/05/24 M3 OT- IP Subjective and Pain Start: 11/05/24 12:11 Freq: Status: Active Protocol: Document 11/06/24 09:37 [facility] (Rec: 11/06/24 09:45 [facility] [id number]) OT- Subjective Occupational Therapy Visit Type Type Treatment Note Visit Start Time 09:05 Visit Stop Time 09:35 Occupational Therapy Visit Comments Patient Comments Pt not wanting to get up and agreed after encouragement. OT Pain Assessment Pain When Pain Assessed During Mobility Pain Present Pain Present Pain Reported Location Back Pain Behaviors Facial Grimacing,Holding Area M4 OT- IP ADL's Start: 11/05/24 12:11 Freq: Status: Active Protocol: Document 11/06/24 09:37 [facility] (Rec: 11/06/24 09:45 [facility] [id number]) OT [id number] Comments OT Self-Feeding Comments Pt just about to eat. OT ADL-Grooming General Evaluation Grooming Ability Standby Assistance Areas Needing Assistance Retrieving/Set-up of Grooming Items Comments OT Grooming Comments Pt needing set-up assist. OT ADL-Dressing General Eval Lower Body Dressing Ability Total Assistance Areas Needing Assistance Socks OT ADL-Toileting General Evaluation Toileting Ability Total Assistance Areas Needing Assistance Manage Clothing,Perform Perineal Hygiene Comments OT Toileting Comments Scott in place and needing assist for hygiene and brief change as brief wet. OT ADL-Bathing Comments OT Bathing Comments not performed M5 OT- IP IADL's Start: 11/05/24 12:11 Freq: Status: Active Protocol: Document 11/05/24 12:12 CGR (Rec: 11/05/24 12:51 CGR [id number]) OT-Instrumental Activities of Daily Living Deficits IADL Deficits Identified Deficits Home Safety Awareness Awareness of Need for Assistance at Home Decreased Awareness Ability to Problem Solve Emergency Unable to Problem Solve Situations Medication Management Medication Management Caregiver Administers Money Management Money Management Caregiver Provides Assistance Meal Preparation Meal Preparation Caregiver Provides Assist Casino Duty Manager Casino Duty Manager Caregiver Provides Assist M6 OT- IP Functional Cognition Start: 11/05/24 12:11 Freq: Status: Active Protocol: Document 11/06/24 09:37 [facility] (Rec: 11/06/24 09:45 [facility] [id number]) Cognitive Factors Limiting Selfcare Function Cognitive Comments Cognitive Assessment Comments Pt not aware that he was in the hospital, but able to recall at the end of the session. Pt has difficulty with initiation of movements, especially for bed mobility needs. M7 OT- IP Mobility and Balance Start: 11/05/24 12:11 Freq: Status: Active Protocol: Document 11/06/24 09:37 [facility] (Rec: 11/06/24 09:45 [facility] [id number]) OT- Bed Mobility Assessment Supine to Sit Supine to Sit Assist Maximum Assistance,Total Assistance,Bedrails Scooting Scooting to Edge of Bed Moderate Assistance,Maximum Assistance,Bedrails OT-Transfer Assessment Sit to and From Stand Sit to and from Stand Minimal Assistance Transfers Transfer Ability Minimal Assistance Technique Transfer Destination Bed,Chair Transfer Technique Stand Step Pivot Devices Transfer Assistive Devices Gait Belt,Front Wheeled Walker Comments Mobility Comments Pt MAXA to roll to his side and assist to help get his trunk upright. Pt needing MOD/ MAXA to scoot forwards as pt having difficulty to coordinate his movement. HAZEL to stand and transfer to the recliner with FWW. BP Supine 103/49, sitting 94/48, 103/47 and after getting to the recliner 99/44. Pt states feeling dizzy during transitions. Hospitalist notified on low BP during rounds. OT- Balance Assessment Sitting Balance and Reactions Static Sitting Balance Ability Good Dynamic Sitting Balance Ability Fair Standing Balance and Reactions Static Standing Balance Ability Poor Dynamic Standing Balance Ability Poor M8 OT- IP Objective Assessments Start: 11/05/24 12:11 Freq: Status: Active Protocol: Document 11/05/24 12:12 CGR (Rec: 11/05/24 12:51 CGR [id number]) OT Gross Range of Motion Upper Extremity Range of Motion Assessment Within Functional Limits OT Strength Upper Extremity Strength Assessment Bilaterally Impaired Comments Strength Comments Grossly 3+/5 OT- Coordination Assessment Upper Extremity Finger to Nose Test Within Functional Limits Finger Tapping Test Within Functional Limits OT-Muscle Tone Assessment Muscle Tone WNL Yes OT Sensation Assessment Edema Edema Absent M9 OT- IP Assessment and Plan Start: 11/05/24 12:11 Freq: Status: Active Protocol: Document 11/06/24 09:37 [facility] (Rec: 11/06/24 09:45 [facility] [id number]) OT Summary Assessment and Plan Potential Rehabilitation Potential Fair Analytic Complexity at Evaluation Moderate Summary OT Impairments Strength,Balance,Functional Cognition,Functional Mobility, Grooming,Dressing,Toileting, Bathing,Toilet Transfers, Shower Transfers,Activity Tolerance Progress Towards Goals Slow Progress due to Medical Issues,Slow Progress due to Activity Tolerance,Slow Progress due to Cognition Assessment Summary Pt main barriers are , hypotensive, sit to stand and needing HAZEL for transfers. Pending caregiver training home with 24/7 asisst versus SNF. At this time OT recommending SNF. Goals Self-Feeding Goal Independent Grooming Goal Independent Dressing Goal Moderate Assistance Toileting Goal Independent Days to Meet Goals 10 Frequency of Treatment Other frequency 5x per week Treatment Plan OT Treatment Plan ADL Training,Functional Cognition Training,Functional Mobility,Patient/Family Education,Discharge Planning Discharge Recommendations OT Discharge Recommendations Home with 24/7 Assist Available,SNF Rehab Transportation Needs at Discharge Private Vehicle,Wheelchair/ Cabulance
[2024-11-06 11:34] LABS: Hemoglobin A1C% w Est Avg Glu 6.3 % (4.0-6.0)
--- NOTE | 2024-11-06 11:58 | PT.IPTN ---
Current Diagnoses Type 2 diabetes mellitus without complications (11/05/24) Obesity, unspecified (11/05/24) Unspecified dementia, unspecified severity, without behavioral disturbance, psychotic disturbance, mood disturbance, and anxiety (11/05/24) Obstructive sleep apnea (adult) (pediatric) (11/05/24) Unspecified atrial fibrillation (11/05/24) Weakness (11/05/24) Physical Therapy Treatment Note M2 PT-IP Current Condition Start: 11/05/24 09:28 Freq: NEEDED Status: Active Protocol: Document 11/05/24 11:40 MB (Rec: 11/05/24 12:35 MB [id number]) Physical Therapy Current Condition Current Condition Evaluation Date 11/05/24 Treatment Diagnosis No medical diagnosis M3 PT-IP Subjective Start: 11/05/24 09:28 Freq: NEEDED Status: Active Protocol: Document 11/06/24 11:38 KS (Rec: 11/06/24 12:44 KS [id number]) Subjective Physical Therapy Visit Type Type Treatment Note Visit Start Time 11:38 Visit Stop Time 11:58 Number of MAP AND CHART MOUNTER Visits 1 Physical Therapy Visit Comments Patient Comments present M4 PT-IP Mobility and Gait Start: 11/05/24 09:28 Freq: NEEDED Status: Active Protocol: Document 11/06/24 11:38 [place] (Rec: 11/06/24 12:44 KS [id number]) PT-Transfer Assessment Comments Mobility Comments Pt reclined in chair upon arrival, with in room. Pts unable to provide much physical assistance and reports that at times pt has been so weak that even her MATTI and grandson have not been able to help him stand up. Pt agreeable to try standing and is able to scoot to EOC CGA today. Pts BP was 86/42 once sitting upright and he c/o of lightheadedness. He was able to scoot himself back in chair CGA. Reclined pt and let RN know about BP. Left in chair w / all needs in reach. Gait Assessment Comments Gait Comments unable due to symptomatic low BP. 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 Gross Range of Motion Upper Extremity ROM Impairments Defer to OT Lower Extremity ROM Assessment Bilaterally Impaired Impairments Limited B ankle DF and knee extension in sitting Strength Lower Extremity Strength Assessment Bilaterally Impaired Comments Strength Comments Pt with functional weakness all joints in legs Coordination Assessment Gross Coordination Gross Coordination Impaired Assessment Coordination Comments Pt cannot follow commands for coordination testing Sensation Assessment Comments Sensation Comments Pt cannot follow commands for sensory testing M6 PT-IP Treatment Start: 11/05/24 09:28 Freq: NEEDED Status: Active Protocol: Document 11/06/24 11:38 [place] (Rec: 11/06/24 12:44 KS [id number]) Physical Therapy Treatment Education Education Provided Safety M7 PT-IP Assessment and Plan Start: 11/05/24 09:28 Freq: NEEDED Status: Active Protocol: Document 11/06/24 11:38 KS (Rec: 11/06/24 12:44 KS [id number]) PT Summary Assessment and Plan Potential Rehabilitation Potential Fair Summary Impairments Pain,ROM,Strength,Balance, Coordination,Cognition,Bed Mobility,Transfers,Gait, Activity Tolerance Progress Towards Goals Slow Progress due to Medical Issues Assessment Summary Unable to progress pt today due to symtomatic low BP of 86 /42 while sitting. Pt will receive more fluids and hopefully that improves BP. Will assess progress when able . Goals Bed Mobility Goal Standby Assistance Transfer Goal Standby Assistance,Front Wheeled Walker Gait Goal Standby Assistance,Front Wheel Walker Gait Distance 75 Other Goals Pt will ascend and descend 4 steps with B rails and no more than CGA to allow safe home entrance. Days to Meet Goals 5 Frequency of Treatment Frequency Of Treatment Once a Day Treatment Plan Physical Therapy Treatment Plan Bed Mobility Training,Transfer Training,Gait Training, Therapeutic Exercise,Balance Retraining,Post Op Education, Hot or Cold Pack,Neuromuscular Re-ed,Coordination Retraining ,Manual Therapy Recommendations To Nursing Amount of Assist Needed 1 Person Assist Discharge Recommendations PT Discharge Recommendations Home vs SNF Transportation Needs at Discharge Private Vehicle,Wheelchair/ Cabulance - PT assist x1
[2024-11-06 12:00] VITALS: BP 90/45; PULSE 88; RESP 16; TEMP 36.3; O2SAT 97
--- NOTE | 2024-11-06 14:30 | CM.DPNOTE ---
Addendum entered by CANDIE Antony 11/06/24 14:49: RADIO SALES ACCOUNT EXECUTIVE completed PASRR, hospitalist signature needed SL Original Note: DCP Note RADIO SALES ACCOUNT EXECUTIVE reviewed EMR. RADIO SALES ACCOUNT EXECUTIVE emailed with Annia at [facility], confirmed pt active with them. if remains OBS, just needs resumption orders. if pt switched to INPT, would need new referral. f2f/order needed. CM team to update Annia at [facility] if pt to dc to [facility]. Per PT/OT, rec SNF due to limited mobility/low BP today. Per Ita at [facility], can accept pt once medically stable/pending beltran auth. either Tue vs Th. RADIO SALES ACCOUNT EXECUTIVE faxed updated clinicals to [place]. per Aug [facility], auth still pending. RADIO SALES ACCOUNT EXECUTIVE met with pt and spouse in room, reviewed DCP options. spouse preference at this point continues to be to take pt home but reports she cannot manage him at home at this time. if not home, reports preference is to dc to [facility] for SNF pending beltran auth. RADIO SALES ACCOUNT EXECUTIVE reviewed different LTC planning options, spouse recognizes that pt just may be getting weaker in the long-term and will start to discuss with family if house can be modified vs consider moving pt into [facility]. P: dc to [facility] for SNF pending medical stability/beltran auth vs home with [facility]. cancel referrals to [facility] [place]/[facility] as needed. Will continue to follow closely for DCP coordination CANDIE Antony
[2024-11-06] MEDS: INSULIN LISPRO 100 UNIT/ML 3ML VIAL SUBCUT (16:56)
[2024-11-06 19:00] VITALS: BP 93/51; PULSE 96; RESP 18; TEMP 37.1; O2SAT 93
[2024-11-06] MEDS: TAMSULOSIN 0.4 MG CAPSULE 0.8 MG PO (20:55)
[2024-11-06] MEDS: SENNOSIDES 8.6 MG TABLET 17.2 MG PO (20:55)
--- NOTE | 2024-11-07 07:46 | PM.PN.1 ---
Subjective Subjective Interval history: S: Summary: Patient is 84 and has history of dementia and general failure to thrive. He lives with his . He was brought in for weakness and difficulty with transfers. He was volume depleted and has drops in blood pressure with physical therapy. He was given IV fluids and ongoing assessments are in place to assist with discharge planning. Hospital course: 11/05: Required a Luis lift for transfer. 11/06: Blood pressure dropped with physical therapy. Two person max assist. Exam Vital Signs (past 8 hours): Oxygen Delivery Method Room Air Oxygen Flow Rate 0 Narrative Exam Narrative: NAD, alert and oriented to person and place. Fluent speech. Lungs are clear, normal rate and effort. Heart is regular, no murmur gallop or rub. Abdomen is soft, non distended. Extremities are free of edema. Objective ECG Impression: Atrial fibrillation with rapid ventricular response Imaging Multiple studies:: Radiologist's impression: Head CT: 1. CT head without acute intracranial abnormalities or acute calvarial fractures. 2. Age-related senescent changes and sequela of chronic small vessel ischemic disease. 3. Splenoid sinus disease. Chest x-ray: Stable radiographic evaluation of the chest without acute cardiopulmonary abnormalities or focal consolidation. Labs 11/06/24 04:27 11/06/24 04:27 Labs: Laboratory Results - last 24 hr 11/06/24 04:27 Hemoglobin A1c 6.3 [facility] Medical History Mild cognitive impairment with memory loss (~11/23/18) Obesity (BMI 30-39.9) Idiopathic hypersomnia with long sleep time Obstructive sleep apnea of adult Intermittent claudication Aortic stenosis Right hip pain Cataracts, bilateral Tooth infection (~09/2017) Depression Arthritis HLD (hyperlipidemia) Hearing impaired Numbness and tingling of both feet A-fib Diabetes Surgical History History of colonoscopy History of vasectomy Social History marital status: details: rl Lee, lives in [place] household members: spouse and children housing: house Smoking Status: Never smoker alcohol intake: never substance use type: does not use Assessment & Plan Assessment & Plan narrative: 1. Hypotension and volume depletion, present on admission and active. -trial of IVF. 2. Generalized weakness, present on admission and active. - PT evaluation, fall risk with current weakness while anticoagulated 2. Dementia, present on admission and active. - supportive care 3. DM 2, present on admission and active. - NPH insulin, recently decreased 4. Atrial fibrilation, present on admission and stable. - Pradaxa - no need for rate control 5. SAURAV, present on admission and stable. - CPAP 6. BPH, present on admission and stable. - Flomax Plan: -trial of IV fluids to see if this improves blood pressure. -hold metformin long-acting insulin as he was showing evidence of poor appetite. -PT and OT evaluations. -monitor for evidence of infection with fevers, chills, or other clinical changes. Time-Based Coding :: [TOTAL MINUTES] spent with patient and on the chart (including review of chart, obtaining history, exam, reviewing outside data, placing orders, documenting exam and treatment plan, and counseling patient) on [DATE].
[2024-11-07 08:00] VITALS: BP 132/71; PULSE 89; RESP 18; TEMP 36.3; O2SAT 92
[2024-11-07] MEDS: SODIUM CHLORIDE 0.9% 1,000 ML 100 ML IV (08:00)
[2024-11-07] MEDS: DABIGATRAN 75 MG CAPSULE 150 MG PO (08:14)
[2024-11-07] MEDS: ACETAMINOPHEN 325 MG TABLET 650 MG PO (08:14)
[2024-11-07] MEDS: INSULIN NPH/REG 70-30 100 UNIT/ML 10ML VIAL 14 UNIT SUBCUT (08:16)
--- NOTE | 2024-11-07 10:36 | PC.NURSE ---
Pt stated he needed to use the bathroom to have a bm. Assisted Pt to sit on the side of the bed and then up to the bsc. to void. Pt was able to transfer to bsc with 2/p/a with gait belt and fww. Pt then was unable to have a bm on the bsc and stated he would like to walk to the br. Pt was able to walk to the br with sba. Pt was steady on his feet and denied pain or dizziness. BP checked when up to bs and was 98/47. Pt able to transfer back to chair and is now resting with Chair alarm on for safety.
[2024-11-07] MEDS: INSULIN LISPRO 100 UNIT/ML 3ML VIAL SUBCUT (12:30)
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
--- NOTE | 2024-11-07 14:21 | CM.DPNOTE ---
DCP note ORTHODONTIC TREATMENT COORDINATOR reviewed EMR per RN, pt able to ambulate to bathroom with standby assist. dc phan, need to urinate indep. Per provider, once able to urinate indep safe to dc home with HH and family. ORTHODONTIC TREATMENT COORDINATOR met with pt and spouse in room. pt and spouse confirm preference to dc home with [facility] PT/bath aide. spouse reports she feels comfortable and able to care for him at home. Denies other CM/DCP quesitons or concerns at this time. ORTHODONTIC TREATMENT COORDINATOR completed f2f and HH order. ORTHODONTIC TREATMENT COORDINATOR canceled referral with Ita at [facility]. ORTHODONTIC TREATMENT COORDINATOR updated [facility] Jean-Claude. ORTHODONTIC TREATMENT COORDINATOR lvm with Annia at [facility] and emailed her dc summary draft, HH order, and f2f. placed f2f in scanning folder. P: dc home with spouse support and [facility] to follow. CM team will continue to follow as needed CANDIE Antony
--- NOTE | 2024-11-07 15:24 | OT.IP.TRT ---
Current Diagnoses Type 2 diabetes mellitus without complications (11/05/24) Obesity, unspecified (11/05/24) Unspecified dementia, unspecified severity, without behavioral disturbance, psychotic disturbance, mood disturbance, and anxiety (11/05/24) Obstructive sleep apnea (adult) (pediatric) (11/05/24) Unspecified atrial fibrillation (11/05/24) Weakness (11/05/24) Occupational Therapy Treatment Note M2 OT-IP Current Condition Start: 11/05/24 12:11 Freq: Status: Active Protocol: Document 11/05/24 12:12 CGR (Rec: 11/05/24 12:51 CGR [id number]) Occupational Therapy Current Condition Current Condition Evaluation Date 11/05/24 Treatment Diagnosis generalized weakness Diagnosis Onset Date 11/05/24 M3 OT- IP Subjective and Pain Start: 11/05/24 12:11 Freq: Status: Active Protocol: Document 11/07/24 15:00 CCC (Rec: 11/07/24 15:44 [facility] [id number]) OT- Subjective Occupational Therapy Visit Type Type Treatment Note Visit Start Time 15:00 Visit Stop Time 15:24 Occupational Therapy Visit Comments Patient Comments Pt agreed to do bed mobility with his after encouragement. Patient/Caregiver Goals TO go home. OT Pain Assessment Pain When Pain Assessed At Rest Pain Present Pain Present Denied Pain M4 OT- IP ADL's Start: 11/05/24 12:11 Freq: Status: Active Protocol: Document 11/07/24 15:00 CCC (Rec: 11/07/24 15:44 [facility] [id number]) OT ADL-Dressing General Eval Lower Body Dressing Ability Total Assistance Areas Needing Assistance Socks Comments OT Dressing Comments Pt wanting lotion on his feet and noted scab on lateral side of right foot. Per pt's has been there for awhile and not been healing. To notify pt 's nurse. OT ADL-Toileting Comments OT Toileting Comments Pt has not been able to urinate yet. OT ADL-Bathing Comments OT Bathing Comments Pt will benefit from home health aid. M5 OT- IP IADL's Start: 11/05/24 12:11 Freq: Status: Active Protocol: Document 11/05/24 12:12 CGR (Rec: 11/05/24 12:51 CGR [id number]) OT-Instrumental Activities of Daily Living Deficits IADL Deficits Identified Deficits Home Safety Awareness Awareness of Need for Assistance at Home Decreased Awareness Ability to Problem Solve Emergency Unable to Problem Solve Situations Medication Management Medication Management Caregiver Administers Money Management Money Management Caregiver Provides Assistance Meal Preparation Meal Preparation Caregiver Provides Assist Computer Support Specialist Computer Support Specialist Caregiver Provides Assist M6 OT- IP Functional Cognition Start: 11/05/24 12:11 Freq: Status: Active Protocol: Document 11/07/24 15:00 [facility] (Rec: 11/07/24 15:44 [facility] [id number]) Cognitive Factors Limiting Selfcare Function Cognitive Ability Level of Alertness Alert,Confusional State Cognitive Comments Cognitive Assessment Comments Pt needing encouragement to participate. Pt's states at home , pt does not listen to her as well to get up and move. She said pt does better with physical therapy. Suggested to have home health PT have set exercises/ activities so pt can marques off and that his can remind him what the PT is requesting him to do. M7 OT- IP Mobility and Balance Start: 11/05/24 12:11 Freq: Status: Active Protocol: Document 11/07/24 15:00 [facility] (Rec: 11/07/24 15:44 [facility] [id number]) OT- Bed Mobility Assessment Supine to Sit Supine to Sit Assist Standby Assistance,Bedrails Scooting Scooting to Edge of Bed Standby Assistance OT-Transfer Assessment Sit to and From Stand Sit to and from Stand Contact Guard Assistance Transfers Transfer Ability Contact Guard Assistance Technique Transfer Destination Bed,Chair Transfer Technique Stand Step Pivot Devices Transfer Assistive Devices Gait Belt,Front Wheeled Walker Comments Mobility Comments Pt heavy use of the bed rail to get into and out of the bed . CGA to HAZEL to stand and transfer and pt's able to assist him. Educated pt's not to use her left hand to assist as just having carpal tunnel sx recently. OT- Balance Assessment Sitting Balance and Reactions Static Sitting Balance Ability Good Dynamic Sitting Balance Ability Fair Standing Balance and Reactions Static Standing Balance Ability Fair Dynamic Standing Balance Ability Fair M8 OT- IP Objective Assessments Start: 11/05/24 12:11 Freq: Status: Active Protocol: Document 11/05/24 12:12 CGR (Rec: 11/05/24 12:51 CGR [id number]) OT Gross Range of Motion Upper Extremity Range of Motion Assessment Within Functional Limits OT Strength Upper Extremity Strength Assessment Bilaterally Impaired Comments Strength Comments Grossly 3+/5 OT- Coordination Assessment Upper Extremity Finger to Nose Test Within Functional Limits Finger Tapping Test Within Functional Limits OT-Muscle Tone Assessment Muscle Tone WNL Yes OT Sensation Assessment Edema Edema Absent M9 OT- IP Assessment and Plan Start: 11/05/24 12:11 Freq: Status: Active Protocol: Document 11/07/24 15:00 [facility] (Rec: 11/07/24 15:44 [facility] [id number]) OT Summary Assessment and Plan Potential Rehabilitation Potential Good Analytic Complexity at Evaluation Moderate Summary OT Impairments Strength,Balance,Functional Cognition,Functional Mobility, Grooming,Dressing,Toileting, Bathing,Toilet Transfers, Shower Transfers,Activity Tolerance Progress Towards Goals Progressing Toward Goals Assessment Summary Pt doing better with mobility today and pt's able to assist him safely. Pt however still a bit unsteady on his feet. Pt to go home with 24/7 assist and home health when medically stable. Goals Self-Feeding Goal Independent Grooming Goal Independent Dressing Goal Moderate Assistance Toileting Goal Independent Toilet Transfer Goal Standby Assistance Shower Transfer Goal Contact Guard Assistance Days to Meet Goals 5 Frequency of Treatment Other frequency 5x per week Treatment Plan OT Treatment Plan ADL Training,Functional Cognition Training,Functional Mobility,Patient/Family Education,Discharge Planning Discharge Recommendations OT Discharge Recommendations Home with 24/7 Assist Available Transportation Needs at Discharge Private Vehicle
== END 2024-11-07 16:30 | disposition home health service (06) ==
LOC: ED 11-05 05:25 → AC 11-05 06:23
PROVIDERS: Admitting Provider Internal Medicine; Emergency Provider Emergency Medicine; PCP Physician Assistant; Referring Provider Emergency Medicine; Visit Provider Internal Medicine
DX: R53.1 Weakness (principal); F03.90 Unspecified dementia, unspecified severity, without behavioral disturbance, psychotic disturbance, mood disturbance, and anxiety; G47.33 Obstructive sleep apnea (adult) (pediatric); E11.9 Type 2 diabetes mellitus without complications; I48.91 Unspecified atrial fibrillation; E66.9 Obesity, unspecified; Z79.4 Long term (current) use of insulin; Z79.84 Long term (current) use of oral hypoglycemic drugs; N40.0 Benign prostatic hyperplasia without lower urinary tract symptoms
CPT/HCPCS: 36415; 51798; 70450; 71045; 80048; 80053; 81001; 82550; 82962; 83036; 83690; 83735; 83880; 84484; 85025; 85610; 85730; 93005; 93010; 97162; 97166; 97530; 97535; 99285; G0378; J1815

== ENCOUNTER 2024-11-08 09:35 | Inpatient (IN) | payer OTHER, SELFPAY ==
[2024-11-05 06:38] VITALS: BMI 32.8
[2024-11-08] VITALS (19 sets, daily range): BP systolic 94–117; BP diastolic 51–70; PULSE 77–101; RESP 14–23; TEMP 36.3–37.1; O2SAT 87–99; BMI 32.2
--- NOTE | 2024-11-08 09:49 | EKG_ITS ---
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
--- NOTE | 2024-11-08 09:49 | DI.RAD.S_ITS ---
PROCEDURE: XR CHEST 1V INDICATIONS: Shortness of breath TECHNIQUE: One view of the chest was acquired. COMPARISON: [facility], CR, XR CHEST 1V, 11/04/2024, 21:03. FINDINGS: Surgical changes and devices: None. Lungs and pleura: There is pulmonary vascular congestion. Ill-defined airspace opacity in right infrahilar region is seen. No pleural effusions or pneumothorax. Mediastinum: Mediastinal contours appear normal. Heart size is normal. Bones and chest wall: No suspicious bony lesions. Overlying soft tissues appear unremarkable. IMPRESSION: Finding is concerning for right lower lobe infiltrate. Clinical correlation and follow-up is recommended. No pleural effusion or pneumothorax. Dictated by: Marco Antonio Max M.D. on 11/08/2024 at 10:14 Approved by: Marco Antonio Max M.D. on 11/08/2024 at 10:14
--- NOTE | 2024-11-08 10:00 | ED_ITS ---
HPI - Weakness General Chief complaint: Shortness of Breath/Dyspnea Stated complaint: Controlled Fall Time Seen by Provider: 11/08/24 09:49 Source: patient and EMS Mode of arrival: EMS History of Present Illness HPI Narrative: This is an 84-year-old male brought in by ambulance after a ground level fall where he reportedly did not hit his head. Also reportedly has generalized weakness. Nursing staff noted a room air saturation of 86% on arrival. The patient himself is a poor historian. Review of records shows that he was discharged from the hospital yesterday after being admitted with generalized weakness. Patient has no complaints at present. Past medical history includes dementia type 2 diabetes atrial fibrillation anticoagulated on Pradaxa Patient's provides additional history. Says that he has appeared to be doing well when he got home and then in the middle of the night was weak when he had to get up. He did not have a cough she does not have any complaints of pain. This morning again he was weak and unable to get up. She called for a lift assist, patient was subsequently found on the floor in her bedroom while she was out letting them in. Mental status is at his baseline Related Data Home Medications Medication Instructions Recorded Confirmed cholecalciferol (vitamin D3) 50 4,000 unit PO BID 11/15/18 11/08/24 mcg (2,000 unit) capsule metformin 1,000 mg tablet 1,000 mg PO BEDTIME 11/15/18 11/08/24 metformin 1,000 mg tablet 1,500 mg PO QAM 11/15/18 11/08/24 Respirioncs Dreamstation 2 CPAP #1 ea 04/22/22 11/08/24 coenzyme Q10 75 mg capsule 75 mg PO DAILY 04/22/22 11/08/24 tamsulosin 0.4 mg capsule 0.8 mg PO BEDTIME 10/04/23 11/08/24 dabigatran etexilate 150 mg 150 mg PO BID 07/17/24 11/08/24 capsule (Pradaxa) Previous Rx's Medication Instructions Recorded insulin human U-100 NPH-regulr 12 unit (0.12 mL) SUBCUT BEDTIME 07/21/24 70-30 mix 100 unit/mL subcutaneous #10 mL susp (Humulin 70/30 U-100 Insulin) insulin human U-100 NPH-regulr 14 unit (0.14 mL) SUBCUT DAILY #10 12/07/24 70-30 mix 100 unit/mL subcutaneous mL susp (Humulin 70/30 U-100 Insulin) Allergies Allergy/AdvReac Type Severity Reaction Status Date / Time No Known Drug Allergies Allergy Verified 11/04/24 20:52 Review of Systems Cardiovascular Comments: Irregularly irregular Musculoskeletal Comments: Has some older-appearing abrasions on his right knee, extremities are otherwise with good range of motion and out focal tenderness or deformity Neurologic Comments: No gross bony deficits, patient not oriented to year or month. Patient History Medical History Mild cognitive impairment with memory loss (~11/23/18) Obesity (BMI 30-39.9) Idiopathic hypersomnia with long sleep time Obstructive sleep apnea of adult Intermittent claudication Aortic stenosis Right hip pain Cataracts, bilateral Tooth infection (~09/2017) Depression Arthritis HLD (hyperlipidemia) Hearing impaired Numbness and tingling of both feet A-fib Diabetes Surgical History History of colonoscopy History of vasectomy Social History marital status: details: to Rosa, lives in [place] household members: spouse housing: house Smoking Status: Never smoker alcohol intake: never substance use type: does not use Smoking Status: Never smoker Exam Initial Vital Signs Initial Vital Signs: Vital Signs Pulse Rate 94 H 11/08/24 09:38 Pulse Oximetry 91 11/08/24 09:38 Oxygen Delivery Method Nasal Cannula 11/08/24 09:38 Oxygen Flow Rate 2 11/08/24 09:38 Const General: cooperative and No acute distress [facility] Head: normocephalic and atraumatic Face and sinus: face symmetric Mouth: moist mucous membranes Eyes Pupils: PERRL EOM: EOM intact bilaterally Neck Neck: supple Resp Effort & Inspection: normal respiratory effort and able to speak in complete sentences Auscultation: clear to auscultation bilaterally Cardio Heart Sounds: no murmurs GI Inspection: normal to inspection Palpation: soft Auscultation: normal bowel sounds Neuro General: patient alert and moves all extremities Course Orders Ordered: ED Orders 11/08/24 11:44 Blood Culture Stat 11/08/24 11:50 Troponin I Stat 11/08/24 12:15 CT angio chest PE protocol Stat 11/08/24 12:33 Consult to Occupational Therapy Evaluate & Treat Consult to Physical Therapy Evaluate & Treat Acetaminophen (Acetaminophen 325 Mg Tablet) 650 mg PO Q6H PRN PRN Reason: Fever/Mild Pain (1-3) Doxycycline Hyclate (Doxycycline Hyclate 100 Mg Tablet) 100 mg PO BID [facility] Ceftriaxone Sodium 1,000 mg/ (Sodium Chloride) 100 mls @ 200 mls/hr IV Q24H [facility] Naloxone HCl (Naloxone 0.4 Mg/Ml Vial) 0.2 mg IV Q2MIN PRN PRN Reason: Opiate Reversal Discontinued Medications Aspirin (Aspirin 81 Mg Chew Tab) 324 mg PO NOW ONE Stop: 11/08/24 15:15 Last Admin: 11/08/24 18:53 Dose: Not Given Documented By: DENISHA Aspirin (Aspirin Ec 81 Mg Tablet) 81 mg PO DAILY [facility] Clopidogrel Bisulfate (Clopidogrel 75 Mg Tablet) 300 mg PO NOW ONE Stop: 11/08/24 15:15 Last Admin: 11/08/24 18:53 Dose: Not Given Documented By: DENISHA Clopidogrel Bisulfate (Clopidogrel 75 Mg Tablet) 75 mg PO DAILY [facility] Ceftriaxone Sodium 2,000 mg/ (Sodium Chloride) 100 mls @ 200 mls/hr IV NOW ONE Stop: 11/08/24 11:26 Last Infusion: 11/08/24 12:20 Dose: Infused Documented By: Admin: 11/08/24 11:51 Dose: 200 mls/hr Documented By: BERTA Azithromycin 500 mg/ Dextrose 250 mls @ 250 mls/hr IV NOW ONE Stop: 11/08/24 11:26 Last Infusion: 11/08/24 13:53 Dose: Infused Documented By: Admin: 11/08/24 12:45 Dose: 250 mls/hr Documented By: BERTA Clindamycin Phosphate (Cleocin) 600 mg in 50 mls @ 50 mls/hr IV NOW ONE Stop: 11/08/24 14:42 Last Infusion: 11/08/24 15:08 Dose: Infused Documented By: Admin: 11/08/24 14:13 Dose: 50 mls/hr Documented By: BERTA Vital Signs Vital signs: Vital Signs - 8 hr 11/08/24 11:00 11/08/24 11:00 11/08/24 11:30 Pulse Rate 85 85 Respiratory Rate 21 19 Blood Pressure 117/55 L Pulse Oximetry 98 98 Oxygen Delivery Method Nasal Cannula Nasal Cannula Oxygen Flow Rate 2 2 11/08/24 11:30 11/08/24 12:00 11/08/24 12:00 Pulse Rate 83 Respiratory Rate 21 Blood Pressure 109/56 L 103/54 L Pulse Oximetry 99 Oxygen Delivery Method Nasal Cannula Oxygen Flow Rate 2 11/08/24 12:41 11/08/24 12:42 11/08/24 12:42 Pulse Rate 84 86 Respiratory Rate 21 Blood Pressure 101/59 L Pulse Oximetry 94 95 Oxygen Delivery Method Oxygen Flow Rate 11/08/24 13:00 11/08/24 13:00 11/08/24 13:30 Pulse Rate 86 Respiratory Rate 21 Blood Pressure 108/58 L 112/53 L Pulse Oximetry 98 Oxygen Delivery Method Oxygen Flow Rate 11/08/24 13:30 11/08/24 14:00 11/08/24 14:00 Pulse Rate 77 81 Respiratory Rate 18 18 Blood Pressure 99/54 L Pulse Oximetry 99 99 Oxygen Delivery Method Nasal Cannula Oxygen Flow Rate 2 11/08/24 14:30 11/08/24 14:30 11/08/24 15:00 Pulse Rate 79 Respiratory Rate 19 Blood Pressure 96/51 L 94/54 L Pulse Oximetry 99 Oxygen Delivery Method Nasal Cannula Oxygen Flow Rate 2 11/08/24 15:00 Pulse Rate 86 Respiratory Rate 23 Blood Pressure Pulse Oximetry 94 Oxygen Delivery Method Room Air Oxygen Flow Rate MDM - Weakness Lab Data Lab results narrative: CBC with diff is unremarkable, CMP is unremarkable D-dimer is elevated, troponins are stably elevated, viral panel is negative 11/08/24 09:50 11/08/24 09:50 Labs: Lab Results 11/08/24 11/08/24 Range/Units 09:50 11:50 WBC 9.0 (4.5-11.0) X10^3/uL RBC 4.39 L (4.5-5.9) X10^6/uL Hgb 11.9 L (13.5-17.5) g/dL Hct 36.5 L (41-53) % MCV 83.1 (80-100) fL MCH 27.0 (26-34) PG MCHC 32.5 (30-36) % RDW 15.1 H (11.6-14.8) % Plt Count 163 (150-400) X10^3/uL Neut % (Auto) 75.7 H (50-75) % Lymph % (Auto) 10.4 L (25-40) % [place] % (Auto) 11.1 (3-14) % Eos % (Auto) 2.4 (2-4) % Baso % (Auto) 0.4 (0-2) % Neut # (Auto) 6800 (9833-7251) /uL Lymph # (Auto) 900 L (9767-0019) /uL [place] # (Auto) 1000 H (0-900) /uL Eos # (Auto) 200 (0-450) /uL Baso # (Auto) 0 (0-100) /uL PT 15.1 H (9.4-12.5) SECONDS INR 1.3 (0.9-1.3) D-Dimer 1610 H (<500) ng/ml Sodium 140 (137-145) mmol/L Potassium 3.9 (3.4-5.1) mmol/L Chloride 105 (98-107) mmol/L Carbon Dioxide 24 (22-32) mmol/L BUN 14 (9-20) mg/dL Creatinine 0.96 (0.66-1.25) mg/dL Estimated GFR > 60 (>60) mL/min BUN/Creatinine Ratio 14.6 (6-22) Glucose 201 H (80-110) mg/dL Lactate 1.2 (0.7-2.1) mmol/L Calcium 9.0 (8.4-10.2) mg/dL Total Bilirubin 1.0 (0.2-1.3) mg/dL AST 33 (17-59) IU/L ALT 26 (<50) IU/L Alkaline Phosphatase 117 (38-126) U/L Troponin I 0.043 H 0.042 H (0.01-0.034) ng/mL NT-Pro-B Natriuret Pep 2310 H (<450) pg/mL Total Protein 7.7 (6.3-8.2) g/dL Albumin 3.9 (3.5-5.0) g/dL Globulin 3.8 (1.7-4.1) g/dL Albumin/Globulin Ratio 1.0 (1.0-2.8) SARS-CoV-2 (PCR) Negative (Negative) Influenza A (RT-PCR) Flu a negative (NEGATIVE) Influenza B (RT-PCR) Flu b negative (NEGATIVE) RSV (PCR) Negative (Negative) Point of Care Testing Glucose POC 181 Imaging Data Chest x-ray: My Impression: Independent review of chest x-ray, no infiltrate no heart failure Radiologist Impression: No acute abnormality per Radiology CT scan - chest: My Impression: Independent review of CT chest, no pulmonary embolism, bilateral pleural effusions airspace disease on the right consistent with pneumonia Radiologist Impression: [address] [address] [address] Scan Report Signed Patient: Luis Miguel Hernandez MR#: [id number] : 1940 Acct:[id number] Age/Sex: 84 / M Date of Service: 11/08/24 Loc: ED Accession Number: [id number] Procedure: CT angio chest PE protocol Ordering Provider: Matteo Hernandez MD PROCEDURE: CT ANGIO CHEST PE PROTOCOL INDICATIONS: PE suspected TECHNIQUE: After the administration of intravenous contrast, 2 mm thick sections acquired from the pulmonary apices to the posterior costophrenic angles. 3-dimensional maximum intensity projection (MIP) coronal and sagittal reformats were then acquired through the thorax. For radiation dose reduction, the following was used: automated exposure control, adjustment of mA and/or kV according to patient size. COMPARISON: [facility], CR, XR CHEST 1V, 11/08/2024, 9:45. [facility], CT, CT ANGIO CHEST PE PROTOCOL, 10/02/2023, 22:02. FINDINGS: Image quality: Diagnostic. Pulmonary arteries: Pulmonary arteries are normal in size, and demonstrate no intraluminal filling defects to suggest central pulmonary embolism. Lower Neck: No enlarged lymph nodes. Thyroid: The right thyroid is enlarged and with heterogeneous enhancement with coarse calcifications. This measures 5.4 centimeter. Axillae: No enlarged lymph nodes. Chest Wall: Unremarkable. Bones: Unremarkable. Lungs and Pleura: Small, loculated pleural effusions, increased from prior. There is smooth interstitial thickening with peribronchial thickening and mild central ground-glass opacities. Superimposed dependent airways thickening with segmental bronchi debris. Heart: Heart size is enlarged, with moderate coronary calcifications. No pericardial effusion. Thoracic Vessels: No aortic aneurysm. Mediastinum and [place]: No enlarged lymph nodes. Esophagus: No wall thickening. Small hiatal hernia. Upper Abdomen: Adrenal hypertrophy. IMPRESSION: No pulmonary embolus. Suspected aspiration, with dependent bronchial thickening and segmental bronchi debris. Superimposed moderate pulmonary edema. Small, loculated pleural effusions. Enlarged right thyroid lobe, likely due to multiple nodules. Recommend outpatient thyroid ultrasound per consensus guidelines. Dictated by: Cornelius Simon M.D. on 11/08/2024 at 13:05 Approved by: Cornelius Simon M.D. on 11/08/2024 at 13:08 ECG Data Interpretation: ECG shows normal sinus rhythm no acute ST segment change normal rate MDM Narrative Medical decision making narrative: 84-year-old male with dementia who was actually just discharged from the hospital yesterday presenting today with generalized weakness. Today he has a new oxygen requirement. It appears that he has an aspiration pneumonia, CT exclude the possibility of pulmonary embolism. He was started on IV antibiotics with ceftriaxone azithromycin and clindamycin he is admitted to the hospitalist service. Discharge Plan Departure Patient Disposition: Admitted As Inpatient Clinical Impression: Acute hypoxic respiratory failure Pneumonia Qualifiers: Pneumonia type: aspiration pneumonia Aspiration pneumonia type: unspecified L aterality: bilateral Lung location: unspecified part of lung Qualified Code(s): J69.0 - Pneumonitis due to inhalation of food and vomit Admit Date/Time: 11/08/24 15:12 Admit Provider: Dino Jean
[2024-11-08 10:15] LABS: Add Manual Diff / Slide Review NO; Basophils Absolute Auto 0 /uL (0-100); Basophils Percent Auto 0.4 % (0-2); Eosinophils Absolute Auto 200 /uL (0-450); Eosinophils Percent Auto 2.4 % (2-4); Hematocrit 36.5 % (41-53); Hemoglobin 11.9 g/dL (13.5-17.5); Lymphocytes Absolute Auto 900 /uL (1100-4500); Lymphocytes Percent Auto 10.4 % (25-40); Mean Corpuscular HGB Conc 32.5 % (30-36); Mean Corpuscular Volume 83.1 fL (80-100); Monocytes Absolute Auto 1000 /uL (0-900); Monocytes Percent Auto 11.1 % (3-14); Neutrophils Absolute Auto 6800 /uL (1500-7000); Neutrophils Percent Auto 75.7 % (50-75); Platelet Count 163 X10^3/uL (150-400); Red Blood Cell Count 4.39 X10^6/uL (4.5-5.9); Red Cell Distribution Width 15.1 % (11.6-14.8)
[2024-11-08 10:23] LABS: INR 1.3 (0.9-1.3); Prothrombin Time 15.1 SECONDS (9.4-12.5)
[2024-11-08 10:29] LABS: Alanine Aminotransferase 26 IU/L (<50); Albumin 3.9 g/dL (3.5-5.0); Alkaline Phosphatase 117 U/L (38-126); Aspartate Aminotransferase 33 IU/L (17-59); BUN Creatinine Ratio 14.6 (6-22); Blood Urea Nitrogen 14 mg/dL (9-20); Carbon Dioxide 24 mmol/L (22-32); Chloride 105 mmol/L (98-107); Estimated Glomerular Filt Rate > 60 mL/min (>60); Globulin 3.8 g/dL (1.7-4.1); Glucose 201 mg/dL (80-110); HEMOLYSIS < 15 (0-50); Potassium 3.9 mmol/L (3.4-5.1); Sodium 140 mmol/L (137-145); Total Protein 7.7 g/dL (6.3-8.2)
[2024-11-08 10:30] LABS: Lactate (Lactic Acid) 1.2 mmol/L (0.7-2.1)
[2024-11-08 10:40] LABS: NT-proBNP (BNP-Adult 18+) 2310 pg/mL (<450); Troponin I 0.043 ng/mL (0.01-0.034)
[2024-11-08 10:51] LABS: Influenza A - CEPHEID Flu A NEGATIVE (NEGATIVE); Influenza B - CEPHEID Flu B NEGATIVE (NEGATIVE); Respiratory Syncytial Virus Negative (Negative)
[2024-11-08 10:55] LABS: COVID-19 CEPHEID 4-PLEX PCR Negative (Negative)
[2024-11-08 11:40] LABS: D Dimer 1610 ng/ml (<500)
[2024-11-08] MEDS: cefTRIAXone 2,000 MG in SODIUM CHLORIDE 0.9% 100 ML 200 MG IV (11:51)
--- NOTE | 2024-11-08 12:15 | DI.CT.S_ITS ---
PROCEDURE: CT ANGIO CHEST PE PROTOCOL INDICATIONS: PE suspected TECHNIQUE: After the administration of intravenous contrast, 2 mm thick sections acquired from the pulmonary apices to the posterior costophrenic angles. 3-dimensional maximum intensity projection (MIP) coronal and sagittal reformats were then acquired through the thorax. For radiation dose reduction, the following was used: automated exposure control, adjustment of mA and/or kV according to patient size. COMPARISON: [facility], CR, XR CHEST 1V, 11/08/2024, 9:45. [facility], CT, CT ANGIO CHEST PE PROTOCOL, 10/02/2023, 22:02. FINDINGS: Image quality: Diagnostic. Pulmonary arteries: Pulmonary arteries are normal in size, and demonstrate no intraluminal filling defects to suggest central pulmonary embolism. Lower Neck: No enlarged lymph nodes. Thyroid: The right thyroid is enlarged and with heterogeneous enhancement with coarse calcifications. This measures 5.4 centimeter. Axillae: No enlarged lymph nodes. Chest Wall: Unremarkable. Bones: Unremarkable. Lungs and Pleura: Small, loculated pleural effusions, increased from prior. There is smooth interstitial thickening with peribronchial thickening and mild central ground-glass opacities. Superimposed dependent airways thickening with segmental bronchi debris. Heart: Heart size is enlarged, with moderate coronary calcifications. No pericardial effusion. Thoracic Vessels: No aortic aneurysm. Mediastinum and [place]: No enlarged lymph nodes. Esophagus: No wall thickening. Small hiatal hernia. Upper Abdomen: Adrenal hypertrophy. IMPRESSION: No pulmonary embolus. Suspected aspiration, with dependent bronchial thickening and segmental bronchi debris. Superimposed moderate pulmonary edema. Small, loculated pleural effusions. Enlarged right thyroid lobe, likely due to multiple nodules. Recommend outpatient thyroid ultrasound per consensus guidelines. Dictated by: Cornelius Simon M.D. on 11/08/2024 at 13:05 Approved by: Cornelius Simon M.D. on 11/08/2024 at 13:08
[2024-11-08 12:33] LABS: Troponin I 0.042 ng/mL (0.01-0.034)
[2024-11-08] MEDS: AZITHROMYCIN 500 MG in DEXTROSE 5% IN WATER 250 ML 250 MG IV (12:45)
[2024-11-08] MEDS: CLINDAMYCIN 600 MG/50 ML PIGGYBACK 50 MG IV (14:13)
--- NOTE | 2024-11-08 14:18 | CM.DANOTE ---
ED FINISHED CLOTH CHECKER DCP Assessment Note: Pt is a 84yo male, resident of [place], is seen in the ED for weakness. Pt lives in a house with his . Pt's Primary Care Provider is Zandra Chou PA-C and insurance is [employer] [facility] [employer]. Reviewed chart and discussed with multidisciplinary team pt's medical status and initial discharge needs. Pt had a recent admission after a GLF, was just discharged from acute care on 11/07/24 with a home health plan ([facility]). ED FINISHED CLOTH CHECKER met w/patient at bedside; introduced self and role. Present in the room is pt's , Rosa. Patient was found in bed, somnolent but cooperative with assessment. Pt confirmed living situation and rapid decline in mobility since returning home yesterday. Pt states she was told he will most likely be admitted and she has a preference for SNF at discharge to regain mobility strength; preferences for [facility] and [facility]. Pt agreeable to working with therapies and following their recommendations. ED FINISHED CLOTH CHECKER calls Admissions ([facility]) at [facility] and it is reported there are beds available, would need [place] [facility] authorization again. Plan: Medical work up continuing, anticipating admission to acute care floor for suspected pneumonia. CM team will follow closely for coordination of discharge plans. Zoya Carpenter [facility] Discharge Planning/Care Management Discharge Planning Assessment Assigned Sales Representative [employer] CANDIE Kenny DPOA/Assigned Designee Name Rosa, Spouse Contact Information [phone] Advance Directives? Yes Advance Directives on File No History Provided By Patient,Significant Other, Medical Record Has Patient been admitted in last 30 Yes days? Prior Living Arrangements House Household Members spouse Type of transporation used prior to Relies on Others admit Independent with ADL's No Is patient alert and oriented? No Needs Assistance With Bathing,Grooming,Meal Prep, Toileting,Managing Medications ,Home Chores / Shopping Caregiver for Another No Community Services used prior to Home Health Aid,Home Health admission: Nurse DME Already Rented / Owned Bath Bench,FWW / Walker,Cane Comment sock grabber, grab bars near toilet Patient/Family Preference [facility] Facility Comment Preferences for [facility] (was recently accepted at prior admission) and [facility]. Barriers to Discharge No Discharge Plan [facility] Facility Referrals Initiated [facility] Additional Comment Inquired with [facility] about availability due to recent admission, pending response. If patient plan is SNF: Has PASSR been Yes completed? Review Status In Process Please Provide Date Initial DC 11/08/24 Assessment Was Performed Next Review Type Continued Stay Review
--- NOTE | 2024-11-08 16:24 | PM.HP.1 ---
History of Present Illness History of Present Illness Date Patient Seen: 11/08/24 Time Patient Seen: 16:24 Chief complaint: Controlled Fall Narrative: 84 y/o with PMH of dementia,A-fib on pradaxa, HTN, DM, SAURAV, LS fusion, BPH, hospitalization in [place] in July 2024 for enterococcal UTI, brought by with severe generalized weakness was actually discharged from the hospital on 11/07 where he was admitted with borderline hypotension and weakness, improved with fluids and discharged home. He was again unable to ambulate this morning and was brought back into the ER. CTA was performed as he was noted to have O2 of 87% in the ER. CTA showed dependent bronchial thickening and debris consistent with aspiration, pulmonary edema and small loculated pleural effusions along with an enlarged R thyroid lobe. Heart monitor seen in the ER also showed intermittent RVR which quickly resolved. He was admitted for further management. [facility] Medical History Mild cognitive impairment with memory loss (~11/23/18) Obesity (BMI 30-39.9) Idiopathic hypersomnia with long sleep time Obstructive sleep apnea of adult Intermittent claudication Aortic stenosis Right hip pain Cataracts, bilateral Tooth infection (~09/2017) Depression Arthritis HLD (hyperlipidemia) Hearing impaired Numbness and tingling of both feet A-fib Diabetes Surgical History History of colonoscopy History of vasectomy Social History marital status: details: to [facility], lives in [place] household members: spouse housing: house Smoking Status: Never smoker alcohol intake: never substance use type: does not use Meds Home Medications and Allergies Home Medications Medication Instructions Recorded Confirmed Type cholecalciferol (vitamin D3) 50 4,000 unit PO BID 11/15/18 11/08/24 History mcg (2,000 unit) capsule metformin 1,000 mg tablet 1,000 mg PO BEDTIME 11/15/18 11/08/24 History metformin 1,000 mg tablet 1,500 mg PO QAM 11/15/18 11/08/24 History Respirioncs Dreamstation 2 CPAP #1 ea 04/22/22 11/08/24 History coenzyme Q10 75 mg capsule 75 mg PO DAILY 04/22/22 11/08/24 History tamsulosin 0.4 mg capsule 0.8 mg PO BEDTIME 10/04/23 11/08/24 History dabigatran etexilate 150 mg 150 mg PO BID 07/17/24 11/08/24 History capsule (Pradaxa) insulin human U-100 NPH-regulr 12 unit (0.12 mL) SUBCUT BEDTIME 07/21/24 11/08/24 Rx 70-30 mix 100 unit/mL subcutaneous #10 mL susp (Humulin 70/30 U-100 Insulin) insulin human U-100 NPH-regulr 14 unit (0.14 mL) SUBCUT DAILY #10 07/21/24 11/08/24 Rx 70-30 mix 100 unit/mL subcutaneous mL susp (Humulin 70/30 U-100 Insulin) Allergies Allergy/AdvReac Type Severity Reaction Status Date / Time No Known Drug Allergies Allergy Verified 11/04/24 20:52 Review of Systems Review of Systems Narrative: All other systems reviewed with the patient and are negative unless otherwise stated. Exam Vital Signs (past 8 hours): - 11/08/24 09:38 11/08/24 09:39 11/08/24 09:39 Temperature Pulse Rate 94 H 97 H Respiratory Rate Blood Pressure 110/56 L Pulse Oximetry 91 Oxygen Delivery Method Nasal Cannula Oxygen Flow Rate 2 11/08/24 09:43 11/08/24 10:20 11/08/24 10:30 Temperature 98.7 F Pulse Rate 101 H 87 85 Respiratory Rate 18 23 22 Blood Pressure 110/56 L Pulse Oximetry 87 L 97 98 Oxygen Delivery Method Room Air Nasal Cannula Oxygen Flow Rate 2 11/08/24 10:31 11/08/24 10:31 11/08/24 11:00 Temperature Pulse Rate 87 Respiratory Rate 22 Blood Pressure 113/58 L 117/55 L Pulse Oximetry 98 Oxygen Delivery Method Oxygen Flow Rate 11/08/24 11:00 11/08/24 11:30 11/08/24 11:30 Temperature Pulse Rate 85 85 Respiratory Rate 21 19 Blood Pressure 109/56 L Pulse Oximetry 98 98 Oxygen Delivery Method Nasal Cannula Nasal Cannula Oxygen Flow Rate 2 2 11/08/24 12:00 11/08/24 12:00 11/08/24 12:41 Temperature Pulse Rate 83 84 Respiratory Rate 21 Blood Pressure 103/54 L Pulse Oximetry 99 94 Oxygen Delivery Method Nasal Cannula Oxygen Flow Rate 2 11/08/24 12:42 11/08/24 12:42 11/08/24 13:00 Temperature Pulse Rate 86 Respiratory Rate 21 Blood Pressure 101/59 L 108/58 L Pulse Oximetry 95 Oxygen Delivery Method Oxygen Flow Rate 11/08/24 13:00 11/08/24 13:30 11/08/24 13:30 Temperature Pulse Rate 86 77 Respiratory Rate 21 18 Blood Pressure 112/53 L Pulse Oximetry 98 99 Oxygen Delivery Method Oxygen Flow Rate 11/08/24 14:00 11/08/24 14:00 11/08/24 14:30 Temperature Pulse Rate 81 Respiratory Rate 18 Blood Pressure 99/54 L 96/51 L Pulse Oximetry 99 Oxygen Delivery Method Nasal Cannula Oxygen Flow Rate 2 11/08/24 14:30 11/08/24 15:00 11/08/24 15:00 Temperature Pulse Rate 79 86 Respiratory Rate 19 23 Blood Pressure 94/54 L Pulse Oximetry 99 94 Oxygen Delivery Method Nasal Cannula Room Air Oxygen Flow Rate 2 11/08/24 16:19 Temperature Pulse Rate Respiratory Rate Blood Pressure Pulse Oximetry 92 Oxygen Delivery Method Room Air Oxygen Flow Rate Oxygen Delivery Method Room Air Oxygen Flow Rate 2 Narrative Exam Narrative: General:? Patient is well developed and well nourished, mildly ill appearing and lethargic. Neck: supple and symmetric, trachea is midline, no cervical adenopathy. Negative for JVD Chest:? Normal AP diameter and contour without kyphoscoliosis, no tachypnea, equal chest rise bilaterally. Lungs:? Bibasilar rhonchi, no wheezing, decreased breath sounds bilateral lung bases. Cardio:?irregularly irregular, alternating between normal rate and tachycardia. No m/r/g Abdomen: S NT ND. Musculoskeletal:? Muscle strength and tone are equal within normal limits, no deformity. Extremities: No edema or joint effusions. No cyanosis or clubbing. Objective ECG Impression: Afib with controlled rate at 89, no acute ischemia Labs 11/08/24 09:50 11/08/24 09:50 Labs: Laboratory Results - last 24 hr 11/08/24 11/08/24 09:50 11:50 WBC 9.0 RBC 4.39 L Hgb 11.9 L Hct 36.5 L MCV 83.1 MCH 27.0 MCHC 32.5 RDW 15.1 H Plt Count 163 Neut % (Auto) 75.7 H Lymph % (Auto) 10.4 L Christian % (Auto) 11.1 Eos % (Auto) 2.4 Baso % (Auto) 0.4 Neut # (Auto) 6800 Lymph # (Auto) 900 L Christian # (Auto) 1000 H Eos # (Auto) 200 Baso # (Auto) 0 PT 15.1 H INR 1.3 D-Dimer 1610 H Sodium 140 Potassium 3.9 Chloride 105 Carbon Dioxide 24 BUN 14 Creatinine 0.96 Estimated GFR > 60 BUN/Creatinine Ratio 14.6 Glucose 201 H Lactate 1.2 Calcium 9.0 Total Bilirubin 1.0 AST 33 ALT 26 Alkaline Phosphatase 117 Troponin I 0.043 H 0.042 H NT-Pro-B Natriuret Pep 2310 H Total Protein 7.7 Albumin 3.9 Globulin 3.8 Albumin/Globulin Ratio 1.0 SARS-CoV-2 (PCR) Negative Influenza A (RT-PCR) Flu a negative Influenza B (RT-PCR) Flu b negative RSV (PCR) Negative Assessment & Plan Assessment & Plan narrative: 1. Sepsis with hypotension, acute metabolic encephalopathy, possible acute respiratory failure with hypoxia. POA. Suspect due to aspiration pneumonia -continue ceftriaxone and doxycycline for atypical coverage, probable aspiration. -[employer] evaluation -CTA showing worsening b/l pleural effusions, unclear if due to fluids given the last few days or if due to aspiration PNA at this time. -TTE ordered given RVR and hypotension to assess EF. Elevated proBNP likely related to fluids given. BP too soft and no apparent volume overload on exam. Possible RVR leading to pulmonary edema as well in the differential. 2. Myocardial injury. - troponin downtrending. - check TTE as noted above - suspect due to RVR / possible sepsis. 2. Dementia, present on admission and active. - supportive care measures, try to sleep at night, awake during the day. 3. DM 2, present on admission and active. - NPH insulin, recently decreased, will continue previous dosing. Hold home oral medications. 4. Atrial fibrilation with RVR, present on admission - Continue home pradaxa - no need for rate control at this time, limited by BP as well. He is intermittently tachycardic but generally improved. 5. SAURAV, present on admission and stable. - home CPAP 6. BPH, present on admission and stable. - Flomax Code: Full, surrogate is patient's spouse DVT: On pradaxa I have utilized all available immediate resources to obtain, update, or review the patient's current medications. Dispo: patient admitted under inpatient status. Unclear if will be able to discharge home or possible SNF, will have PT/OT evaluations. Additional history obtained via discussions with the ER provider. These discussions contributed to the creation of the above assessment and plan. I have reviewed patient's presenting documentation, labs, and imaging personally. Time-Based Coding :: [TOTAL MINUTES] spent with patient and on the chart (including review of chart, obtaining history, exam, reviewing outside data, placing orders, documenting exam and treatment plan, and counseling patient) on [DATE].
--- NOTE | 2024-11-08 16:26 | DI.ECHO.S_ITS ---
[facility] : : [address] : : [place] : : [id number] : : Phone: [phone] Echocardiogram Report + + :Name: CALVIN HIGGINBOTHAM Study Date: 11/09/2024 Height: 71 in : :Hospital ReadingLocation: Weight: 231 lb : : Gender: Male BSA: 2.2 m2 : :: 1940 Age: 84 yrs BP: 110/62 mmHg: :Reason For Study: HYPOTENSION, ATRIAL FIBRILLATION : :Ordering Physician: DOMINGO, : :SARAH DODSON Performed By: Joseph Robbins : :Referring: SARAH LANE : + + Interpretation Summary The study quality was technically difficult. The patient was in atrial fibrillation with heart rates between 92-118 bpm during the exam. Left ventricular ejection fraction is estimated to be 50 +/- 5%. Diastolic function could not be accurately assessed due to atrial fibrillation. The right ventricle grossly appears normal in size with probable normal systolic function. There is severe aortic stenosis. There is mild tricuspid regurgitation. The right ventricular systolic pressure is estimated to be at least 63 mmHg based on an estimated right atrial pressure of 15 mm Hg. Procedure: A two-dimensional transthoracic echocardiogram with color flow and Doppler was performed. A contrast injection of Definity was performed to improve assessment of LV function. The study quality was technically difficult. The study quality was technically limited. There is no prior echocardiogram noted for this patient. The patient was in atrial fibrillation with heart rates between 92-118 bpm during the exam. Left Ventricle: The left ventricle is grossly normal size. Left ventricular ejection fraction is estimated to be 50 +/- 5%. Diastolic function could not be accurately assessed due to atrial fibrillation. Right Ventricle: The right ventricle grossly appears normal in size with probable normal systolic function. Atria: The left atrial size is normal. Right atrial size is normal. There is no Doppler evidence for an interatrial shunt. Mitral Valve: There is mild to moderate mitral annular calcification. The mitral valve leaflets are moderately calcified. There is trace mitral regurgitation. Aortic Valve: The aortic valve is severely calcified. There is severe aortic stenosis. The peak aortic velocity is 3.93 m/sec. The aortic valve mean gradient is 40 mmHg. The dimensionless index is 0.23. No aortic regurgitation is present. Tricuspid Valve: The tricuspid valve is normal in structure and function. There is mild tricuspid regurgitation. The right ventricular systolic pressure is estimated to be at least 63 mmHg based on an estimated right atrial pressure of 15 mm Hg. Pulmonic Valve: The pulmonic valve is not well visualized. There is no pulmonic valvular regurgitation. Great Vessels: The aortic root is not well visualized. The ascending aorta could not be visualized. The pulmonary is not well visualized. The IVC is dilated (diameter is greater than 2.1 cm) and it collapses less than 50% with a sniff. This suggests a high right atrial pressure of 15 mm Hg. Pericardium/ Pleura There is no pericardial effusion. MMode/2D Measurements & Calculations LVOT diam: 1.9 cm LA A2 area: 19.6 cm2 LA A4 area: 22.8 cm2 LA length (vol): 6.2 cm LA vol: 60.6 ml LA vol index: 27.0 ml/m2 RA long axis: 4.8 cm RVD1 (basal): 3.0 cm RA area: 16.0 cm2 RVD2 (mid): 2.0 cm RA vol: 45.8 ml TAPSE: 1.8 cm RA : 20.4 ml/m2 IVC diam: 2.3 cm Doppler Measurements & Calculations Ao V2 max: 393.3 cm/sec LVOT Max Patrick: 90.1 cm/sec Ao V2 mean: 301.3 cm/sec LV V1 max P.2 mmHg Ao max P.9 mmHg LV V1 VTI: 18.5 cm Ao mean P.7 mmHg DARIO(I,D): 0.57 cm2 Ao V2 VTI: 92.9 cm DARIO(V,D): 0.65 cm2 sev ratio: 0.20 DARIO indexed to BSA (cm^2/m^2): 0.25 MV E max patrick: 122.7 cm/sec TR max patrick: 347.0 cm/sec MV A max patrick: 40.2 cm/sec TR max P.2 mmHg MV E/A: 3.1 PA V2 max: 92.7 cm/sec Med Peak E' Patrick: 5.1 cm/sec PA V2 mean: 57.7 cm/sec E/E' med: 23.9 PA mean P.6 mmHg Lat Peak E' Patrick: 5.2 cm/sec PA pr(Accel): 31.0 mmHg E/E' lat: 23.5 E/e' average: 23.7 MV dec time: 0.14 sec SV(LVOT): 52.5 ml Reading Physician:04:19 PM
--- NOTE | 2024-11-08 16:33 | OT.IPNOTE ---
Pt just admitted to the floor and asleep. Pt was discharged from the hospital yesterday. Pt's states now open for him to go to skilled rehab. Notified nursing pt uses a CPAP and does not have his here in the hospital. NO charge.
[2024-11-08] MEDS: TAMSULOSIN 0.4 MG CAPSULE 0.8 MG PO (21:03)
[2024-11-08] MEDS: CHOLECALCIFEROL (VITAMIN D3) 1,000 UNIT TABLET 4000 UNIT PO (21:03)
[2024-11-09] VITALS (7 sets, daily range): BP systolic 102–121; BP diastolic 62–80; PULSE 86–117; RESP 15–19; TEMP 36.4–37.5; O2SAT 93–97
[2024-11-09 06:18] LABS: Add Manual Diff / Slide Review NO; Basophils Absolute Auto 0 /uL (0-100); Basophils Percent Auto 0.5 % (0-2); Eosinophils Absolute Auto 300 /uL (0-450); Eosinophils Percent Auto 4.2 % (2-4); Hematocrit 33.7 % (41-53); Hemoglobin 11.2 g/dL (13.5-17.5); Lymphocytes Absolute Auto 1000 /uL (1100-4500); Lymphocytes Percent Auto 12.6 % (25-40); Mean Corpuscular HGB Conc 33.2 % (30-36); Mean Corpuscular Hemoglobin 27.3 PG (26-34); Mean Corpuscular Volume 82.3 fL (80-100); Monocytes Absolute Auto 1000 /uL (0-900); Monocytes Percent Auto 12.7 % (3-14); Neutrophils Absolute Auto 5700 /uL (1500-7000); Platelet Count 163 X10^3/uL (150-400); Red Blood Cell Count 4.09 X10^6/uL (4.5-5.9); Red Cell Distribution Width 15.2 % (11.6-14.8); White Blood Cell Count 8.1 X10^3/uL (4.5-11.0)
[2024-11-09 06:29] LABS: Alanine Aminotransferase 25 IU/L (<50); Albumin 3.6 g/dL (3.5-5.0); Alkaline Phosphatase 113 U/L (38-126); Aspartate Aminotransferase 28 IU/L (17-59); Bilirubin Total 0.9 mg/dL (0.2-1.3); Blood Urea Nitrogen 12 mg/dL (9-20); Calcium 9.2 mg/dL (8.4-10.2); Carbon Dioxide 25 mmol/L (22-32); Chloride 104 mmol/L (98-107); Estimated Glomerular Filt Rate > 60 mL/min (>60); Globulin 3.7 g/dL (1.7-4.1); Glucose 143 mg/dL (80-110); HEMOLYSIS < 15 (0-50); Magnesium 1.9 mg/dL (1.6-2.3); Potassium 3.7 mmol/L (3.4-5.1); Sodium 138 mmol/L (137-145); Total Protein 7.3 g/dL (6.3-8.2)
--- NOTE | 2024-11-09 09:00 | OT.IP.EVAL ---
Past Medical History (Last Reviewed 11/05/24 @ 07:46 by Victoriano Peña MD) A-fib Aortic stenosis Arthritis Cataracts, bilateral Depression Diabetes Hearing impaired HLD (hyperlipidemia) Idiopathic hypersomnia with long sleep time Intermittent claudication Mild cognitive impairment with memory loss (~11/23/18) Numbness and tingling of both feet Obesity (BMI 30-39.9) Obstructive sleep apnea of adult Right hip pain Tooth infection (~09/2017) Surgical History (Last Reviewed 11/05/24 @ 07:46 by Victoriano Peña MD) History of colonoscopy History of vasectomy Occupational Therapy Inpatient Evaluation/Re-Eval M1 PT/OT-IP Prior Functional Status Start: 11/09/24 10:49 Freq: NEEDED Status: Active Protocol: Document 11/09/24 10:49 [facility] (Rec: 11/09/24 11:05 [facility] [id number]) Medical Review Prior Functional Status Mobility and Gait Pt uses a FWW at home. Activities of Daily Living and IADL's Pt at times needing assist with dressing. Otherwise needing assist for IADl needs. Social History Household Members spouse Living Arrangements House Number of Floors (Floors) One Floor Number of Stairs To Enter/Railing? 3 steps with wide rails. Home Environment Built-In Shower Seat Home Equipment Front Wheel Walker,Long Handled Shoe Horn,Casing Crew,Sock Aid,Grab Bars Near Toilet, Grab Bars In Shower Additional Social History Comment Pt has a toilet safety frame. M2 OT-IP Current Condition Start: 11/09/24 10:49 Freq: Status: Active Protocol: Document 11/09/24 10:49 [facility] (Rec: 11/09/24 11:05 [facility] [id number]) Occupational Therapy Current Condition Current Condition Evaluation Date 11/09/24 Treatment Diagnosis GLF/SOB, Dyspnea Diagnosis Onset Date 11/08/24 M3 OT- IP Subjective and Pain Start: 11/09/24 10:49 Freq: Status: Active Protocol: Document 11/09/24 10:49 [facility] (Rec: 11/09/24 11:05 [facility] [id number]) OT- Subjective Occupational Therapy Visit Type Type Initial Evaluation Visit Start Time 09:00 Visit Stop Time 09:30 Occupational Therapy Visit Comments Patient Comments Pt agreed to try to get up. OT Pain Assessment Pain When Pain Assessed At Rest Pain Present Pain Present Pain Reported Location Back Pain Behaviors Facial Grimacing,Holding Area M4 OT- IP ADL's Start: 11/09/24 10:49 Freq: Status: Active Protocol: Document 11/09/24 10:49 [facility] (Rec: 11/09/24 11:05 [facility] [id number]) OT [id number] Comments OT Self-Feeding Comments Not at meal time. OT ADL-Grooming Comments OT Grooming Comments NOt performed. OT ADL-Oral Care Comments Oral Care Comments Not performed. OT ADL-Dressing General Eval Lower Body Dressing Ability Total Assistance Areas Needing Assistance Socks OT ADL-Toileting General Evaluation Toileting Ability Total Assistance Areas Needing Assistance Manage Clothing,Perform Perineal Hygiene Comments OT Toileting Comments Pt brief wet and due to high HR having nursing aid to assist for hygiene and brief change while supine. OT ADL-Bathing Comments OT Bathing Comments Sponge bath more appropriate at this time. M5 OT- IP IADL's Start: 11/09/24 10:49 Freq: Status: Active Protocol: Document 11/09/24 10:49 [facility] (Rec: 11/09/24 11:05 [facility] [id number]) OT-Instrumental Activities of Daily Living Home Safety Awareness Awareness of Need for Assistance at Home Decreased Awareness Ability to Problem Solve Emergency Unable to Problem Solve Situations Medication Management Medication Management Caregiver Administers Money Management Money Management Caregiver Provides Assistance Meal Preparation Meal Preparation Caregiver Provides Assist Fur Glosser Fur Glosser Caregiver Provides Assist M6 OT- IP Functional Cognition Start: 11/09/24 10:49 Freq: Status: Active Protocol: Document 11/09/24 10:49 [facility] (Rec: 11/09/24 11:05 [facility] [id number]) Cognitive Factors Limiting Selfcare Function Cognitive Ability Level of Alertness Alert,Confusional State Patient Orientation Name,Birthday,Place Attention Span Ability Capable of Focused Attention, Capable of Sustained Attention Ability to Follow Commands Able to Follow One Step Commands with Increased Time, Able to Follow One Step Commands with Repetition Cognitive Comments Cognitive Assessment Comments Pt not aware why he is in the hospital. Pt able to follow commands with increased time for ADL and mobility needs. OT- Vision and Hearing OT- Vision Assessment Visual Acuity Glasses All The Time Vision Assessment Comments Pt wears trifocals. M7 OT- IP Mobility and Balance Start: 11/09/24 10:49 Freq: Status: Active Protocol: Document 11/09/24 10:49 [facility] (Rec: 11/09/24 11:05 [facility] [id number]) OT- Bed Mobility Assessment Rolling Type of Rolling Bilateral Level of Assistance Maximum Assistance,Bedrails OT-Transfer Assessment Comments Mobility Comments Pt feeling nauseous and weak. Pt needing MAX AX 1 and use of bed rail to roll side to side . Unable to get himself upright . Pt's HR at rest from 108-132 and therefore opted to do brief change in supine. BP supine 124/73, 106/71, 110/64 and 111/62. Able to notify hospitalist pn pt's high HR and feeling nauseous while supine. M8 OT- IP Objective Assessments Start: 11/09/24 10:49 Freq: Status: Active Protocol: Document 11/09/24 10:49 [facility] (Rec: 11/09/24 11:05 [facility] [id number]) OT Gross Range of Motion Upper Extremity Range of Motion Assessment Bilaterally Impaired OT Strength Upper Extremity Strength Assessment Bilaterally Impaired Comments Strength Comments RUE3-/5 to 4-/5, LUE 4-/5 M9 OT- IP Assessment and Plan Start: 11/09/24 10:49 Freq: Status: Active Protocol: Document 11/09/24 10:49 [facility] (Rec: 11/09/24 11:05 [facility] [id number]) OT Summary Assessment and Plan Potential Rehabilitation Potential Fair Analytic Complexity at Evaluation Moderate Summary OT Impairments Pain,Range of Motion,Strength, Balance,Functional Cognition, Functional Mobility,Self- Feeding,Grooming,Dressing, Toileting,Bathing,Toilet Transfers,Shower Transfers, Activity Tolerance Progress Towards Goals Slow Progress due to Pain,Slow Progress due to Medical Issues,Slow Progress due to Activity Tolerance,Slow Progress due to Cognition Assessment Summary Pt MOD complexity and just discharged on 11/07/24 and had a fall which pt's states that he was on the ground by the bed and did not witness his fall. Prior to the fall, pt's states he was doing well and able to walk and use the toilet on his own after going home on 11/07. Pt now on 2L of O2. Pt will benefit from skilled rehab. Goals Self-Feeding Goal Independent Grooming Goal Independent Dressing Goal Independent Toileting Goal Independent Bathing Goal Minimal Assistance Toilet Transfer Goal Standby Assistance Shower Transfer Goal Contact Guard Assistance Days to Meet Goals 20 Frequency of Treatment Other frequency 5x/week Treatment Plan OT Treatment Plan ADL Training,Functional Cognition Training,Functional Mobility,Patient/Family Education,Discharge Planning Other Treatment Recommendations and Next LB dressing with equipment Treatment Focus Discharge Recommendations OT Discharge Recommendations SNF Rehab Transportation Needs at Discharge Wheelchair/Cabulance
[2024-11-09] MEDS: cefTRIAXone 1,000 MG in SODIUM CHLORIDE 0.9% 100 ML 200 MG IV (10:07)
[2024-11-09] MEDS: CHOLECALCIFEROL (VITAMIN D3) 1,000 UNIT TABLET 4000 UNIT PO ×2 (10:07→21:28)
[2024-11-09] MEDS: DOXYCYCLINE HYCLATE 100 MG TABLET PO ×2 (10:07→21:27)
--- NOTE | 2024-11-09 10:40 | PT-IP ANOTE ---
Hold Physical Therapy evaluation today per Physician at rounds. Pt is not medically ready for therapy today
[2024-11-09] MEDS: TRAMADOL 50 MG TABLET PO (11:17)
[2024-11-09] MEDS: INSULIN LISPRO 100 UNIT/ML 3ML VIAL SUBCUT ×3 (11:21→17:04)
--- NOTE | 2024-11-09 14:28 | ST.IPCSEOM ---
Visit Care Team Role Provider Type Zandra Chou PA-C Primary Care Provider Non-Staff Specialty: Medical Address: [facility] [address], [place], [address] Email: Matteo Hernandez MD Emergency Provider Physician Referring Provider Specialty: Emergency Medicine Address: [address] [address], [place], [address] Email: [email or web address] [email or web address] Provider Physician Attending Provider Specialty: Internal Medicine Address: [address] [place] [address], [address] Email: [email or web address] [email or web address] Sepsis, unspecified organism (11/08/24) Past Medical History (Last Reviewed 11/05/24 @ 07:46 by Victoriano Peña MD) A-fib (Medical) Aortic stenosis (Medical) Mild, with LVEF 55% Arthritis (Medical) Cataracts, bilateral (Medical) Depression (Medical) Diabetes (Medical) A1c 8.2% 11/14/18 On insulin Hearing impaired (Medical) Does not wear his hearing aids HLD (hyperlipidemia) (Medical) 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) Intermittent claudication (Medical) Mild cognitive impairment with memory loss (Medical ~11/23/18) so stated by patient and spouse Numbness and tingling of both feet (Medical) Obesity (BMI 30-39.9) (Medical) Obstructive sleep apnea of adult (Medical) Right hip pain (Medical) Tooth infection (Medical ~09/2017) 2 teeth extracted 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 Dino Jean Reason for Referral Suspected aspiration pneumonia Setting Assessment Location Acute Care Visit Type Note Type Initial evaluation Next Note Type Next Note Type Treatment Note Patient Information Identification Type Name History Pt is an 84 yo male with PMH of dementia, A-fib on Pradaxa, HTN, DM, SAURAV, LS fusion, BPH, hospitalization in [facility] 07/2024 for enterococcal UTI, brought by with severe generalized weakness and d/c from hospital on 11/07 where he was admitted with borderline hypotension and weakness, improved with fluids and d/c home. He was again unable to ambulate morning of 11/08 and brought back to ER. Pt noted to have O2 of 87% therefore CTA ordered on 11/08 which revealed dependent bronchial thickening and debris consistent with aspiration, pulmonary edema, and small loculated pleural effusions along with enlarged R thyroid lobe. WBC WNL at this time. Pt was admitted for further management with ST consult placed for clinical swallow evaluation in the setting of CTA consistent with aspiration . Subjective Observations Pt found sitting upright in bedside chair, alert, on 2L of supplemental oxygen via nasal cannula. RN cleared ST to work with pt, pt agreeable to participate in clinical swallow evaluation. RN and pt' s both reported pt /c decreased appetite and denied s/s of dysphagia. Pt's baseline diet is regular texture solids (IDDSI 7) and thin liquids (IDDSI 1). Pt's denied hx of PNA. Pt uses CPAP at home. Pt's reported pt does not practice good oral care, brushes teeth a couple times a week. Pt's reported pt /c occasional reflux, though not medicated at this time. Reported by Patient/Caregiver Other Symptoms History of aspiration or pneumonia Current Diet Regular (IDDSI 7) Baseline Feeding Method Independent in self-feeding The IDDSI Framework Protocol: IDDSI.1 Objective Assessment Mental Status Alert,Responsive,Cooperative Oral Integrity WFL Dentition Within normal limits Lip Function Within normal limits Observation of Lips at Rest Symmetrical Pucker Within normal limits Lip Retraction Within normal limits Tongue Function Within normal limits Observations of Tongue at Rest Within normal limits Tongue Protrusion Within normal limits Tongue Retraction Within normal limits Tongue Lateralization Within normal limits Jaw Function Within normal limits Observation of Jaw at Rest Within normal limits Jaw Opening Within normal limits Jaw Closing Within normal limits Hard/Soft Palate Function Within normal limits Observations of Hard/Soft Palate Within normal limits Respiratory Sufficiency Mild impairment Comment Pt observed to have natural dentition in adequate condition. However, reported pt /c poor oral care at baseline. OME indicated CN V, VII, IX/X, and XII grossly intact bilaterally. Pt receiving 2L supplemental oxygen via NC. No baseline cough observed prior to PO trials. Food and Liquid Trials Position During Assessment Upright (90 degrees) Liquids Trialed Thin (IDDSI 0) Solid Trials Purred (IDDSI 4),Soft & Bite- sized (IDDSI 6),Regular (IDDSI 7) Administration Type Tea spoon,Cup single sip,Cup consecutive sips,Straw,Self- feeding,Needs some assistance Oral Impairment Within normal limits Oral Phase Comments Pt intermittently self-fed or requested assistance with feeding. Pt exhibited adequate bolus retrieval from spoon, cup, and straw, oral containment, bolus manipulation, and oral clearance across all PO trials . Pt observed across trials of thin liquid water via tsp, cup sip, consecutive cup sips, straw sip, consecutive straw sips, puree apple sauce, soft and bite sized diced peaches, and regular inna cracker. Vertical munching pattern observed. AP transit appeared to be timely. Pharyngeal Phase Comments O2 saturations 95-96% during PO intake with no episodes of desaturations. No overt signs/ symptoms of laryngeal penetration or aspiration observed. No globus sensation reported. Although pt did not demonstrate overt s/sx of aspiration, CTA impression is consistent with aspiration. Unable to rule out silent aspiration without further evaluation /c use of imaging via Modified Barium Swallow Study (MBSS). Fatigue/Endurance Endurance WNL Results Oral phase is WNL. Although clinical swallow evaluation did not show overt s/sx of aspiration, silent aspiration may be present, contributing to presence of aspiration pneumonia. Silent aspiration cannot be ruled out without furhter instrumental assessment. The IDDSI Framework Protocol: IDDSI.1 Findings Swallowing Function Pharyngeal phase dysphagia Swallowing Function Comments Unable to rule out pharyngeal phase dysphagia /x MBSS Contributing Factors to Swallow Reduced alertness or attention Impairment ,Difficulty following directions Prognosis Fair Based on Cognitive status,Age,History of aspiration/aspiration pneumonia,Comorbidities Comment In the setting of CTA impression consistent with aspiration, unable to rule out silent aspiration without further evaluation /c use of imaging via Modified Barium Swallow Study (MBSS). Recommend pt complete MBSS at the current level of care, however, should pt d/c prior to MBSS completion, recommend MBSS at the next level of care pending d/c home versus other facility. Impact on Safety and Functioning Risk for aspiration Recommendations Instrumental Assessment Yes Swallowing Treatment Yes Recommended Solids Regular (IDDSI 7) Recommended Liquids Thin (IDDSI 0) Other Recommendations No change to current diet pending MBSS results. Recommend supervision with PO intake to ensure pt remains upright during and after intake and reduce impulsivity with intake. Recommend oral care BID (education provided to pt and re: importance to minimize colonization of oral pathogens increasing risk of aspiration pneumonia). Safety Precautions/Swallowing Supervision needed for all Recommendations meals,Feed only when alert, Remain upright (90 degrees) during all oral intake,Small bites and sips when eating, Family assistance/supervision Medication Recommendations As Tolerated Discharge Recommendations intermediate facility Comments MD notified re: results and recommendations. Requested MBSS order. Education Patient/Caregiver Education Described results of evaluation,Family/caregivers expressed understanding of evaluation,Family/caregivers expressed agreement with goals & treatment plans Goals Short-term Goals 1. Pt will participate in Modified Barium Swallow Study (MBSS) to rule out possible silent aspiration and guide POC. Long-term Goals 1. Pt will consume the safest and most efficient least restrictive diet with no clinical s/sx of pharyngeal dysphagia in order to meet nutrition/hydration needs.
--- NOTE | 2024-11-09 14:33 | CM.DPNOTE ---
DCP Continued: Reviewed EMR and team rounds for pt?s medical status. Per hospitalist, pt pending echocardiogram, Speech/PT/OT evaluations but would most likely benefit from a SNF Rehab disposition plan. Due to inpatient status, pt will be eligible to utilize MCR benefit on Tuesday, 11/11. DCP calls [facility] (per pt preference) and spoke with Ita, updated on pt status as stated above. Admissions still following pt transfer for possibly early next week; requests updates via weekend admissions cellphone (#[phone]) when available. Clinicals sent to [facility] for review via secure email. Plan: Anticipating SNF discharge when medically appropriate. CM Team will continue to follow for coordination of discharge plans. ANDREW Mcgarry
[2024-11-09] MEDS: INSULIN NPH/REG 70-30 100 UNIT/ML 10ML VIAL 12 UNIT SUBCUT (17:00)
--- NOTE | 2024-11-09 18:19 | ST.SWALLOW ---
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 Modified Barium Swallow Study Start: 11/09/24 17:31 Freq: Status: Active Protocol: Document 11/09/24 17:31 MG (Rec: 11/09/24 18:18 MG [id number]) Modified Barium Swallow Study Total Time Visit Start Time 16:30 Visit Stop Time 16:55 Total Visit Minutes 25 Visit Information Visit Number 2 Setting Setting Acute Care Patient Information Identification Type Name,ID Wristband Patient History Per H&P: Pt is an 84 y/o with PMH of dementia,A-fib on pradaxa, HTN, DM, SAURAV, LS fusion, BPH, hospitalization in [place] in July 2024 for enterococcal UTI, brought by with severe generalized weakness was actually discharged from the hospital on 11/07 where he was admitted with borderline hypotension and weakness, improved with fluids and discharged home. He was again unable to ambulate this morning and was brought back into the ER. CTA was performed as he was noted to have O2 of 87% in the ER. CTA showed dependent bronchial thickening and debris consistent with aspiration, pulmonary edema and small loculated pleural effusions along with an enlarged R thyroid lobe. Heart monitor seen in the ER also showed intermittent RVR which quickly resolved. Subjective Observations Pt was sitting upright in chair brought in by quick service technician. No nasal cannula or supplemental O2 required. Pt was agreeable to MBSS. OME completed during clinical bedside evaluation was unremarkable. Of note, pt has poor oral care per 's report. Patient Positioning Position View Lateral Imaging Lateral View Textures Administered Trials Presented Thin Liquid via Spoon (IDDSI 0 ),Thin Liquid via Cup (IDDSI 0 ),Puree (IDDSI 4),Regular ( IDDSI 7) Barium Tablet No The IDDSI Framework Protocol: IDDSI.1 Oral Impairment Source: The Modified Barium Swallow Impairment Profile (MBSImP??) Lip Closure No labial escape Tongue Control During Bolus Hold Posterior escape of less than half of bolus Bolus Preparation/Mastication Timely & efficient chewing & mashing Bolus Transport/Lingual Motion Slowed tongue motion Oral Residue Trace residue lining oral structures Location Palate,Tongue Initiation of Pharyngeal Swallow Bolus head in valleculae Additional Oral Impairment Observations Pt presents with base of tongue weaknesses which lead to posterior spillage into the pharyngeal cavity. Pt can clear oral and pharyngeal cavities successfully using a double swallow maneuver but needed to be prompted to use. Pharyngeal Impairment Source: The Modified Barium Swallow Impairment Profile (MBSImP??) Soft Palate Elevation No bolus between soft palate & pharyngeal wall Laryngeal Elevation Part.sup.move.thyroid cart/ part.approx.arytenoids to epiglot.petiole Anterior Hyoid Excursion Complete anterior movement Epiglottic Movement Complete inversion Laryngeal Vestibular Closure Complete; no air/contrast in laryngeal vestibule Pharyngeal Stripping Wave Present - diminished Pharyngoesophageal Segment Opening Partial distention/partial duration; partial obstruction of flow Tongue Base Retraction Trace column of contrast/air betwn tongue base & post. pharyngeal wall Pharyngeal Residue Collection of residue within/ on pharyngeal structures Location Diffuse (>3 areas) Additional Pharyngeal Impairment Pt has noted pharyngeal Observations residue after single swallow of barium thin liquid. Upon prompting to swallow again, residue is cleared. No upward flow of solids/liquids noted at this time. Increased residue noted on thicker substances such as puree texture. A/P View The IDDSI Framework Protocol: IDDSI.1 Clinical Impressions Dysphagia Type Oral,Pharyngeal Findings Pt presents with mild oralpharyngeal dysphagia at this time, specifically base of tongue and some pharngeal weakness. No aspiration or penetration noted on all trials of solids/liquids. Less residue is noted when pt consumes thinner vs thicker textures. No diet changes recommended at this time; pt would benefit from reminders to take small bites/sips, use multiple swallows, drink liquids between solids consumption, and participate in oral care more frequently. Rehabilitation Potential Fair Patient Appropriate for Therapy No: Recommend utilizing safe swallow strategies and oral care Recommendations Diet Liquids Order Thin (IDDSI 0) Diet Order Regular (IDDSI 7) Medication Recommendation As Tolerated Additional Dietary Needs Reminders to Use Strategies Aspiration Precautions Recommended Precautions Upright at 90 Degrees, Alternate Liquids/Solids,Small Bites/Sips,Double Swallow Additional Precautions Oral care after meals, sit upright after meals for >10 minutes. Treatment Plan Placement Recommendation After Discharge Long-Term Facility Additional Recommendations/Comments Recommend supervision with PO intake to ensure pt remains upright during and after intake, reduce impulsivity with intake, and reminders for safe swallow strategies. Recommend oral care BID ( education provided to pt and re: importance to minimize colonization of oral pathogens increasing risk of aspiration pneumonia).
--- NOTE | 2024-11-09 18:41 | P.PN_ITS ---
Subjective Subjective Interval history: 84-year-old male with dementia, AFib on Pradaxa, hypertension, diabetes mellitus type 2, obstructive sleep apnea, chronic back pain secondary to previous lumbar sacral fusion, BPH, previous hospitalization for enterococcal UTI in July 2024 who was readmitted yesterday with severe generalized weakness after a failed hospital discharge on 11/07. He was previously admitted from 11/05 through 11/07 with similar symptoms as well as evidence of mild dehydration and hypotension. He gradually improved and discharged home with a home health recommendation. That was an observation status stay. He has now been admitted as a failed discharge with sepsis, hypotension, aspiration pneumonia, and acute myocardial injury. Echocardiogram was done yesterday which revealed an EF of 50+/-5%. He was in AFib during the exam. He has severe aortic stenosis. Mild tricuspid regurgitation. RV systolic pressure estimated to be at least 63 mmHg. Patient reported this morning that he was very dizzy lying in bed. Therapies attempted to work with him but could not even sit him up without him feeling dizzy and nauseated. This evening, he he is feeling better. He is sitting up and eating dinner. There is some discussion yesterday about initiation of midodrine. His expresses concerns about that as she reports he has always had normal blood pressures. Exam Vital Signs (past 8 hours): - 11/09/24 12:00 11/09/24 16:17 Temperature 98.4 F 97.9 F Pulse Rate 88 101 H Respiratory Rate 16 15 Blood Pressure 110/62 115/72 Pulse Oximetry 96 95 Oxygen Flow Rate 2 0 Oxygen Delivery Method Nasal Cannula Oxygen Flow Rate 0 Narrative Exam Narrative: GEN: Elderly male, Alert and oriented x 2, NAD HEENT:NC, Face symmetric CHEST: Respiratory excursions symmetric, CTAB CV: Irregularly irregular, no R/G ABD: Soft, NT/ND, obese, BT present in all 4 quadrants, body habitus limits exam EXTR: warm, well perfused, no C/C/E SKIN: warm and dry, no rash NEURO: Alert and oriented x 2, nonfocal Objective Labs 11/09/24 05:50 11/09/24 05:50 Labs: Laboratory Results - last 24 hr 11/09/24 05:50 WBC 8.1 RBC 4.09 L Hgb 11.2 L Hct 33.7 L MCV 82.3 MCH 27.3 MCHC 33.2 RDW 15.2 H Plt Count 163 Neut % (Auto) 70.0 Lymph % (Auto) 12.6 L [place] % (Auto) 12.7 Eos % (Auto) 4.2 H Baso % (Auto) 0.5 Neut # (Auto) 5700 Lymph # (Auto) 1000 L [place] # (Auto) 1000 H Eos # (Auto) 300 Baso # (Auto) 0 Sodium 138 Potassium 3.7 Chloride 104 Carbon Dioxide 25 BUN 12 Creatinine 0.86 Estimated GFR > 60 BUN/Creatinine Ratio 14.0 Glucose 143 H Calcium 9.2 Magnesium 1.9 Total Bilirubin 0.9 AST 28 ALT 25 Alkaline Phosphatase 113 Total Protein 7.3 Albumin 3.6 Globulin 3.7 Albumin/Globulin Ratio 1.0 [facility] Medical History Mild cognitive impairment with memory loss (~11/23/18) Obesity (BMI 30-39.9) Idiopathic hypersomnia with long sleep time Obstructive sleep apnea of adult Intermittent claudication Aortic stenosis Right hip pain Cataracts, bilateral Tooth infection (~09/2017) Depression Arthritis HLD (hyperlipidemia) Hearing impaired Numbness and tingling of both feet A-fib Diabetes Surgical History History of colonoscopy History of vasectomy Social History marital status: details: rl Lee, lives in [place] household members: spouse housing: house Smoking Status: Never smoker alcohol intake: never substance use type: does not use Assessment & Plan Assessment & Plan narrative: 1. Sepsis with hypotension, acute metabolic encephalopathy, aspiration pneumonia. Patient was placed on Rocephin and doxycycline. These will be continued. Speech therapy assessed him today and could not rule out silent aspiration. He will undergo modified barium swallow. 2. Severe aortic stenosis on echocardiogram Aortic valve area was 0.57 cm2. This could certainly be contributing to the severity of his overall symptoms. He will need to follow-up closely with Cardiology as based on his valve area would be a potential candidate for a TAVR. does report episodes of his legs giving out on him and him falling. This could certainly be explained by his aortic stenosis. He may be having presyncopal symptoms. It certainly would explain his hypotension. 3. Diabetes mellitus type 2 Patient is on 70 30 insulin twice daily. He had been dosed in the morning and at bedtime. Explained to patient and spouse that this is high-risk dosing given that the regular insulin would hit him after he is asleep and would peak in the middle of the night increasing his risk for hypoglycemia. Will change dosing to 30 minutes before breakfast and 30 minutes before dinner. Continue fingersticks and sliding scale. 4. AFib with RVR He is on Pradaxa. He is mildly tachycardic at times. He is not on anything for rate control at baseline. This was confirmed with his spouse. Given his lowish blood pressures, this could pose a challenge for rate control. Might benefit from digoxin or other antiarrhythmic. 5. Obstructive sleep apnea Uses CPAP at home 6. BPH Continue Flomax Code status Full Prophylaxis On Pradaxa Disposition Likely will required shelter facility at discharge Time-Based Coding :: [TOTAL MINUTES] spent with patient and on the chart (including review of chart, obtaining history, exam, reviewing outside data, placing orders, documenting exam and treatment plan, and counseling patient) on [DATE].
[2024-11-09] MEDS: TAMSULOSIN 0.4 MG CAPSULE 0.8 MG PO (21:27)
[2024-11-09] MEDS: DABIGATRAN 75 MG CAPSULE 150 MG PO (21:28)
[2024-11-10] VITALS (8 sets, daily range): BP systolic 95–121; BP diastolic 56–79; PULSE 88–100; RESP 18–20; TEMP 36.3–37.4; O2SAT 90–99
[2024-11-10 07:10] LABS: Add Manual Diff / Slide Review NO; Basophils Absolute Auto 100 /uL (0-100); Eosinophils Absolute Auto 600 /uL (0-450); Eosinophils Percent Auto 8.9 % (2-4); Hematocrit 32.6 % (41-53); Hemoglobin 10.8 g/dL (13.5-17.5); Lymphocytes Absolute Auto 1500 /uL (1100-4500); Lymphocytes Percent Auto 21.3 % (25-40); Mean Corpuscular Hemoglobin 27.1 PG (26-34); Mean Corpuscular Volume 82.2 fL (80-100); Monocytes Absolute Auto 800 /uL (0-900); Monocytes Percent Auto 11.6 % (3-14); Neutrophils Absolute Auto 4000 /uL (1500-7000); Neutrophils Percent Auto 57.2 % (50-75); Platelet Count 170 X10^3/uL (150-400); Red Blood Cell Count 3.97 X10^6/uL (4.5-5.9); Red Cell Distribution Width 14.8 % (11.6-14.8); White Blood Cell Count 6.9 X10^3/uL (4.5-11.0)
[2024-11-10 07:20] LABS: Alanine Aminotransferase 23 IU/L (<50); Albumin 3.4 g/dL (3.5-5.0); Albumin Globulin Ratio 0.9 (1.0-2.8); Alkaline Phosphatase 106 U/L (38-126); Aspartate Aminotransferase 26 IU/L (17-59); BUN Creatinine Ratio 16.3 (6-22); Bilirubin Total 0.7 mg/dL (0.2-1.3); Blood Urea Nitrogen 13 mg/dL (9-20); Calcium 9.2 mg/dL (8.4-10.2); Carbon Dioxide 26 mmol/L (22-32); Chloride 105 mmol/L (98-107); Estimated Glomerular Filt Rate > 60 mL/min (>60); Globulin 3.7 g/dL (1.7-4.1); Glucose 119 mg/dL (80-110); HEMOLYSIS < 15 (0-50); Magnesium 1.9 mg/dL (1.6-2.3); Potassium 3.6 mmol/L (3.4-5.1); Sodium 140 mmol/L (137-145); Total Protein 7.1 g/dL (6.3-8.2)
[2024-11-10] MEDS: CHOLECALCIFEROL (VITAMIN D3) 1,000 UNIT TABLET 4000 UNIT PO ×2 (08:36→21:45)
[2024-11-10] MEDS: DOXYCYCLINE HYCLATE 100 MG TABLET PO ×2 (08:36→21:44)
[2024-11-10] MEDS: INSULIN NPH/REG 70-30 100 UNIT/ML 10ML VIAL 14 UNIT SUBCUT (08:37)
[2024-11-10] MEDS: DABIGATRAN 75 MG CAPSULE 150 MG PO ×2 (08:37→21:45)
--- NOTE | 2024-11-10 12:03 | PT.IIE ---
Current Diagnoses Sepsis, unspecified organism (11/08/24) Surgical History (Last Reviewed 11/05/24 @ 07:46 by Victoriano Peña MD) History of colonoscopy History of vasectomy Medical History (Last Reviewed 11/05/24 @ 07:46 by Victoriano Peña MD) A-fib Aortic stenosis Arthritis Cataracts, bilateral Depression Diabetes Hearing impaired HLD (hyperlipidemia) Idiopathic hypersomnia with long sleep time Intermittent claudication Mild cognitive impairment with memory loss (~11/23/18) Numbness and tingling of both feet Obesity (BMI 30-39.9) Obstructive sleep apnea of adult Right hip pain Tooth infection (~09/2017) Physical Therapy Inpatient Evaluation/Re-Eval M1 PT/OT-IP Prior Functional Status Start: 11/09/24 10:49 Freq: NEEDED Status: Active Protocol: Document 11/10/24 12:03 DLM (Rec: 11/10/24 15:04 DLM [id number]) Medical Review Prior Functional Status Medical History Reviewed Yes Diet/Fluid Consistency Regular Communication mild dysphagia, no modified diet, aspiration precautions recommended after MBSS he can communicate his needs Mobility and Gait Ambulates with a FWW. Activities of Daily Living and IADL's Pt at times needing asisst with dressing. Otherwise needing asisst for IADl needs. Social History Household Members spouse Living Arrangements House Number of Floors (Floors) One Floor Number of Stairs To Enter/Railing? 3 steps with wide rails. Home Environment Built-In Shower Seat Home Equipment Front Wheel Walker,Long Handled Shoe Horn,Broadcasting Equipment Mechanic,Sock Aid,Grab Bars Near Toilet, Grab Bars In Shower Additional Social History Comment Pt has a toilet safety frame. M2 PT-IP Current Condition Start: 11/10/24 14:50 Freq: NEEDED Status: Active Protocol: Document 11/10/24 12:03 DLM (Rec: 11/10/24 15:04 DLM [id number]) Physical Therapy Current Condition Current Condition Evaluation Date 11/10/24 Treatment Diagnosis fall, decreased mobility and gait Onset Date 11/08/24 M3 PT-IP Subjective Start: 11/10/24 14:50 Freq: NEEDED Status: Active Protocol: Document 11/10/24 12:03 DLM (Rec: 11/10/24 15:04 DLM [id number]) Subjective Physical Therapy Visit Type Type Initial Evaluation Visit Start Time 11:38 Visit Stop Time 12:03 Notes 25 min Number of PRODUCTION POTTER Visits 0 Physical Therapy Visit Comments Patient Comments he reports feeling tired today Patient Goals none stated M4 PT-IP Mobility and Gait Start: 11/10/24 14:50 Freq: NEEDED Status: Active Protocol: Document 11/10/24 12:03 DLM (Rec: 11/10/24 15:04 DL [id number]) PT-Bed Mobility Assessment Supine to Sit Supine to Sit Minimal Assistance,Moderate Assistance,Head of Bed Elevated,Bedrails Scooting Scooting to Edge of Bed Minimal Assistance PT-Transfer Assessment Sit to and From Stand Sit to and from Stand Minimal Assistance,Use of Upper Extremities Equipment Transfer Assistive Device Gait Belt,Front Wheeled Walker Transfers Transfer Destination Chair Transfer Technique Stand Step Pivot Transfer Ability Level of Assist Contact Guard Assistance, Minimal Assistance,Use of Upper Extremities Comments Mobility Comments Pt stood to urinate with urinal. He progressed to transfer to the recliner to sit up for lunch. O2 sats 96%. No dizziness reported during this activity. Good weight bearing on his LE's in standing PT-Balance Assessment Sitting Balance and Reactions Static Sitting Balance Ability Good Dynamic Sitting Balance Ability Good Standing Balance and Reactions Static Standing Balance Ability Good Dynamic Standing Balance Ability Fair Device Used FWW M5 PT-IP Objective Assessments Start: 11/10/24 14:50 Freq: NEEDED Status: Active Protocol: Document 11/10/24 12:03 DLM (Rec: 11/10/24 15:04 [facility] [id number]) Orientation Orientation/Cognition Level of Alertness Alert Orientation Name,Place Safety Awareness Decreased Safety Awareness Memory Description Short Term Impaired Comments hx dementia Gross Range of Motion Upper Extremity ROM Assessment Within Functional Limits Lower Extremity ROM Assessment Within Functional Limits Strength Upper Extremity Strength Assessment Bilaterally Impaired Lower Extremity Strength Assessment Bilaterally Impaired Comments Strength Comments generalized decrease in functional strength Coordination Assessment Gross Coordination Gross Coordination WNL Sensation Assessment Sensation Gross Sensation Right LE Impaired,Left LE Impaired Sensation Description Numbness Comments Sensation Comments hx neuropathy Muscle Tone Muscle Tone WNL Yes M6 PT-IP Treatment Start: 11/10/24 14:50 Freq: NEEDED Status: Active Protocol: Document 11/10/24 12:03 DLM (Rec: 11/10/24 15:04 [facility] [id number]) Physical Therapy Treatment Education Education Provided Safety Other Treatments Other Treatment Performed His is present today M7 PT-IP Assessment and Plan Start: 11/10/24 14:50 Freq: NEEDED Status: Active Protocol: Document 11/10/24 12:03 DLM (Rec: 11/10/24 15:04 DLM [id number]) PT Summary Assessment and Plan Potential Rehabilitation Potential Good Status of Condition at Evaluation Evolving Summary Impairments Strength,Balance,Sensation, Cognition,Bed Mobility, Transfers,Gait,Activity Tolerance Assessment Summary Edward is alert and resting in bed today with c/o being tired. He discharged home 11/07 and was readmitted with a fall on 11/08/24. He has been medically complex this admission with new diagnosis of severe aortic stenosis. He has limited activity tolerance today. He was able to progress to standing at edge of bed and transfer up to recliner for lunch. He has a generalized decrease in his functional strength. Recommend SNF rehab at discharge. Goals Bed Mobility Goal Standby Assistance Transfer Goal Standby Assistance,Front Wheeled Walker Gait Goal Standby Assistance,Front Wheel Walker Gait Distance 100 feet Other Goals up/down 3 steps with rail and CG assist Days to Meet Goals 8 Frequency of Treatment Frequency Of Treatment Once a Day Treatment Plan Physical Therapy Treatment Plan Bed Mobility Training,Transfer Training,Gait Training, Therapeutic Exercise,Balance Retraining,Discharge Planning, Neuromuscular Re-ed Precautions Other Precautions new diagnosis severe aortic stenosis fall risk hx dementia Recommendations To Nursing Amount of Assist Needed 1 Person Assist Discharge Recommendations PT Discharge Recommendations SNF Rehab Transportation Needs at Discharge Private Vehicle,Wheelchair/ Cabulance - PT assist 1
[2024-11-10] MEDS: cefTRIAXone 1,000 MG in SODIUM CHLORIDE 0.9% 100 ML 200 MG IV (12:41)
--- NOTE | 2024-11-10 15:57 | CM.DPC ---
Patient's spouse said that she is ok with patient being discharge to [facility] or [facility]. She said her preference would be [facility] because it is closer to home, but if they cannot accept him then [facility] is ok with her as well.
[2024-11-10] MEDS: INSULIN NPH/REG 70-30 100 UNIT/ML 10ML VIAL 12 UNIT SUBCUT (17:41)
[2024-11-10] MEDS: INSULIN LISPRO 100 UNIT/ML 3ML VIAL SUBCUT (17:41)
--- NOTE | 2024-11-10 18:38 | PM.PN.1 ---
Subjective Subjective Interval history: 84-year-old male with dementia, AFib on Pradaxa, hypertension, diabetes mellitus type 2, obstructive sleep apnea, chronic back pain secondary to previous lumbar sacral fusion, BPH, previous hospitalization for enterococcal UTI in July 2024 who was readmitted yesterday with severe generalized weakness after a failed hospital discharge on 11/07. He was previously admitted from 11/05 through 11/07 with similar symptoms as well as evidence of mild dehydration and hypotension. He gradually improved and discharged home with a home health recommendation. That was an observation status stay. He has now been admitted as a failed discharge with sepsis, hypotension, aspiration pneumonia, and acute myocardial injury. Echocardiogram was done on 11/08/2024 which revealed an EF of 50+/-5%. He was in AFib during the exam. He has severe aortic stenosis. Mild tricuspid regurgitation. RV systolic pressure estimated to be at least 63 mmHg. Patient reported he has not having any nausea or dizziness today. He is overall feeling reasonably well. He has not had any issues with legs giving out on him today. His and daughter at bedside. Exam Vital Signs (past 8 hours): - 11/10/24 12:00 11/10/24 17:00 Temperature 98.2 F 97.4 F L Pulse Rate 99 H 90 Respiratory Rate 18 18 Blood Pressure 109/60 104/56 L Pulse Oximetry 96 99 Oxygen Flow Rate 0 0 Oxygen Delivery Method Nasal Cannula Oxygen Flow Rate 0 Narrative Exam Narrative: GEN: Elderly male, Alert and oriented x 2, NAD HEENT:NC, Face symmetric CHEST: Respiratory excursions symmetric, CTAB CV: Irregularly irregular, 3/6 systolic murmur heard best at the left sternal border, no R/G ABD: Soft, NT/ND, obese, BT present in all 4 quadrants, body habitus limits exam EXTR: warm, well perfused, no C/C/E SKIN: warm and dry, no rash NEURO: Alert and oriented x 2, nonfocal Objective Labs 11/10/24 06:20 11/10/24 06:20 Labs: Laboratory Results - last 24 hr 11/10/24 06:20 WBC 6.9 RBC 3.97 L Hgb 10.8 L Hct 32.6 L MCV 82.2 MCH 27.1 MCHC 33.0 RDW 14.8 Plt Count 170 Neut % (Auto) 57.2 Lymph % (Auto) 21.3 L [place] % (Auto) 11.6 Eos % (Auto) 8.9 H Baso % (Auto) 1.0 Neut # (Auto) 4000 Lymph # (Auto) 1500 [place] # (Auto) 800 Eos # (Auto) 600 H Baso # (Auto) 100 Sodium 140 Potassium 3.6 Chloride 105 Carbon Dioxide 26 BUN 13 Creatinine 0.80 Estimated GFR > 60 BUN/Creatinine Ratio 16.3 Glucose 119 H Calcium 9.2 Magnesium 1.9 Total Bilirubin 0.7 AST 26 ALT 23 Alkaline Phosphatase 106 Total Protein 7.1 Albumin 3.4 L Globulin 3.7 Albumin/Globulin Ratio 0.9 L REPLACED BY [facility] Medical History Mild cognitive impairment with memory loss (~11/23/18) Obesity (BMI 30-39.9) Idiopathic hypersomnia with long sleep time Obstructive sleep apnea of adult Intermittent claudication Aortic stenosis Right hip pain Cataracts, bilateral Tooth infection (~09/2017) Depression Arthritis HLD (hyperlipidemia) Hearing impaired Numbness and tingling of both feet A-fib Diabetes Surgical History History of colonoscopy History of vasectomy Social History marital status: details: rl Lee, lives in [place] household members: spouse housing: house Smoking Status: Never smoker alcohol intake: never substance use type: does not use Assessment & Plan Assessment & Plan narrative: 1. Sepsis with hypotension, acute metabolic encephalopathy, aspiration pneumonia. Patient was placed on Rocephin and doxycycline. These will be continued. Modified barium swallow was performed which showed no evidence of silent aspiration. He will continue on a regular texture diet and thin liquids. 2. Severe aortic stenosis on echocardiogram Aortic valve area was 0.57 cm2. This could certainly be contributing to the severity of his overall symptoms. He will need to follow-up closely with Cardiology as based on his valve area would be a potential candidate for a TAVR. does report episodes of his legs giving out on him and him falling. This could certainly be explained by his aortic stenosis. He may be having presyncopal symptoms. It certainly would explain his hypotension. I did discuss this today with the patient, his , and his daughter. Encouraged them to follow-up with Dr. Ansari to discuss whether he could be a candidate for a TAVR versus ongoing medical management. 3. Diabetes mellitus type 2 Patient is on 70 30 insulin twice daily. He had been dosed in the morning and at bedtime. Overall, blood sugars have improved with the change in his 70 30 insulin to being given 30 minutes prior to breakfast and dinner. Continue close monitoring and checking fingersticks and sliding scale. 4. AFib with RVR He is on Pradaxa. He is mildly tachycardic at times. He is not on anything for rate control at baseline. This was confirmed with his spouse. Given his lowish blood pressures, this could pose a challenge for rate control. Might benefit from digoxin or other antiarrhythmic. Suspect his low normal blood pressure is related to his severe aortic stenosis. 5. Obstructive sleep apnea Uses CPAP at home 6. BPH Continue Flomax Code status Full Prophylaxis On Pradaxa Disposition Await acceptance to detention facility. Time-Based Coding :: [TOTAL MINUTES] spent with patient and on the chart (including review of chart, obtaining history, exam, reviewing outside data, placing orders, documenting exam and treatment plan, and counseling patient) on [DATE].
[2024-11-10] MEDS: TAMSULOSIN 0.4 MG CAPSULE 0.8 MG PO (21:45)
[2024-11-11 04:00] VITALS: BP 120/69; PULSE 78; RESP 16; TEMP 36.2; O2SAT 97
[2024-11-11 06:21] LABS: Add Manual Diff / Slide Review NO; Basophils Absolute Auto 100 /uL (0-100); Basophils Percent Auto 1.2 % (0-2); Eosinophils Absolute Auto 800 /uL (0-450); Hematocrit 33.2 % (41-53); Lymphocytes Absolute Auto 1700 /uL (1100-4500); Lymphocytes Percent Auto 25.7 % (25-40); Mean Corpuscular HGB Conc 33.2 % (30-36); Mean Corpuscular Hemoglobin 27.3 PG (26-34); Mean Corpuscular Volume 82.2 fL (80-100); Monocytes Absolute Auto 800 /uL (0-900); Monocytes Percent Auto 12.1 % (3-14); Neutrophils Absolute Auto 3100 /uL (1500-7000); Platelet Count 199 X10^3/uL (150-400); Red Blood Cell Count 4.04 X10^6/uL (4.5-5.9); Red Cell Distribution Width 15.1 % (11.6-14.8); White Blood Cell Count 6.5 X10^3/uL (4.5-11.0)
[2024-11-11 06:33] LABS: Alanine Aminotransferase 27 IU/L (<50); Albumin 3.5 g/dL (3.5-5.0); Alkaline Phosphatase 116 U/L (38-126); Aspartate Aminotransferase 29 IU/L (17-59); BUN Creatinine Ratio 17.6 (6-22); Bilirubin Total 0.5 mg/dL (0.2-1.3); Blood Urea Nitrogen 15 mg/dL (9-20); Calcium 9.3 mg/dL (8.4-10.2); Carbon Dioxide 27 mmol/L (22-32); Chloride 106 mmol/L (98-107); Estimated Glomerular Filt Rate > 60 mL/min (>60); Globulin 3.6 g/dL (1.7-4.1); Glucose 122 mg/dL (80-110); HEMOLYSIS < 15 (0-50); Magnesium 1.8 mg/dL (1.6-2.3); Potassium 3.8 mmol/L (3.4-5.1); Sodium 141 mmol/L (137-145); Total Protein 7.1 g/dL (6.3-8.2)
--- NOTE | 2024-11-11 07:30 | P.PN_ITS ---
Subjective Subjective Interval history: Summary: 84-year-old male with dementia, AFib on Pradaxa, hypertension, diabetes mellitus type 2, obstructive sleep apnea, chronic back pain secondary to previous lumbar sacral fusion, BPH, previous hospitalization for enterococcal UTI in July 2024 who was readmitted yesterday with severe generalized weakness after a failed hospital discharge on 11/07. He was previously admitted from 11/05 through 11/07 with similar symptoms as well as evidence of mild dehydration and hypotension. He gradually improved and discharged home with a home health recommendation. That was an observation status stay. He has now been admitted as a failed discharge with sepsis, hypotension, aspiration pneumonia, and acute myocardial injury. Echocardiogram was done on 11/08/2024 which revealed an EF of 50+/-5%. He was in AFib during the exam. He has severe aortic stenosis. Mild tricuspid regurgitation. RV systolic pressure estimated to be at least 63 mmHg. S: He was weak, it but denies cough or shortness a breath. He was awaiting approval for [facility] facility. Exam Vital Signs (past 8 hours): - 11/11/24 04:00 Temperature 97.1 F L Pulse Rate 78 Respiratory Rate 16 Blood Pressure 120/69 Pulse Oximetry 97 Oxygen Flow Rate 0 Oxygen Delivery Method Room Air Oxygen Flow Rate 0 Narrative Exam Narrative: NAD, alert and oriented. Fluent speech. Lungs are clear, normal rate and effort. Heart is regular, no murmur gallop or rub. Abdomen is soft, non distended. Extremities are free of edema. Objective Labs 11/11/24 05:40 11/11/24 05:40 Labs: Laboratory Results - last 24 hr 11/10/24 11/11/24 06:20 05:40 WBC 6.5 RBC 4.04 L Hgb 11.0 L Hct 33.2 L MCV 82.2 MCH 27.3 MCHC 33.2 RDW 15.1 H Plt Count 199 Neut % (Auto) 48.0 L Lymph % (Auto) 25.7 [place] % (Auto) 12.1 Eos % (Auto) 13.0 H Baso % (Auto) 1.2 Neut # (Auto) 3100 Lymph # (Auto) 1700 [place] # (Auto) 800 Eos # (Auto) 800 H Baso # (Auto) 100 Sodium 140 141 Potassium 3.6 3.8 Chloride 105 106 Carbon Dioxide 26 27 BUN 13 15 Creatinine 0.80 0.85 Estimated GFR > 60 > 60 BUN/Creatinine Ratio 16.3 17.6 Glucose 119 H 122 H Calcium 9.2 9.3 Magnesium 1.9 1.8 Total Bilirubin 0.7 0.5 AST 26 29 ALT 23 27 Alkaline Phosphatase 106 116 Total Protein 7.1 7.1 Albumin 3.4 L 3.5 Globulin 3.7 3.6 Albumin/Globulin Ratio 0.9 L 1.0 [facility] Medical History Mild cognitive impairment with memory loss (~11/23/18) Obesity (BMI 30-39.9) Idiopathic hypersomnia with long sleep time Obstructive sleep apnea of adult Intermittent claudication Aortic stenosis Right hip pain Cataracts, bilateral Tooth infection (~09/2017) Depression Arthritis HLD (hyperlipidemia) Hearing impaired Numbness and tingling of both feet A-fib Diabetes Surgical History History of colonoscopy History of vasectomy Social History marital status: details: rl Lee, lives in [place] household members: spouse housing: house Smoking Status: Never smoker alcohol intake: never substance use type: does not use Assessment & Plan Assessment & Plan narrative: 1. Sepsis with hypotension, acute metabolic encephalopathy, aspiration pneumonia. Present on admission and improved. Patient was placed on Rocephin and doxycycline. These will be continued. Modified barium swallow was performed which showed no evidence of silent aspiration. He will continue on a regular texture diet and thin liquids. 2. Severe aortic stenosis on echocardiogram , present on admission and stable. Aortic valve area was 0.57 cm2. This could certainly be contributing to the severity of his overall symptoms. He will need to follow-up closely with Cardiology as based on his valve area would be a potential candidate for a TAVR. does report episodes of his legs giving out on him and him falling. This could certainly be explained by his aortic stenosis. He may be having presyncopal symptoms. It certainly would explain his hypotension. I did discuss this today with the patient, his , and his daughter. Encouraged them to follow-up with Dr. Ansari to discuss whether he could be a candidate for a TAVR versus ongoing medical management. 3. Diabetes mellitus type 2 , present on admission and stable. Patient is on 70 30 insulin twice daily. He had been dosed in the morning and at bedtime. Overall, blood sugars have improved with the change in his 70 30 insulin to being given 30 minutes prior to breakfast and dinner. Continue close monitoring and checking fingersticks and sliding scale. 4. AFib with RVR, stable. He is on Pradaxa. He is mildly tachycardic at times. He is not on anything for rate control at baseline. This was confirmed with his spouse. Given his lowish blood pressures, this could pose a challenge for rate control. Might benefit from digoxin or other antiarrhythmic. Suspect his low normal blood pressure is related to his severe aortic stenosis. 5. Obstructive sleep apnea, stable. Uses CPAP at home 6. BPH, stable. Continue Flomax PLAN: -continue antibiotics. -await SNF. Approval pending. ALAN: 11/12. Code status Full Prophylaxis On Pradaxa Time-Based Coding :: [TOTAL MINUTES] spent with patient and on the chart (including review of chart, obtaining history, exam, reviewing outside data, placing orders, documenting exam and treatment plan, and counseling patient) on [DATE].
--- NOTE | 2024-11-11 09:34 | CM.DPNOTE ---
Addendum entered by CANDIE Antony 11/11/24 15:23: Per [facility] Elise, auth #[id number]. updated provider/RN JESSICA Addendum entered by CANDIE Antony 11/11/24 15:02: no response from [facility] as of 1500. Spoke with [facility] carlo Pereira, she will reach out to [facility] for updates on SNF auth. Original Note: DCP note CLEANING ASSOCIATE reviewed [employer] CLEANING ASSOCIATE faxed initial SNF referral information to [facility]. LVM with [facility] Elise Quispe ([phone]). CLEANING ASSOCIATE spoke with Ruthie from , kindly agreed to review. acceptance pending. PASRR needed. P: DC to vs [facility], pending [facility] auth/accepting facility/ and family preference. CM team will continue to follow closely for DCP coordination CANDIE Antony
[2024-11-11 10:00] VITALS: BP 116/68; PULSE 99; RESP 17; TEMP 36.5; O2SAT 93
[2024-11-11] MEDS: DOXYCYCLINE HYCLATE 100 MG TABLET PO ×2 (10:05→21:07)
[2024-11-11] MEDS: DABIGATRAN 75 MG CAPSULE 150 MG PO ×2 (10:06→21:07)
[2024-11-11] MEDS: CHOLECALCIFEROL (VITAMIN D3) 1,000 UNIT TABLET 4000 UNIT PO ×2 (10:06→21:07)
[2024-11-11] MEDS: cefTRIAXone 1,000 MG in SODIUM CHLORIDE 0.9% 100 ML 200 MG IV (10:07)
[2024-11-11] MEDS: INSULIN NPH/REG 70-30 100 UNIT/ML 10ML VIAL 14 UNIT SUBCUT (10:07)
[2024-11-11] MEDS: TRAMADOL 50 MG TABLET PO (10:16)
--- NOTE | 2024-11-11 12:16 | PT-IP ANOTE ---
Attempted to see pt this AM, pt refused stating he is having a bad day and is too tired to participate in PT.
[2024-11-11] MEDS: INSULIN LISPRO 100 UNIT/ML 3ML VIAL SUBCUT ×2 (12:28→16:50)
[2024-11-11] MEDS: INSULIN NPH/REG 70-30 100 UNIT/ML 10ML VIAL 12 UNIT SUBCUT (16:48)
[2024-11-11] MEDS: TAMSULOSIN 0.4 MG CAPSULE 0.8 MG PO (21:07)
[2024-11-11 22:20] VITALS: BP 105/66; PULSE 83; RESP 19; TEMP 36.3; O2SAT 96
[2024-11-12 08:00] VITALS: BP 120/72; PULSE 85; RESP 17; TEMP 36.7; O2SAT 98
[2024-11-12] MEDS: INSULIN NPH/REG 70-30 100 UNIT/ML 10ML VIAL 14 UNIT SUBCUT (08:11)
[2024-11-12] MEDS: DOXYCYCLINE HYCLATE 100 MG TABLET PO (08:19)
[2024-11-12] MEDS: CHOLECALCIFEROL (VITAMIN D3) 1,000 UNIT TABLET 4000 UNIT PO (08:19)
[2024-11-12] MEDS: DABIGATRAN 75 MG CAPSULE 150 MG PO (08:19)
--- NOTE | 2024-11-12 10:44 | P.DS_ITS ---
History of Present Illness History of Present Illness Chief complaint: Controlled Fall Narrative: From H&P: 84 y/o with PMH of dementia,A-fib on pradaxa, HTN, DM, SAURAV, LS fusion, BPH, hospitalization in [place] in July 2024 for enterococcal UTI, brought by with severe generalized weakness was actually discharged from the hospital on 11/07 where he was admitted with borderline hypotension and weakness, improved with fluids and discharged home. He was again unable to ambulate this morning and was brought back into the ER. CTA was performed as he was noted to have O2 of 87% in the ER. CTA showed dependent bronchial thickening and debris consistent with aspiration, pulmonary edema and small loculated pleural effusions along with an enlarged R thyroid lobe. Heart monitor seen in the ER also showed intermittent RVR which quickly resolved. He was admitted for further management. Discharge Providers Provider Date of admission: 11/08/24 15:12 Discharge Date: 11/12/24 Primary care physician: Zandra Chou PA-C Consults: 11/08/24 09:37 Consult to [facility] - Employee Communications Intern Stat Comment: Employee Communications Intern Consult needed for:: Not safe at home Comment: multiple falls 11/08/24 12:33 Consult to Occupational Therapy Evaluate & Treat Comment: Physician Instructions: Evaluate and treat Consult to Physical Therapy Evaluate & Treat Comment: Physician Instructions: Evaluate and Treat 11/08/24 16:29 Consult to Speech Therapy Evaluate & Treat Comment: Physician Instructions: Evaluate and treat Discharge provider: Victoriano Peña MD Summary Hospital Course Discharge Diagnosis: 1. Sepsis with hypotension, acute metabolic encephalopathy, aspiration pneumonia. Present on admission and improved. Patient was placed on Rocephin and doxycycline initially. Modified barium swallow was performed which showed no evidence of silent aspiration. He continued on a regular texture diet and thin liquids. 2. Severe aortic stenosis on echocardiogram , present on admission and stable. Aortic valve area was 0.57 cm2. This could certainly be contributing to the severity of his overall symptoms. He will need to follow-up closely with Cardiology as based on his valve area would be a potential candidate for a TAVR. does report episodes of his legs giving out on him and him falling. This could certainly be explained by his aortic stenosis. He may be having presyncopal symptoms. It certainly would explain his hypotension. I did discuss this today with the patient, his , and his daughter. Encouraged them to follow-up with Dr. Ansari to discuss whether he could be a candidate for a TAVR versus ongoing medical management. 3. Diabetes mellitus type 2 , present on admission and stable. Patient is on 70 30 insulin twice daily. He had been dosed in the morning and at bedtime. Overall, blood sugars have improved with the change in his 70 30 insulin to being given 30 minutes prior to breakfast and dinner. Continue close monitoring and checking fingersticks and sliding scale. 4. AFib with RVR, stable. He is on Pradaxa. He is mildly tachycardic at times. He is not on anything for rate control at baseline. This was confirmed with his spouse. Given his lowish blood pressures, this could pose a challenge for rate control. Might benefit from digoxin or other antiarrhythmic. Suspect his low normal blood pressure is related to his severe aortic stenosis. 5. Obstructive sleep apnea, stable. Uses CPAP at home 6. BPH, stable. Continue Flomax Hospital Course: He was admitted with sepsis. Initially he was encephalopathic and there was concern for aspiration pneumonia. He was treated with antibiotics. A modified barium swallow was performed which was negative for evidence of aspiration. An echo did reveal severe aortic stenosis. The patient improved with antibiotics but was felt to be too weak to return home. He and family were agreeable to a rehabilitation transition through custodial facility. He was on chronic Pradaxa. He was never been evaluated for his critical aortic stenosis. Would recommend outpatient cardiology follow up for their opinion regarding his options for aortic stenosis when see has improved with regards to his rehabilitation. Status at Discharge Cognitive/behavioral status at discharge: at baseline, confused Functional status at discharge: uses cane/walker Overall status at discharge: patient is progressing back to baseline Time Spent with Patient Time spent: Greater than 30 minutes Exam Vital Signs (past 8 hours): - 11/12/24 08:00 Temperature 98.0 F Pulse Rate 85 Respiratory Rate 17 Blood Pressure 120/72 Pulse Oximetry 98 Oxygen Flow Rate 0 Oxygen Delivery Method Room Air Oxygen Flow Rate 0 Narrative Exam Narrative: NAD, alert and oriented. Fluent speech. Lungs are clear, normal rate and effort. Heart is regular, no murmur gallop or rub. Abdomen is soft, non distended. Extremities are free of edema. Objective ECG Impression: Atrial fibrillation Imaging Multiple studies:: Radiologist's impression: Chest CTA: No pulmonary embolus. Suspected aspiration, with dependent bronchial thickening and segmental bronchi debris. Superimposed moderate pulmonary edema. Small, loculated pleural effusions. Enlarged right thyroid lobe, likely due to multiple nodules. Recommend outpatient thyroid ultrasound per consensus guidelines. Chest x-ray: Finding is concerning for right lower lobe infiltrate. Clinical correlation and follow-up is recommended. No pleural effusion or pneumothorax. Head CT: 1. CT head without acute intracranial abnormalities or acute calvarial fractures. 2. Age-related senescent changes and sequela of chronic small vessel ischemic disease. 3. Splenoid sinus disease. Chest x-ray: Stable radiographic evaluation of the chest without acute cardiopulmonary abnormalities or focal consolidation. Labs 11/11/24 05:40 11/11/24 05:40 [facility] Medical History Mild cognitive impairment with memory loss (~11/23/18) Obesity (BMI 30-39.9) Idiopathic hypersomnia with long sleep time Obstructive sleep apnea of adult Intermittent claudication Aortic stenosis Right hip pain Cataracts, bilateral Tooth infection (~09/2017) Depression Arthritis HLD (hyperlipidemia) Hearing impaired Numbness and tingling of both feet A-fib Diabetes Surgical History History of colonoscopy History of vasectomy Social History marital status: details: rl Lee, lives in [place] household members: spouse housing: house Smoking Status: Never smoker alcohol intake: never substance use type: does not use Discharge Assessment & Plan Assessment and Plan Assessment: 1. Septic encephalopathy, present on admission and Improved. 2. Possible aspiration pneumonia, present on admission and improving. Plan of Treatment: Discharge to custodial facility for rehabilitative efforts. We will continue several more days of oral antibiotics. Recommend outpatient follow up with Cardiology to discuss options for his aortic valve. Discharge Plan Discharge Plan Patient Disposition: SNF Transfer to: [facility] Under care of provider: SNF Doctor Provider Discharge Comment: stable for discharge to custodial facility for rehabilitation efforts. Discharge orders & Medications Prescriptions: New tramadol 50 mg Tablet 50 mg PO TID PRN (Reason: Pain, Moderate (4-6)) Qty: 15 0RF cefdinir 300 mg capsule 300 mg PO BID Qty: 6 0RF Continued metformin 1,000 mg Tablet 1,500 mg PO QAM Patient Comments: usually between noon to 1pm metformin 1,000 mg tablet 1,000 mg PO BEDTIME Rx Instructions: usually around 9pm tamsulosin 0.4 mg capsule 0.8 mg PO BEDTIME dabigatran etexilate [Pradaxa] 150 mg capsule 150 mg PO BID Humulin 70/30 U-100 Insulin 100 unit/mL (70-30) Suspension 12 unit SUBCUT BEDTIME Qty: 10 0RF Patient Comments: usually around 9pm Humulin 70/30 U-100 Insulin 100 unit/mL (70-30) Suspension 14 unit SUBCUT DAILY Qty: 10 0RF Rx Instructions: usually around 930 am cholecalciferol (vitamin D3) 2,000 unit capsule 4,000 unit PO BID (DME) Respirioncs Dreamstation 2 CPAP See Rx Instructions Qty: 1 Dose Instruction: As directed Patient Comments: Pressure: 15-19 cmH2O DME: [facility] Rx Instructions: Pressure: 15-19 cmH2O DME: [facility] coenzyme Q10 75 mg capsule 75 mg PO DAILY Follow up/Referrals: Zandra Chou PA-C [Primary Care Provider] - Discharge Health Status Multidrug resistant organism: No MDRO Diet/Activity/Treatments Diet: Carb-consistent/Diabetic Activity: As tolerated. Special Rehabilitation Services Reason for rehabilitation: Recovery r/t decondition Rehab type: Physical therapy and Occupational therapy Visit Report/Discharge Packet Instructions: DI for Pneumonia -- Adult Stand Alone Forms: Patient Portal/API Discharge Data Primary Care Provider: Zandra Chou
[2024-11-12] MEDS: cefTRIAXone 1,000 MG in SODIUM CHLORIDE 0.9% 100 ML 200 MG IV (11:42)
--- NOTE | 2024-11-12 11:53 | CM.DPC ---
DCP Discharge SNF Per MD, pt remains medically stable to d/c to SNF today and no identified barriers to discharge. MD signed PASRR for depression managed without need for medication management. TANVIR confirmed that [facility] can accept pt today with transport around 1430. SW secure emailed signed PASRR, signed med list, scripts, MD orders, d/c summary to review. TANVIR confirmed that [facility] uncertain they have a male bed for pt today. SW called pt's spouse/POA and updated on above and she remains agreeable with discharge to [facility] today and will be bedside around lunchtime today. Updated air cargo specialist, MID LEVEL DEVELOPER, and RN and provided number to call report. Plan: Patient to discharge to [facility] today around 1430 via facility van before safe return home with spouse. CANDIE Hoskins
--- NOTE | 2024-11-12 13:45 | PC.NURSE ---
Pt is dressed and ready for discharge to [facility] at 1430. IV has been removed. Belongings are packed up and Spouse is at the bedside. Called [facility] and gave report to Harriet SPENCER-all questions answered. Pt will be discharged out via w/c by [facility] personnel with all belongings and d/c packet.
== END 2024-11-12 14:35 | DRG 871 ==
LOC: ED 13:45 → AC 11-09 07:18
PROVIDERS: Admitting Provider Internal Medicine; Emergency Provider Emergency Medicine; PCP Physician Assistant; Referring Provider Emergency Medicine; Visit Provider Internal Medicine
DX: A41.9 Sepsis, unspecified organism (principal); G93.41 Metabolic encephalopathy; J69.0 Pneumonitis due to inhalation of food and vomit; J18.9 Pneumonia, unspecified organism; J96.01 Acute respiratory failure with hypoxia; I5A Non-ischemic myocardial injury (non-traumatic); F03.90 Unspecified dementia, unspecified severity, without behavioral disturbance, psychotic disturbance, mood disturbance, and anxiety; E11.9 Type 2 diabetes mellitus without complications; I48.91 Unspecified atrial fibrillation; G47.33 Obstructive sleep apnea (adult) (pediatric); N40.0 Benign prostatic hyperplasia without lower urinary tract symptoms; I35.0 Nonrheumatic aortic (valve) stenosis; R65.20 Severe sepsis without septic shock; Z79.4 Long term (current) use of insulin; Z79.01 Long term (current) use of anticoagulants; Z79.84 Long term (current) use of oral hypoglycemic drugs; Z98.1 Arthrodesis status; Z86.79 Personal history of other diseases of the circulatory system; R53.1 Weakness; E66.9 Obesity, unspecified; Z68.32 Body mass index [BMI] 32.0-32.9, adult
CPT/HCPCS: 0241U; 36415; 51798; 70450; 71045; 71275; 74230; 80048; 80053; 81001; 82550; 82962; 83036; 83605; 83690; 83735; 83880; 84484; 85025; 85379; 85610; 85730; 87040; 92610; 92611; 93005; 93010; 94760; 96360; 96361; 96365; 96367; 96372; 97162; 97166; 97530; 97535; 99284; 99285; G0378; C8929; J0696; J1815; Q9957; Q9967

== ENCOUNTER 2024-12-09 20:54 | Emergency (ER) | payer OTHER, SELFPAY ==
[2024-11-05 06:38] VITALS: BMI 32.8
[2024-12-09] VITALS (7 sets, daily range): BP systolic 112; BP diastolic 73; PULSE 91–116; RESP 18; TEMP 37.2; O2SAT 93–96; BMI 31.3
--- NOTE | 2024-12-09 21:19 | PC.NURSE ---
Patient has had decreased PO intake with no BM since . BG 157. Patient is at his baseline per
--- NOTE | 2024-12-09 23:11 | DI.RAD.S_ITS ---
PROCEDURE: XR CHEST 1V INDICATIONS: chest pain TECHNIQUE: One view of the chest was acquired. COMPARISON: [facility], CT, CT ANGIO CHEST PE PROTOCOL, 11/08/2024, 12:35. [facility], CR, XR CHEST 1V, 11/08/2024, 9:45. [facility], CR, XR CHEST 1V, 11/04/2024, 21:03. FINDINGS: Surgical changes and devices: None. Lungs and pleura: Subtle streaky opacity at the right lower lobe, unchanged. No large pleural effusions or pneumothorax. Mediastinum: Mediastinal contours appear unchanged. Heart size is normal. Bones and chest wall: No suspicious bony lesions. Overlying soft tissues appear unremarkable. IMPRESSION: Streaky opacity at the right lower lobe is unchanged. This could represent atelectasis or pneumonia. Dictated by: Jordan Jiang M.D. on 12/10/2024 at 0:37 Approved by: Jordan Jiang M.D. on 12/10/2024 at 0:39
--- NOTE | 2024-12-09 23:28 | EKG_ITS ---
[facility] [address] [place] [address] Test Date: 2024-12-09 Pat Name: Luis Miguel Hernandez Department: [facility] Room: Gender: Male Gutter Mouth Cutter: DENISE GOMEZ : 1940 Requested By: Order Number: [id number] Reading MD: Dino Jean Measurements Intervals [place] Rate: 101 P: VT: QRS: 18 QRSD: 96 T: -39 QT: 348 QTc: 451 Interpretive Statements Atrial fibrillation with rapid ventricular response Nonspecific ST abnormality Electronically Signed On 12-12-2024 17:38:09 PDT by Dino Jean
[2024-12-09 23:38] LABS: Add Manual Diff / Slide Review NO; Basophils Absolute Auto 100 /uL (0-100); Basophils Percent Auto 0.7 % (0-2); Eosinophils Absolute Auto 200 /uL (0-450); Eosinophils Percent Auto 1.6 % (2-4); Hematocrit 37.6 % (41-53); Hemoglobin 12.5 g/dL (13.5-17.5); Lymphocytes Absolute Auto 1500 /uL (1100-4500); Lymphocytes Percent Auto 15.5 % (25-40); Mean Corpuscular HGB Conc 33.3 % (30-36); Mean Corpuscular Hemoglobin 26.9 PG (26-34); Mean Corpuscular Volume 80.9 fL (80-100); Monocytes Absolute Auto 1400 /uL (0-900); Monocytes Percent Auto 14.2 % (3-14); Neutrophils Absolute Auto 6600 /uL (1500-7000); Platelet Count 213 X10^3/uL (150-400); Red Blood Cell Count 4.64 X10^6/uL (4.5-5.9); Red Cell Distribution Width 15.5 % (11.6-14.8); White Blood Cell Count 9.7 X10^3/uL (4.5-11.0)
[2024-12-09 23:40] LABS: Appearance Urine UA CLEAR; Bilirubin Urine UA NEGATIVE (NEGATIVE); Color Urine UA YELLOW; Glucose Urine UA TRACE g/dL (Negative); Ketones Urine UA NEGATIVE (NEGATIVE); Leukocyte Esterase Urine UA NEGATIVE (NEGATIVE); Nitrite Urine UA NEGATIVE (Negative); Occult Blood Urine UA NEGATIVE (Negative); Protein Urine UA NEGATIVE (Negative); Specific Gravity Urine UA 1.025 (1.000-1.035); Urobilinogen Urine UA 0.2 E.U./dL (0.2); pH Urine UA 5.5 (4.5-8.0)
--- NOTE | 2024-12-09 23:40 | ED_ITS ---
HPI - Weakness <Hi Yun MD - Last Filed: 12/11/24 19:10> General Chief complaint: Weakness Stated complaint: Weakness Time Seen by Provider: 12/09/24 22:08 Source: EMS Mode of arrival: EMS History of Present Illness HPI Narrative: 84-year-old male with history of dementia lives at home with spouse, history of aortic stenosis awaiting cardiology follow up appointment for possible future TAVR, history of atrial fibrillation, diabetes, sleep apnea for which he uses CPAP at night. Noted to have generalized weakness unable to ambulate at home through the day today. Decreased oral intake through the day today. Fevers or chills. No incontinence of urine. No vomiting. No injury or trauma new activities recalled. No changes in medications recalled. Related Data Home Medications Medication Instructions Recorded Confirmed cholecalciferol (vitamin D3) 50 4,000 unit PO BID 11/15/18 12/10/24 mcg (2,000 unit) capsule Respirioncs Dreamstation 2 CPAP #1 ea 04/22/22 12/11/24 coenzyme Q10 75 mg capsule 300 mg PO DAILY 04/22/22 12/10/24 tamsulosin 0.4 mg capsule 0.8 mg PO BEDTIME 10/04/23 12/10/24 dabigatran etexilate 150 mg 150 mg PO BID 07/17/24 12/10/24 capsule (Pradaxa) Previous Rx's Medication Instructions Recorded insulin human U-100 NPH-regulr 12 unit (0.12 mL) SUBCUT BEDTIME 07/21/24 70-30 mix 100 unit/mL subcutaneous #10 mL susp (Humulin 70/30 U-100 Insulin) insulin human U-100 NPH-regulr 14 unit (0.14 mL) SUBCUT DAILY #10 07/21/24 70-30 mix 100 unit/mL subcutaneous mL susp (Humulin 70/30 U-100 Insulin) tramadol 50 mg tablet 50 mg PO TID PRN Pain, Moderate 11/12/24 (4-6) #15 tabs Allergies Allergy/AdvReac Type Severity Reaction Status Date / Time No Known Drug Allergies Allergy Verified 11/04/24 20:52 Patient History <Hi Yun MD - Last Filed: 12/11/24 19:10> Medical History Mild cognitive impairment with memory loss (~11/23/18) Obesity (BMI 30-39.9) Idiopathic hypersomnia with long sleep time Obstructive sleep apnea of adult Intermittent claudication Aortic stenosis Right hip pain Cataracts, bilateral Tooth infection (~09/2017) Depression Arthritis HLD (hyperlipidemia) Hearing impaired Numbness and tingling of both feet A-fib Diabetes Surgical History History of colonoscopy History of vasectomy Social History marital status: details: rl Lee, lives in [place] household members: spouse and family housing: house alcohol intake: never substance use type: does not use Exam <Hi Yun MD - Last Filed: 12/11/24 19:10> Narrative Exam Narrative: GENERAL: Well-developed patient, in mild distress. Some confusion, history of dementia per at bedside. HEAD: Atraumatic. Normocephalic. EYES: Pupils equal round and reactive. Extraocular motions intact. No scleral icterus. No injection or drainage. ENT: Nose without bleeding, purulent drainage. Throat without erythema, tonsillar hypertrophy or exudate. Airway patent. NECK: Trachea midline. Non tender CARDIOVASCULAR: Irregularly irregular rhythm with normal/increased rate, 2/6 systolic murmur left upper sternal border noted RESPIRATORY: Clear to auscultation. Breath sounds equal bilaterally. No wheezes, rales, or rhonchi. GASTROINTESTINAL: Abdomen soft, non-tender, nondistended. EXTREMITIES: No edema or joint tenderness. BACK: Nontender without deformity or crepitance. No flank tenderness. NEURO: AOx3. Motor functions grossly nonfocal SKIN: No rash or erythema of visible areas Initial Vital Signs Initial Vital Signs: Vital Signs Temperature 98.9 F 12/09/24 21:01 Pulse Rate 100 H 12/09/24 21:01 Respiratory Rate 18 12/09/24 21:01 Blood Pressure 112/73 12/09/24 21:01 Pulse Oximetry 96 12/09/24 21:01 Oxygen Delivery Method Room Air 12/09/24 21:01 <Martha Waters DO - Last Filed: 12/16/24 07:39> Initial Vital Signs Initial Vital Signs: Vital Signs Temperature 98.9 F 12/09/24 21:01 Pulse Rate 100 H 12/09/24 21:01 Respiratory Rate 18 12/09/24 21:01 Blood Pressure 112/73 12/09/24 21:01 Pulse Oximetry 96 12/09/24 21:01 Oxygen Delivery Method Room Air 12/09/24 21:01 Course <Hi Yun MD - Last Filed: 12/11/24 19:10> Orders Ordered: Discontinued Medications Sodium Chloride (Normal Saline 0.9%) 1,000 mls @ 500 mls/hr IV BOLUS ONE Stop: 12/10/24 01:39 Last Infusion: 12/10/24 01:42 Dose: Infused Documented By: Admin: 12/09/24 23:57 Dose: 500 mls/hr Documented By: Sodium Chloride (Normal Saline 0.9%) 500 mls @ 1,000 mls/hr IV BOLUS ONE Stop: 12/10/24 10:30 Last Infusion: 12/10/24 11:03 Dose: Infused Documented By: Admin: 12/10/24 10:13 Dose: 1,000 mls/hr Documented By: DANIELA Metoprolol Tartrate (Metoprolol Tartrate 5 Mg/5 Ml Inj) 5 mg IV NOW ONE Stop: 12/10/24 04:00 Last Admin: 12/10/24 04:10 Dose: 5 mg Documented By: Vital Signs Vital signs: Vital Signs - 8 hr 12/11/24 11:30 12/11/24 12:00 12/11/24 12:30 Pulse Rate 105 H 106 H 104 H Respiratory Rate 24 24 23 Blood Pressure Pulse Oximetry 92 92 91 12/11/24 13:00 12/11/24 13:30 12/11/24 13:40 Pulse Rate 111 H 106 H Respiratory Rate 25 H 28 H Blood Pressure 112/51 L Pulse Oximetry 93 92 12/11/24 13:40 12/11/24 14:00 12/11/24 14:30 Pulse Rate 109 H 108 H 110 H Respiratory Rate 29 H 26 H 23 Blood Pressure Pulse Oximetry 92 92 95 12/11/24 15:00 12/11/24 15:30 12/11/24 15:47 Pulse Rate 98 H 102 H Respiratory Rate 15 23 Blood Pressure 103/51 L Pulse Oximetry 95 96 12/11/24 15:47 12/11/24 16:00 12/11/24 16:30 Pulse Rate 102 H 99 H 95 H Respiratory Rate 12 15 16 Blood Pressure Pulse Oximetry 95 95 95 12/11/24 16:49 12/11/24 16:49 12/11/24 17:00 Pulse Rate 99 H Respiratory Rate 12 Blood Pressure 92/55 L 96/64 Pulse Oximetry 96 12/11/24 17:00 Pulse Rate 101 H Respiratory Rate 21 Blood Pressure Pulse Oximetry 94 <Martha Waters, - Last Filed: 12/16/24 07:39> Orders Ordered: Discontinued Medications Sodium Chloride (Normal Saline 0.9%) 1,000 mls @ 500 mls/hr IV BOLUS ONE Stop: 12/10/24 01:39 Last Infusion: 12/10/24 01:42 Dose: Infused Documented By: Admin: 12/09/24 23:57 Dose: 500 mls/hr Documented By: Sodium Chloride (Normal Saline 0.9%) 500 mls @ 1,000 mls/hr IV BOLUS ONE Stop: 12/10/24 10:30 Last Infusion: 12/10/24 11:03 Dose: Infused Documented By: Admin: 12/10/24 10:13 Dose: 1,000 mls/hr Documented By: DANIELA Metoprolol Tartrate (Metoprolol Tartrate 5 Mg/5 Ml Inj) 5 mg IV NOW ONE Stop: 12/10/24 04:00 Last Admin: 12/10/24 04:10 Dose: 5 mg Documented By: Vital Signs Vital signs: Vital Signs - 8 hr 12/11/24 11:30 12/11/24 12:00 12/11/24 12:30 Pulse Rate 105 H 106 H 104 H Respiratory Rate 24 24 23 Blood Pressure Pulse Oximetry 92 92 91 12/11/24 13:00 12/11/24 13:30 12/11/24 13:40 Pulse Rate 111 H 106 H Respiratory Rate 25 H 28 H Blood Pressure 112/51 L Pulse Oximetry 93 92 12/11/24 13:40 12/11/24 14:00 12/11/24 14:30 Pulse Rate 109 H 108 H 110 H Respiratory Rate 29 H 26 H 23 Blood Pressure Pulse Oximetry 92 92 95 12/11/24 15:00 12/11/24 15:30 12/11/24 15:47 Pulse Rate 98 H 102 H Respiratory Rate 15 23 Blood Pressure 103/51 L Pulse Oximetry 95 96 12/11/24 15:47 12/11/24 16:00 12/11/24 16:30 Pulse Rate 102 H 99 H 95 H Respiratory Rate 12 15 16 Blood Pressure Pulse Oximetry 95 95 95 12/11/24 16:49 12/11/24 16:49 12/11/24 17:00 Pulse Rate 99 H Respiratory Rate 12 Blood Pressure 92/55 L 96/64 Pulse Oximetry 96 12/11/24 17:00 Pulse Rate 101 H Respiratory Rate 21 Blood Pressure Pulse Oximetry 94 MDM - Weakness <Hi Yun MD - Last Filed: 12/11/24 19:10> Lab Data Attestation: I reviewed the patient's lab results. Lab results narrative: White blood cell count 9700, hemoglobin 12.5, platelets adequate. Glucose 142. BUN 15 with creatinine 0.84. Electrolytes unremarkable, serum CO2 29 normal. Urine dip negative. Alkaline phosphatase slight elevation other liver functions unremarkable/normal. Lipase 48 normal. 12/11/24 09:23 12/11/24 09:23 Labs: Lab Results 12/09/24 12/09/24 12/10/24 Range/Units 23:29 23:32 01:08 WBC 9.7 (4.5-11.0) X10^3/uL RBC 4.64 (4.5-5.9) X10^6/uL Hgb 12.5 L (13.5-17.5) g/dL Hct 37.6 L (41-53) % MCV 80.9 (80-100) fL MCH 26.9 (26-34) PG MCHC 33.3 (30-36) % RDW 15.5 H (11.6-14.8) % Plt Count 213 (150-400) X10^3/uL Neut % (Auto) 68.0 (50-75) % Lymph % (Auto) 15.5 L (25-40) % [place] % (Auto) 14.2 H (3-14) % Eos % (Auto) 1.6 L (2-4) % Baso % (Auto) 0.7 (0-2) % Neut # (Auto) 6600 (1647-8105) /uL Lymph # (Auto) 1500 (4907-7797) /uL [place] # (Auto) 1400 H (0-900) /uL Eos # (Auto) 200 (0-450) /uL Baso # (Auto) 100 (0-100) /uL Sodium 137 (137-145) mmol/L Potassium 4.1 (3.4-5.1) mmol/L Chloride 100 (98-107) mmol/L Carbon Dioxide 29 (22-32) mmol/L BUN 15 (9-20) mg/dL Creatinine 0.84 (0.66-1.25) mg/dL Estimated GFR > 60 (>60) mL/min BUN/Creatinine Ratio 17.9 (6-22) Glucose 142 H (70-99) mg/dL Lactate (0.7-2.1) mmol/L Calcium 9.5 (8.4-10.2) mg/dL Magnesium (1.6-2.3) mg/dL Total Bilirubin 0.6 (0.2-1.3) mg/dL AST 32 (17-59) IU/L ALT 20 (<50) IU/L Alkaline Phosphatase 127 H (38-126) U/L Total Creatine Kinase 71 (55-170) U/L Troponin I < 0.012 (0.01-0.034) ng/mL Total Protein 7.9 (6.3-8.2) g/dL Albumin 4.1 (3.5-5.0) g/dL Globulin 3.8 (1.7-4.1) g/dL Albumin/Globulin Ratio 1.1 (1.0-2.8) Lipase 48 (23-300) U/L TSH (0.47-4.68) uIU/mL Urine Color Yellow Urine Appearance Clear Urine pH 5.5 (4.5-8.0) Ur Specific [place] 1.025 (1.000-1.035) Urine Protein Negative (Negative) Urine Glucose (UA) Trace H (Negative) g/dL Urine Ketones Negative (NEGATIVE) Urine Occult Blood Negative (Negative) Urine Nitrate Negative (Negative) Urine Bilirubin Negative (NEGATIVE) Urine Urobilinogen 0.2 (0.2) E.U./dL Ur Leukocyte Esterase Negative (NEGATIVE) Urine RBC None seen (0-5/HPF) Urine WBC None seen (0-5/HPF) Ur Squamous Epith Cells 0-1 /hpf (0-5/HPF) Urine Bacteria None seen (None) Ur Culture Indicated? Cult not indicated Vol Urine Centrifuged 10ml (spun) SARS-CoV-2 (PCR) Negative (Negative) Influenza A (RT-PCR) Flu a negative (NEGATIVE) Influenza B (RT-PCR) Flu b negative (NEGATIVE) RSV (PCR) Negative (Negative) 12/10/24 12/10/24 12/11/24 Range/Units 13:31 13:32 09:23 WBC 7.8 10.0 (4.5-11.0) X10^3/uL RBC 4.10 L 4.53 (4.5-5.9) X10^6/uL Hgb 11.1 L 12.2 L (13.5-17.5) g/dL Hct 33.4 L 36.6 L (41-53) % MCV 81.3 80.7 (80-100) fL MCH 27.1 27.0 (26-34) PG MCHC 33.3 33.5 (30-36) % RDW 15.3 H 15.4 H (11.6-14.8) % Plt Count 175 199 (150-400) X10^3/uL Neut % (Auto) 69.5 75.3 H (50-75) % Lymph % (Auto) 14.7 L 10.7 L (25-40) % [place] % (Auto) 13.7 12.6 (3-14) % Eos % (Auto) 1.4 L 1.0 L (2-4) % Baso % (Auto) 0.7 0.4 (0-2) % Neut # (Auto) 5400 7500 H (1557-5879) /uL Lymph # (Auto) 1100 1100 (6080-0388) /uL [place] # (Auto) 1100 H 1300 H (0-900) /uL Eos # (Auto) 100 100 (0-450) /uL Baso # (Auto) 100 0 (0-100) /uL Sodium 135 L 136 L (137-145) mmol/L Potassium 3.8 4.1 (3.4-5.1) mmol/L Chloride 103 100 (98-107) mmol/L Carbon Dioxide 24 26 (22-32) mmol/L BUN 14 12 (9-20) mg/dL Creatinine 0.80 0.88 (0.66-1.25) mg/dL Estimated GFR > 60 > 60 (>60) mL/min BUN/Creatinine Ratio 17.5 13.6 (6-22) Glucose 209 H 176 H (70-99) mg/dL Lactate 1.2 (0.7-2.1) mmol/L Calcium 8.4 9.0 (8.4-10.2) mg/dL Magnesium 2.0 (1.6-2.3) mg/dL Total Bilirubin 0.7 1.1 (0.2-1.3) mg/dL AST 27 26 (17-59) IU/L ALT 18 19 (<50) IU/L Alkaline Phosphatase 105 129 H (38-126) U/L Total Creatine Kinase 58 (55-170) U/L Troponin I < 0.012 (0.01-0.034) ng/mL Total Protein 6.5 7.6 (6.3-8.2) g/dL Albumin 3.4 L 3.9 (3.5-5.0) g/dL Globulin 3.1 3.7 (1.7-4.1) g/dL Albumin/Globulin Ratio 1.1 1.1 (1.0-2.8) Lipase (23-300) U/L TSH 0.634 (0.47-4.68) uIU/mL Urine Color Urine Appearance Urine pH (4.5-8.0) Ur Specific [place] (1.000-1.035) Urine Protein (Negative) Urine Glucose (UA) (Negative) g/dL Urine Ketones (NEGATIVE) Urine Occult Blood (Negative) Urine Nitrate (Negative) Urine Bilirubin (NEGATIVE) Urine Urobilinogen (0.2) E.U./dL Ur Leukocyte Esterase (NEGATIVE) Urine RBC (0-5/HPF) Urine WBC (0-5/HPF) Ur Squamous Epith Cells (0-5/HPF) Urine Bacteria (None) Ur Culture Indicated? Vol Urine Centrifuged SARS-CoV-2 (PCR) (Negative) Influenza A (RT-PCR) (NEGATIVE) Influenza B (RT-PCR) (NEGATIVE) RSV (PCR) (Negative) Point of Care Testing Glucose POC [address] scan - head: Radiologist Impression: Close Head CT (Signed) Call,Jordan - 12/09/24 Chest X-Ray (Signed) Call,Jordan - 12/09/24 Launch?[address] [address] [address] Scan Report Signed Patient: Luis Miguel Higginbotham MR#: [id number] : 1940 Acct:[id number] Age/Sex: 84 / M Date of Service: 12/09/24 Loc: ED Accession Number: [id number] Procedure: CT head/brain wo con Ordering Provider: Hi Yun MD PROCEDURE: CT HEAD/BRAIN WO CON INDICATIONS: weakness, age 84, on pradaxa, hx Afib TECHNIQUE: Noncontrast 4.5 mm thick angled axial sections acquired from the foramen magnum to the vertex, with coronal and sagittal reformats. For radiation dose reduction, the following was used: automated exposure control, adjustment of mA and/or kV according to patient size. COMPARISON: [facility], CT, CT HEAD/BRAIN WO CON, 11/05/2024, 0:34. FINDINGS: Image quality: Diagnostic. CSF spaces: Basal cisterns are patent. No extra-axial fluid collections. Ventricles are normal in size and shape. Brain: No midline shift. 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 No intracranial mass effect or hemorrhage. No area of hypodensity in a large vascular distribution to suggest acute infarction. Periventricular hypodensity consistent with chronic microvascular ischemic change. Age-related parenchymal loss. Skull and face: Calvarium and visualized facial bones are intact, without suspicious lesions. Sinuses: Secretions in the sphenoid sinus. Paranasal sinuses are otherwise clear. Mastoids are clear. IMPRESSION: No acute intracranial pathology identified. Dictated by: Jordan Jiang M.D. on 12/10/2024 at 0:58 Approved by: Jordan Jiang M.D. on 12/10/2024 at 1:03 Chest x-ray: Radiologist Impression: Close Head CT (Signed) Call,Jordan 12/09/24 Chest X-Ray (Signed) Call,Jordan 12/09/24 Launch?[address] [address] XRay Report Signed Patient: Luis Miguel Higginbotham MR#: [id number] : 1940 Acct:[id number] Age/Sex: 84 / M Date of Service: 12/09/24 Loc: ED Accession Number: [id number] Procedure: XR chest 1V Ordering Provider: Hi Yun MD PROCEDURE: XR CHEST 1V INDICATIONS: chest pain TECHNIQUE: One view of the chest was acquired. COMPARISON: [facility], CT, CT ANGIO CHEST PE PROTOCOL, 11/08/2024, 12:35. [facility], CR, XR CHEST 1V, 11/08/2024, 9:45. [facility], CR, XR CHEST 1V, 11/04/2024, 21:03. FINDINGS: Surgical changes and devices: None. Lungs and pleura: Subtle streaky opacity at the right lower lobe, unchanged. No large pleural effusions or pneumothorax. Mediastinum: Mediastinal contours appear unchanged. Heart size is normal. Bones and chest wall: No suspicious bony lesions. Overlying soft tissues appear unremarkable. IMPRESSION: Streaky opacity at the right lower lobe is unchanged. This could represent atelectasis or pneumonia. Dictated by: Jordan Jiang M.D. on 12/10/2024 at 0:37 Approved by: Jordan Jiang M.D. on 12/10/2024 at 0:39 ECG Data Attestation: I personally reviewed and interpreted this ECG as follows: Interpretation: Atrial fibrillation with rapid ventricular response, rate 101. No obvious ST segment elevation or depression changes. QRS 96, QTC 451. MDM Narrative Medical decision making narrative: 84-year-old male with generalized weakness unable to walk, had been walking and living at home, history of dementia. Afebrile, sirs screen negative. History of atrial fibrillation on Pradaxa anticoagulation, no obvious recent head injury known. CT head, EKG, labs pending. EKG with atrial fibrillation, known, no significant rapid rate. Electrolytes unremarkable. Urinalysis not obviously infected. CT head no acute changes. See radiology report. Chest x-ray no acute changes. See radiology report. COVID flu RSV swab negative. Unclear etiology of patient's generalized weakness, does not seem to be obviously infected. Patient had previously been at [facility], now with home health living with , consider group home placement. cannot move him, difficult for her to care for him. They would like physical therapy assessment, ordered for later this morning when available. 0700, PT and [employer] consults pending, signed out to Dr Waters. DR. Waters patient signed out to me by Dr. Yun. He is seen evaluated patient myself. Awaiting for social work and PT evaluation for placement. No clear indication for admission at this time. Patient evaluated by physical therapy unable to stand unassisted. He does get mildly orthostatic with physical therapy I he was given a 500 cc bolus. Social work evaluated patient he actually has upcoming appointment with Cardiology wanted a repeat outpatient echo concern that aortic stenosis maybe getting worse. Records have been reviewed was admitted here 11/08/2024, during that time he had borderline hypotension weakness some mild hypoxia. Discharged home on 11/12/2024, with diagnosis of sepsis metabolic encephalopathy aspiration pneumonia had severe aortic stenosis on echo was ultimately discharged to [facility] and he has only been home for a week and a half. reports increasing weakness and inability to care for him at home. Today in the ED he continues to have weakness with borderline hypotension. He does get hypoxic at times but this seems to be when he was sleeping. Dr. Jean consulted, at this time it is recommended that patient be transferred for severe aortic stenosis and valve replacement. He has been admitted here handful times has variable blood pressures thought that his aortic valve is worse and likely causing his problems. Repeat echo shows persistent aortic stenosis Spoke with family about transfer for valve replacement they agree 16:09Dr. Yun from [facility] patient is preapproved to go anywhere needed [address] [facility] cardiology updated patient's symptoms test results states that unlikely all of patient's symptoms are caused from the valve but happy to have patient transferred admitted to Medicine and he will consult 1742 Dr. Martinez, kindly accepts patient 12/10/2024, Jama rDiscoll. Sign-out from Dr. Waters. 84-year-old male with generalized weakness and history of aortic stenosis, found to have soft blood pressure and intermittent hypoxia, consideration for admission, repeat echocardiogram done in showed severe aortic stenosis, hospitalist Dr. Jean evaluated the patient and advised transfer for further evaluation of his severe aortic stenosis. Patient has been accepted for transfer to [facility] Cardiology after [place] insurance approval. Awaiting bed availability [facility]. Assumed care. 0200, still awaiting transfer, no bed placement timing known at this time. 0700, still awaiting transfer to [facility]. Signed out to Dr Johnson. <Martha Waters, DO - Last Filed: 05/04/25 07:39> Lab Data Labs: Lab Results 12/09/24 12/09/24 12/10/24 Range/Units 23:29 23:32 01:08 WBC 9.7 (4.5-11.0) X10^3/uL RBC 4.64 (4.5-5.9) X10^6/uL Hgb 12.5 L (13.5-17.5) g/dL Hct 37.6 L (41-53) % MCV 80.9 (80-100) fL MCH 26.9 (26-34) PG MCHC 33.3 (30-36) % RDW 15.5 H (11.6-14.8) % Plt Count 213 (150-400) X10^3/uL Neut % (Auto) 68.0 (50-75) % Lymph % (Auto) 15.5 L (25-40) % [place] % (Auto) 14.2 H (3-14) % Eos % (Auto) 1.6 L (2-4) % Baso % (Auto) 0.7 (0-2) % Neut # (Auto) 6600 (1493-7889) /uL Lymph # (Auto) 1500 (5743-3177) /uL [place] # (Auto) 1400 H (0-900) /uL Eos # (Auto) 200 (0-450) /uL Baso # (Auto) 100 (0-100) /uL Sodium 137 (137-145) mmol/L Potassium 4.1 (3.4-5.1) mmol/L Chloride 100 (98-107) mmol/L Carbon Dioxide 29 (22-32) mmol/L BUN 15 (9-20) mg/dL Creatinine 0.84 (0.66-1.25) mg/dL Estimated GFR > 60 (>60) mL/min BUN/Creatinine Ratio 17.9 (6-22) Glucose 142 H (70-99) mg/dL Lactate (0.7-2.1) mmol/L Calcium 9.5 (8.4-10.2) mg/dL Magnesium (1.6-2.3) mg/dL Total Bilirubin 0.6 (0.2-1.3) mg/dL AST 32 (17-59) IU/L ALT 20 (<50) IU/L Alkaline Phosphatase 127 H (38-126) U/L Total Creatine Kinase 71 (55-170) U/L Troponin I < 0.012 (0.01-0.034) ng/mL Total Protein 7.9 (6.3-8.2) g/dL Albumin 4.1 (3.5-5.0) g/dL Globulin 3.8 (1.7-4.1) g/dL Albumin/Globulin Ratio 1.1 (1.0-2.8) Lipase 48 (23-300) U/L TSH (0.47-4.68) uIU/mL Urine Color Yellow Urine Appearance Clear Urine pH 5.5 (4.5-8.0) Ur Specific [place] 1.025 (1.000-1.035) Urine Protein Negative (Negative) Urine Glucose (UA) Trace H (Negative) g/dL Urine Ketones Negative (NEGATIVE) Urine Occult Blood Negative (Negative) Urine Nitrate Negative (Negative) Urine Bilirubin Negative (NEGATIVE) Urine Urobilinogen 0.2 (0.2) E.U./dL Ur Leukocyte Esterase Negative (NEGATIVE) Urine RBC None seen (0-5/HPF) Urine WBC None seen (0-5/HPF) Ur Squamous Epith Cells 0-1 /hpf (0-5/HPF) Urine Bacteria None seen (None) Ur Culture Indicated? Cult not indicated Vol Urine Centrifuged 10ml (spun) SARS-CoV-2 (PCR) Negative (Negative) Influenza A (RT-PCR) Flu a negative (NEGATIVE) Influenza B (RT-PCR) Flu b negative (NEGATIVE) RSV (PCR) Negative (Negative) 12/10/24 12/10/24 12/11/24 Range/Units 13:31 13:32 09:23 WBC 7.8 10.0 (4.5-11.0) X10^3/uL RBC 4.10 L 4.53 (4.5-5.9) X10^6/uL Hgb 11.1 L 12.2 L (13.5-17.5) g/dL Hct 33.4 L 36.6 L (41-53) % MCV 81.3 80.7 (80-100) fL MCH 27.1 27.0 (26-34) PG MCHC 33.3 33.5 (30-36) % RDW 15.3 H 15.4 H (11.6-14.8) % Plt Count 175 199 (150-400) X10^3/uL Neut % (Auto) 69.5 75.3 H (50-75) % Lymph % (Auto) 14.7 L 10.7 L (25-40) % [place] % (Auto) 13.7 12.6 (3-14) % Eos % (Auto) 1.4 L 1.0 L (2-4) % Baso % (Auto) 0.7 0.4 (0-2) % Neut # (Auto) 5400 7500 H (1284-3018) /uL Lymph # (Auto) 1100 1100 (4894-5801) /uL [place] # (Auto) 1100 H 1300 H (0-900) /uL Eos # (Auto) 100 100 (0-450) /uL Baso # (Auto) 100 0 (0-100) /uL Sodium 135 L 136 L (137-145) mmol/L Potassium 3.8 4.1 (3.4-5.1) mmol/L Chloride 103 100 (98-107) mmol/L Carbon Dioxide 24 26 (22-32) mmol/L BUN 14 12 (9-20) mg/dL Creatinine 0.80 0.88 (0.66-1.25) mg/dL Estimated GFR > 60 > 60 (>60) mL/min BUN/Creatinine Ratio 17.5 13.6 (6-22) Glucose 209 H 176 H (70-99) mg/dL Lactate 1.2 (0.7-2.1) mmol/L Calcium 8.4 9.0 (8.4-10.2) mg/dL Magnesium 2.0 (1.6-2.3) mg/dL Total Bilirubin 0.7 1.1 (0.2-1.3) mg/dL AST 27 26 (17-59) IU/L ALT 18 19 (<50) IU/L Alkaline Phosphatase 105 129 H (38-126) U/L Total Creatine Kinase 58 (55-170) U/L Troponin I < 0.012 (0.01-0.034) ng/mL Total Protein 6.5 7.6 (6.3-8.2) g/dL Albumin 3.4 L 3.9 (3.5-5.0) g/dL Globulin 3.1 3.7 (1.7-4.1) g/dL Albumin/Globulin Ratio 1.1 1.1 (1.0-2.8) Lipase (23-300) U/L TSH 0.634 (0.47-4.68) uIU/mL Urine Color Urine Appearance Urine pH (4.5-8.0) Ur Specific [place] (1.000-1.035) Urine Protein (Negative) Urine Glucose (UA) (Negative) g/dL Urine Ketones (NEGATIVE) Urine Occult Blood (Negative) Urine Nitrate (Negative) Urine Bilirubin (NEGATIVE) Urine Urobilinogen (0.2) E.U./dL Ur Leukocyte Esterase (NEGATIVE) Urine RBC (0-5/HPF) Urine WBC (0-5/HPF) Ur Squamous Epith Cells (0-5/HPF) Urine Bacteria (None) Ur Culture Indicated? Vol Urine Centrifuged SARS-CoV-2 (PCR) (Negative) Influenza A (RT-PCR) (NEGATIVE) Influenza B (RT-PCR) (NEGATIVE) RSV (PCR) (Negative) Point of Care Testing Glucose POC 197 Imaging Data echo: Radiologist Impression: [address] [address] Echocardiography Report Signed Patient: Luis Miguel Higginbotham MR#: [id number] : 1940 Acct:[id number] Age/Sex: 84 / M Date of Service: 12/10/24 Loc: ED Accession Number: [id number] Procedure: EC echo limited Ordering Provider: Martha Waters D.O. [facility]---------+ Hospital : : [address] [place] [address]. : : [place], [place] : : [id number] : : Phone: [phone] Echocardiogram Report + + :Name: LUIS MIGUEL HIGGINBOTHAM Study Date: 12/10/2024 Height: 69 in : :[facility] ReadingLocation: Weight: 212 lb : : Gender: Male BSA: 2.1 m2 : :: 1940 Age: 84 yrs BP: 121/60 mmHg: :Reason For Study: Aortic stenosis : : Performed By: Tee Madison : :Referring: MARTHA WATERS : + + Interpretation Summary The left ventricle is normal in size. Left ventricular systolic function is probably normal. The ejection fraction is estimated to be 55-60%. There is severe aortic stenosis. The calculated aortic valve area is 0.75 cm2. No significant change since prior study. Procedure: A two-dimensional transthoracic echocardiogram with color flow and Doppler was performed in limited views only to assess Aortic stenosis, LV function. The study quality was technically difficult. Comparison is made with the echocardiogram of 11/09/2024. A contrast injection of Definity was performed to improve assessment of LV function. The patient was in atrial fibrillation with heart rates between 75-91 bpm during the exam. Left Ventricle: The left ventricle is normal in size. There is no thrombus. Left ventricular systolic function is probably normal. The ejection fraction is estimated to be 55-60%. Right Ventricle: The right ventricular systolic function is normal. Aortic Valve: The aortic valve is trileaflet. There is severe aortic valve sclerosis. There is severe aortic stenosis. The calculated aortic valve area is 0.75 cm2. The aortic valve mean gradient is 31 mmHg. The dimensionless index is 0.23. Pericardium/ Pleura There is no pericardial effusion. MMode/2D Measurements & Calculations LVIDd: 4.5 cm LVOT diam: 2.0 cm LVIDs: 2.9 cm Ao root diam: 3.4 cm FS: 35.0 % asc Aorta Diam: 3.1 cm IVSd: 0.98 cm LVPWd: 0.96 cm LV salmon. diameter/BSA (cm/m^2): 2.1 LV sys. diameter/BSA (cm/m^2): 1.4 TAPSE: 1.9 cm Doppler Measurements & Calculations Ao V2 max: 347.7 cm/sec LVOT Max Patrick: 81.8 cm/sec Ao V2 mean: 262.6 cm/sec LV V1 max P.7 mmHg Ao max P.5 mmHg LV V1 VTI: 15.7 cm Ao mean P.0 mmHg DARIO(I,D): 0.70 cm2 Ao V2 VTI: 72.1 cm DARIO(V,D): 0.75 cm2 sev ratio: 0.22 DARIO indexed to BSA (cm^2/m^2): 0.33 SV(LVOT): 50.4 ml echo 11/08/24: Radiologist Impression: [address] [address] Echocardiography Report Signed Patient: Luis Miguel Higginbotham MR#: [id number] : 1940 Acct:[id number] Age/Sex: 84 / M Date of Service: 11/08/24 Loc: AC 207-1 Accession Number: [id number] Procedure: EC echo complete with contrast Ordering Provider: Dino Jean D.O. [place] +---------+ [facility] : : [address] [place] [address]. : : [place], [place] : : [address] : : Phone: [phone] Echocardiogram Report + + :Name: LUIS MIGUEL HIGGINBOTHAM Study Date: 11/09/2024 Height: 71 in : :[facility] ReadingLocation: Weight: 231 lb : : Gender: Male BSA: 2.2 m2 : :: 1940 Age: 84 yrs BP: 110/62 mmHg: :Reason For Study: HYPOTENSION, ATRIAL FIBRILLATION : :Ordering Physician: DOMINGO, : :DINO DODSON Performed By: Joseph Robbins : :Referring: DINO JEAN : + + Interpretation Summary The study quality was technically difficult. The patient was in atrial fibrillation with heart rates between 92-118 bpm during the exam. Left ventricular ejection fraction is estimated to be 50 +/- 5%. Diastolic function could not be accurately assessed due to atrial fibrillation. The right ventricle grossly appears normal in size with probable normal systolic function. There is severe aortic stenosis. There is mild tricuspid regurgitation. The right ventricular systolic pressure is estimated to be at least 63 mmHg based on an estimated right atrial pressure of 15 mm Hg. Procedure: A two-dimensional transthoracic echocardiogram with color flow and Doppler was performed. A contrast injection of Definity was performed to improve assessment of LV function. The study quality was technically difficult. The study quality was technically limited. There is no prior echocardiogram noted for this patient. The patient was in atrial fibrillation with heart rates between 92-118 bpm during the exam. Left Ventricle: The left ventricle is grossly normal size. Left ventricular ejection fraction is estimated to be 50 +/- 5%. Diastolic function could not be accurately assessed due to atrial fibrillation. Right Ventricle: The right ventricle grossly appears normal in size with probable normal systolic function. Atria: The left atrial size is normal. Right atrial size is normal. There is no Doppler evidence for an interatrial shunt. Mitral Valve: There is mild to moderate mitral annular calcification. The mitral valve leaflets are moderately calcified. There is trace mitral regurgitation. Aortic Valve: The aortic valve is severely calcified. There is severe aortic stenosis. The peak aortic velocity is 3.93 m/sec. The aortic valve mean gradient is 40 mmHg. The dimensionless index is 0.23. No aortic regurgitation is present. Tricuspid Valve: The tricuspid valve is normal in structure and function. There is mild tricuspid regurgitation. The right ventricular systolic pressure is estimated to be at least 63 mmHg based on an estimated right atrial pressure of 15 mm Hg. Pulmonic Valve: The pulmonic valve is not well visualized. There is no pulmonic valvular regurgitation. Great Vessels: The aortic root is not well visualized. The ascending aorta could not be visualized. The pulmonary is not well visualized. The IVC is dilated (diameter is greater than 2.1 cm) and it collapses less than 50% with a sniff. This suggests a high right atrial pressure of 15 mm Hg. Pericardium/ Pleura There is no pericardial effusion. MMode/2D Measurements & Calculations LVOT diam: 1.9 cm LA A2 area: 19.6 cm2 LA A4 area: 22.8 cm2 LA length (vol): 6.2 cm LA vol: 60.6 ml LA vol index: 27.0 ml/m2 RA long axis: 4.8 cm RVD1 (basal): 3.0 cm RA area: 16.0 cm2 RVD2 (mid): 2.0 cm RA vol: 45.8 ml TAPSE: 1.8 cm RA : 20.4 ml/m2 IVC diam: 2.3 cm Doppler Measurements & Calculations Ao V2 max: 393.3 cm/sec LVOT Max Patrick: 90.1 cm/sec Ao V2 mean: 301.3 cm/sec LV V1 max P.2 mmHg Ao max P.9 mmHg LV V1 VTI: 18.5 cm Ao mean P.7 mmHg DARIO(I,D): 0.57 cm2 Ao V2 VTI: 92.9 cm DARIO(V,D): 0.65 cm2 sev ratio: 0.20 DARIO indexed to BSA (cm^2/m^2): 0.25 MV E max patrick: 122.7 cm/sec TR max patrick: 347.0 cm/sec MV A max patrick: 40.2 cm/sec TR max P.2 mmHg MV E/A: 3.1 PA V2 max: 92.7 cm/sec Med Peak E' Patrick: 5.1 cm/sec PA V2 mean: 57.7 cm/sec E/E' med: 23.9 PA mean P.6 mmHg Lat Peak E' Patrick: 5.2 cm/sec PA pr(Accel): 31.0 mmHg E/E' lat: 23.5 E/e' average: 23.7 MV dec time: 0.14 sec SV(LVOT): 52.5 ml Reading Physician:04:19 PM MDM Narrative Medical decision making narrative: 84-year-old male with generalized weakness unable to walk, had been walking and living at home, history of dementia. Afebrile, sirs screen negative. History of atrial fibrillation on Pradaxa anticoagulation, no obvious recent head injury known. CT head, EKG, labs pending. EKG with atrial fibrillation, known, no significant rapid rate. Electrolytes unremarkable. Urinalysis not obviously infected. CT head no acute changes. See radiology report. Chest x-ray no acute changes. See radiology report. COVID flu RSV swab negative. Unclear etiology of patient's generalized weakness, does not seem to be obviously infected. Patient had previously been at [facility], now with home health living with , consider group home placement. cannot move him, difficult for her to care for him. They would like physical therapy assessment, ordered for later this morning when available. 0700, PT and EXCHANGE CONSULTANT consults pending, signed out to Dr Waters. DR. Waters patient signed out to me by Dr. Yun. He is seen evaluated patient myself. Awaiting for social work and PT evaluation for placement. No clear indication for admission at this time. Patient evaluated by physical therapy unable to stand unassisted. He does get mildly orthostatic with physical therapy I he was given a 500 cc bolus. Social work evaluated patient he actually has upcoming appointment with Cardiology wanted a repeat outpatient echo concern that aortic stenosis maybe getting worse. Records have been reviewed was admitted here 11/08/2024, during that time he had borderline hypotension weakness some mild hypoxia. Discharged home on 11/12/2024, with diagnosis of sepsis metabolic encephalopathy aspiration pneumonia had severe aortic stenosis on echo was ultimately discharged to [facility] and he has only been home for a week and a half. reports increasing weakness and inability to care for him at home. Today in the ED he continues to have weakness with borderline hypotension. He does get hypoxic at times but this seems to be when he was sleeping. Dr. Jean consulted, at this time it is recommended that patient be transferred for severe aortic stenosis and valve replacement. He has been admitted here handful times has variable blood pressures thought that his aortic valve is worse and likely causing his problems. Repeat echo shows persistent aortic stenosis Spoke with family about transfer for valve replacement they agree 16:09Dr. Yun from [facility] patient is preapproved to go anywhere needed [address] [facility] cardiology updated patient's symptoms test results states that unlikely all of patient's symptoms are caused from the valve but happy to have patient transferred admitted to Medicine and he will consult 1742 Dr. Martinez, kindly accepts patient Discharge Plan Departure Patient Disposition: [facility] Clinical Impression: Generalized weakness, History of dementia, Aortic stenosis Prescriptions: No Action tramadol 50 mg Tablet 50 mg PO TID PRN (Reason: Pain, Moderate (4-6)) Qty: 15 0RF tamsulosin 0.4 mg capsule 0.8 mg PO BEDTIME dabigatran etexilate [Pradaxa] 150 mg capsule 150 mg PO BID Humulin 70/30 U-100 Insulin 100 unit/mL (70-30) Suspension 12 unit SUBCUT BEDTIME Qty: 10 0RF Patient Comments: usually around 9pm Humulin 70/30 U-100 Insulin 100 unit/mL (70-30) Suspension 14 unit SUBCUT DAILY Qty: 10 0RF Rx Instructions: usually around 930 am cholecalciferol (vitamin D3) 2,000 unit capsule 4,000 unit PO BID (DME) Respirioncs Dreamstation 2 CPAP See Rx Instructions Qty: 1 Dose Instruction: As directed Patient Comments: Pressure: 15-19 cmH2O DME: [facility] Rx Instructions: Pressure: 15-19 cmH2O DME: [facility] coenzyme Q10 75 mg capsule 300 mg PO DAILY Referrals: Zandra Chou PA-C [Primary Care Provider] -
[2024-12-09 23:45] LABS: Bacteria Urine None Seen; Culture Indicated Urine Cult Not Indicated; RBC Urine None Seen (0-5/HPF); Squamous Epithelial Cell Urine 0-1 /HPF (0-5/HPF); Urine Volume 10mL (spun); WBC Urine None Seen (0-5/HPF)
[2024-12-09 23:48] LABS: Alanine Aminotransferase 20 IU/L (<50); Albumin 4.1 g/dL (3.5-5.0); Albumin Globulin Ratio 1.1 (1.0-2.8); Alkaline Phosphatase 127 U/L (38-126); Aspartate Aminotransferase 32 IU/L (17-59); BUN Creatinine Ratio 17.9 (6-22); Bilirubin Total 0.6 mg/dL (0.2-1.3); Blood Urea Nitrogen 15 mg/dL (9-20); Calcium 9.5 mg/dL (8.4-10.2); Carbon Dioxide 29 mmol/L (22-32); Chloride 100 mmol/L (98-107); Creatine Kinase 71 U/L (55-170); Estimated Glomerular Filt Rate > 60 mL/min (>60); Globulin 3.8 g/dL (1.7-4.1); Glucose 142 mg/dL (70-99); HEMOLYSIS < 15 (0-50); Lipase 48 U/L (23-300); Potassium 4.1 mmol/L (3.4-5.1); Sodium 137 mmol/L (137-145); Total Protein 7.9 g/dL (6.3-8.2)
[2024-12-09] MEDS: SODIUM CHLORIDE 0.9% 1,000 ML 500 ML IV (23:57)
--- NOTE | 2024-12-09 23:58 | DI.CT.S_ITS ---
PROCEDURE: CT HEAD/BRAIN WO CON INDICATIONS: weakness, age 84, on pradaxa, hx Afib TECHNIQUE: Noncontrast 4.5 mm thick angled axial sections acquired from the foramen magnum to the vertex, with coronal and sagittal reformats. For radiation dose reduction, the following was used: automated exposure control, adjustment of mA and/or kV according to patient size. COMPARISON: [facility], CT, CT HEAD/BRAIN WO CON, 11/05/2024, 0:34. FINDINGS: Image quality: Diagnostic. CSF spaces: Basal cisterns are patent. No extra-axial fluid collections. Ventricles are normal in size and shape. Brain: No midline shift. 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 No intracranial mass effect or hemorrhage. No area of hypodensity in a large vascular distribution to suggest acute infarction. Periventricular hypodensity consistent with chronic microvascular ischemic change. Age-related parenchymal loss. Skull and face: Calvarium and visualized facial bones are intact, without suspicious lesions. Sinuses: Secretions in the sphenoid sinus. Paranasal sinuses are otherwise clear. Mastoids are clear. IMPRESSION: No acute intracranial pathology identified. Dictated by: Jordan Jiang M.D. on 12/10/2024 at 0:58 Approved by: Jordan Jiang M.D. on 12/10/2024 at 1:03
[2024-12-10] VITALS (198 sets, daily range): BP systolic 83–141; BP diastolic 45–69; PULSE 77–112; RESP 12–36; O2SAT 86–99
[2024-12-10] LABS: Troponin I < 0.012 ng/mL (0.01-0.034)
[2024-12-10 02:18] LABS: COVID-19 CEPHEID 4-PLEX PCR Negative (Negative); Influenza A - CEPHEID Flu A NEGATIVE (NEGATIVE); Influenza B - CEPHEID Flu B NEGATIVE (NEGATIVE); Respiratory Syncytial Virus Negative (Negative)
[2024-12-10] MEDS: METOPROLOL TARTRATE 5 MG/5 ML INJ IV (04:10)
[2024-12-10] MEDS: SODIUM CHLORIDE 0.9% 500 ML 1000 ML IV (10:13)
--- NOTE | 2024-12-10 10:14 | PT.IIE ---
Surgical History (Last Reviewed 11/11/24 @ 07:33 by Victoriano Peña MD) History of colonoscopy History of vasectomy Medical History (Last Reviewed 11/11/24 @ 07:33 by Victoriano Peña MD) A-fib Aortic stenosis Arthritis Cataracts, bilateral Depression Diabetes Hearing impaired HLD (hyperlipidemia) Idiopathic hypersomnia with long sleep time Intermittent claudication Mild cognitive impairment with memory loss (~11/23/18) Numbness and tingling of both feet Obesity (BMI 30-39.9) Obstructive sleep apnea of adult Right hip pain Tooth infection (~09/2017) Physical Therapy Inpatient Evaluation/Re-Eval M1 PT/OT-IP Prior Functional Status Start: 12/10/24 09:26 Freq: Status: Active Protocol: Document 12/10/24 09:33 MB (Rec: 12/10/24 10:14 MB Desktop) Medical Review Prior Functional Status Medical History Reviewed Yes Communication Unsure baseline diet Mobility and Gait Unsure baseline mobility and pt cannot answer questions, when RW placed in front of him and asked if he uses a walker at home, he states, yes Activities of Daily Living and IADL's Pt is unable to report baseline ADLs Social History Household Members spouse Additional Social History Comment Pt is unable to answer any PLOF and home set-up questions M2 PT-IP Current Condition Start: 12/10/24 09:26 Freq: Status: Active Protocol: Document 12/10/24 09:33 MB (Rec: 12/10/24 10:14 MB Desktop) Physical Therapy Current Condition Current Condition Evaluation Date 12/10/24 Treatment Diagnosis Weakness, history dementia and aortic stenosis M3 PT-IP Subjective Start: 12/10/24 09:26 Freq: Status: Active Protocol: Document 12/10/24 09:33 MB (Rec: 12/10/24 10:14 MB Desktop) Subjective Physical Therapy Visit Type Type Initial Evaluation Visit Start Time 09:33 Visit Stop Time 09:43 Number of KICK PRESS OPERATOR Visits 0 Physical Therapy Visit Comments Patient Comments Pt does not answer many questions, is agreeable to PT, has trouble following commands Therapy Pain Assessment Pain When Pain Assessed During Mobility Pain Present Pain Present Pain Reported Location Back Scale Used Unable to rate M4 PT-IP Mobility and Gait Start: 12/10/24 09:26 Freq: Status: Active Protocol: Document 12/10/24 09:33 MB (Rec: 12/10/24 10:14 MB Desktop) PT-Bed Mobility Assessment Rolling Type of Rolling Roll to Right Level of Assist Minimal Assistance Supine to Sit Supine to Sit Maximum Assistance,1 Person Assistance,Head of Bed Elevated Sit to Supine Sit to Supine Minimal Assistance,1 Person Assistance,Bedrails Scooting Scooting to Edge of Bed Minimal Assistance PT-Transfer Assessment Sit to and From Stand Sit to and from Stand Minimal Assistance,1 Person Assistance,Use of Upper Extremities Equipment Transfer Assistive Device Gait Belt,Front Wheeled Walker Transfers Transfer Destination Bed Transfer Technique Right side step Transfer Ability Level of Assist Minimal Assistance,1 Person Assistance,Use of Upper Extremities Comments Mobility Comments Pt has trouble following commands to keep arm still for orthostatic check. BP and HR in RUE: hook lying 111/56; sitting 124/64; standing 101/ 56, 98 and HR increases to 106 -122 BPM on monitor Gait Assessment Gait Gait Assistance Required: Moderate Assistance,1 Person Assist Distance (Feet) 2 Able to Maintain Weight Bearing Status Yes During Gait Assistive Devices Assistive Device Gait Belt,Front Wheeled Walker Gait Deviations General Gait Pattern Decreased Stride Length, Decreased Feet Clearance, Flexed Trunk,Step-to Gait,Wide Based Gait Factors Limiting Gait Function Factors Limiting Gait Function Decreased Activity Tolerance, Decreased Strength,Difficulty Following Directions, Incoordination,Limited Range of Motion,Pain,Poor Balance, Poor Safety Awareness Comments Gait Comments Right side stepping up to head of rney PT-Balance Assessment Sitting Balance and Reactions Static Sitting Balance Ability Good Dynamic Sitting Balance Ability Fair Standing Balance and Reactions Static Standing Balance Ability Fair Dynamic Standing Balance Ability Fair Device Used RW M5 PT-IP Objective Assessments Start: 12/10/24 09:26 Freq: Status: Active Protocol: Document 12/10/24 09:33 MB (Rec: 12/10/24 10:14 MB Desktop) Orientation Orientation/Cognition Level of Alertness Confusional State Orientation Name,Birthday Safety Awareness Decreased Safety Awareness Memory Description Short Term Impaired,Shelter Impaired Gross Range of Motion Upper Extremity ROM Impairments Does not follow commands, functional Lower Extremity ROM Impairments Does not follow commands, functional Strength Comments Strength Comments Does not follow commands for MMT Coordination Assessment Assessment Coordination Comments NT Sensation Assessment Comments Sensation Comments NT M7 PT-IP Assessment and Plan Start: 12/10/24 09:26 Freq: Status: Active Protocol: Document 12/10/24 09:33 MB (Rec: 12/10/24 10:14 MB Desktop) PT Summary Assessment and Plan Potential Rehabilitation Potential Fair Status of Condition at Evaluation Evolving Summary Impairments Pain,Strength,Balance, Coordination,Cognition,Bed Mobility,Transfers,Gait, Activity Tolerance Assessment Summary Pt is an 84 y/o male with history of dementia and aortic stenosis who is adm with weakness. Pt is orthostatic on assessment. Pt cannot answer all orientation questions or provide information about baseline. He has trouble following commands for mobility. He currently requires min to max A for bed mobility, transfers and side stepping and may benefit from increased assistance and PT at d/c, will currently recommend SNF. Goals Bed Mobility Goal Standby Assistance Transfer Goal Standby Assistance,Front Wheeled Walker Gait Goal Standby Assistance,Front Wheel Walker Gait Distance 75 Days to Meet Goals 5 Frequency of Treatment Frequency Of Treatment Once a Day Treatment Plan Physical Therapy Treatment Plan Bed Mobility Training,Transfer Training,Gait Training, Therapeutic Exercise,Balance Retraining,Discharge Planning, Hot or Cold Pack,Neuromuscular Re-ed,Coordination Retraining ,Manual Therapy Precautions Other Precautions Fall risk, orthostatic on eval Recommendations To Nursing Amount of Assist Needed 2 Person Assist Discharge Recommendations PT Discharge Recommendations SNF Rehab Transportation Needs at Discharge Private Vehicle - PT assist x1-2
--- NOTE | 2024-12-10 11:42 | DI.ECHO.S_ITS ---
[place] [facility]---------+ [facility] : : [address] : : [place] : : [address] : : Phone: [phone] Echocardiogram Report + + :Name: CALVIN HIGGINBOTHAM Study Date: 12/10/2024 Height: 69 in : :[facility] ReadingLocation: Weight: 212 lb : : Gender: Male BSA: 2.1 m2 : :: 1940 Age: 84 yrs BP: 121/60 mmHg: :Reason For Study: Aortic stenosis : : Performed By: Tee Madison : :Referring: CHARLEY KANG : + + Interpretation Summary The left ventricle is normal in size. Left ventricular systolic function is probably normal. The ejection fraction is estimated to be 55-60%. There is severe aortic stenosis. The calculated aortic valve area is 0.75 cm2. No significant change since prior study. Procedure: A two-dimensional transthoracic echocardiogram with color flow and Doppler was performed in limited views only to assess Aortic stenosis, LV function. The study quality was technically difficult. Comparison is made with the echocardiogram of 11/09/2024. A contrast injection of Definity was performed to improve assessment of LV function. The patient was in atrial fibrillation with heart rates between 75-91 bpm during the exam. Left Ventricle: The left ventricle is normal in size. There is no thrombus. Left ventricular systolic function is probably normal. The ejection fraction is estimated to be 55-60%. Right Ventricle: The right ventricular systolic function is normal. Aortic Valve: The aortic valve is trileaflet. There is severe aortic valve sclerosis. There is severe aortic stenosis. The calculated aortic valve area is 0.75 cm2. The aortic valve mean gradient is 31 mmHg. The dimensionless index is 0.23. Pericardium/ Pleura There is no pericardial effusion. MMode/2D Measurements & Calculations LVIDd: 4.5 cm LVOT diam: 2.0 cm LVIDs: 2.9 cm Ao root diam: 3.4 cm FS: 35.0 % asc Aorta Diam: 3.1 cm IVSd: 0.98 cm LVPWd: 0.96 cm LV salmon. diameter/BSA (cm/m^2): 2.1 LV sys. diameter/BSA (cm/m^2): 1.4 TAPSE: 1.9 cm Doppler Measurements & Calculations Ao V2 max: 347.7 cm/sec LVOT Max Patrick: 81.8 cm/sec Ao V2 mean: 262.6 cm/sec LV V1 max P.7 mmHg Ao max P.5 mmHg LV V1 VTI: 15.7 cm Ao mean P.0 mmHg DARIO(I,D): 0.70 cm2 Ao V2 VTI: 72.1 cm DARIO(V,D): 0.75 cm2 sev ratio: 0.22 DARIO indexed to BSA (cm^2/m^2): 0.33 SV(LVOT): 50.4 ml Reading Physician:02:57 PM
--- NOTE | 2024-12-10 12:35 | CM.DANOTE ---
ED HANGER OFF DCP Assessment Note: Pt is a 84yo male, resident of [place], is seen in the ED for weakness. Patient has a hx of dementia and aortic stenosis. Pt lives in a house with his , Rosa, and their granddaughter and her granddaughter's family. Pt's Primary Care Provider is Mariluz Pablo PA-C and insurance is [facility]. Reviewed chart and discussed with multidisciplinary team pt's medical status and initial discharge needs. Per PT, patient is orthostatic and currently a 2 person assist; they are recommending SNF Rehab. ED HANGER OFF met w/patient at bedside; introduced self and role. Patient was found in bed, awake and very hard of hearing, cooperative with assessment; deferred to being primary historian. Pt confirmed that patient was admitted at [facility] last month (11/05/24-11/07/24 and again on 11/08/24-11/12/24). After that second admission, patient was discharged to [facility]. Per , patient was there for approximately 3 weeks; he was discharged from [facility] on 11/30/24. [facility] was initiated and pt was able to start services on 12/03/24. Patient explains patient's care team (PCP, Pediatric Pathologist, and previous hospitalist) were monitoring pt's aortic stenosis and as a possible cause for his weakness and fatigue vs. dementia related symptoms. Per , pt has a Cardiology appointment with Dr. Kamaljit Ansari on Tuesday, 12/07. ED HANGER OFF discusses plan of care and PT recommendations with pt . Per , although there are family members in the home, they are not there 07/03 to assist with pt especially if he is not able to transfer or ambulate on his own. Patient explains [facility] has been discussed in the past but there are no resources at this time to pay privately. ED HANGER OFF provided Application for aged, blind, disabled/long-term care coverage to pt and reviewed application process for assisted living placement or in-home care programs. to complete application, HANGER OFF to assist with submission via fax. ED HANGER OFF sent initial referral to [facility] to inquire about remaining Medicare SNF days, HANGER OFF notified [facility] of pt ED presentation. ED HANGER OFF reviews above with ED Provider, Dr. Waters, who will order an echocardiogram for further work up. Plan: Monitoring ED work up for recommendation for evolving discharge plans. CM team will follow closely for coordination of discharge plans. Zoya Carpenter [facility] Discharge Planning/Care Management CM Discharge Assessment Start: 12/10/24 12:22 Freq: Status: Active Protocol: Document 12/10/24 12:22 MW (Rec: 12/10/24 12:32 MW [id number]) Discharge Planning Assessment Assigned Bead Stringer CANDIE Kenny DPOA/Assigned Designee Name Rosa, Spouse Contact Information [phone] Advance Directives? Yes Advance Directives on File No History Provided By Patient,Significant Other, Medical Record Has Patient been admitted in last 30 Yes days? Comment 11/05/24-11/07/24 Readmit 11/08/24-11/12/24 Prior Living Arrangements House Household Members spouse,family Comment Spouse, granddaughter and her family Type of transporation used prior to Relies on Others admit Independent with ADL's No Is patient alert and oriented? No: Hx of Dementia Caregiver for Another No Community Services used prior to Home Health Aid,Home Health admission: Nurse Comment [facility] Comment sock grabber, grab bars near toilet Patient/Family Preference LTAC Barriers to Discharge Yes Comment No resources for detention Memory care, starting LTC Medicaid application [facility]charge Plan [facility] Referrals Initiated Medicaid Application If patient plan is SNF: Has PASSR been Yes completed? Review Status In Process Please Provide Date Initial DC 12/10/24 Assessment Was Performed Next Review Type Continued Stay Review
[2024-12-10 14:00] LABS: Add Manual Diff / Slide Review NO; Basophils Absolute Auto 100 /uL (0-100); Basophils Percent Auto 0.7 % (0-2); Eosinophils Absolute Auto 100 /uL (0-450); Eosinophils Percent Auto 1.4 % (2-4); Hematocrit 33.4 % (41-53); Hemoglobin 11.1 g/dL (13.5-17.5); Lymphocytes Absolute Auto 1100 /uL (1100-4500); Lymphocytes Percent Auto 14.7 % (25-40); Mean Corpuscular HGB Conc 33.3 % (30-36); Mean Corpuscular Hemoglobin 27.1 PG (26-34); Mean Corpuscular Volume 81.3 fL (80-100); Monocytes Absolute Auto 1100 /uL (0-900); Monocytes Percent Auto 13.7 % (3-14); Neutrophils Absolute Auto 5400 /uL (1500-7000); Neutrophils Percent Auto 69.5 % (50-75); Platelet Count 175 X10^3/uL (150-400); Red Cell Distribution Width 15.3 % (11.6-14.8); White Blood Cell Count 7.8 X10^3/uL (4.5-11.0)
[2024-12-10 14:12] LABS: Alanine Aminotransferase 18 IU/L (<50); Albumin 3.4 g/dL (3.5-5.0); Albumin Globulin Ratio 1.1 (1.0-2.8); Alkaline Phosphatase 105 U/L (38-126); Aspartate Aminotransferase 27 IU/L (17-59); BUN Creatinine Ratio 17.5 (6-22); Bilirubin Total 0.7 mg/dL (0.2-1.3); Blood Urea Nitrogen 14 mg/dL (9-20); Calcium 8.4 mg/dL (8.4-10.2); Carbon Dioxide 24 mmol/L (22-32); Chloride 103 mmol/L (98-107); Creatine Kinase 58 U/L (55-170); Estimated Glomerular Filt Rate > 60 mL/min (>60); Globulin 3.1 g/dL (1.7-4.1); Glucose 209 mg/dL (70-99); HEMOLYSIS < 15 (0-50); Potassium 3.8 mmol/L (3.4-5.1); Sodium 135 mmol/L (137-145); Total Protein 6.5 g/dL (6.3-8.2)
[2024-12-10 14:13] LABS: Lactate (Lactic Acid) 1.2 mmol/L (0.7-2.1)
[2024-12-10 14:24] LABS: Troponin I < 0.012 ng/mL (0.01-0.034)
--- NOTE | 2024-12-10 15:34 | PC.NURSE ---
1230-patient is hypotensive during Echo down into the 80's systolic, Dr Waters verbal orders 500ml bolus of NS
--- NOTE | 2024-12-10 16:09 | PC.NURSE ---
COPIER OPERATOR Note: [place] contacted to approval to transfer for services. Dr. Orion Yun approved transfer for patient at 1605.
[2024-12-10 18:45] LABS: Thyroid Stimulating Hormone 0.634 uIU/mL (0.47-4.68)
--- NOTE | 2024-12-10 19:29 | CM.SWNOTE ---
ED EDUCATION PROGRAM COORDINATOR Note: [facility] Admissions state they can accept pt pending insurance authorization on Tuesday, 12/12. Clinicals sent to [facility] case coordinator for SNF authorization via fax. It is reported pt has been accepted for transfer at [facility] for cardiology, pending bed assignment before transport arrangement. ED EDUCATION PROGRAM COORDINATOR notified [facility] Admissions and [facility] via secure email of plans for transfer. ANDREW Mcgarry
[2024-12-11] VITALS (91 sets, daily range): BP systolic 89–124; BP diastolic 50–89; PULSE 95–117; RESP 12–33; O2SAT 89–99
--- NOTE | 2024-12-11 00:25 | PC.NURSE ---
Addendum entered by Chastity Mojica CNA 12/11/24 06:28: EDWIN note: Called [facility] at 0625 for a follow up. Spoke with Coral, admin supervisor composing room; she said that they're waiting for discharges and as soon as they get one they will call us. Thanked Coral for her help. Let eyeglass assembler, Ann Mathis, and Dr. Yun know the update. Original Note: EDWIN note: Attempting to transfer patient to [facility]. Called at 1944 and spoke to rae Whitehead, at [place]. Patient is accepted at the hospital, but currently no beds. I spoke to patient's , who asked for an update, and gave her the best update I had. She asked to be called with any other information, but she needed to go home and sleep. We made sure we had her phone number and she spoke to Kortney SPENCER before she left. I explained what's going on with Dr. Yun and Ann Mathis RN, charge nurse.
[2024-12-11 09:29] LABS: Add Manual Diff / Slide Review NO; Basophils Absolute Auto 0 /uL (0-100); Basophils Percent Auto 0.4 % (0-2); Eosinophils Absolute Auto 100 /uL (0-450); Hematocrit 36.6 % (41-53); Hemoglobin 12.2 g/dL (13.5-17.5); Lymphocytes Absolute Auto 1100 /uL (1100-4500); Lymphocytes Percent Auto 10.7 % (25-40); Mean Corpuscular HGB Conc 33.5 % (30-36); Mean Corpuscular Volume 80.7 fL (80-100); Monocytes Absolute Auto 1300 /uL (0-900); Monocytes Percent Auto 12.6 % (3-14); Neutrophils Absolute Auto 7500 /uL (1500-7000); Neutrophils Percent Auto 75.3 % (50-75); Platelet Count 199 X10^3/uL (150-400); Red Blood Cell Count 4.53 X10^6/uL (4.5-5.9); Red Cell Distribution Width 15.4 % (11.6-14.8)
[2024-12-11 09:50] LABS: Alanine Aminotransferase 19 IU/L (<50); Albumin 3.9 g/dL (3.5-5.0); Albumin Globulin Ratio 1.1 (1.0-2.8); Alkaline Phosphatase 129 U/L (38-126); Aspartate Aminotransferase 26 IU/L (17-59); BUN Creatinine Ratio 13.6 (6-22); Bilirubin Total 1.1 mg/dL (0.2-1.3); Blood Urea Nitrogen 12 mg/dL (9-20); Carbon Dioxide 26 mmol/L (22-32); Chloride 100 mmol/L (98-107); Estimated Glomerular Filt Rate > 60 mL/min (>60); Globulin 3.7 g/dL (1.7-4.1); Glucose 176 mg/dL (70-99); HEMOLYSIS < 15 (0-50); Potassium 4.1 mmol/L (3.4-5.1); Sodium 136 mmol/L (137-145); Total Protein 7.6 g/dL (6.3-8.2)
--- NOTE | 2024-12-11 10:09 | PC.NURSE ---
Pt transferred to hospital bed, changed into hospital gown & SCD's placed bilaterally on calves. Heels floated. Brief changed, katelynn care performed and barrier cream applied to creases in legs/groin area as skin appeared red and raw. Stage 1 non-blanchable redness observed on intact skin of coccyx. Barrier cream applied to area and pt tipped to left side and pillow between legs for padding. Pt declined breakfast tray from dietary. BG 185 and pt given water and ensure due to lack of appropriate PO intake while in ED. Pt answers all questions appropriately and follows commands. Able to assist with movements in bed. C/o back pain with movement. Dr Peraza updated on pt status. No new orders at this time.
--- NOTE | 2024-12-11 11:33 | PT-IP ANOTE ---
Talked to case repairer and stated that pt will be transferring to [facility] pending bed availability for higher level of care. will dc PT.
--- NOTE | 2024-12-11 11:37 | PT.IPTN ---
Physical Therapy Treatment Note M2 PT-IP Current Condition Start: 12/10/24 09:26 Freq: Status: Active Protocol: Document 12/10/24 09:33 MB (Rec: 12/10/24 10:14 MB Desktop) Physical Therapy Current Condition Current Condition Evaluation Date 12/10/24 Treatment Diagnosis Weakness, history dementia and aortic stenosis M3 PT-IP Subjective Start: 12/10/24 09:26 Freq: Status: Active Protocol: Document 12/11/24 11:35 AB (Rec: 12/11/24 11:35 AB [id number]) Subjective Physical Therapy Visit Type Type Administrative Note Notes pt will be transferring to [facility] for higher PT Summary Assessment and Plan Frequency of Treatment Frequency Of Treatment Discharge
== END 2024-12-11 17:40 | disposition short-term general hospital (02) ==
PROVIDERS: Emergency Medicine; Emergency Provider Family Medicine; PCP Physician Assistant
DX: R53.1 Weakness (principal); I35.0 Nonrheumatic aortic (valve) stenosis; F03.90 Unspecified dementia, unspecified severity, without behavioral disturbance, psychotic disturbance, mood disturbance, and anxiety; I48.91 Unspecified atrial fibrillation; Z79.01 Long term (current) use of anticoagulants; R07.9 Chest pain, unspecified
CPT/HCPCS: 0241U; 36415; 70450; 71045; 80053; 81001; 82550; 82962; 83605; 83690; 83735; 84443; 84484; 85025; 87040; 93005; 93307; 96361; 96374; 97161; 99284; Q9957